=== PATIENT | female | born 1950 | race Caucasian/White ===

== ENCOUNTER → 2019-08-06 | Outpatient (REF) | payer OTHER | LOC: M SFHCADAM 15:34 | PROVIDERS: ATTEND Family Medicine | DX: R10.9 Unspecified abdominal pain (principal); I10 Essential (primary) hypertension ==

== ENCOUNTER → 2019-08-06 | Outpatient (CLI) | payer OTHER, BC ==
--- NOTE | 2019-08-07 04:44 | REP ---
Clinical: Right hip pain. Technique: Neutral and frog lateral views of the right hip. Findings: Mild/early moderate joint space narrowing is appreciated. The examination is otherwise essentially age-appropriate and without further overt osteoarthritic degenerative findings. No evidence for acute or healed injury. Surrounding soft tissues are unremarkable. Impression: Mild/moderate joint space narrowing. Electronically Signed by Raul Interiano MD 08/07/2019 04:35 A
--- NOTE | 2019-08-07 04:49 | REP ---
Clinical: Right hip pain. Technique: AP, lateral, bilateral oblique and coned-down views of the lumbosacral spine. Findings: Frontal view suggests a very subtle chronic levoconvex scoliosis. Lateral and oblique views best demonstrate mild/early moderate multilevel degenerative changes including endplate sclerosis, very subtle spurring, and hypertrophic facet changes. Findings also include mild disc space narrowing at L3-4 through L5-S1. No acute fracture / compression injury or subluxation. Impression: Essentially age-related degenerative changes as noted above. Electronically Signed by Raul Interiano MD 08/07/2019 04:40 A
== END ==
LOC: M ADAMS 14:35
PROVIDERS: ATTEND Family Medicine
DX: M16.11 Unilateral primary osteoarthritis, right hip (principal); M51.36 Other intervertebral disc degeneration, lumbar region; M51.37 Other intervertebral disc degeneration, lumbosacral region; M25.551 Pain in right hip; R10.9 Unspecified abdominal pain; I10 Essential (primary) hypertension
CPT/HCPCS: 72110; 73502; 81002; 87086; G0463

== ENCOUNTER → 2019-08-09 | Outpatient (REF) | payer OTHER ==
[2019-08-09 14:41] LABS: ALBUMIN 2.9 GM/DL (3.2-5.2); ALT/SGPT 20 U/L (12-78); BASO % 0.5 % (0.0-1.0); BILIRUBIN,TOTAL 0.3 MG/DL (0.2-1.0); BLOOD UREA NITROGEN 19 MG/DL (7-18); CALCIUM LEVEL 9.2 MG/DL (8.8-10.2); CARBON DIOXIDE LEVEL 31 MEQ/L (21-32); CHLORIDE LEVEL 104 MEQ/L (98-107); CHOLESTEROL LEVEL 306 MG/DL (<200); CHOLESTEROL RISK RATIO 7.463 (<5); CREATININE FOR GFR 0.81 MG/DL (0.55-1.30); EOS # 0.1 10^3/uL (0.0-0.5); EOS % 1.6 % (0.0-3.0); GLOMERULAR FILTRATION RATE > 60.0 (>45); GLUCOSE, FASTING 92 MG/DL (70-100); HDL CHOLESTEROL 41 MG/DL (>40); HEMATOCRIT 42.5 % (36.0-47.0); HEMOGLOBIN 13.9 g/dl (12.0-15.5); LDL CHOLESTEROL 221 MG/DL (<100); LYMPH % 26.7 % (24.0-44.0); MEAN CORPUSCULAR HEMOGLOBIN 29.7 pg (27.0-33.0); MEAN CORPUSCULAR HGB CONC 32.7 g/dl (32.0-36.5); MEAN CORPUSCULAR VOLUME 90.8 fl (80.0-96.0); MONO # 0.5 10^3/uL (0.0-0.8); MONO % 6.9 % (0.0-5.0); NEUTROPHILS # 4.9 10^3/uL (1.5-8.5); NON-HDL-C 265 MG/DL; PLATELET COUNT, AUTOMATED 168 10^3/uL (150-450); POTASSIUM SERUM 4.6 MEQ/L (3.5-5.1); RED BLOOD COUNT 4.68 10^6/uL (4.00-5.40); SODIUM LEVEL 139 MEQ/L (136-145); TOTAL PROTEIN 6.8 GM/DL (6.4-8.2); TRIGLYCERIDES LEVEL 221 MG/DL (<150); WHITE BLOOD COUNT 7.6 10^3/uL (4.0-10.0)
== END ==
LOC: M SFHCADAM 11:19
PROVIDERS: ATTEND Internal Medicine Infectious Disease
DX: M25.551 Pain in right hip (principal); R10.9 Unspecified abdominal pain; I10 Essential (primary) hypertension

== ENCOUNTER → 2019-08-14 | Outpatient (CLI) | payer OTHER ==
--- NOTE | 2019-08-15 07:03 | REP ---
Clinical: Left flank pain. Technique: Axial noncontrast images from the lung bases to the pubic symphysis with coronal and sagittal re-formations. Comparison: None. Findings: Lung bases demonstrate minimal scarring at the lingula and right middle lobe. Liver, spleen, pancreas, gallbladder, bilateral adrenal glands and kidneys are normal for noncontrast evaluation. No perinephric stranding, hydroureteronephrosis, intrarenal or obstructing ureteral calculi are identified. The enteric system is without obstruction or acute inflammatory process. Scattered sigmoid diverticula noted without acute diverticulitis. Pelvis demonstrates collapsed normal bladder and evidence for prior hysterectomy. No ascites. No free air. No adenopathy. Abdominal aorta without aneurysm. Musculoskeletal structures demonstrate degenerative changes without focal abnormality. Impression: 1. No acute abdominopelvic pathology appreciated. 2. Normal urinary tract system. 3. Sigmoid diverticula without acute diverticulitis. Electronically Signed by Raul Interiano MD 08/15/2019 06:55 A
== END ==
LOC: M RAD 09:37
PROVIDERS: ATTEND Family Medicine
DX: K57.30 Diverticulosis of large intestine without perforation or abscess without bleeding (principal)

== ENCOUNTER → 2019-08-27 | Outpatient (CLI) | payer OTHER ==
--- NOTE | 2019-08-27 13:23 | REP ---
MRI LUMBAR SPINE WITHOUT CONTRAST: HISTORY: Acute left-sided back pain. Radiating down the left lower extremity. TECHNIQUE: Sagittal and axial T1- and T2-weighted scans are acquired in the usual fashion with and without fat saturation. Sequences include spin echo, turbo spin-echo, and STIR imaging sequences. MRI FINDINGS: Lumbar vertebral body heights are preserved. Alignment is normal. No bony destructive lesion is seen. The tip of the conus medullaris is normal in position and appearance at L1. No extra-vertebral abnormality is observed. Axial and sagittal images taken at L5-S1 demonstrate mild diffuse disc bulging. There is ligamentum flavum and facet hypertrophy, mild in degree. No focal disc protrusion or thecal sac compression is seen. No nerve root compression is seen. At L4-5, there is mild degenerative narrowing and diffuse disc bulging of the disc margin posteriorly. No foraminal narrowing or focal disc protrusion is seen. No spinal stenosis noted. There is mild ligamentum flavum and facet hypertrophy. At L3-4, there is mild degenerative disc narrowing as well. No focal disc protrusion is seen. There is minimal disc bulging on the right. No foraminal narrowing or spinal stenosis is seen. At L2-3, there is no evidence of disc protrusion or spinal stenosis. No foraminal narrowing is seen. At L1-2, there is no significant disc finding. IMPRESSION: Osteoarthritic facet and ligamentum flavum hypertrophy bilaterally at L4-5 and L5-S1. Mild degenerative disc changes with diffuse disc bulging at L4-5 and L5-S1. No focal disc protrusion is seen. No spinal stenosis or foraminal narrowing noted. Electronically Signed by Lazarus Munoz MD 08/27/2019 04:56 P
== END ==
LOC: M RAD 08:51
PROVIDERS: ATTEND Family Medicine
DX: M51.36 Other intervertebral disc degeneration, lumbar region (principal); M51.37 Other intervertebral disc degeneration, lumbosacral region; M54.9 Dorsalgia, unspecified

== ENCOUNTER → 2019-09-04 | Outpatient (REF) | payer OTHER | LOC: M LAB REF 17:24 | PROVIDERS: ATTEND Dermatology | DX: D22.39 Melanocytic nevi of other parts of face (principal) | CPT/HCPCS: 11102; 88305; G0463 ==

== ENCOUNTER → 2019-12-03 | Outpatient (REF) | payer OTHER ==
[2019-12-03 17:19] LABS: ALBUMIN 2.9 GM/DL (3.2-5.2); ALT/SGPT 19 U/L (12-78); BILIRUBIN,TOTAL 0.2 MG/DL (0.2-1.0); BLOOD UREA NITROGEN 28 MG/DL (7-18); CALCIUM LEVEL 8.7 MG/DL (8.8-10.2); CARBON DIOXIDE LEVEL 28 MEQ/L (21-32); CHLORIDE LEVEL 108 MEQ/L (98-107); CREATININE FOR GFR 0.91 MG/DL (0.55-1.30); FREE T4 0.93 NG/DL (0.76-1.46); GLOMERULAR FILTRATION RATE > 60.0 (>45); GLUCOSE, FASTING 78 MG/DL (70-100); POTASSIUM SERUM 4.6 MEQ/L (3.5-5.1); SODIUM LEVEL 142 MEQ/L (136-145); TOTAL PROTEIN 6.7 GM/DL (6.4-8.2)
== END ==
LOC: M LABDRWAD 11:40
PROVIDERS: ATTEND Family Medicine
DX: R63.5 Abnormal weight gain (principal); I10 Essential (primary) hypertension; F32.9 Major depressive disorder, single episode, unspecified
CPT/HCPCS: 36415; 80053; 84439; 84443; G0463

== ENCOUNTER → 2020-01-09 | Outpatient (CLI) | payer OTHER ==
--- NOTE | 2020-01-10 10:10 | ECWPNPC ---
PATIENT NAME: LÁZARO ALARCON : 1950 GENDER: FEMALE VISIT DATE: 01/09/2020 DISCHARGE DATE: 01/09/20 1348 VISIT LOCKED DATE TIME: PHYSICIAN: JAMES CARPIO PHYSICIAN PAGER NO: ACTIVE RESOURCE: JAMES CARPIO REASON FOR APPOINTMENT 1. BACK/HIPS HISTORY OF PRESENT ILLNESS DEPRESSION SCREENING: PHQ-2 (2015 EDITION) LITTLE INTEREST OR PLEASURE IN DOING THINGS?NOT AT ALL FEELING DOWN, DEPRESSED, OR HOPELESS?NOT AT ALL TOTAL SCORE0 69-YEAR-OLD FEMALE IN FOR INITIAL PAIN CONSULT. PATIENT HAS COMPLAINTS OF LOW BACK AND BILATERAL HIP PAIN. SHE RATES HER PAIN CURRENTLY AT A 6 OUT OF 10 AND DESCRIBES IT ACHING, BURNING, INTERMITTENT, AND SORE. WHEN ASKED SHE DENIES HISTORY OF TRAUMA. SHE FURTHER DENIES PROCEDURES AND/OR MEDICATIONS THAT HAVE HELPED TO ALLEVIATE HER SYMPTOMS. SHE DOES ADMIT TO AN RF PROCEDURE THAT WAS DONE ON HER CERVICAL REGION THAT CAUSED HER TO END UP IN THE HOSPITAL AND ON A VENTILATOR. SUCH, THE PATIENT HAS AN AVERSION TO PROCEDURES ON HER NECK. GENERAL: - - -. FALL RISK SCREENING: SCREENING :ONE FALL WITHOUT INJURY IN THE PAST YEAR SLIPPED ON PORCH 3 WEEKS AGO, DID NOT SEEK MEDICAL TREATMET. PAIN SCREENING: PATIENT HAS A COMPLAINT OF ACUTE OR CHRONIC PAIN :YES LOCATION OF PAIN:LOW BACK, LEFT HIP, RIGHT HIP INTENSITY OF PAIN (SCALE OF 1 TO 10):6 WHAT DOES YOUR PAIN FEEL LIKE:ACHING, BURNING, INTERMITTENT, SORE DURATION:ALL DAY, MAINLY DURING THE NIGHT, AWAKENS FROM SLEEP PAIN IS INCREASED BY:ACTIVITIES PAIN IS DECREASED BY:USE OF PAIN MEDICATIONS, OTHERS PT USES BOTH ICE AND HEAT. STATES IT HELPS TO REDUCE PAIN. NURSING NOTE: - - -. PAIN CENTER INTAKE QUESTIONS: DO YOU HAVE A HISTORY OF MRSA? :NO DO YOU TAKE A BLOOD THINNERS? :NO DO YOU HAVE ANY BLEEDING DISORDERS? :NO ANY NEW NUMBNESS OR WEAKNESS IN YOUR LEGS OR ARMS? :NO ANY PACEMAKER,DEFIBRILLATOR, OR DORSAL COLUMN STIMULATOR? :NO DO YOU HAVE ANY RASHES OR OPEN SORES? :NO ARE YOU ALLERGIC TO IV DYE? :NO ARE YOU DIABETIC? :NO ANY NEW PROBLEMS WITH YOUR MEDICATIONS? :NO HAVE YOU RECEIVED A VACCINE IN THE PAST 30 DAYS? :NO DO YOU PLAN TO RECEIVE A VACCINE IN THE NEXT 21 DAYS? :YES PT IS GETTING THE FLU SHOT TOMORROW DO YOU NEED ANY PRESCRIPTION? :NO DO YOU TAKE ANY IMMUNOSUPPRESSIVE MEDICATIONS? 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 NO SPINAL STENOSIS OR FORAMINAL NARROWING. (08/2019) ALLERGIES PENICILLIN (FOR ALLERGIES USE ONLY): HIVES - ALLERGY SURGICAL HISTORY D & C 1975 PARTIAL HYSTERECTOMY 1975 TOTAL HYST 1979 L KNEE FRACTURE REPAIR L KNEE REMOVAL OF SCREWS L KNEE ARTHROSCOPY CAUTERIZATION OF NERVES IN NECK FAMILY HISTORY FATHER: , LUNG CANCER, COPD, DIAGNOSED WITH UNSPECIFIED HEART DISEASE, OTHER MALIGNANT NEOPLASM OF UNSPECIFIED SITE MOTHER: , RENAL FAILURE, DIABETES PATERNAL GRAND FATHER: , BRAIN ANEURYSM PATERNAL GRAND MOTHER: , LUNG CANCER MATERNAL GRAND MOTHER: LIVER FAILURE, DIABETES FATHER LUNG CANCER, MELANOMA FAMILY HX OF PANCREATIC CANCER. SOCIAL HISTORY GENERAL: TOBACCO USE ARE YOU A:FORMER SMOKER QUIT 04/07/2019 HOW LONG HAS IT BEEN SINCE YOU LAST SMOKED?3-6 MONTHS LATEX QUESTIONNAIRE LATEX ALLERGY : HAVE YOU EVER DEVELOPED ANY TYPE OF REACTION AFTER HANDLING LATEX PRODUCTS SUCH RUBBER GLOVES, CONDOMS, DIAPHRAGMS, BALLOONS, SOCKS, OR UNDERWEAR?NO LATEX ALLERGY : HAVE YOU EVER DEVELOPED ANY TYPE OF REACTION DURING OR AFTER DENTAL APPOINTMENT, VAGINAL/RECTAL EXAMINATION, SURGICAL PROCEDURE, OR ANY OTHER EXPOSURE?NO LATEX RISK : HAVE YOU EVER HAD ANY DIFFICULTY BREATHING OR HIVES AFTER EATING OR HANDLING ANY FRUITS, OR VEGETABLES; SUCH KIWI, BANANAS, STONE FRUITS, OR CHESTNUTSNO LATEX RISK : DO YOU HAVE A PREVIOUS PERSONAL HISTORY OF MORE THAN NINE SURGERIES, SPINA BIFIDA, OR REPEATED CATHERIZATIONS? NO LATEX RISK : ARE YOU FREQUENTLY EXPOSED TO LATEX PRODUCTS IN YOUR OCCUPATION?NO DATE ASKED : 01/09/2020 ALCOHOL SCREENING DID YOU HAVE A DRINK CONTAINING ALCOHOL IN THE PAST YEAR?NO POINTS0 INTERPRETATIONNEGATIVE RECREATIONAL DRUG USE DRUG USE?NO LEARNING BARRIERS / SPECIAL NEEDS BARRIERS TO LEARNING?NO HEARING IMPAIRED?NO VISION IMPAIRED?YES :CORRECTIVE LENSES COGNITIVELY IMPAIRED?NO READINESS TO LEARN?YES LEARNING PREFERENCES?NO LEARNING CAPABILITIES PRESENT?YES EMOTIONAL BARRIERS?NO SPECIAL DEVICES?NO QUALITY LAB TECHNICIAN NEEDED?NO DOMESTIC VIOLENCE DO YOU FEEL SAFE IN YOUR ENVIRONMENT?YES OTHERS AT HOME: . PAIN CLINIC PFS, CLERGY, PUBLIC HEALTH REFERRALS HAS THE PATIENT BEEN EDUCATED REGARDING HIS/HER PLAN OF CARE?YES ORIENTED TO PAIN MANAGEMENT AND PLAN OF CARE HAS THE PATIENT BEEN EDUCATED REGARDING PAIN, THE RISK FOR PAIN, THE IMPORTANCE OF EFFECTIVE PAIN MANAGEMENT, AND THE PAIN ASSESSMENT PROCESS?YES ADVANCE DIRECTIVE ADVANCE DIRECTIVE DISCUSSED WITH PATIENT:YES PT DECLINES ASSISTANCE OR INFORMATION AT THIS TIME HOSPITALIZATION/MAJOR DIAGNOSTIC PROCEDURE SURGERY RELATED REVIEW OF SYSTEMS CONSTITUTIONAL: ANY RECENT FEVER NO . CHILLS NO . WEIGHT CHANGE OF UNKNOWN REASONS NO . MUSCULOSKELETAL: ANY UNUSUAL JOINT PAIN OR SWELLING NOT MENTIONED NO . SYSTEMIC LUPUS NO . ANY NEUROMUSCULAR DISORDER NOT MENTIONED NO . LYME DISEASE NO . GASTROENTEROLOGY: ANY NEW CHANGE IN BOWEL CONTROL? NO . HISTORY OF LIVER DISORDER NOT MENTIONED NO . HISTORY OF UNUSUAL ABDOMINAL PAIN OR CRAMPING NOT MENTIONED NO . NO CONSTIPATION. GENITOURINARY: ANY NEW CHANGE IN BLADDER CONTROL? NO . ANY RENAL/KIDNEY CONDITON NOT MENTIONED NO . NEUROLOGY: HISTORY OF TBI NOT MENTIONED NO . OTHER NEW NUMBNESS OR PAIN PATTERNS NOT MENTIONED NO . NEW ONSET DIZZINESS OR NEUROLOGICAL CHANGES NOT MENTIONED NO . HISTORY OF SEVERE HEADACHES NOT MENTIONED NO . HISTORY OF STROKE OR NEUROLOGICAL DISORDER NOT MENTIONED NO . CARDIOLOGY: HEART SURGERY NO . CONGESTIVE HEART FAILURE/FLUID OVERLOAD NOT MENTIONED NO . HISTORY OF CHEST PAIN,IRREGULAR HEART BEAT NOT MENTIONED NO . RESPIRATORY: SHORTNESS OF BREATH ON EXERTION, WHEEZES, UNUSUAL COUGH NOT MENTIONED NO . ENDOCRINOLOGY: ADRENAL GLAND OR THYROID DISORDERS NOT MENTIONED NO . UNUSUAL URINATION, DIZZINESS OR LETHARGY NOT MENTIONED NO . VITAL SIGNS WT 189.6 LBS, HT 62 IN, BMI 34.67 INDEX, BP 153/68 MM HG, HR 63 /MIN, RR 18 /MIN, TEMP 97.0 F, OXYGEN SAT % 95%, NA INITIALS AW 1310, REVIEWED BY: DM. EXAMINATION GENERAL EXAMINATION: GENERALNO ACUTE DISTRESS, WELL NOURISHED AND HYDRATED. PSYCHAPPROPRIATE MOOD AND AFFECT . LUNGS:CLEAR TO AUSCULTATION BILATERALLY, NO WHEEZES, RHONCHI, RALES. HEART:NO MURMURS, REGULAR RATE AND RHYTHM. BACK: BILATERAL SI JOINT TENDERNESS,. MUSCULOSKELETAL:POINT TENDER BILATERAL GREATER TROCHANTERS . 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 GIVEN PRESENTING SYMPTOMS AND RESULTS OF PHYSICAL EXAMINATION RECOMMENDED INCREASING LYRICA TO 75 MG TWICE A DAY WITH FOLLOW-UP IN ONE MONTH TO DETERMINE EFFICACY OF TREATMENT. PATIENT HAS EXPRESSED UNDERSTANDING OF AND WAS IN AGREEMENT WITH TREATMENT PLAN. GIVEN TIME TO ASK QUESTIONS AND EXPRESS CONCERNS. PREVENTIVE MEDICINE PAIN CLINIC TEACHING: THE PATIENT HAS BEEN EDUCATED REGARDING PAIN, THE RISK FOR PAIN, THE IMPORTANCE OF EFFECTIVE PAIN MANAGEMENT, AND THE PAIN ASSESSMENT PROCESS. : REVIEWED INCREASE IN MEDICATION WITH PT AND PLAN OF CARE. PT ACKNOWLEDGED UNDERSTANDING. PROCEDURE CODES FA211 ESTABILISHED PATIENT [facility] CHARGE DISPOSITION & COMMUNICATION FOLLOW UP 4 WEEKS (REASON: BACK AND HIP PAIN ) ELECTRONICALLY SIGNED BY CLEMENTE ZUNIGA ON 01/10/2020 AT 10:07 AM EDT DISCLAIMER : THIS IS A VISIT SUMMARY EXTRACTED FROM THE [employer] CHART. IT IS NOT A COPY OF THE [employer] PROGRESS NOTE. [employer]
== END ==
LOC: M PAIN 13:00
PROVIDERS: ATTEND Family Medicine
DX: M46.1 Sacroiliitis, not elsewhere classified (principal); M70.62 Trochanteric bursitis, left hip; M70.61 Trochanteric bursitis, right hip; G47.00 Insomnia, unspecified; Z86.59 Personal history of other mental and behavioral disorders; Z87.891 Personal history of nicotine dependence; Z88.0 Allergy status to penicillin; Z79.899 Other long term (current) drug therapy

== ENCOUNTER → 2020-02-01 | Outpatient (REF) | payer OTHER ==
[2020-02-01 12:55] LABS: BACTERIA, URINE AUTO NEGATIVE (NEGATIVE); MUCUS, URINE SMALL (NEGATIVE); RBC, URINE AUTO 1 /HPF (0-3); SQUAMOUS EPITHELIAL CELL UR AU 0 /HPF (0-6); WBC, URINE AUTO 1 /HPF (0-3)
== END ==
LOC: M SMT 11:59
PROVIDERS: ATTEND Specialist
DX: N89.8 Other specified noninflammatory disorders of vagina (principal); R39.14 Feeling of incomplete bladder emptying
CPT/HCPCS: 81015; 87086; 87480; 87510; 87660; G0463

== ENCOUNTER → 2020-02-08 | Outpatient (CLI) | payer OTHER ==
--- NOTE | 2020-02-12 04:18 | ECWPNPC ---
PATIENT NAME: LÁZARO ALARCON : 1950 GENDER: FEMALE VISIT DATE: 02/08/2020 DISCHARGE DATE: 02/08/20 1056 VISIT LOCKED DATE TIME: PHYSICIAN: JAMES CARPIO PHYSICIAN PAGER NO: ACTIVE RESOURCE: JAMES CARPIO REASON FOR APPOINTMENT 1. BACK/HIPS HISTORY OF PRESENT ILLNESS GENERAL: - 69-YEAR-OLD FEMALE IN FOR CHRONIC PAIN FOLLOW-UP. AT LAST CLINIC VISIT PATIENT WAS STARTED ON LYRICA AND SHE ADMITS TODAY THAT AT IT'S CURRENT DOSAGE SHE IS UNSURE IF IT HAS BEEN HELPFUL. SHE RATES HER PAIN CURRENTLY AT A 7 OUT OF 10 AND DESCRIBES IT ACHING, AND BURNING. FALL RISK SCREENING: SCREENING :NO FALLS REPORTED IN THE LAST YEAR PAIN SCREENING: PATIENT HAS A COMPLAINT OF ACUTE OR CHRONIC PAIN :YES LOCATION OF PAIN:HEAD, NECK, LEFT SHOULDER, RIGHT SHOULDER, MID BACK, LOW BACK, LEFT HIP, RIGHT HIP, LEG(S) INTENSITY OF PAIN (SCALE OF 1 TO 10):7 WHAT DOES YOUR PAIN FEEL LIKE:ACHING, BURNING DURATION:CONTINOUS, CONSTANT PAIN IS INCREASED BY:ACTIVITIES PAIN IS DECREASED BY:OTHERS NOTHING LEVEL OF RELIEF FROM PAIN TREATMENTS IN THE PAST:0% PAIN HAS INTERFERED WITH THE FOLLOWING:BATHING/DRESSING, WALKING ABILITY, HOUSEWORK, SLEEP, TOILETING NURSING NOTE: -. PAIN CENTER INTAKE QUESTIONS: DO YOU HAVE A HISTORY OF MRSA? :NO DO YOU TAKE A BLOOD THINNERS? :NO DO YOU HAVE ANY BLEEDING DISORDERS? :NO ANY NEW NUMBNESS OR WEAKNESS IN YOUR LEGS OR ARMS? :NO ANY PACEMAKER,DEFIBRILLATOR, OR DORSAL COLUMN STIMULATOR? :NO DO YOU HAVE ANY RASHES OR OPEN SORES? :NO ARE YOU ALLERGIC TO IV DYE? :NO ARE YOU DIABETIC? :NO ANY NEW PROBLEMS WITH YOUR MEDICATIONS? :NO HAVE YOU RECEIVED A VACCINE IN THE PAST 30 DAYS? :YES IF SO WHAT VACCINE AND WHEN? FLU AND PNEUMO 12/2019 DO YOU PLAN TO RECEIVE A VACCINE IN THE NEXT 21 DAYS? :NO DO YOU NEED ANY PRESCRIPTION? :NO DO YOU TAKE ANY IMMUNOSUPPRESSIVE MEDICATIONS? :NO IS THERE A CHANCE YOU COULD BE ? :NO ARE YOU BREAST FEEDING? :NO CURRENT MEDICATIONS TAKING TRAZODONE HCL 150 MG TABLET TAKE 1 TABLET BY MOUTH ONCE DAILY AT BEDTIME ORAL TAKING PAROXETINE HCL 30 MG TABLET 1 TAB ORAL DAILY TAKING PROPRANOLOL HCL 80 MG TABLET 1 TABLET ORALLY THREE TIMES A DAY TAKING CELEBREX 200 MG CAPSULE 1 CAPSULE WITH FOOD ORALLY ONCE A DAY TAKING LYRICA 75 MG CAPSULE 1 CAPSULE ORALLY BID TAKING XENICAL 120 MG CAPSULE 1 CAPSULE WITH EACH MAIN MEAL ORALLY THREE TIMES A DAY TAKING PYRIDIUM 100 MG TABLET 1 TABLETS AFTER MEALS ORALLY THREE TIMES A DAY NOT-TAKING PYRIDIUM 100 MG TABLET 1 TABLET AFTER MEALS ORALLY THREE TIMES A DAY NEEDED FOR BURNING SENSATION NOT-TAKING ADVIL 200 MG TABLET 2 TABLET WITH FOOD OR MILK NEEDED ORALLY THREE TIMES A DAY MEDICATION LIST REVIEWED AND RECONCILED WITH THE PATIENT 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 NO SPINAL STENOSIS OR FORAMINAL NARROWING. (08/2019) ALLERGIES PENICILLIN (FOR ALLERGIES USE ONLY): HIVES - ALLERGY SURGICAL HISTORY D & C 1975 PARTIAL HYSTERECTOMY 1975 TOTAL HYST 1979 L KNEE FRACTURE REPAIR L KNEE REMOVAL OF SCREWS L KNEE ARTHROSCOPY CAUTERIZATION OF NERVES IN NECK FAMILY HISTORY FATHER: , LUNG CANCER, COPD, DIAGNOSED WITH UNSPECIFIED HEART DISEASE, OTHER MALIGNANT NEOPLASM OF UNSPECIFIED SITE MOTHER: , RENAL FAILURE, DIABETES PATERNAL GRAND FATHER: , BRAIN ANEURYSM PATERNAL GRAND MOTHER: , LUNG CANCER MATERNAL GRAND MOTHER: LIVER FAILURE, DIABETES FATHER LUNG CANCER, MELANOMA FAMILY HX OF PANCREATIC CANCER. SOCIAL HISTORY GENERAL: TOBACCO USE ARE YOU A:FORMER SMOKER QUIT 04/07/2019 HOW LONG HAS IT BEEN SINCE YOU LAST SMOKED?3-6 MONTHS LATEX QUESTIONNAIRE LATEX ALLERGY : HAVE YOU EVER DEVELOPED ANY TYPE OF REACTION AFTER HANDLING LATEX PRODUCTS SUCH RUBBER GLOVES, CONDOMS, DIAPHRAGMS, BALLOONS, SOCKS, OR UNDERWEAR?NO LATEX ALLERGY : HAVE YOU EVER DEVELOPED ANY TYPE OF REACTION DURING OR AFTER DENTAL APPOINTMENT, VAGINAL/RECTAL EXAMINATION, SURGICAL PROCEDURE, OR ANY OTHER EXPOSURE?NO DATE ASKED : 02/01/2020 LATEX RISK : HAVE YOU EVER HAD ANY DIFFICULTY BREATHING OR HIVES AFTER EATING OR HANDLING ANY FRUITS, OR VEGETABLES; SUCH KIWI, BANANAS, STONE FRUITS, OR CHESTNUTSNO LATEX RISK : DO YOU HAVE A PREVIOUS PERSONAL HISTORY OF MORE THAN NINE SURGERIES, SPINA BIFIDA, OR REPEATED CATHERIZATIONS? NO LATEX RISK : ARE YOU FREQUENTLY EXPOSED TO LATEX PRODUCTS IN YOUR OCCUPATION?NO ALCOHOL SCREENING DID YOU HAVE A DRINK CONTAINING ALCOHOL IN THE PAST YEAR?NO POINTS0 INTERPRETATIONNEGATIVE RECREATIONAL DRUG USE DRUG USE?NO CAFFEINE CAFFEINE USE?YES 3-4 (16OZ) CUPS DAILY SEXUAL HX HAD SEX IN THE LAST 12 MONTHS (VAGINAL, ORAL, OR ANAL)?NO HAVE YOU EVER HAD AN STD?NO HOLINESS HOLINESS NO CONGREGATIONAL BELIEFS THAT WOULD IMPACT HEALTH CARE. LANGUAGE LANGUAGES SPOKEN:TRINIDADIAN LEARNING BARRIERS / SPECIAL NEEDS BARRIERS TO LEARNING?NO HEARING IMPAIRED?NO VISION IMPAIRED?YES COGNITIVELY IMPAIRED?NO :CORRECTIVE LENSES READINESS TO LEARN?YES LEARNING PREFERENCES?NO LEARNING CAPABILITIES PRESENT?YES EMOTIONAL BARRIERS?NO SPECIAL DEVICES?NO MEAT WRAPPER NEEDED?NO DOMESTIC VIOLENCE DO YOU FEEL SAFE IN YOUR ENVIRONMENT?YES OCCUPATION: RETIRED. DIET: REGULAR. EXERCISE: NONE. MARITAL STATUS: . OTHERS AT HOME: . PAIN CLINIC PFS, CLERGY, PUBLIC HEALTH REFERRALS HAS THE PATIENT BEEN EDUCATED REGARDING HIS/HER PLAN OF CARE?YES ORIENTED TO PAIN MANAGEMENT AND PLAN OF CARE HAS THE PATIENT BEEN EDUCATED REGARDING PAIN, THE RISK FOR PAIN, THE IMPORTANCE OF EFFECTIVE PAIN MANAGEMENT, AND THE PAIN ASSESSMENT PROCESS?YES ADVANCE DIRECTIVE ADVANCE DIRECTIVE DISCUSSED WITH PATIENT:YES PT DECLINES ASSISTANCE OR INFORMATION AT THIS TIME HOSPITALIZATION/MAJOR DIAGNOSTIC PROCEDURE SURGERY RELATED REVIEW OF SYSTEMS CONSTITUTIONAL: ANY RECENT FEVER NO . CHILLS NO . WEIGHT CHANGE OF UNKNOWN REASONS NO . GASTROENTEROLOGY: NEW UNEXPLAINABLE CHANGES IN BOWEL CONTROL NO . CONSTIPATION NO . GENITOURINARY: ANY NEW CHANGE IN BLADDER CONTROL? NO . NEUROLOGY: NEW ONSET DIZZINESS OR NEUROLOGICAL CHANGES NOT MENTIONED NO . NEW NUMBNESS OR PAIN PATTERNS NOT MENTIONED AND PERTINENT TO TODAY'S VISIT NO . CARDIOLOGY: NEW CHEST PRESSURE NO . NEW CHEST PAIN NO . RESPIRATORY: UNEXPLAINABLE COUGH NO . NEW SHORTNESS OF BREATH NO . VITAL SIGNS WT 190.8 LBS, HT 62 IN, BMI 34.89 INDEX, BP 132/63 MM HG, HR 55 /MIN, RR 18 /MIN, TEMP 96.3 F, OXYGEN SAT % 94%, NA INITIALS SC 10:09, REVIEWED BY: EM. EXAMINATION GENERAL EXAMINATION: GENERALNO ACUTE DISTRESS, WELL NOURISHED AND HYDRATED. PSYCHAPPROPRIATE MOOD AND AFFECT . LUNGS:CLEAR TO AUSCULTATION BILATERALLY, NO WHEEZES, RHONCHI, RALES. HEART:NO MURMURS, REGULAR RATE AND RHYTHM. BACK: POINT TENDER ALONG LUMBAR SPINE, SURROUNDING SKIN SHOWS NO ERYTHEMA, ECCHYMOSIS, INCREASED WARMTH, AND/OR SKIN ERUPTIONS NOTED. PATIENT DOES ENDORSE INCREASED PAIN WITH FACET LOADING.. ASSESSMENTS SPONDYLOSIS OF LUMBOSACRAL REGION WITHOUT MYELOPATHY OR RADICULOPATHY - M47.817 (PRIMARY) TREATMENT SPONDYLOSIS OF LUMBOSACRAL REGION WITHOUT MYELOPATHY OR RADICULOPATHY INCREASE LYRICA CAPSULE, 75 MG, 1 CAPSULE, ORALLY, TID, 30 DAYS, 90, REFILLS 2 NOTES: 69-YEAR-OLD FEMALE IN FOR CHRONIC PAIN FOLLOW-UP. GIVEN PRESENTING SYMPTOMS RECOMMEND INCREASING LYRICA TO 75 MG 3 TIMES A DAY AND PERFORMING A BILATERAL THERAPEUTIC LUMBAR FACET BLOCK L4-L5 L5-S1 WITH POST PROCEDURAL FOLLOW-UP. PATIENT EXPRESSED UNDERSTANDING OF AND WAS IN AGREEMENT WITH TREATMENT PLAN. GIVEN TIME TO ASK QUESTIONS AND EXPRESS CONCERNS. , [employer] REGISTRY REVIEWED AND DEMONSTRATES COMPLLIANCE. (REF # [id number] ). CLINICAL NOTES: BILATERAL THERAPEUTIC LUMBAR FACET BLOCK L4-L5 L5-S1. OTHERS NOTES: FACET JOINT INJECTION MATERIAL WAS PRINTED. PROCEDURE CODES FA211 ESTABILISHED PATIENT [facility] CHARGE DISPOSITION & COMMUNICATION FOLLOW UP POSTPROCEDURE (REASON: LATERAL THERAPEUTIC LUMBAR FACET BLOCK L4-L5 L5-S1) ELECTRONICALLY SIGNED BY CLEMENTE ZUNIGA ON 02/11/2020 AT 08:28 AM EST DISCLAIMER : THIS IS A VISIT SUMMARY EXTRACTED FROM THE [employer] CHART. IT IS NOT A COPY OF THE [employer] PROGRESS NOTE. [employer]
== END ==
LOC: M PAIN 10:00
PROVIDERS: ATTEND Family Medicine
DX: M47.817 Spondylosis without myelopathy or radiculopathy, lumbosacral region (principal); G89.29 Other chronic pain; G47.00 Insomnia, unspecified; Z86.59 Personal history of other mental and behavioral disorders; Z87.891 Personal history of nicotine dependence; Z88.0 Allergy status to penicillin; Z79.899 Other long term (current) drug therapy

== ENCOUNTER → 2020-02-21 | Outpatient (CLI) | payer OTHER | LOC: M LABSMTC 10:59 | PROVIDERS: ATTEND Anesthesiology | DX: Z20.828 Contact with and (suspected) exposure to other viral communicable diseases (principal) ==

== ENCOUNTER → 2020-02-26 | Outpatient (CLI) | payer OTHER ==
[~2020-02-26] MED LIST: BUPIVACAINE HCL 0.25% 30ML VIAL As Ordered ONE; ISOVUE-M 300 61% 15ML VIAL As Ordered ONE; LIDOCAINE 1% SDV 30ML VIAL As Ordered ONE; NORCO, ANEXSIA 5/325MG TABLET (HYDROcodone/ACETAMINOPHEN) As Ordered ONE; TRIAMCINOLONE ACETONIDE SUSP 40 MG/ML VIAL (J3301) As Ordered ONE; diphenhydrAMINE 25MG CAP As Ordered ONE
--- NOTE | 2020-02-26 12:24 | REP ---
INDICATION: BIALTERAL LUMBAR THERAPEUTIC FACET BLOCK. Pain COMPARISON: None. TECHNIQUE: For C-arm views lower lumbar spine performed. FINDINGS: Coulter are seen along the bilateral lower lumbar facet joints and a small amount of contrast is injected. IMPRESSION: 14 seconds of fluoroscopy time is utilized. <Electronically signed by Lincoln Farmer > 02/26/20 2641
--- NOTE | 2020-02-29 01:27 | ECWPNPC ---
PATIENT NAME: LÁZARO ALARCON : 1950 GENDER: FEMALE VISIT DATE: 02/26/2020 DISCHARGE DATE: 02/26/20 1230 VISIT LOCKED DATE TIME: PHYSICIAN: JOSE E KAUR MD PHYSICIAN PAGER NO: ACTIVE RESOURCE: JOSE E KAUR MD REASON FOR APPOINTMENT 1. BILATERAL THERAPEUTIC LUMBAR FACET BLOCK L4-L5 L5-S1 HISTORY OF PRESENT ILLNESS GENERAL: -. FALL RISK SCREENING: SCREENING :NO FALLS REPORTED IN THE LAST YEAR PAIN SCREENING: PATIENT HAS A COMPLAINT OF ACUTE OR CHRONIC PAIN :YES LOCATION OF PAIN:LOW BACK, LEFT HIP, RIGHT HIP INTENSITY OF PAIN (SCALE OF 1 TO 10):5 WHAT DOES YOUR PAIN FEEL LIKE:BURNING, CONTINOUS, SORE DURATION:CONTINOUS PAIN IS INCREASED BY:OTHERS SITTING TOO LONG PAIN IS DECREASED BY:OTHERS NOTHING REALLY HELPS RIGHT NOW NURSING NOTE: -. PAIN CENTER INTAKE QUESTIONS: DO YOU HAVE A HISTORY OF MRSA? :NO DO YOU TAKE A BLOOD THINNERS? :NO DO YOU HAVE ANY BLEEDING DISORDERS? :NO ANY NEW NUMBNESS OR WEAKNESS IN YOUR LEGS OR ARMS? :NO ANY PACEMAKER,DEFIBRILLATOR, OR DORSAL COLUMN STIMULATOR? :NO DO YOU HAVE ANY RASHES OR OPEN SORES? :NO ARE YOU ALLERGIC TO IV DYE? :NO ARE YOU DIABETIC? :NO ANY NEW PROBLEMS WITH YOUR MEDICATIONS? :NO HAVE YOU RECEIVED A VACCINE IN THE PAST 30 DAYS? :YES IF SO WHAT VACCINE AND WHEN? FLU & PNEUMONIA 2019 DO YOU PLAN TO RECEIVE A VACCINE IN THE NEXT 21 DAYS? :NO DO YOU TAKE ANY IMMUNOSUPPRESSIVE MEDICATIONS? :NO ANY HISTORY OF SEIZURES? :NO ANY HISTORY OF CARDIAC ISSUES OR EVENTS? :NO DO YOU HAVE SLEEP APNEA? :NO ANY RECENT HEAD INJURY? :NO DO YOU HAVE ANY NEW INFECTIONS? :NO IS THERE A CHANCE YOU COULD BE ? :NO ARE YOU BREAST FEEDING? :NO WHEN DID YOU LAST EAT? : 02/25/2020 1800 WHEN DID YOU LAST DRINK? : 02/26/2020 08 WHAT DID YOU LAST DRINK? : WATER NAME OF PERSON DRIVING YOU HOME? : DO YOU HAVE ANY OTHER QUESTIONS OR CONCERNS? : - CURRENT MEDICATIONS TAKING TRAZODONE HCL 150 MG TABLET TAKE 1 TABLET BY MOUTH ONCE DAILY AT BEDTIME ORAL , NOTES: 02/25/2020 2100 TAKING PAROXETINE HCL 30 MG TABLET 1 TAB ORAL DAILY, NOTES: 02/26/2020 0800 TAKING PROPRANOLOL HCL 80 MG TABLET 1 TABLET ORALLY THREE TIMES A DAY, NOTES: 02/26/2020 0800 TAKING PYRIDIUM 100 MG TABLET 1 TABLETS AFTER MEALS ORALLY THREE TIMES A DAY, NOTES: 02/25/2020 2100 TAKING LYRICA 75 MG CAPSULE 1 CAPSULE ORALLY TID, NOTES: 02/25/20202099 TAKING CELEBREX 200 MG CAPSULE 1 CAPSULE WITH FOOD ORALLY ONCE A DAY, NOTES: 02/25/2020 0900 NOT-TAKING XENICAL 120 MG CAPSULE 1 CAPSULE WITH EACH MAIN MEAL ORALLY THREE TIMES A DAY NOT-TAKING PYRIDIUM 100 MG TABLET 1 TABLET AFTER MEALS ORALLY THREE TIMES A DAY NEEDED FOR BURNING SENSATION NOT-TAKING ADVIL 200 MG TABLET 2 TABLET WITH FOOD OR MILK NEEDED ORALLY THREE TIMES A DAY MEDICATION LIST REVIEWED AND RECONCILED WITH THE PATIENT 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 NO SPINAL STENOSIS OR FORAMINAL NARROWING. (08/2019) ALLERGIES PENICILLIN (FOR ALLERGIES USE ONLY): HIVES - ALLERGY SURGICAL HISTORY D & C 1975 PARTIAL HYSTERECTOMY 1975 TOTAL HYST 1979 L KNEE FRACTURE REPAIR L KNEE REMOVAL OF SCREWS L KNEE ARTHROSCOPY CAUTERIZATION OF NERVES IN NECK FAMILY HISTORY FATHER: , LUNG CANCER, COPD, DIAGNOSED WITH UNSPECIFIED HEART DISEASE, OTHER MALIGNANT NEOPLASM OF UNSPECIFIED SITE MOTHER: , RENAL FAILURE, DIABETES PATERNAL GRAND FATHER: , BRAIN ANEURYSM PATERNAL GRAND MOTHER: , LUNG CANCER MATERNAL GRAND MOTHER: LIVER FAILURE, DIABETES FATHER LUNG CANCER, MELANOMA FAMILY HX OF PANCREATIC CANCER. SOCIAL HISTORY GENERAL: TOBACCO USE ARE YOU A:FORMER SMOKER QUIT 04/07/2019 HOW LONG HAS IT BEEN SINCE YOU LAST SMOKED?3-6 MONTHS LATEX QUESTIONNAIRE LATEX ALLERGY : HAVE YOU EVER DEVELOPED ANY TYPE OF REACTION AFTER HANDLING LATEX PRODUCTS SUCH RUBBER GLOVES, CONDOMS, DIAPHRAGMS, BALLOONS, SOCKS, OR UNDERWEAR?NO LATEX ALLERGY : HAVE YOU EVER DEVELOPED ANY TYPE OF REACTION DURING OR AFTER DENTAL APPOINTMENT, VAGINAL/RECTAL EXAMINATION, SURGICAL PROCEDURE, OR ANY OTHER EXPOSURE?NO LATEX RISK : HAVE YOU EVER HAD ANY DIFFICULTY BREATHING OR HIVES AFTER EATING OR HANDLING ANY FRUITS, OR VEGETABLES; SUCH KIWI, BANANAS, STONE FRUITS, OR CHESTNUTSNO LATEX RISK : DO YOU HAVE A PREVIOUS PERSONAL HISTORY OF MORE THAN NINE SURGERIES, SPINA BIFIDA, OR REPEATED CATHERIZATIONS? NO LATEX RISK : ARE YOU FREQUENTLY EXPOSED TO LATEX PRODUCTS IN YOUR OCCUPATION?NO DATE ASKED : 02/26/2020 ALCOHOL SCREENING DID YOU HAVE A DRINK CONTAINING ALCOHOL IN THE PAST YEAR?NO POINTS0 INTERPRETATIONNEGATIVE RECREATIONAL DRUG USE DRUG USE?NO CAFFEINE CAFFEINE USE?YES 3-4 (16OZ) CUPS DAILY SEXUAL HX HAD SEX IN THE LAST 12 MONTHS (VAGINAL, ORAL, OR ANAL)?NO HAVE YOU EVER HAD AN STD?NO PENTECOSTALISM PENTECOSTALISM NO AMISH BELIEFS THAT WOULD IMPACT HEALTH CARE. LANGUAGE LANGUAGES SPOKEN:SPANISH LEARNING BARRIERS / SPECIAL NEEDS BARRIERS TO LEARNING?NO HEARING IMPAIRED?NO VISION IMPAIRED?YES COGNITIVELY IMPAIRED?NO :CORRECTIVE LENSES READINESS TO LEARN?YES LEARNING PREFERENCES?NO LEARNING CAPABILITIES PRESENT?YES EMOTIONAL BARRIERS?NO SPECIAL DEVICES?NO BUSINESS PERFORMANCE SPECIALIST NEEDED?NO DOMESTIC VIOLENCE DO YOU FEEL SAFE IN YOUR ENVIRONMENT?YES OCCUPATION: RETIRED. DIET: REGULAR. EXERCISE: NONE. MARITAL STATUS: . OTHERS AT HOME: . PAIN CLINIC PFS, CLERGY, PUBLIC HEALTH REFERRALS HAS THE PATIENT BEEN EDUCATED REGARDING HIS/HER PLAN OF CARE?YES ORIENTED TO PAIN MANAGEMENT AND PLAN OF CARE HAS THE PATIENT BEEN EDUCATED REGARDING PAIN, THE RISK FOR PAIN, THE IMPORTANCE OF EFFECTIVE PAIN MANAGEMENT, AND THE PAIN ASSESSMENT PROCESS?YES ADVANCE DIRECTIVE ADVANCE DIRECTIVE DISCUSSED WITH PATIENT:YES PT DECLINES ASSISTANCE OR INFORMATION AT THIS TIME HOSPITALIZATION/MAJOR DIAGNOSTIC PROCEDURE SURGERY RELATED VITAL SIGNS WT 194.4 LBS, HT 62 IN, BMI 35.55 INDEX, BP 159/73 MM HG, HR 61 /MIN, RR 18 /MIN, TEMP 96.5 F, OXYGEN SAT % 93%, SAFE IN ENV? (Y/N) YES, NA INITIALS NM 10:54, REVIEWED BY: AMANDOREBRENDA LOERA RN. EXAMINATION GENERAL EXAMINATION: THE PATIENT IS ALERT, ORIENTED TIMES THREE AND COOPERATIVE. HEART SHOWS REGULAR RHYTHM, NO MURMURS AND NO GALLOPS. LUNGS ARE CLEAR TO AUSCULTATION. ASSESSMENTS SPONDYLOSIS WITHOUT MYELOPATHY OR RADICULOPATHY, LUMBAR REGION - M47.816 (PRIMARY) SPONDYLOSIS WITHOUT MYELOPATHY OR RADICULOPATHY, LUMBOSACRAL REGION - M47.817 TREATMENT SPONDYLOSIS WITHOUT MYELOPATHY OR RADICULOPATHY, LUMBAR REGION [facility] FACET BLOCK (PAIN)[id number] MEDICATION: BENADRYL TAB 25MG ORALLY (DIPHENHYDRAMINE)COURTNEY SALCIDO 02/26/2020 11:18:41 AM > BENADRYL LOT#[id number]. EXP 04/2022 CHELLY DIEZ 02/26/2020 11:24:08 AM > ADMINISTERED MEDICATION: NORCO TABLET 5MG/325MG ORALLY (HYDROCODONE/ACETAMINOPHEN)COURTNEY SALCIDO 02/26/2020 11:19:27 AM > NORCO LOT# [id number]. EXP 06/2021 CHELLY DIEZ 02/26/2020 11:24:26 AM > ADMINISTERED SALINE LOCKCHELLY DIEZ 02/26/2020 11:33:20 AM > #22 SL INSERTED X 1 ATTEMPT BY THIS VP [employer] AND SKIN, SITE ASYMPTOMATIC, PATIENT TOLERATED WELL. Mariana LOERA RN PROCEDURES PAIN NURSING RECORD PRE-PROCEDURE IV SITE RIGHT HAND, IV STARTED # 22, IV STARTED BY: June LOERA RN, IV ATTEMPTS 1 PROCEDURE IN ROOM 1145, PHYSICIAN IN ROOM 1157, START 1201, FINISH 1207, PHYSICIAN OUT OF ROOM 1209, OUT OF ROOM 1214, STEROID KENALOG 80 MG, O2 RA, ECG NORMAL SINUS, PATIENT SHIELDED YES, SAFETY STRAP YES, PREP CHLOROPREP BY Stanley SALCIDO RN, IV INFUSED N/A, DRESSING TEGADERM BY DR KAUR LOC: CHELLY DIEZ 02/26/2020 11:51:51 AM > , 1. ALERT, ORIENTED RESP: CHELLY DIEZ 02/26/2020 11:51:54 AM > , 1. REGULAR, NO DYSPNEA COLOR: CHELLY DIEZ 02/26/2020 11:52:14 AM > , 1. PINK SKIN: CHELLY DIEZ 02/26/2020 11:52:18 AM > , 1. WARM, DRY POSITION: CHELLY DIEZ 02/26/2020 11:52:23 AM > , 1. PRONE VITALS: CHELLY DIEZ 02/26/2020 11:52:27 AM > 203/88-66-18-94% RA , CHELLY DIEZ 02/26/2020 11:56:09 AM > 169/73-64-18-93% RA 02/26/2020 1210 161/84-70-18-96% RA 02/26/2020 1217 180/82-68-16-94%RA DISCHARGE: POST PAIN 5 LOWER BACK, DRESSING SITE DRY AND INTACT BILATERAL LOWER BACK, IV DISCONTINUED, SITE CLEAR, CATHETER INTACT, GAIT STEADY, TEACHING COMPLETED, PATIENT ACKNOWLEDGES UNDERSTANDING YES PATIENT VERBALIZES UNDERSTANDING OF DISCHARGE INSTRUCTIONS REVIEWED, PATIENT DISCHARGED AT 1230 PN LUMBAR FACET BLOCK THERAPEUTIC PRE PROCEDURE DIAGNOSIS LUMBAR SPONDYLOSIS, LUMBOSACRAL SPONDYLOSIS POST PROCEDURE DIAGNOSIS LUMBAR SPONDYLOSIS, LUMBOSACRAL SPONDYLOSIS PROCEDURE BILATERAL L4-L5 AND BILATERAL L5-S1 LUMBAR FACET THERAPEUTIC BLOCK SURGEON DR. JOSE E KAUR CHICKEN TENDER NONE ANESTHESIA LOCAL PRE PROCEDURE NOTE THE PATIENT HAS A HISTORY OF CHRONIC LOW BACK PAIN. I EVALUATED THE PATIENT AND REVIEWED THE CHART. I WENT OVER THE RISKS, ALTERNATIVES, AND BENEFITS ASSOCIATED WITH THIS PROCEDURE. I DISCUSSED THAT THE USE OF STEROIDS MAY CONTRIBUTE TO IMMUNOSUPPRESSION OF THE PATIENT'S BODY AGAINST INFECTIONS SUCH COVID-19. THE PATIENT IS AWARE OF THE POTENTIAL COMPLICATIONS ASSOCIATED WITH THIS VIRUS, INCLUDING, BUT NOT LIMITED TO, . THE PATIENT WOULD LIKE TO PROCEED AND GIVES CONSENT TO PERFORM THE PROCEDURE. THE PATIENT DENIES UNEXPLAINABLE WEIGHT LOSS, FEVER, CHILLS, OR NEW CHANGES IN URINARY OR BOWEL CONTROL. THE PATIENT IS COVID-19 NEGATIVE DESCRIPTION OF PROCEDURE THE PATIENT WAS BROUGHT TO THE PROCEDURE ROOM AND PLACED IN THE PRONE POSITION. THE LUMBOSACRAL AREA WAS CLEANED WITH CHLORAPREP SOLUTION AND DRAPED ASEPTICALLY. THE PROCEDURE WAS DONE UNDER STERILE CONDITIONS. A TIMEOUT WAS PERFORMED WHERE LATERALITY AND THE SITE OF THE PROCEDURE WERE CHECKED AND CONFIRMED WITH EVERYONE IN THE ROOM. UNDER FLUOROSCOPIC GUIDANCE, THE TARGET POINT WAS SELECTED AT THE RIGHT AND LEFT L4-L5 AND RIGHT AND LEFT L5-S1 FACET JOINTS. TARGET POINT WAS SELECTED AFTER LATERAL ROTATION AND TILT OF THE MAGNIFIER OF THE C-ARM. I CONFIRMED AGAIN WITH EVERYONE IN THE ROOM THE LATERALITY OF THE TARGET AT 1201. LIDOCAINE 0.5% WAS USED TO NUMB THE SKIN AND THE SUBCUTANEOUS TISSUE BELOW IT. SPINAL NEEDLES, 22-GAUGE, WERE ADVANCED UNDER FLUOROSCOPIC GUIDANCE AND FOLLOWING PATIENT FEEDBACK UNTIL THE TARGETS WERE TOUCHED. THE POSITION OF THE NEEDLES WAS VERIFIED WITH AP AND LATERAL VIEWS. AFTER PROPER POSITION OF THE NEEDLES WAS ACHIEVED, ISOVUE-M DYE 30%, 0.1 ML, WAS INJECTED SHOWING ADEQUATE SPREAD OF THE DYE. KENALOG 20 MG WAS INJECTED AT EACH SITE. THEN, A SOLUTION OF 1.0 ML OF BUPIVACAINE 0.125% OF WAS USED TO FLUSH EACH SITE. THE MEDICATION WAS VERIFIED WITH THE NURSE. THERE WAS NO EVIDENCE OF BLOOD, PARESTHESIA OR CEREBROSPINAL FLUID DURING THE PROCEDURE. THE PATIENT WAS SENT TO THE RECOVERY ROOM. THE PATIENT WAS MOVING THE EXTREMITIES AND DOING WELL. THERE WERE NO COMPLICATIONS DURING THE PROCEDURE. ESTIMATED BLOOD LOSS WAS LESS THAN 5 ML. FLUOROSCOPY TIME WAS 14 SECONDS POST PROCEDURE NOTE THE PATIENT WILL BE SEEN IN A FOLLOW UP IN THE NEXT FEW WEEKS. I AM LOOKING FOR LONG LASTING RELIEF FOR THE PATIENT WITH THIS INTERVENTION. INSTRUCTIONS WERE GIVEN, QUESTIONS WERE ANSWERED, AND THE PATIENT EXPRESSED UNDERSTANDING AND AGREES WITH THE PLAN. I, ERIC AN, DOCUMENTED THE ABOVE INFORMATION ACTING A SCRIBE FOR DR. KAUR. I HAVE REVIEWED THE ABOVE DOCUMENT, WRITTEN BY ERIC AN, CARPENTER REPAIRER, AND I VERIFY THAT IT IS ACCURATE PROCEDURE CODES 03961 INJ PARAVERT F JNT L/S 1 LEV, MODIFIERS: 50 [id number] INJ PARAVERT F JNT L/S 2 LEV, MODIFIERS: 50 DISPOSITION & COMMUNICATION FOLLOW UP FOLLOW UP WITH [employer] (REASON: POST THERAPEUTIC BILATERAL L4-L5, L5-S1) ELECTRONICALLY SIGNED BY JOSE E KAUR MD, MD ON 02/28/2020 AT 12:34 PM EST DISCLAIMER : THIS IS A VISIT SUMMARY EXTRACTED FROM THE [employer] CHART. IT IS NOT A COPY OF THE [employer] PROGRESS NOTE. SUREKHAD
== END ==
LOC: M PAIN 10:30
PROVIDERS: ATTEND Anesthesiology
DX: M47.816 Spondylosis without myelopathy or radiculopathy, lumbar region (principal); M47.817 Spondylosis without myelopathy or radiculopathy, lumbosacral region; G44.009 Cluster headache syndrome, unspecified, not intractable; F41.9 Anxiety disorder, unspecified; G47.00 Insomnia, unspecified; M17.0 Bilateral primary osteoarthritis of knee; M51.36 Other intervertebral disc degeneration, lumbar region; Z87.891 Personal history of nicotine dependence; Z79.899 Other long term (current) drug therapy; Z88.0 Allergy status to penicillin
CPT/HCPCS: 64493; 64494; J3301; Q9967

== ENCOUNTER → 2020-03-05 | Outpatient (REF) | payer OTHER ==
[2020-03-05 18:22] LABS: APPEARANCE, URINE HAZY (CLEAR); BACTERIA, URINE AUTO NEGATIVE (NEGATIVE); BILIRUBIN, URINE AUTO NEGATIVE (NEGATIVE); BLOOD, URINE BLOOD NEGATIVE (NEGATIVE); CALCIUM OXALATE CRYSTALS SMALL; COLOR, URINE RED (YELLOW); GLUCOSE, URINE (UA) AUTO 1+ mg/dL (NEGATIVE); KETONE, URINE AUTO NEGATIVE (NEGATIVE); LEUKOCYTE ESTERASE, URINE AUTO NEGATIVE (NEGATIVE); MUCUS, URINE SMALL (NEGATIVE); NITRITE, URINE AUTO POSITIVE (NEGATIVE); PROTEIN, URINE AUTO 1+ mg/dL (NEGATIVE); RBC, URINE AUTO 2 /HPF (0-3); SPECIFIC GRAVITY URINE AUTO 1.028 (1.002-1.035); SQUAMOUS EPITHELIAL CELL UR AU 1 /HPF (0-6); WBC, URINE AUTO 1 /HPF (0-3)
== END ==
LOC: M SMT 17:16
PROVIDERS: ATTEND Urology
DX: R39.15 Urgency of urination (principal)
CPT/HCPCS: 81001; G0463

== ENCOUNTER → 2020-03-11 | Outpatient (CLI) | payer OTHER ==
--- NOTE | 2020-03-13 02:40 | ECWPNPC ---
PATIENT NAME: LÁZARO ALARCON : 1950 GENDER: FEMALE VISIT DATE: 03/11/2020 DISCHARGE DATE: 03/11/20 1100 VISIT LOCKED DATE TIME: PHYSICIAN: JAMES CARPIO PHYSICIAN PAGER NO: ACTIVE RESOURCE: JAMES CARPIO REASON FOR APPOINTMENT 1. POST BILATERAL THERAPEUTIC LUMBAR FACET BLOCK L4-L5 L5-S1 HISTORY OF PRESENT ILLNESS PAIN CENTER INTAKE QUESTIONS: 69-YEAR-OLD FEMALE IN FOR POST THERAPEUTIC LUMBAR FACET BLOCK FOLLOW-UP. PATIENT FEELS THE PROCEDURE WAS UNSUCCESSFUL. SHE RATES HER PAIN CURRENTLY AT A 6 OUT OF 10 AND DESCRIBES IT THROBBING, CONTINUOUS, AND BURNING. GENERAL: -. FALL RISK SCREENING: SCREENING :NO FALLS REPORTED IN THE LAST YEAR PAIN SCREENING: PATIENT HAS A COMPLAINT OF ACUTE OR CHRONIC PAIN :YES PAIN IS INCREASED BY:ACTIVITIES,OTHERS DRIVING DURATION:CONSTANT,CONTINOUS WHAT DOES YOUR PAIN FEEL LIKE:THROBBING,CONTINOUS,BURNING INTENSITY OF PAIN (SCALE OF 1 TO 10):6 LOCATION OF PAIN:MID BACK,LEG(S),FEET NURSING NOTE: -. CURRENT MEDICATIONS TAKING TRAZODONE HCL 150 MG TABLET TAKE 1 TABLET BY MOUTH ONCE DAILY AT BEDTIME ORAL , NOTES: 02/25/20202099 TAKING PAROXETINE HCL 30 MG TABLET 1 TAB ORAL DAILY, NOTES: 02/26/2020 0800 TAKING PROPRANOLOL HCL 80 MG TABLET 1 TABLET ORALLY THREE TIMES A DAY, NOTES: 02/26/2020 08 TAKING LYRICA 75 MG CAPSULE 1 CAPSULE ORALLY TID, NOTES: 02/25/2020 2100 TAKING CELEBREX 200 MG CAPSULE 1 CAPSULE WITH FOOD ORALLY ONCE A DAY, NOTES: 02/25/2020 0900 TAKING TOLTERODINE TARTRATE ER 4 MG CAPSULE EXTENDED RELEASE 24 HOUR 1 CAPSULE ORALLY ONCE A DAY NOT-TAKING PYRIDIUM 100 MG TABLET 1 TABLETS AFTER MEALS ORALLY THREE TIMES A DAY, NOTES: 02/25/20202099 NOT-TAKING XENICAL 120 MG CAPSULE 1 CAPSULE WITH EACH MAIN MEAL ORALLY THREE TIMES A DAY NOT-TAKING PYRIDIUM 100 MG TABLET 1 TABLET AFTER MEALS ORALLY THREE TIMES A DAY NEEDED FOR BURNING SENSATION NOT-TAKING ADVIL 200 MG TABLET 2 TABLET WITH FOOD OR MILK NEEDED ORALLY THREE TIMES A DAY MEDICATION LIST REVIEWED AND RECONCILED WITH THE PATIENT 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 NO SPINAL STENOSIS OR FORAMINAL NARROWING. (08/2019) ALLERGIES PENICILLIN (FOR ALLERGIES USE ONLY): HIVES - ALLERGY SURGICAL HISTORY D & C 1975 PARTIAL HYSTERECTOMY 1975 TOTAL HYST 1979 L KNEE FRACTURE REPAIR L KNEE REMOVAL OF SCREWS L KNEE ARTHROSCOPY CAUTERIZATION OF NERVES IN NECK FAMILY HISTORY FATHER: , LUNG CANCER, COPD, DIAGNOSED WITH UNSPECIFIED HEART DISEASE, OTHER MALIGNANT NEOPLASM OF UNSPECIFIED SITE MOTHER: , RENAL FAILURE, DIABETES PATERNAL GRAND FATHER: , BRAIN ANEURYSM PATERNAL GRAND MOTHER: , LUNG CANCER MATERNAL GRAND MOTHER: LIVER FAILURE, DIABETES FATHER LUNG CANCER, MELANOMA FAMILY HX OF PANCREATIC CANCER. SOCIAL HISTORY GENERAL: TOBACCO USE ARE YOU A:FORMER SMOKER QUIT 04/07/2019 HOW LONG HAS IT BEEN SINCE YOU LAST SMOKED?3-6 MONTHS LATEX QUESTIONNAIRE LATEX ALLERGY : HAVE YOU EVER DEVELOPED ANY TYPE OF REACTION AFTER HANDLING LATEX PRODUCTS SUCH RUBBER GLOVES, CONDOMS, DIAPHRAGMS, BALLOONS, SOCKS, OR UNDERWEAR?NO LATEX ALLERGY : HAVE YOU EVER DEVELOPED ANY TYPE OF REACTION DURING OR AFTER DENTAL APPOINTMENT, VAGINAL/RECTAL EXAMINATION, SURGICAL PROCEDURE, OR ANY OTHER EXPOSURE?NO LATEX RISK : HAVE YOU EVER HAD ANY DIFFICULTY BREATHING OR HIVES AFTER EATING OR HANDLING ANY FRUITS, OR VEGETABLES; SUCH KIWI, BANANAS, STONE FRUITS, OR CHESTNUTSNO LATEX RISK : DO YOU HAVE A PREVIOUS PERSONAL HISTORY OF MORE THAN NINE SURGERIES, SPINA BIFIDA, OR REPEATED CATHERIZATIONS? NO LATEX RISK : ARE YOU FREQUENTLY EXPOSED TO LATEX PRODUCTS IN YOUR OCCUPATION?NO DATE ASKED : 03/11/2020 ALCOHOL SCREENING DID YOU HAVE A DRINK CONTAINING ALCOHOL IN THE PAST YEAR?NO POINTS0 INTERPRETATIONNEGATIVE RECREATIONAL DRUG USE DRUG USE?NO CAFFEINE CAFFEINE USE?YES 3-4 (16OZ) CUPS ICE TEA DAILY SEXUAL HX HAD SEX IN THE LAST 12 MONTHS (VAGINAL, ORAL, OR ANAL)?NO HAVE YOU EVER HAD AN STD?NO SYNAGOGUE SYNAGOGUE NO PENTECOSTAL BELIEFS THAT WOULD IMPACT HEALTH CARE. LANGUAGE LANGUAGES SPOKEN:STATELESS LEARNING BARRIERS / SPECIAL NEEDS BARRIERS TO LEARNING?NO HEARING IMPAIRED?NO VISION IMPAIRED?YES COGNITIVELY IMPAIRED?NO :CORRECTIVE LENSES READINESS TO LEARN?YES LEARNING PREFERENCES?NO LEARNING CAPABILITIES PRESENT?YES EMOTIONAL BARRIERS?NO SPECIAL DEVICES?NO MEDIATOR NEEDED?NO DOMESTIC VIOLENCE DO YOU FEEL SAFE IN YOUR ENVIRONMENT?YES OCCUPATION: RETIRED. DIET: REGULAR. EXERCISE: NONE. MARITAL STATUS: . OTHERS AT HOME: . PAIN CLINIC PFS, CLERGY, PUBLIC HEALTH REFERRALS HAS THE PATIENT BEEN EDUCATED REGARDING HIS/HER PLAN OF CARE?YES ORIENTED TO PAIN MANAGEMENT AND PLAN OF CARE HAS THE PATIENT BEEN EDUCATED REGARDING PAIN, THE RISK FOR PAIN, THE IMPORTANCE OF EFFECTIVE PAIN MANAGEMENT, AND THE PAIN ASSESSMENT PROCESS?YES ADVANCE DIRECTIVE ADVANCE DIRECTIVE DISCUSSED WITH PATIENT:YES PT DECLINES ASSISTANCE OR INFORMATION AT THIS TIME HOSPITALIZATION/MAJOR DIAGNOSTIC PROCEDURE SURGERY RELATED REVIEW OF SYSTEMS CONSTITUTIONAL: ANY RECENT FEVER NO . CHILLS NO . WEIGHT CHANGE OF UNKNOWN REASONS NO . GASTROENTEROLOGY: NEW UNEXPLAINABLE CHANGES IN BOWEL CONTROL NO . CONSTIPATION NO . GENITOURINARY: ANY NEW CHANGE IN BLADDER CONTROL? NO . NEUROLOGY: NEW ONSET DIZZINESS OR NEUROLOGICAL CHANGES NOT MENTIONED NO . NEW NUMBNESS OR PAIN PATTERNS NOT MENTIONED AND PERTINENT TO TODAY'S VISIT NO . CARDIOLOGY: NEW CHEST PRESSURE NO . NEW CHEST PAIN NO . RESPIRATORY: UNEXPLAINABLE COUGH NO . NEW SHORTNESS OF BREATH NO . VITAL SIGNS WT 189.8 LBS, HT 62 IN, BMI 34.71 INDEX, BP 131/63 MM HG, HR 52 /MIN, RR 18 /MIN, TEMP 96.5 F, OXYGEN SAT % 94%, NA INITIALS AW 1022. EXAMINATION GENERAL EXAMINATION: GENERALNO ACUTE DISTRESS, WELL NOURISHED AND HYDRATED. PSYCHAPPROPRIATE MOOD AND AFFECT . LUNGS:CLEAR TO AUSCULTATION BILATERALLY, NO WHEEZES, RHONCHI, RALES. HEART:NO MURMURS, REGULAR RATE AND RHYTHM. ASSESSMENTS OTHER CHRONIC PAIN - G89.29 (PRIMARY) SPONDYLOSIS OF LUMBOSACRAL REGION WITHOUT MYELOPATHY OR RADICULOPATHY - M47.817 TREATMENT OTHER CHRONIC PAIN INCREASE LYRICA CAPSULE, 100 MG, 1 CAPSULE, ORALLY, TID, 30 DAYS, 90, REFILLS 2, NOTES: 02/25/2020 2100 REFILL CELEBREX CAPSULE, 200 MG, 1 CAPSULE WITH FOOD, ORALLY, ONCE A DAY, 30 DAYS, 30, NOTES: 02/25/2020 0900 PAIN PROCEDURE LOGDATE OF VMBPENKQG88/17/2020PROCEDURE:BILATERAL THERAPEUTIC LUMBAR FACET BLOCK L4-L5 L5-Z5QMKOFA OF PRE SEDATEBENADRYL TAB 25MG, NORCO TABLET 5MG/325MG NOTES: 69-YEAR-OLD FEMALE IN FOR POST THERAPEUTIC LUMBAR FACET BLOCK FOLLOW-UP. GIVEN PRESENTING SYMPTOMS RECOMMENDED INCREASING LYRICA TO 100 MG 3 TIMES A DAY WITH FOLLOW-UP IN ONE MONTH TO DETERMINE EFFICACY OF TREATMENT. PATIENT HAS EXPRESSED UNDERSTANDING OF AND WAS IN AGREEMENT WITH TREATMENT PLAN. GIVEN TIME TO ASK QUESTIONS AND EXPRESS CONCERNS. , [employer] REGISTRY REVIEWED AND DEMONSTRATES COMPLLIANCE. (REF # [id number] ) BRINGS IN MEDICATIONS WHICH IS APPROPRIATE FOR WHAT WAS DISPENSED. RECENT URINE TOXICOLOGY REVIEWED. NO UNAUTHORIZED MEDICATIONS. NO ILLICIT SUBSTANCES AND PRESCRIBED MEDICATIONS WERE PRESENT. PROCEDURE CODES FA211 ESTABILISHED PATIENT [facility] FACILITY CHARGE DISPOSITION & COMMUNICATION FOLLOW UP 4 WEEKS (REASON: BACK PAIN) ELECTRONICALLY SIGNED BY CLEMENTE ZUNIGA ON 03/12/2020 AT 08:51 AM EST DISCLAIMER : THIS IS A VISIT SUMMARY EXTRACTED FROM THE [employer] CHART. IT IS NOT A COPY OF THE [employer] PROGRESS NOTE. [employer]
== END ==
LOC: M PAIN 10:00
PROVIDERS: ATTEND Family Medicine
DX: G89.29 Other chronic pain (principal); M47.817 Spondylosis without myelopathy or radiculopathy, lumbosacral region; G44.009 Cluster headache syndrome, unspecified, not intractable; F41.9 Anxiety disorder, unspecified; G47.00 Insomnia, unspecified; Z87.891 Personal history of nicotine dependence; Z79.899 Other long term (current) drug therapy; Z88.0 Allergy status to penicillin

== ENCOUNTER → 2020-04-08 | Outpatient (CLI) | payer OTHER ==
--- NOTE | 2020-04-10 02:52 | ECWPNPC ---
PATIENT NAME: LÁZARO ALARCON : 1950 GENDER: FEMALE VISIT DATE: 04/08/2020 DISCHARGE DATE: 04/08/20 1043 VISIT LOCKED DATE TIME: PHYSICIAN: JAMES CARPIO PHYSICIAN PAGER NO: ACTIVE RESOURCE: JAMES CARPIO REASON FOR APPOINTMENT 1. 4 WEEK FOLLOW UP BACK PAIN HISTORY OF PRESENT ILLNESS GENERAL: - 69-YEAR-OLD FEMALE IN FOR CHRONIC PAIN FOLLOW-UP. AT LAST CLINIC VISIT PATIENT'S LYRICA WAS INCREASED AND SHE ADMITS THAT THIS HAS BEEN MILDLY HELPFUL. SHE RATES HER PAIN CURRENTLY AT A 4 OUT OF 10 AND DESCRIBES IT ACHING, BURNING,, CONTINUOUS, INTERMITTENT, SHARP, AND STABBING. FALL RISK SCREENING: SCREENING :NO FALLS REPORTED IN THE LAST YEAR PAIN SCREENING: PATIENT HAS A COMPLAINT OF ACUTE OR CHRONIC PAIN :YES LOCATION OF PAIN:LOW BACK RIGHT GROIN, LEFT SIDE OF UPPER BACK FEELS NUMB AND "PRICKLY" INTENSITY OF PAIN (SCALE OF 1 TO 10):4 WHAT DOES YOUR PAIN FEEL LIKE:ACHING, BURNING, CONTINOUS, INTERMITTENT, SHARP, STABBING GROIN PAIN WHEN SHE STANDS FROM A SITTING POSITION DURATION:CONTINOUS, CONSTANT PAIN IS INCREASED BY:ACTIVITIES, OTHERS STANDING FROM A SITTING POSITION, VACUUMING PAIN IS DECREASED BY:USE OF PAIN MEDICATIONS, OTHERS REST NURSING NOTE: -. PAIN CENTER INTAKE QUESTIONS: DO YOU HAVE A HISTORY OF MRSA? :NO DO YOU TAKE A BLOOD THINNERS? :NO DO YOU HAVE ANY BLEEDING DISORDERS? :NO ANY NEW NUMBNESS OR WEAKNESS IN YOUR LEGS OR ARMS? :NO ANY PACEMAKER,DEFIBRILLATOR, OR DORSAL COLUMN STIMULATOR? :NO DO YOU HAVE ANY RASHES OR OPEN SORES? :NO ARE YOU ALLERGIC TO IV DYE? :NO ARE YOU DIABETIC? :NO ANY NEW PROBLEMS WITH YOUR MEDICATIONS? :NO HAVE YOU RECEIVED A VACCINE IN THE PAST 30 DAYS? :NO DO YOU PLAN TO RECEIVE A VACCINE IN THE NEXT 21 DAYS? :NO DO YOU NEED ANY PRESCRIPTION? :YES CELEBREX DO YOU TAKE ANY IMMUNOSUPPRESSIVE MEDICATIONS? :NO ANY HISTORY OF SEIZURES? :NO ANY HISTORY OF CARDIAC ISSUES OR EVENTS? :NO DO YOU HAVE SLEEP APNEA? :NO ANY RECENT HEAD INJURY? :NO DO YOU HAVE ANY NEW INFECTIONS? :NO IS THERE A CHANCE YOU COULD BE ? :NO ARE YOU BREAST FEEDING? :NO CURRENT MEDICATIONS TAKING TRAZODONE HCL 150 MG TABLET TAKE 1 TABLET BY MOUTH ONCE DAILY AT BEDTIME ORAL TAKING PAROXETINE HCL 30 MG TABLET 1 TAB ORAL DAILY TAKING PROPRANOLOL HCL 80 MG TABLET 1 TABLET ORALLY ONCE A DAY TAKING LYRICA 100 MG CAPSULE 1 CAPSULE ORALLY TID TAKING CELEBREX 200 MG CAPSULE 1 CAPSULE WITH FOOD ORALLY ONCE A DAY NOT-TAKING TOLTERODINE TARTRATE ER 4 MG CAPSULE EXTENDED RELEASE 24 HOUR 1 CAPSULE ORALLY ONCE A DAY NOT-TAKING PYRIDIUM 100 MG TABLET 1 TABLETS AFTER MEALS ORALLY THREE TIMES A DAY, NOTES: 02/25/2020 2100 NOT-TAKING XENICAL 120 MG CAPSULE 1 CAPSULE WITH EACH MAIN MEAL ORALLY THREE TIMES A DAY NOT-TAKING PYRIDIUM 100 MG TABLET 1 TABLET AFTER MEALS ORALLY THREE TIMES A DAY NEEDED FOR BURNING SENSATION NOT-TAKING ADVIL 200 MG TABLET 2 TABLET WITH FOOD OR MILK NEEDED ORALLY THREE TIMES A DAY MEDICATION LIST REVIEWED AND RECONCILED WITH THE PATIENT 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 NO SPINAL STENOSIS OR FORAMINAL NARROWING. (08/2019) ALLERGIES PENICILLIN (FOR ALLERGIES USE ONLY): HIVES - ALLERGY SURGICAL HISTORY D & C 1975 PARTIAL HYSTERECTOMY 1975 TOTAL HYST 1979 L KNEE FRACTURE REPAIR L KNEE REMOVAL OF SCREWS L KNEE ARTHROSCOPY CAUTERIZATION OF NERVES IN NECK FAMILY HISTORY FATHER: , LUNG CANCER, COPD, DIAGNOSED WITH UNSPECIFIED HEART DISEASE, OTHER MALIGNANT NEOPLASM OF UNSPECIFIED SITE MOTHER: , RENAL FAILURE, DIABETES PATERNAL GRAND FATHER: , BRAIN ANEURYSM PATERNAL GRAND MOTHER: , LUNG CANCER MATERNAL GRAND MOTHER: LIVER FAILURE, DIABETES FATHER LUNG CANCER, MELANOMA FAMILY HX OF PANCREATIC CANCER. SOCIAL HISTORY GENERAL: TOBACCO USE ARE YOU A:FORMER SMOKER QUIT 04/07/2019 HOW LONG HAS IT BEEN SINCE YOU LAST SMOKED?3-6 MONTHS LATEX QUESTIONNAIRE LATEX ALLERGY : HAVE YOU EVER DEVELOPED ANY TYPE OF REACTION AFTER HANDLING LATEX PRODUCTS SUCH RUBBER GLOVES, CONDOMS, DIAPHRAGMS, BALLOONS, SOCKS, OR UNDERWEAR?NO LATEX ALLERGY : HAVE YOU EVER DEVELOPED ANY TYPE OF REACTION DURING OR AFTER DENTAL APPOINTMENT, VAGINAL/RECTAL EXAMINATION, SURGICAL PROCEDURE, OR ANY OTHER EXPOSURE?NO LATEX RISK : HAVE YOU EVER HAD ANY DIFFICULTY BREATHING OR HIVES AFTER EATING OR HANDLING ANY FRUITS, OR VEGETABLES; SUCH KIWI, BANANAS, STONE FRUITS, OR CHESTNUTSNO LATEX RISK : DO YOU HAVE A PREVIOUS PERSONAL HISTORY OF MORE THAN NINE SURGERIES, SPINA BIFIDA, OR REPEATED CATHERIZATIONS? NO LATEX RISK : ARE YOU FREQUENTLY EXPOSED TO LATEX PRODUCTS IN YOUR OCCUPATION?NO DATE ASKED : 04/08/2020 ALCOHOL SCREENING DID YOU HAVE A DRINK CONTAINING ALCOHOL IN THE PAST YEAR?NO POINTS0 INTERPRETATIONNEGATIVE RECREATIONAL DRUG USE DRUG USE?NO CAFFEINE CAFFEINE USE?YES 3-4 (16OZ) CUPS ICE TEA DAILY SEXUAL HX HAD SEX IN THE LAST 12 MONTHS (VAGINAL, ORAL, OR ANAL)?NO HAVE YOU EVER HAD AN STD?NO TAOIST TAOIST NO RESTORATION BELIEFS THAT WOULD IMPACT HEALTH CARE. LANGUAGE LANGUAGES SPOKEN:GEORGIAN LEARNING BARRIERS / SPECIAL NEEDS BARRIERS TO LEARNING?NO HEARING IMPAIRED?NO VISION IMPAIRED?YES COGNITIVELY IMPAIRED?NO :CORRECTIVE LENSES READINESS TO LEARN?YES LEARNING PREFERENCES?NO LEARNING CAPABILITIES PRESENT?YES EMOTIONAL BARRIERS?NO SPECIAL DEVICES?NO HULL GRINDER NEEDED?NO DOMESTIC VIOLENCE DO YOU FEEL SAFE IN YOUR ENVIRONMENT?YES OCCUPATION: RETIRED. DIET: REGULAR. EXERCISE: NONE. MARITAL STATUS: . OTHERS AT HOME: . PAIN CLINIC PFS, CLERGY, PUBLIC HEALTH REFERRALS HAS THE PATIENT BEEN EDUCATED REGARDING HIS/HER PLAN OF CARE?YES ORIENTED TO PAIN MANAGEMENT AND PLAN OF CARE HAS THE PATIENT BEEN EDUCATED REGARDING PAIN, THE RISK FOR PAIN, THE IMPORTANCE OF EFFECTIVE PAIN MANAGEMENT, AND THE PAIN ASSESSMENT PROCESS?YES ADVANCE DIRECTIVE ADVANCE DIRECTIVE DISCUSSED WITH PATIENT:YES HCP INFORMATION PROVIDED TO PATIENT, STATES SHE DOES NOT NEED ASSISTANCE COMPLETING 04/08/2020 HOSPITALIZATION/MAJOR DIAGNOSTIC PROCEDURE SURGERY RELATED REVIEW OF SYSTEMS CONSTITUTIONAL: ANY RECENT FEVER NO . CHILLS NO . WEIGHT CHANGE OF UNKNOWN REASONS NO . GASTROENTEROLOGY: NEW UNEXPLAINABLE CHANGES IN BOWEL CONTROL NO . CONSTIPATION NO . GENITOURINARY: ANY NEW CHANGE IN BLADDER CONTROL? NO . NEUROLOGY: NEW ONSET DIZZINESS OR NEUROLOGICAL CHANGES NOT MENTIONED NO . NEW NUMBNESS OR PAIN PATTERNS NOT MENTIONED AND PERTINENT TO TODAY'S VISIT NO . CARDIOLOGY: NEW CHEST PRESSURE NO . NEW CHEST PAIN NO . RESPIRATORY: UNEXPLAINABLE COUGH NO . NEW SHORTNESS OF BREATH NO . VITAL SIGNS WT 196.6 LBS, HT 62 IN, BMI 35.95 INDEX, BP 158/72 MM HG, HR 64 /MIN, RR 18 /MIN, TEMP 96.1 F, OXYGEN SAT % 97%, SAFE IN ENV? (Y/N) YES, NA INITIALS SC 09:43, REVIEWED BY: AMANDO. EXAMINATION GENERAL EXAMINATION: GENERALNO ACUTE DISTRESS, WELL NOURISHED AND HYDRATED. PSYCHAPPROPRIATE MOOD AND AFFECT . LUNGS:CLEAR TO AUSCULTATION BILATERALLY, NO WHEEZES, RHONCHI, RALES. HEART:NO MURMURS, REGULAR RATE AND RHYTHM. ASSESSMENTS SPONDYLOSIS OF LUMBOSACRAL REGION WITHOUT MYELOPATHY OR RADICULOPATHY - M47.817 (PRIMARY) TREATMENT SPONDYLOSIS OF LUMBOSACRAL REGION WITHOUT MYELOPATHY OR RADICULOPATHY REFILL LYRICA CAPSULE, 150 MG, 1 CAPSULE, ORALLY, TID, 30 DAYS, 90 REFILL CELEBREX CAPSULE, 200 MG, 1 CAPSULE WITH FOOD, ORALLY, ONCE A DAY, 30 DAYS, 30 NOTES: 69-YEAR-OLD FEMALE IN FOR CHRONIC PAIN FOLLOW-UP. GIVEN PRESENTING SYMPTOMS RECOMMEND INCREASING LYRICA TO 150 MG 3 TIMES A DAY WITH FOLLOW-UP IN ONE MONTH TO DETERMINE EFFICACY TREATMENT. PATIENT HAS EXPRESSED UNDERSTANDING OF WAS IN AGREEMENT WITH TREATMENT PLAN. GIVEN TIME TO ASK QUESTIONS AND EXPRESS CONCERNS. , [employer] REGISTRY REVIEWED AND DEMONSTRATES COMPLLIANCE. (REF # [id number] ). PROCEDURE CODES FA211 ESTABILISHED PATIENT [facility] CHARGE DISPOSITION & COMMUNICATION FOLLOW UP 4 WEEKS (REASON: MEDICATION INCREASE) ELECTRONICALLY SIGNED BY CLEMENTE ZUNIGA ON 04/09/2020 AT 09:11 AM EST DISCLAIMER : THIS IS A VISIT SUMMARY EXTRACTED FROM THE [employer] CHART. IT IS NOT A COPY OF THE [employer] PROGRESS NOTE. [employer]OKO
== END ==
LOC: M PAIN 09:45
PROVIDERS: ATTEND Family Medicine
DX: M47.817 Spondylosis without myelopathy or radiculopathy, lumbosacral region (principal); G89.29 Other chronic pain; G47.00 Insomnia, unspecified; Z86.59 Personal history of other mental and behavioral disorders; Z87.891 Personal history of nicotine dependence; Z88.0 Allergy status to penicillin; Z79.899 Other long term (current) drug therapy

== ENCOUNTER → 2020-05-01 | Outpatient (CLI) | payer OTHER ==
--- NOTE | 2020-05-03 03:51 | ECWPNPC ---
PATIENT NAME: LÁZARO ALARCON : 1950 GENDER: FEMALE VISIT DATE: 05/01/2020 DISCHARGE DATE: 05/01/20 1059 VISIT LOCKED DATE TIME: PHYSICIAN: JAMES CARPIO PHYSICIAN PAGER NO: ACTIVE RESOURCE: JAMES CARPIO REASON FOR APPOINTMENT 1. MEDICATION INCREASE HISTORY OF PRESENT ILLNESS GENERAL: -69-YEAR-OLD FEMALE IN FOR CHRONIC PAIN FOLLOW-UP. SHE RATES HER PAIN CURRENTLY AT A 4 OUT OF 10 AND DESCRIBES IT ACHING, INTERMITTENT, AND A PRESSURE. PATIENT'S MEDICATION WAS INCREASED AT LAST CLINIC VISIT AND SHE ADMITS TODAY THAT THIS HAS NOT BEEN BENEFICIAL. FALL RISK SCREENING: SCREENING :ONE FALL WITHOUT INJURY IN THE PAST YEAR FELL YESTERDAY, RIGHT HIP AND WRIST FEEL SORE PAIN SCREENING: PATIENT HAS A COMPLAINT OF ACUTE OR CHRONIC PAIN :YES LOCATION OF PAIN:MID BACK, LEFT HIP, RIGHT HIP INTENSITY OF PAIN (SCALE OF 1 TO 10):4 WHAT DOES YOUR PAIN FEEL LIKE:ACHING, INTERMITTENT, OTHER PRESSURE DURATION:PERIODIC, INTERMITTENT SOME DAYS CAN BE CONTINUOUS THROUGHOUT THE DAY PAIN IS INCREASED BY:ACTIVITIES VACCUMING, SWEEPING PAIN IS DECREASED BY:USE OF PAIN MEDICATIONS, OTHERS HEAT NURSING NOTE: -. PAIN CENTER INTAKE QUESTIONS: DO YOU HAVE A HISTORY OF MRSA? :NO DO YOU TAKE A BLOOD THINNERS? :NO DO YOU HAVE ANY BLEEDING DISORDERS? :NO ANY NEW NUMBNESS OR WEAKNESS IN YOUR LEGS OR ARMS? :NO REPORTS OCCASIONAL INVOLUNTARY MOVEMENTS IN RIGHT FINGERS ANY PACEMAKER,DEFIBRILLATOR, OR DORSAL COLUMN STIMULATOR? :NO DO YOU HAVE ANY RASHES OR OPEN SORES? :NO ARE YOU ALLERGIC TO IV DYE? :NO ARE YOU DIABETIC? :NO ANY NEW PROBLEMS WITH YOUR MEDICATIONS? :NO HAVE YOU RECEIVED A VACCINE IN THE PAST 30 DAYS? :NO DO YOU PLAN TO RECEIVE A VACCINE IN THE NEXT 21 DAYS? :NO DO YOU NEED ANY PRESCRIPTION? :YES LYRICA & KEFLEX DO YOU TAKE ANY IMMUNOSUPPRESSIVE MEDICATIONS? :NO IS THERE A CHANCE YOU COULD BE ? :NO ARE YOU BREAST FEEDING? :NO CURRENT MEDICATIONS TAKING PAROXETINE HCL 30 MG TABLET 1 TAB ORAL DAILY TAKING PROPRANOLOL HCL 80 MG TABLET 1 TABLET ORALLY ONCE A DAY TAKING CELEBREX 200 MG CAPSULE 1 CAPSULE WITH FOOD ORALLY ONCE A DAY TAKING LYRICA 150 MG CAPSULE 1 CAPSULE ORALLY TID TAKING TRAZODONE HCL 150 MG TABLET TAKE 1 TABLET BY MOUTH ONCE DAILY AT BEDTIME ORAL NOT-TAKING TOLTERODINE TARTRATE ER 4 MG CAPSULE EXTENDED RELEASE 24 HOUR 1 CAPSULE ORALLY ONCE A DAY NOT-TAKING PYRIDIUM 100 MG TABLET 1 TABLETS AFTER MEALS ORALLY THREE TIMES A DAY, NOTES: 02/25/2020 2100 NOT-TAKING XENICAL 120 MG CAPSULE 1 CAPSULE WITH EACH MAIN MEAL ORALLY THREE TIMES A DAY NOT-TAKING PYRIDIUM 100 MG TABLET 1 TABLET AFTER MEALS ORALLY THREE TIMES A DAY NEEDED FOR BURNING SENSATION NOT-TAKING ADVIL 200 MG TABLET 2 TABLET WITH FOOD OR MILK NEEDED ORALLY THREE TIMES A DAY MEDICATION LIST REVIEWED AND RECONCILED WITH THE PATIENT 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 NO SPINAL STENOSIS OR FORAMINAL NARROWING. (08/2019) ALLERGIES PENICILLIN (FOR ALLERGIES USE ONLY): HIVES - ALLERGY SOCIAL HISTORY GENERAL: TOBACCO USE ARE YOU A:FORMER SMOKER QUIT 04/07/2019 HOW LONG HAS IT BEEN SINCE YOU LAST SMOKED?1-5 YEARS LATEX QUESTIONNAIRE LATEX ALLERGY : HAVE YOU EVER DEVELOPED ANY TYPE OF REACTION AFTER HANDLING LATEX PRODUCTS SUCH RUBBER GLOVES, CONDOMS, DIAPHRAGMS, BALLOONS, SOCKS, OR UNDERWEAR?NO LATEX ALLERGY : HAVE YOU EVER DEVELOPED ANY TYPE OF REACTION DURING OR AFTER DENTAL APPOINTMENT, VAGINAL/RECTAL EXAMINATION, SURGICAL PROCEDURE, OR ANY OTHER EXPOSURE?NO LATEX RISK : HAVE YOU EVER HAD ANY DIFFICULTY BREATHING OR HIVES AFTER EATING OR HANDLING ANY FRUITS, OR VEGETABLES; SUCH KIWI, BANANAS, STONE FRUITS, OR CHESTNUTSNO LATEX RISK : DO YOU HAVE A PREVIOUS PERSONAL HISTORY OF MORE THAN NINE SURGERIES, SPINA BIFIDA, OR REPEATED CATHERIZATIONS? NO LATEX RISK : ARE YOU FREQUENTLY EXPOSED TO LATEX PRODUCTS IN YOUR OCCUPATION?NO DATE ASKED : 05/01/2020 ALCOHOL USE: NO. ALCOHOL SCREENING DID YOU HAVE A DRINK CONTAINING ALCOHOL IN THE PAST YEAR?NO POINTS0 INTERPRETATIONNEGATIVE RECREATIONAL DRUG USE DRUG USE?NO CAFFEINE CAFFEINE USE?YES 3-4 (16OZ) CUPS ICE TEA DAILY SEXUAL HX HAD SEX IN THE LAST 12 MONTHS (VAGINAL, ORAL, OR ANAL)?NO HAVE YOU EVER HAD AN STD?NO [facility] NO CATHOLIC BELIEFS THAT WOULD IMPACT HEALTH CARE. LANGUAGE LANGUAGES SPOKEN:FRENCH LEARNING BARRIERS / SPECIAL NEEDS CHANGE FROM LAST VISIT?NO BARRIERS TO LEARNING?NO HEARING IMPAIRED?NO VISION IMPAIRED?YES :CORRECTIVE LENSES COGNITIVELY IMPAIRED?NO READINESS TO LEARN?YES LEARNING PREFERENCES?NO LEARNING CAPABILITIES PRESENT?YES EMOTIONAL BARRIERS?NO SPECIAL DEVICES?NO ASSISTANT FEDERAL PUBLIC DEFENDER NEEDED?NO OCCUPATION: RETIRED. DIET: REGULAR. EXERCISE: NONE. MARITAL STATUS: . OTHERS AT HOME: . REVIEW OF SYSTEMS CONSTITUTIONAL: ANY RECENT FEVER NO . CHILLS NO . WEIGHT CHANGE OF UNKNOWN REASONS NO . GASTROENTEROLOGY: NEW UNEXPLAINABLE CHANGES IN BOWEL CONTROL NO . CONSTIPATION NO . GENITOURINARY: ANY NEW CHANGE IN BLADDER CONTROL? NO . NEUROLOGY: NEW ONSET DIZZINESS OR NEUROLOGICAL CHANGES NOT MENTIONED NO . NEW NUMBNESS OR PAIN PATTERNS NOT MENTIONED AND PERTINENT TO TODAY'S VISIT NO . CARDIOLOGY: NEW CHEST PRESSURE NO . NEW CHEST PAIN NO . RESPIRATORY: UNEXPLAINABLE COUGH NO . NEW SHORTNESS OF BREATH NO . VITAL SIGNS WT 198.8 LBS, HT 62 IN, BMI 36.36 INDEX, BP 130/80 MM HG, HR 56 /MIN, RR 18 /MIN, TEMP 97.2 F, OXYGEN SAT % 96%, SAFE IN ENV? (Y/N) YES, REVIEWED BY: [facility]. VIRAL CHAVEZ. EXAMINATION GENERAL EXAMINATION: GENERALNO ACUTE DISTRESS, WELL NOURISHED AND HYDRATED. PSYCHAPPROPRIATE MOOD AND AFFECT . LUNGS:CLEAR TO AUSCULTATION BILATERALLY, NO WHEEZES, RHONCHI, RALES. HEART:NO MURMURS, REGULAR RATE AND RHYTHM. BACK: BILATERAL SI JOINT TENDERNESS. ASSESSMENTS BILATERAL SACROILIITIS - M46.1 (PRIMARY), RISK: (NULL) TREATMENT BILATERAL SACROILIITIS REFILL CELEBREX CAPSULE, 200 MG, 1 CAPSULE WITH FOOD, ORALLY, ONCE A DAY, 90 DAY(S), 90 CAPSULE(S) REFILL LYRICA CAPSULE, 150 MG, 1 CAPSULE, ORALLY, TID, 30 DAY(S), 90 CAPSULE(S), REFILLS 1 NOTES: 69-YEAR-OLD FEMALE IN FOR CHRONIC PAIN FOLLOW-UP. GIVEN PRESENTING SYMPTOMS AND RESULTS PHYSICAL EXAMINATION RECOMMENDED BILATERAL SACROILIAC JOINT BLOCK WITH POST PROCEDURAL FOLLOW-UP. PATIENT HAS EXPRESSED UNDERSTANDING OF WAS IN AGREEMENT WITH TREATMENT PLAN. GIVEN TIME TO ASK QUESTIONS AND EXPRESS CONCERNS. PRINTED AND REVIEWED POST PROCEDURES WITH PATIENT JARAD NELSON. PROCEDURE CODES FA211 ESTABILISHED PATIENT [facility] CHARGE DISPOSITION & COMMUNICATION FOLLOW UP POST PROCEDURE (REASON: BILATERAL SACROILIAC JOINT BLOCK ) ELECTRONICALLY SIGNED BY CLEMENTE ZUNIGA ON 05/02/2020 AT 09:22 AM EST DISCLAIMER : THIS IS A VISIT SUMMARY EXTRACTED FROM THE [employer] CHART. IT IS NOT A COPY OF THE [employer] PROGRESS NOTE. [employer]
== END ==
LOC: M PAIN 10:00
PROVIDERS: ATTEND Family Medicine
DX: M46.1 Sacroiliitis, not elsewhere classified (principal); F41.9 Anxiety disorder, unspecified; G47.00 Insomnia, unspecified; G44.009 Cluster headache syndrome, unspecified, not intractable; M51.26 Other intervertebral disc displacement, lumbar region; Z85.820 Personal history of malignant melanoma of skin; Z79.899 Other long term (current) drug therapy; Z87.891 Personal history of nicotine dependence; Z88.0 Allergy status to penicillin

== ENCOUNTER → 2020-05-16 | Outpatient (CLI) | payer OTHER | LOC: M LABSMTC 11:56 | PROVIDERS: ATTEND Anesthesiology | DX: Z20.822 Contact with and (suspected) exposure to COVID-19 (principal) ==

== ENCOUNTER → 2020-05-21 | Outpatient (CLI) | payer OTHER ==
--- NOTE | 2020-05-22 01:49 | ECWPNPC ---
PATIENT NAME: LÁZARO ALARCON : 1950 GENDER: FEMALE VISIT DATE: 05/21/2020 DISCHARGE DATE: 05/21/20 1030 VISIT LOCKED DATE TIME: PHYSICIAN: JOSE E KAUR MD PHYSICIAN PAGER NO: ACTIVE RESOURCE: JOSE E KAUR MD REASON FOR APPOINTMENT 1. BILATERAL SACROILIAC JOINT BLOCK HISTORY OF PRESENT ILLNESS GENERAL: 69-YEAR-OLD FEMALE PATIENT WITH A HISTORY OF MULTIPLE BODY PAIN. THE PATIENT HAS BEEN NOTICING IN THE LAST FEW YEARS THAT SHE IS HAVING PAIN IN HER SHOULDERS, LOW BACK AND HIPS. THE PAIN IS AFFECTING HER ABILITY TO DO ACTIVITIES SUCH SLEEPING AND MOVING AROUND HER HOUSE. THE PATIENT DESCRIBES THE PAIN ACHING, BURNING AND SEVERE WITH A PAIN SCORE RANGING FROM 6-9/10 OVER ALL OF THE EXTREMITIES. SHE HAS BEEN TRYING MEDICATIONS SUCH CELEBREX AND LYRICA BUT THE PAIN PERSISTS. FALL RISK SCREENING: SCREENING :TWO OR MORE FALLS WITHOUT INJURY IN THE PAST YEAR PAIN SCREENING: PATIENT HAS A COMPLAINT OF ACUTE OR CHRONIC PAIN :YES LOCATION OF PAIN:BACK, RIGHT HIP INTENSITY OF PAIN (SCALE OF 1 TO 10):6 WHAT DOES YOUR PAIN FEEL LIKE:INTERMITTENT, BURNING PAIN IS INCREASED BY:ACTIVITIES NURSING NOTE: -. PAIN CENTER INTAKE QUESTIONS: DO YOU HAVE A HISTORY OF MRSA? :NO DO YOU TAKE A BLOOD THINNERS? :NO DO YOU HAVE ANY BLEEDING DISORDERS? :NO ANY NEW NUMBNESS OR WEAKNESS IN YOUR LEGS OR ARMS? :NO ANY PACEMAKER,DEFIBRILLATOR, OR DORSAL COLUMN STIMULATOR? :NO DO YOU HAVE ANY RASHES OR OPEN SORES? :NO ARE YOU ALLERGIC TO IV DYE? :NO ARE YOU DIABETIC? :NO ANY NEW PROBLEMS WITH YOUR MEDICATIONS? :NO HAVE YOU RECEIVED A VACCINE IN THE PAST 30 DAYS? :NO DO YOU PLAN TO RECEIVE A VACCINE IN THE NEXT 21 DAYS? :NO DO YOU TAKE ANY IMMUNOSUPPRESSIVE MEDICATIONS? :NO ANY HISTORY OF SEIZURES? :NO ANY HISTORY OF CARDIAC ISSUES OR EVENTS? :NO DO YOU HAVE SLEEP APNEA? :NO ANY RECENT HEAD INJURY? :NO DO YOU HAVE ANY NEW INFECTIONS? :NO IS THERE A CHANCE YOU COULD BE ? :NO ARE YOU BREAST FEEDING? :NO WHEN DID YOU LAST EAT? : 05/20/20 1730 WHEN DID YOU LAST DRINK? : 05/21/20 0710 WHAT DID YOU LAST DRINK? : WATER NAME OF PERSON DRIVING YOU HOME? : KACY CARCAMO (COUSIN) DO YOU HAVE ANY OTHER QUESTIONS OR CONCERNS? : NO CURRENT MEDICATIONS TAKING PROPRANOLOL HCL 80 MG TABLET 1 TABLET ORALLY ONCE A DAY TAKING TRAZODONE HCL 150 MG TABLET TAKE 1 TABLET BY MOUTH ONCE DAILY AT BEDTIME ORAL TAKING CELEBREX 200 MG CAPSULE 1 CAPSULE WITH FOOD ORALLY ONCE A DAY TAKING LYRICA 150 MG CAPSULE 1 CAPSULE ORALLY TID TAKING PAROXETINE HCL 30 MG TABLET 1 TAB ORAL DAILY NOT-TAKING TOLTERODINE TARTRATE ER 4 MG CAPSULE EXTENDED RELEASE 24 HOUR 1 CAPSULE ORALLY ONCE A DAY NOT-TAKING PYRIDIUM 100 MG TABLET 1 TABLETS AFTER MEALS ORALLY THREE TIMES A DAY, NOTES: 02/25/2020 2100 NOT-TAKING XENICAL 120 MG CAPSULE 1 CAPSULE WITH EACH MAIN MEAL ORALLY THREE TIMES A DAY NOT-TAKING PYRIDIUM 100 MG TABLET 1 TABLET AFTER MEALS ORALLY THREE TIMES A DAY NEEDED FOR BURNING SENSATION NOT-TAKING ADVIL 200 MG TABLET 2 TABLET WITH FOOD OR MILK NEEDED ORALLY THREE TIMES A DAY MEDICATION LIST REVIEWED AND RECONCILED WITH THE PATIENT 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 NO SPINAL STENOSIS OR FORAMINAL NARROWING. (08/2019) ALLERGIES PENICILLIN (FOR ALLERGIES USE ONLY): HIVES - ALLERGY SURGICAL HISTORY D & C 1975 PARTIAL HYSTERECTOMY 1975 TOTAL HYST 1979 L KNEE FRACTURE REPAIR L KNEE REMOVAL OF SCREWS L KNEE ARTHROSCOPY CAUTERIZATION OF NERVES IN NECK INJECTION IN LOW BACK FOR PAIN FAMILY HISTORY FATHER: , LUNG CANCER, COPD, DIAGNOSED WITH OTHER MALIGNANT NEOPLASM OF UNSPECIFIED SITE, UNSPECIFIED HEART DISEASE MOTHER: , RENAL FAILURE, DIABETES PATERNAL GRAND FATHER: , BRAIN ANEURYSM PATERNAL GRAND MOTHER: , LUNG CANCER MATERNAL GRAND MOTHER: LIVER FAILURE, DIABETES FATHER LUNG CANCER, MELANOMA FAMILY HX OF PANCREATIC CANCER. SOCIAL HISTORY GENERAL: TOBACCO USE ARE YOU A:FORMER SMOKER QUIT 04/07/2019 HOW LONG HAS IT BEEN SINCE YOU LAST SMOKED?1-5 YEARS LATEX QUESTIONNAIRE LATEX ALLERGY : HAVE YOU EVER DEVELOPED ANY TYPE OF REACTION AFTER HANDLING LATEX PRODUCTS SUCH RUBBER GLOVES, CONDOMS, DIAPHRAGMS, BALLOONS, SOCKS, OR UNDERWEAR?NO LATEX ALLERGY : HAVE YOU EVER DEVELOPED ANY TYPE OF REACTION DURING OR AFTER DENTAL APPOINTMENT, VAGINAL/RECTAL EXAMINATION, SURGICAL PROCEDURE, OR ANY OTHER EXPOSURE?NO DATE ASKED : 05/15/2020 LATEX RISK : HAVE YOU EVER HAD ANY DIFFICULTY BREATHING OR HIVES AFTER EATING OR HANDLING ANY FRUITS, OR VEGETABLES; SUCH KIWI, BANANAS, STONE FRUITS, OR CHESTNUTSNO LATEX RISK : DO YOU HAVE A PREVIOUS PERSONAL HISTORY OF MORE THAN NINE SURGERIES, SPINA BIFIDA, OR REPEATED CATHERIZATIONS? NO LATEX RISK : ARE YOU FREQUENTLY EXPOSED TO LATEX PRODUCTS IN YOUR OCCUPATION?NO ALCOHOL USE: NO. LUNG CANCER SCREENING SMOKING STATUS:FORMER SMOKER IS THE PATIENT BETWEEN THE AGE OF 57 AND 79?YES HAVE YOU QUIT SMOKING WITHIN THE PAST 15 YEARS?YES ALCOHOL SCREENING DID YOU HAVE A DRINK CONTAINING ALCOHOL IN THE PAST YEAR?NO POINTS0 INTERPRETATIONNEGATIVE RECREATIONAL DRUG USE DRUG USE?NO CAFFEINE CAFFEINE USE?YES 3-4 (16OZ) CUPS ICE TEA DAILY SEXUAL HX HAD SEX IN THE LAST 12 MONTHS (VAGINAL, ORAL, OR ANAL)?NO HAVE YOU EVER HAD AN STD?NO ZOROASTRIAN ZOROASTRIAN NO ISLAM BELIEFS THAT WOULD IMPACT HEALTH CARE. LANGUAGE LANGUAGES SPOKEN:NEPALI LEARNING BARRIERS / SPECIAL NEEDS CHANGE FROM LAST VISIT?NO BARRIERS TO LEARNING?NO HEARING IMPAIRED?NO VISION IMPAIRED?YES COGNITIVELY IMPAIRED?NO :CORRECTIVE LENSES READINESS TO LEARN?YES LEARNING PREFERENCES?NO LEARNING CAPABILITIES PRESENT?YES EMOTIONAL BARRIERS?NO SPECIAL DEVICES?NO WOUND CARE SPECIALIST NEEDED?NO OCCUPATION: RETIRED. DIET: REGULAR. EXERCISE: NONE. MARITAL STATUS: . OTHERS AT HOME: . HOSPITALIZATION/MAJOR DIAGNOSTIC PROCEDURE SURGERY RELATED REVIEW OF SYSTEMS CONSTITUTIONAL: ANY RECENT FEVER NO . CHILLS NO . WEIGHT CHANGE OF UNKNOWN REASONS NO . GASTROENTEROLOGY: NEW UNEXPLAINABLE CHANGES IN BOWEL CONTROL NO . CONSTIPATION NO . GENITOURINARY: ANY NEW CHANGE IN BLADDER CONTROL? NO. THE PATIENT IS HAVING SOME PRESSURE IN THE KIDNEY . NEUROLOGY: NEW ONSET DIZZINESS OR NEUROLOGICAL CHANGES NOT MENTIONED NO . NEW NUMBNESS OR PAIN PATTERNS NOT MENTIONED AND PERTINENT TO TODAY'S VISIT NO . CARDIOLOGY: NEW CHEST PRESSURE NO . NEW CHEST PAIN NO. THE PATIENT IS HAVING DISCOMFORT IN THE LEFT ARM AND SHE IS DISCUSSING THIS WITH HER PRIMARY CARE . RESPIRATORY: UNEXPLAINABLE COUGH NO . NEW SHORTNESS OF BREATH YES . VITAL SIGNS WT 201.8 LBS, HT 62 IN, BMI 36.91 INDEX, BP 155/70 MM HG, HR 58 /MIN, RR 18 /MIN, TEMP 97.6 F, OXYGEN SAT % 97%, SAFE IN ENV? (Y/N) YES, NA INITIALS DC 08:42, REVIEWED BY: WENCESLAO CONFERENCE RESERVATIONIST. EXAMINATION GENERAL EXAMINATION: THE PATIENT IS HAVING SOME TENDERNESS IN THE SHOULDER AND SPINE. SHE IS HAVING SOME PAIN IN THE STERNUM NEAR THE LEFT BREAST AREA. SHE IS HAVING SOME PRESENCE OF TRIGGER POINTS AND BANDS OF TISSUE. THE PATIENT IS ALERT, ORIENTED TIMES THREE AND COOPERATIVE. LUNGS ARE CLEAR TO AUSCULTATION. HEART SHOWS REGULAR RHYTHM, NO MURMURS AND NO GALLOPS. HER WALK IS ANTALGIC. SHE SEEMS TO BE LIMPING FROM HER RIGHT LEG. SHE HAS TENDERNESS AT THE RIGHT GREATER TROCHANTER OF THE FEMUR. STRAIGHT LEG RAISE WAS POSITIVE FOR 45 DEGREES. LUMBAR MRI DATED 08/27/2019 SHOWS SOME BULGING DISC AT L4-L5. 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 ALARCON. I WOULD LIKE SOME HELP FROM RHEUMATOLOGY TO BETTER UNDERSTAND THE MULTIPLE BODY PAIN. I WILL REFER HER TO DR. GIL. I WILL ALSO LIKE TO REFER HER TO NEUROLOGY. THEY MAY HELP US UNDERSTAND IF PART OF THE LOW BACK AND HIP PAIN IS COMING FROM RADICULOPATHY. I WILL HOLD INTERVENTION FOR NOW. THINGS I CAN OFFER TO HER IN THE FUTURE ARE AN INJECTION OF THE RIGHT GREATER TROCHANTER OF THE FEMUR AND AN EPIDURAL AT L4-L5. BUT IN VIEW OF EVERYTHING THAT IS GOING ON, I THINK THAT SHE SHOULD BE EVALUATED BY RHEUMATOLOGY AND NEUROLOGY BEFORE I CONTINUE. THE PATIENT WILL FOLLOW UP WITH THE NURSE PRACTITIONER FOR NOW. IN TERMS OF MEDICATIONS, WE CAN CONSIDER CYMBALTA AND TIZANIDINE. IN THE MEANTIME, IF THE PROBLEM OF THE BACK TO THE RIGHT HIP GETS VERY UNCOMFORTABLE, WE CAN CONSIDER AN EPIDURAL. IF THE SIDE/LATERAL HIP IS BOTHER HER MORE, WE CAN CONSIDER AN INJECTION IN THE RIGHT GREATER TROCHANTER OF THE FEMUR. THE PATIENT REPORTS UNDERSTANDING AND AGREES WITH THE PLAN. I, ERIC AN, DOCUMENTED THE ABOVE INFORMATION ACTING A SCRIBE FOR DR. KAUR. I HAVE REVIEWED THE ABOVE DOCUMENT, WRITTEN BY ERIC AN ENGINEERING PROGRAM MANAGER, AND I VERIFY THAT IT IS ACCURATE. . OTHERS REFERRAL TO:[facility] REASON:SHOULDER, LOW BACK, AND HIP PAIN REFERRAL TO:NEUROLOGY [facility] REASON:SHOULDER, LOW BACK, AND HIP PAIN PROCEDURE CODES FA211 ESTABILISHED PATIENT [facility] CHARGE [id number] OFFICE/OUTPATIENT VISIT EST DISPOSITION & COMMUNICATION FOLLOW UP FOLLOW UP WITH CLINICAL DATA RESEARCH (REASON: MEDICATION MANAGEMENT ) ELECTRONICALLY SIGNED BY JOSE E KAUR MD, MD ON 05/21/2020 AT 01:17 PM EST DISCLAIMER : THIS IS A VISIT SUMMARY EXTRACTED FROM THE [employer] CHART. IT IS NOT A COPY OF THE [employer] PROGRESS NOTE. SUREKHAD
== END ==
LOC: M PAIN 09:00
PROVIDERS: ATTEND Anesthesiology
DX: R52 Pain, unspecified (principal); M79.18 Myalgia, other site; M51.16 Intervertebral disc disorders with radiculopathy, lumbar region; M70.61 Trochanteric bursitis, right hip; G44.009 Cluster headache syndrome, unspecified, not intractable; F41.9 Anxiety disorder, unspecified; G47.00 Insomnia, unspecified; M51.26 Other intervertebral disc displacement, lumbar region; Z79.899 Other long term (current) drug therapy; Z87.891 Personal history of nicotine dependence; Z88.0 Allergy status to penicillin

== ENCOUNTER → 2020-05-23 | Outpatient (CLI) | payer OTHER ==
[~2020-05-23] MED LIST changes: -BUPIVACAINE HCL 0.25% 30ML VIAL As Ordered ONE; +CELE1CAP9; -ISOVUE-M 300 61% 15ML VIAL As Ordered ONE; -LIDOCAINE 1% SDV 30ML VIAL As Ordered ONE; -NORCO, ANEXSIA 5/325MG TABLET (HYDROcodone/ACETAMINOPHEN) As Ordered ONE; +PARO30TA4; +PREG150C; +PROP80TA; +TRAZ150T90; -TRIAMCINOLONE ACETONIDE SUSP 40 MG/ML VIAL (J3301) As Ordered ONE; -diphenhydrAMINE 25MG CAP As Ordered ONE
--- NOTE | 2020-05-23 16:41 | REP ---
INDICATION: DYSPNEA ON EXERTION COMPARISON: 06/14/2012. TECHNIQUE: PA/Lateral FINDINGS: Lungs: There is bibasilar fibrotic change with no definite acute infiltrate. Heart: Normal in size. Mediastinum: Mediastinal silhouette unremarkable. Pleural angles: Unremarkable.. Bones and soft tissues: There are mild degenerative changes of the spine. IMPRESSION: No acute pulmonary disease. Mild bibasilar fibro atelectatic changes. <Electronically signed by Lincoln Farmer > 05/23/20 [id number]
== END ==
LOC: M ADAMS 15:15
PROVIDERS: ATTEND Family Medicine
DX: R91.8 Other nonspecific abnormal finding of lung field (principal); R06.00 Dyspnea, unspecified
CPT/HCPCS: 71046; 80053; 83880; 84443; 85025; G0463

== ENCOUNTER → 2020-05-23 | Outpatient (REF) | payer OTHER ==
[2020-05-23 17:36] LABS: BASO % 0.5 % (0.0-1.0); EOS # 0.1 10^3/uL (0.0-0.5); EOS % 1.3 % (0.0-3.0); HEMATOCRIT 40.9 % (36.0-47.0); HEMOGLOBIN 12.9 g/dl (12.0-15.5); LYMPH # 1.9 10^3/uL (1.5-5.0); LYMPH % 25.6 % (24.0-44.0); MEAN CORPUSCULAR HEMOGLOBIN 29.3 pg (27.0-33.0); MEAN CORPUSCULAR HGB CONC 31.5 g/dl (32.0-36.5); MEAN CORPUSCULAR VOLUME 92.7 fl (80.0-96.0); MONO # 0.6 10^3/uL (0.0-0.8); MONO % 8.5 % (2.0-8.0); NEUTROPHILS # 4.8 10^3/uL (1.5-8.5); NEUTROPHILS % 63.4 % (36.0-66.0); PLATELET COUNT, AUTOMATED 171 10^3/uL (150-450); RED BLOOD COUNT 4.41 10^6/uL (4.00-5.40); WHITE BLOOD COUNT 7.6 10^3/uL (4.0-10.0)
[2020-05-23 17:37] LABS: ALBUMIN 2.6 GM/DL (3.2-5.2); BILIRUBIN,TOTAL 0.3 MG/DL (0.2-1.0); CALCIUM LEVEL 8.5 MG/DL (8.8-10.2); CREATININE FOR GFR 1.03 MG/DL (0.55-1.30); GLOMERULAR FILTRATION RATE 56.9 (>45); POTASSIUM SERUM 4.6 MEQ/L (3.5-5.1); THYROID STIMULATING HORMONE 2.23 uIU/ML (0.358-3.740); TOTAL PROTEIN 6.3 GM/DL (6.4-8.2)
== END ==
LOC: M SFHCADAM 14:48
PROVIDERS: ATTEND Family Medicine
DX: R06.00 Dyspnea, unspecified (principal)

== ENCOUNTER 2020-05-24 08:18 | Emergency (ER) | payer OTHER ==
[~2020-05-24] VITALS: Ht 157.5 cm; Wt 92.4 kg
[2020-05-24] MEDS ORDERED: PARO30TA4 (08:30)
[2020-05-24] MEDS ORDERED: CELE1CAP9 (08:30)
[2020-05-24] MEDS ORDERED: PROP80TA (08:30)
[2020-05-24] MEDS ORDERED: PREG150C (08:30)
[2020-05-24] MEDS ORDERED: TRAZ150T90 (08:30)
--- OUTSIDE RECORDS SUMMARY | 2020-05-24 09:02 | CCD ---
Author Author [facility] Organization [facility] Address Unknown Phone Unavailable Care Team Providers Care Inspector Welded Parts Name Role Phone Dilan Hermosillo Unavailable PROBLEMS Type Condition ICD9-CM Code [id number] Code Onset Dates Condition S tatus SNOMED Code Notes Problem Osteoarthritis, unspecified osteoarthritis type, unspecified site M19.90 Active 922986831 Problem Essential hypertension I10 Active 33150328 Problem Melanocytic nevi of left lower limb, including hip D22.72 Active 917852403 Problem Mixed hyperlipidemia E78.2 Active 726607510 Problem Osteoarthritis of lower back M47.9 Active 123 025699 Problem Multiple benign nevi of neck D22.4 Active 923 81698 Problem Lentigines L81.4 Active 660162716 Problem Melanocytic nevi of trunk D22.5 Active 269107 002 Problem History of skin cancer Z85.828 Active 692144116 Problem Milia L72.0 Active 690605781 Problem Skin tag L91.8 Active 270603253 Problem SK (seborrheic keratosis) L82.1 Active 725872 009 Problem 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 Active 4089996 Problem Melanocytic nevi of face D22.30 Active 9931679 04 Problem Bilateral sacroiliitis M46.1 Active 336883711 17922824 Problem Obesity (BMI 30-39.9) E66.9 Active 208813606 Problem Spondylosis of lumbosacral region without myelop athy or radiculopathy M47.817 Active 68702035 Problem Spondylosis without myelopathy or radiculopathy, lumbosacral region M47.817 Active 38610041 Problem Melanocytic nevi of left upper limb, including shoulder D22.62 Active 773711849 Problem Spondylosis without myelopathy or radiculopathy, lumbar region M47.816 Active 734624105 Problem Melanocytic nevi of right lower limb, including hip D22.71 Active 758118233 Problem Melanocytic nevi of right upper limb, including shoulder D22.61 Active 937382881 Problem Post-void dribbling N39.43 Active 944266798 Problem Urgency of urination R39.15 Active 27693563 Problem Bladder pain R39.89 Active 94677304 Problem Other chronic pain G89.29 Active 48156812 ALLERGIES Allergen (clinical drug ingredient) Drug/Non Drug Allergy do cumented on EMR Reaction Allergy Type Onset Date Status Penicillin (For Allergies Use Only) Hives Drug Allerg y Active ENCOUNTERS from 1950 to 2020-04-08 Encounter Location Date Provider Diagnosis [facility] [address] [place] [id number] Mar, Dilan Hermosillo Spondylosis of lumbosacral region withou t myelopathy or radiculopathy M47.817 IMMUNIZATIONS Vaccine Route Administration Date Status Influenza (Pharmacy Given) Unknown Jan 10, 2020 Admin istered Pneumococcal Adult 0.5mL (Pneumovax 23) Unknown Jan 10, 2020 Administered SOCIAL HISTORY Tobacco Use: Social History Observation Description Date Details (start date - stop date) Former Smoker Sex Assigned At : Social History Observation Description Sex Assigned At Unknown Audit Question Answer Notes Total Score: 0 Interpretation: Alcohol Education Language: Question Answer Notes Languages spoken: Anguillan Synagogue: Question Answer Notes Synagogue No jainism beliefs that would impact health care. Sexual Hx: Question Answer Notes Had sex in the last 12 months (vaginal, oral, or anal)? No Have you ever had an STD? No Drug and Alcohol Question Answer Notes Total Score: 0 Interpretation: No problems reported Alcohol Screening: Question Answer Notes Did you have a drink containing alcohol in the past year? No Points 0 Interpretation Negative Tobacco Use: Question Answer Notes Are you a: former smoker quit 04/07/2019 How long has it been since you last smoked? 3-6 months REASON FOR REFERRAL No Information VITAL SIGNS No information MEDICATIONS Medication SIG (Take, Route, Frequency, Duration) Notes Start Da te End Date Status Paroxetine HCl 30 MG 1 tab Oral Daily for 30 days Active Pyridium 100 MG 1 tablets after meals Orally Three times a day f or 30 days Jan, Not-Taking Xenical 120 MG 1 capsule with each main mingo l Orally Three times a day for 30 day(s) Jan, Not-Taking Lyrica 150 MG 1 capsule Orally TID for 30 days August, 0 Active Celebrex 200 MG 1 capsule with food Orally Once a day for 30 day s August, Active Advil 200 MG 2 tablet with food or milk as needed Orally Three time s a day Not-Taking Propranolol HCl 80 MG 1 tablet Orally Once a day Sep, 020 Active Trazodone HCl 150 MG TAKE 1 TABLET BY MOUTH ONCE DAILY AT BEDTIME Oral for 30 days Active Tolterodine Tartrate ER 4 MG 1 capsule Orally Once a day for 30 day(s) Feb, Not-Taking Pyridium 100 MG 1 tablet after meals Orally Three times a day as needed for burning sensation for 30 days Jan, No t-Taking PROCEDURES No Information RESULTS No Results REASON FOR VISIT No Information MEDICAL (GENERAL) HISTORY Type Description Date Medical History cluster headaches Medical History melanoma 2003 Medical History anxiety and insomnia Medical History DJD on X rays of hip and low back ( 0) Medical History CT shows diverticulosis without divertic ulitis (07/2019) Medical History lumbar MRI shows bilat osteo arthritic facet and ligamentum flavum hypertrophy and diffuse disc bulges L4-S1. No spinal stenosis or foraminal narrowing. (08/2019) Surgical History D & C 1975 Surgical History partial hysterectomy 1975 Surgical History total hyst 1979 Surgical History L knee fracture repair Surgical History L knee removal of screws Surgical History L knee arthroscopy Surgical History cauterization of nerves in neck Hospitalization History surgery related Goals Section No Information Health Concerns No Information MEDICAL EQUIPMENT No Information MENTAL STATUS No Information FUNCTIONAL STATUS No Information ASSESSMENTS Encounter Date Diagnosis Assessment Notes Treatment Notes Treatm ent Clinical Notes Mar, Spondylosis of lumbosacral r egion without myelopathy or radiculopathy (ICD-10 - M47.817) PLAN OF TREATMENT Medication Medication Name Sig Start Date Stop Date Lyrica 150 MG 1 capsule Orally TID for 30 days August, Celebrex 200 MG 1 capsule with food Orally Once a day for 30 day s August, Next Appt Details Provider Name:Dilan Hermosillo, 2020-05-01 10:00:00 AM, [address] [place], [address], Provider Name:Dorina Hermosillo, 09:00:00 AM, [address], [place], [address], Provider Name:Sadie Quispe, 2020-05-22 11:00:00 AM, [address], [place], [address], Provider Name:Cristobal Biswas, 2020-08 10:15:00 AM, [address] [facility], [address]st Floor, [place], [address], Insurance Providers Payer Name Payer Address Payer Phone Insured Name Patient Relati onship to Insured Coverage Start Date Coverage End Date [employer]ACH[employer] [place] [address] [address] [facility] [id number] [place],LÁZARO Aceves self
--- OUTSIDE RECORDS SUMMARY | 2020-05-24 09:02 | CCD ---
Author Author [facility] Organization [facility] Address Unknown Phone Unavailable Care Team Providers Care Tomato Pulper Operator Name Role Phone Dilan Hermosillo Unavailable PROBLEMS Type Condition ICD9-CM Code [id number] Code Onset Dates Condition S tatus SNOMED Code Notes Problem Osteoarthritis, unspecified osteoarthritis type, unspecified site M19.90 Active 863371454 Problem Essential hypertension I10 Active 85029374 Problem Melanocytic nevi of left lower limb, including hip D22.72 Active 478679093 Problem Mixed hyperlipidemia E78.2 Active 414994678 Problem Osteoarthritis of lower back M47.9 Active 123 788088 Problem Multiple benign nevi of neck D22.4 Active 923 83268 Problem Lentigines L81.4 Active 246897613 Problem Melanocytic nevi of trunk D22.5 Active 488773 002 Problem History of skin cancer Z85.828 Active 946191170 Problem Milia L72.0 Active 173591576 Problem Skin tag L91.8 Active 165489266 Problem SK (seborrheic keratosis) L82.1 Active 389479 009 Problem 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 Active 7868162 Problem Melanocytic nevi of face D22.30 Active 3215101 04 Problem Bilateral sacroiliitis M46.1 Active 672910196 06020038 Problem Obesity (BMI 30-39.9) E66.9 Active 268207405 Problem Spondylosis of lumbosacral region without myelop athy or radiculopathy M47.817 Active 54245748 Problem Spondylosis without myelopathy or radiculopathy, lumbosacral region M47.817 Active 70578946 Problem Melanocytic nevi of left upper limb, including shoulder D22.62 Active 904305416 Problem Spondylosis without myelopathy or radiculopathy, lumbar region M47.816 Active 127278595 Problem Melanocytic nevi of right lower limb, including hip D22.71 Active 185868384 Problem Melanocytic nevi of right upper limb, including shoulder D22.61 Active 998294561 Problem Post-void dribbling N39.43 Active 754067935 Problem Urgency of urination R39.15 Active 84642420 Problem Bladder pain R39.89 Active 90542949 Problem Other chronic pain G89.29 Active 49261370 ALLERGIES Allergen (clinical drug ingredient) Drug/Non Drug Allergy do cumented on EMR Reaction Allergy Type Onset Date Status Penicillin (For Allergies Use Only) Hives Drug Allerg y Active ENCOUNTERS from 1950 to 2020-04-09 Encounter Location Date Provider Diagnosis [facility] [address] [place] [phone] Mar, Dilan Hermosillo Spondylosis of lumbosacral region [...] Education Language: Question Answer Notes Languages spoken: Samoan Mormon: Question Answer Notes Mormon No holiness beliefs that would impact health care. Sexual [...] REASON FOR REFERRAL No Information VITAL SIGNS Weight 196.6 lbs Mar, Height 62 in Mar, BMI 35.95 kg/m2 Mar, Heart Rate 64 /min Mar, Respiratory Rate 18 /min Mar, Temperature 96.1 degrees Fahrenheit Mar, Oximetry 97% Mar, Blood pressure systolic 158 mm Hg Mar, Blood pressure diastolic 72 mm Hg Mar, MEDICATIONS Medication SIG (Take, Route, Frequency, Duration) [...] Information RESULTS No Results REASON FOR VISIT 4 week follow up back pain MEDICAL (GENERAL) HISTORY Type Description Date Medical [...] without myelopathy or radiculopathy (ICD-10 - M47.817) 69-year-old female in for chronic pain follow-up. Given presenting symptoms recommend increasing Lyrica to 150 mg 3 times a day with follow-up in one month to determine efficacy treatment. Patient has expressed understanding of was in agreement with treatment plan. Given time to ask questions and express concerns. , ISTOP registry reviewed and demonstrates complliance. (Ref # [id number] ) PLAN OF TREATMENT Medication Medication Name Sig Start Date Stop Date Lyrica 150 MG 1 capsule Orally TID for 30 days August, Celebrex 200 MG 1 capsule with food Orally Once a day for 30 day s August, Treatment Notes Assessment Notes Clinical Notes Spondylosis of lumbosacral region without myelopathy o r radiculopathy 69-year-old female in for chronic pain follow-up. Given presenting symptoms recommend increasing Lyrica to 150 mg 3 times a day with follow-up in one month to determine efficacy treatment. Patient has expressed understanding of was in agreement with treatment plan. Given time to ask questions and express concerns., ISTOP registry reviewed and demonstrates complliance. (Ref # [id number] ) Next Appt Details 4 Weeks Reason:medication increase Provider Name:Dilan Hermosillo, 2020-05-01 10:00:00 AM, [address] [place] [address], [phone], Provider Name:Dorina Hermosillo, 09:00:00 AM, [address] [facility], [place], [address], Provider Name:Sadie Quispe, 2020-05-22 11:00:00 AM, [address], [place], [address], Provider Name:Cristobal Biswas, 2020-08 10:15:00 AM, [address] [place] [address], [address] Floor, [place], [address], Follow Up:4 Weeksmedication increase Insurance Providers Payer Name Payer Address Payer Phone Insured Name Patient Relati onship to Insured Coverage Start Date Coverage End Date CAMACHO CARDENAS [facility] [id number] [facility] [phone] [place],LÁZARO perez
--- OUTSIDE RECORDS SUMMARY | 2020-05-24 09:02 | CCD ---
Author Author [facility] Organization [facility] Address Unknown Phone Unavailable Care Team Providers Care Burrer Machine Name Role Phone Dilan Hermosillo Unavailable PROBLEMS Type Condition ICD9-CM Code NXP10-DN Code Onset Dates Condition S tatus SNOMED Code Notes Problem Osteoarthritis, unspecified osteoarthritis type, unspecified site M19.90 Active 709204413 Problem Essential hypertension I10 Active 46931013 Problem Melanocytic nevi of left lower limb, including hip D22.72 Active 272461061 Problem Mixed hyperlipidemia E78.2 Active 904987604 Problem Osteoarthritis of lower back M47.9 Active 123 500100 Problem Multiple benign nevi of neck D22.4 Active 923 37200 Problem Lentigines L81.4 Active 956517036 Problem Melanocytic nevi of trunk D22.5 Active 596265 002 Problem History of skin cancer Z85.828 Active 899540541 Problem Milia L72.0 Active 911788142 Problem Skin tag L91.8 Active 746433376 Problem SK (seborrheic keratosis) L82.1 Active 584797 009 Problem 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 Active 5621000 Problem Melanocytic nevi of face D22.30 Active 9127866 04 Problem Bilateral sacroiliitis M46.1 Active 573062583 66577704 Problem Obesity (BMI 30-39.9) E66.9 Active 598928745 Problem Spondylosis of lumbosacral region without myelop athy or radiculopathy M47.817 Active 92751218 Problem Spondylosis without myelopathy or radiculopathy, lumbosacral region M47.817 Active 46476962 Problem Melanocytic nevi of left upper limb, including shoulder D22.62 Active 642131980 Problem Spondylosis without myelopathy or radiculopathy, lumbar region M47.816 Active 514928673 Problem Melanocytic nevi of right lower limb, including hip D22.71 Active 689836045 Problem Melanocytic nevi of right upper limb, including shoulder D22.61 Active 090945805 Problem Post-void dribbling N39.43 Active 677468146 Problem Urgency of urination R39.15 Active 04152321 Problem Bladder pain R39.89 Active 97567988 Problem Other chronic pain G89.29 Active 01978994 ALLERGIES Allergen (clinical drug ingredient) Drug/Non Drug Allergy do cumented on EMR Reaction Allergy Type Onset Date Status Penicillin (For Allergies Use Only) Hives Drug Allerg y Active ENCOUNTERS from 1950 to 2020-03-14 Encounter Location Date Provider Diagnosis [facility] [address] [place] [address] Mar, Dilan Hermosillo Other chronic pain G89.29 and Spondylosi s of lumbosacral region without myelopathy or radiculopathy M47.817 IMMUNIZATIONS Vaccine Route [...] Education Language: Question Answer Notes Languages spoken: New Zealander Baptist: Question Answer Notes Baptist No catholic beliefs that would impact health care. Sexual [...] FOR REFERRAL No Information VITAL SIGNS Weight 189.8 lbs Mar, Height 62 in Mar, BMI 34.71 kg/m2 Mar, Heart Rate 52 /min Mar, Respiratory Rate 18 /min Mar, Temperature 96.5 degrees Fahrenheit Mar, Oximetry 94% Mar, Blood pressure systolic 131 mm Hg Mar, Blood pressure diastolic 63 mm Hg Mar, MEDICATIONS Medication SIG (Take, Route, Frequency, Duration) Notes Start Da te End Date Status Paroxetine HCl 30 MG 1 tab Oral Daily for 30 days Active Lyrica 100 MG 1 capsule Orally TID for 30 days August, 0 Active Pyridium 100 MG 1 tablets after meals Orally Three times a day f or 30 days Jan, Not-Taking Pyridium 100 MG 1 tablet after meals Orally Three times a day as needed for burning sensation for 30 days Jan, No t-Taking Xenical 120 MG 1 capsule with each main mingo l Orally Three times a day for 30 day(s) Jan, Not-Taking Propranolol HCl 80 MG 1 tablet Orally Three times a day for 30 D ays Sep, Active Celebrex 200 MG 1 capsule with food Orally Once a day for 30 day s August, Active Trazodone HCl 150 MG TAKE 1 TABLET BY MOUTH ONCE DAILY AT BEDTIME Oral for 30 days Active Tolterodine Tartrate ER 4 MG 1 capsule Orally Once a day for 30 day(s) Feb, Active Advil 200 MG 2 tablet with food or milk as needed Orally Three time s a day Not-Taking PROCEDURES from 1950 to 2020-03-14 Procedure Date Ordered Result Body Site Pain Procedure Log 2020-03-11 N/A RESULTS No Results REASON FOR VISIT Post bilateral therapeutic lumbar facet block L4-L5 L5-S1 MEDICAL (GENERAL) HISTORY Type Description Date Medical [...] Treatment Notes Treatm ent Clinical Notes Mar, Other chronic pain (ICD-10 - G89.29) 69-year-old female in for post therapeutic lumbar facet block follow-up. Given presenting symptoms recommended increasing Lyrica to 100 mg 3 times a day with follow-up in one month to determine efficacy of treatment. Patient has expressed understanding of and was in agreement with treatment plan. Given time to ask questions and express concerns. , ISTOP registry reviewed and demonstrates complliance. (Ref # [id number] ) Brings in medications which is appropriate for what was dispensed. Recent urine toxicology reviewed. No unauthorized medications. No illicit substances and prescribed medications were present. Mar, Spondylosis of lumbosacral r egion without myelopathy or radiculopathy (ICD-10 - M47.817) PLAN OF TREATMENT Medication Medication Name Sig Start Date Stop Date Lyrica 100 MG 1 capsule Orally TID for 30 days August, Celebrex 200 MG 1 capsule with food Orally Once a day for 30 day s August, Treatment Notes Assessment Notes Clinical Notes Other chronic pain 69-year-old female in for po st therapeutic lumbar facet block follow-up. Given presenting symptoms recommended increasing Lyrica to 100 mg 3 times a day with follow-up in one month to determine efficacy of treatment. Patient has expressed understanding of and was in agreement with treatment plan. Given time to ask questions and express concerns., ISTOP registry reviewed and demonstrates complliance. (Ref # [id number] ) Brings in medications which is appropriate for what was dispensed. Recent urine toxicology reviewed. No unauthorized medications. No illicit substances and prescribed medications were present. 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 [address] [place],LÁZARO Aceves self
--- OUTSIDE RECORDS SUMMARY | 2020-05-24 09:02 | CCD ---
Author Author [facility] Organization [facility] Address Unknown Phone Unavailable Care Team Providers Care Rn Acls Name Role Phone Dilan Hermosillo Unavailable PROBLEMS Type Condition ICD9-CM Code PED31-DL Code Onset Dates Condition S tatus SNOMED Code Notes Problem Active Problem Osteoarthritis, unspecified osteoarthritis type, unspecified site M19.90 Active 567559678 Problem Essential hypertension I10 Active 08932428 Problem Melanocytic nevi of left lower limb, including hip D22.72 Active 990076150 Problem Mixed hyperlipidemia E78.2 Active 937435676 Problem Osteoarthritis of lower back M47.9 Active 123 321611 Problem Multiple benign nevi of neck D22.4 Active 923 47719 Problem Lentigines L81.4 Active 539376665 Problem Melanocytic nevi of trunk D22.5 Active 901220 002 Problem History of skin cancer Z85.828 Active 126619697 Problem Milia L72.0 Active 249323892 Problem Skin tag L91.8 Active 945713913 Problem SK (seborrheic keratosis) L82.1 Active 860202 009 Problem 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 Active 7374422 Problem Melanocytic nevi of face D22.30 Active 5102369 04 Problem Bilateral sacroiliitis M46.1 Active 364113740 22581798 Problem Obesity (BMI 30-39.9) E66.9 Active 617942290 Problem Spondylosis of lumbosacral region without myelop athy or radiculopathy M47.817 Active 49910924 Problem Spondylosis without myelopathy or radiculopathy, lumbosacral region M47.817 Active 74128548 Problem Melanocytic nevi of left upper limb, including shoulder D22.62 Active 709389896 Problem Spondylosis without myelopathy or radiculopathy, lumbar region M47.816 Active 773436976 Problem Melanocytic nevi of right lower limb, including hip D22.71 Active 506973057 Problem Melanocytic nevi of right upper limb, including shoulder D22.61 Active 483547472 Problem Post-void dribbling N39.43 Active 441844403 Problem Urgency of urination R39.15 Active 88537775 Problem Bladder pain R39.89 Active 59621854 Problem Other chronic pain G89.29 Active 81081851 ALLERGIES Allergen (clinical drug ingredient) Drug/Non Drug Allergy do cumented on EMR Reaction Allergy Type Onset Date Status Penicillin (For Allergies Use Only) Hives Drug Allerg y Active ENCOUNTERS from 1950 to 2020-05-04 Encounter Location Date Provider Diagnosis [facility] [address] [place] [address] Apr, Dilan Hermosillo Bilateral sacroiliitis M46.1 IMMUNIZATIONS Vaccine Route Administration Date Status Influenza [...] Education Language: Question Answer Notes Languages spoken: Croatian Judaism: Question Answer Notes Judaism No buddhism beliefs that would impact health care. Sexual [...] has it been since you last smoked? 1-5 years REASON FOR REFERRAL No Information VITAL SIGNS Weight 198.8 lbs Apr, Height 62 in Apr, BMI 36.36 kg/m2 Apr, Heart Rate 56 /min Apr, Respiratory Rate 18 /min Apr, Temperature 97.2 degrees Fahrenheit Apr, Oximetry 96% Apr, Blood pressure systolic 130 mm Hg Apr, Blood pressure diastolic 80 mm Hg Apr, MEDICATIONS Medication SIG (Take, Route, Frequency, Duration) Notes Start Da te End Date Status Pyridium 100 MG 1 tablets after meals Orally Three times a day f or 30 days Jan, Not-Taking Trazodone HCl 150 MG TAKE 1 TABLET BY MOUTH ONCE DAILY AT BEDTIME Oral for 30 days Active Lyrica 150 MG 1 capsule Orally TID for 30 day(s) August, Active Paroxetine HCl 30 MG 1 tab Oral Daily for 30 days Active Advil 200 MG 2 tablet with food or milk as needed Orally Three time s a day Not-Taking Celebrex 200 MG 1 capsule with food Orally Once a day for 90 day (s) August, Active Xenical 120 MG 1 capsule with each main mingo l Orally Three times a day for 30 day(s) Jan, Not-Taking Tolterodine Tartrate ER 4 MG 1 capsule Orally Once a day for 30 day(s) Feb, Not-Taking Pyridium 100 MG 1 tablet after meals Orally Three times a day as needed for burning sensation for 30 days Jan, No t-Taking Propranolol HCl 80 MG 1 tablet Orally Once a day Sep, Active PROCEDURES No Information RESULTS No Results REASON FOR VISIT medication increase MEDICAL (GENERAL) HISTORY Type Description Date Medical [...] No Information FUNCTIONAL STATUS No Information ASSESSMENTS No Information PLAN OF TREATMENT Medication Medication Name Sig Start Date Stop Date Lyrica 150 MG 1 capsule Orally TID for 30 day(s) August, Celebrex 200 MG 1 capsule with food Orally Once a day fo r 90 day(s) August, Next Appt Details Post procedure Reason:Bilateral sacroili ac joint block Provider Name:Dorina Hermosillo, 09:00:00 AM, [address], [place], [address], Provider Name:Sadie Quispe, 2020-05-22 11:00:00 AM, [address], [place], [address], Provider Name:Cristobal Biswas, 2020-08 10:15:00 AM, [address] [place], [address] Floor, [place], [address], Follow Up:Post procedureBilateral sacroiliac joint block Insurance Providers Payer Name Payer Address Payer Phone Insured Name Patient Relati onship to Insured Coverage Start Date Coverage End Date CAMACHO [place] [address] [address] [facility] [phone] AUNanette INLÁZARO
--- OUTSIDE RECORDS SUMMARY | 2020-05-24 09:02 | CCD ---
Author Author [facility] Organization [facility] Address Unknown Phone Unavailable Care Team Providers Care Informatica Name Role Phone Sadie Quispe Unavailable PROBLEMS Type Condition ICD9-CM Code [id number] Code Onset Dates Condition S tatus SNOMED Code Notes Problem Osteoarthritis, unspecified osteoarthritis type, unspecified site M19.90 Active 172254713 Problem Essential hypertension I10 Active 45412776 Problem Melanocytic nevi of left lower limb, including hip D22.72 Active 095222592 Problem Mixed hyperlipidemia E78.2 Active 737588391 Problem Osteoarthritis of lower back M47.9 Active 123 005008 Problem Multiple benign nevi of neck D22.4 Active 923 79617 Problem Lentigines L81.4 Active 017622359 Problem Melanocytic nevi of trunk D22.5 Active 056916 002 Problem History of skin cancer Z85.828 Active 234843522 Problem Milia L72.0 Active 892914350 Problem Skin tag L91.8 Active 812533835 Problem SK (seborrheic keratosis) L82.1 Active 479985 009 Problem 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 Active 6569845 Problem Melanocytic nevi of face D22.30 Active 3865506 04 Problem Bilateral sacroiliitis M46.1 Active 506433446 92096941 Problem Obesity (BMI 30-39.9) E66.9 Active 379883707 Problem Spondylosis of lumbosacral region without myelop athy or radiculopathy M47.817 Active 65969876 Problem Spondylosis without myelopathy or radiculopathy, lumbosacral region M47.817 Active 52624432 Problem Melanocytic nevi of left upper limb, including shoulder D22.62 Active 871079276 Problem Spondylosis without myelopathy or radiculopathy, lumbar region M47.816 Active 480084449 Problem Melanocytic nevi of right lower limb, including hip D22.71 Active 824281184 Problem Melanocytic nevi of right upper limb, including shoulder D22.61 Active 305095866 Problem Post-void dribbling N39.43 Active 612371857 Problem Urgency of urination R39.15 Active 40242988 Problem Bladder pain R39.89 Active 37255093 Problem Other chronic pain G89.29 Active 21668651 ALLERGIES Allergen (clinical drug ingredient) Drug/Non Drug Allergy do cumented on EMR Reaction Allergy Type Onset Date Status Penicillin (For Allergies Use Only) Hives Drug Allerg y Active ENCOUNTERS from 1950 to 2020-05-08 Encounter Location Date Provider Diagnosis [facility] [address] [place] [address] Apr, Sadie Shakeel-Tartell IMMUNIZATIONS Vaccine Route Administration Date Status Influenza (Pharmacy Given) Unknown Jan 10, 2020 Admin istered Pneumococcal Adult 0.5mL (Pneumovax 23) Unknown Jan 10, 2020 Administered SOCIAL HISTORY Tobacco Use: Social History Observation Description Date Details (start date - stop date) Former Smoker Sex Assigned At : Social History Observation Description Sex Assigned At Unknown Audit Question Answer Notes Interpretation: Alcohol Education Total Score: 0 Language: Question Answer Notes Languages spoken: Cypriot Mosque: Question Answer Notes Mosque No christianity beliefs that would impact health care. Sexual Hx: Question Answer Notes Had sex in the last 12 months (vaginal, oral, or anal)? No Have you ever had an STD? No Drug and Alcohol Question Answer Notes Interpretation: No problems reported Total Score: 0 Alcohol Screening: Question Answer Notes Did you [...] Orally TID for 30 day(s) August, Active Advil 200 MG 2 tablet with food or milk as needed Orally Three time s a day Not-Taking Pyridium 100 MG 1 tablet after meals Orally Three times a day as needed for burning sensation for 30 days Jan, No t-Taking Celebrex 200 MG 1 capsule with food Orally Once a day for 90 day (s) August, Active Paroxetine HCl 30 MG 1 tab Oral Daily for 90 day(s) Active Tolterodine Tartrate ER 4 MG 1 capsule Orally Once a day for 30 day(s) Feb, Not-Taking Xenical 120 MG 1 capsule with each main mingo l Orally Three times a day for 30 day(s) Jan, Not-Taking Propranolol HCl 80 MG 1 tablet Orally Once a day Sep, Active PROCEDURES No Information RESULTS No Results REASON FOR VISIT paroxetine MEDICAL (GENERAL) HISTORY Type Description Date Medical [...] Medication Name Sig Start Date Stop Date Celebrex 200 MG 1 capsule with food Orally Once a day fo r 90 day(s) August, Paroxetine HCl 30 MG 1 tab Oral Daily for 90 day(s) Lyrica 150 MG 1 capsule Orally TID for 30 day(s) August, Next Appt Details Provider Name:Dorina Hermosillo, 09:00:00 AM, [address], [place], [address], Provider Name:Daryl Nicholas, 2020-05-21 09:00:00 AM, [address] [place] [address], [phone], Provider Name:Sadie Quispe, 2020-05-22 11:00:00 AM, [address], [place], [address], Provider Name:Dilan Hermosillo, 2020-06-19 10:15:00 AM, [address] [place] [address], [phone], Provider Name:Cristobal Biswas, 2020-08 10:15:00 AM, [address] [place] [address], [address] [place] [address], [place], [address], Insurance Providers Payer Name Payer Address Payer Phone Insured Name Patient Relati onship to Insured Coverage Start Date Coverage End Date CAMACHO [place]UR[place] [address] [address] [facility] [phone] [place],LÁZARO Aceves self
--- OUTSIDE RECORDS SUMMARY | 2020-05-24 09:02 | CCD ---
Author Author [facility] Organization [facility] Address Unknown Phone Unavailable Care Team Providers Care Modern Dancer Name Role Phone Sadie Quispe Unavailable PROBLEMS Type Condition ICD9-CM Code IYT03-XO Code Onset Dates Condition S tatus SNOMED Code Notes Problem Melanocytic nevi of left upper limb, including shoulder D22.62 Active 298103035 Problem Melanocytic nevi of right lower limb, including hip D22.71 Active 842539888 Problem Melanocytic nevi of trunk D22.5 Active 278783 002 Problem Melanocytic nevi of right upper limb, including shoulder D22.61 Active 449202478 Problem Milia L72.0 Active 847697300 Problem Lentigines L81.4 Active 756649660 Problem Melanocytic nevi of face D22.30 Active 2676574 04 Problem Essential hypertension I10 Active 67154773 Problem History of skin cancer Z85.828 Active 329569109 Problem Skin tag L91.8 Active 062114140 Problem Multiple benign nevi of neck D22.4 Active 923 68666 Problem Osteoarthritis of lower back M47.9 Active 123 004824 Problem Spondylosis without myelopathy or radiculopathy, lumbosacral region M47.817 Active 77104823 Problem 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 Active 7570288 Problem Mixed hyperlipidemia E78.2 Active 077235683 Problem Spondylosis without myelopathy or radiculopathy, lumbar region M47.816 Active 182739063 Problem SK (seborrheic keratosis) L82.1 Active 905072 009 Problem Osteoarthritis, unspecified osteoarthritis type, unspecified site M19.90 Active 497596922 Problem Melanocytic nevi of left lower limb, including hip D22.72 Active 847767133 Problem Bilateral sacroiliitis M46.1 Active 952758821 55612207 Problem Obesity (BMI 30-39.9) E66.9 Active 767297534 Problem Spondylosis of lumbosacral region without myelop athy or radiculopathy M47.817 Active 49127209 Problem Post-void dribbling N39.43 Active 850956999 ALLERGIES Allergen (clinical drug ingredient) Drug/Non Drug Allergy do cumented on EMR Reaction Allergy Type Onset Date Status Penicillin (For Allergies Use Only) Hives Drug Allerg y Active ENCOUNTERS from 1950 to 2020-03-02 Encounter Location Date Provider Diagnosis [facility] [address] [place] [address] Feb, Sadie Shakeel-Tartell Lower extremity edema R60.0 ; Osteoarthr itis, unspecified osteoarthritis type, unspecified site M19.90 and Essential hypertension I10 IMMUNIZATIONS Vaccine Route Administration Date Status Influenza [...] Education Language: Question Answer Notes Languages spoken: Ivorian Hoahaoism: Question Answer Notes Hoahaoism No denominational beliefs that would impact health care. Sexual [...] FOR REFERRAL No Information VITAL SIGNS Weight 192 lbs Feb, Height 62 in Feb, BMI 35.11 kg/m2 Feb, Heart Rate 75 /min Feb, Respiratory Rate 18 /min Feb, Temperature 98.4 degrees Fahrenheit Feb, Oximetry 94 Feb, Blood pressure systolic 130 mm Hg Feb, Blood pressure diastolic 78 mm Hg Feb, MEDICATIONS Medication SIG (Take, Route, Frequency, Duration) Notes Start Da te End Date Status Pyridium 100 MG 1 tablets after meals Orally Three times a day f or 30 days Jan, Active Paroxetine HCl 30 MG 1 tab Oral Daily for 30 days Active Pyridium 100 MG 1 tablet after meals Orally Three times a day as needed for burning sensation for 30 days Jan, No t-Taking Xenical 120 MG 1 capsule with each main mingo l Orally Three times a day for 30 day(s) Jan, Not-Taking Trazodone HCl 150 MG TAKE 1 TABLET BY MOUTH ONCE DAILY AT BEDTIME Oral for 30 days Active Lyrica 75 MG 1 capsule Orally TID for 30 days August, Active Propranolol HCl 80 MG 1 tablet Orally Three times a day for 30 D ays Sep, Active Celebrex 200 MG 1 capsule with food Orally Once a day for 30 day s August, Active Advil 200 MG 2 tablet with food or milk as needed Orally Three time s a day Not-Taking PROCEDURES No Information RESULTS No Results REASON FOR VISIT 4 week MEDICAL (GENERAL) HISTORY Type Description Date Medical [...] Notes Treatment Notes Treatm ent Clinical Notes Feb, Lower extremity edema (ICD-10 - R60.0) Advised compression stockings; I think a diuretic would be more bothersome as she already has urinary symptoms. Feb, Osteoarthritis, unspecified osteoarthritis type, unspecified site (ICD-10 - M19.90) She has chronic pain which is really limiting her movement. I encouraged her to find yoga or giuseppe chi that she can do at home -- something gentle, with stretching. Feb, Essential hypertension (ICD-10 - I10) Blood pressure is controlled in office today, and patient is tolerating antihypertensive medication. Will continue medication without change. Encouraged low sodium diet, regular exercise as tolerated. PLAN OF TREATMENT Treatment Notes Assessment Notes Clinical Notes Lower extremity edema Advised compressio n stockings; I think a diuretic would be more bothersome as she already has urinary symptoms. Osteoarthritis, unspecified osteoarthritis type, unspecified site She has chronic pain which is really limiting her movement. I encouraged her to find yoga or giuseppe chi that she can do at home -- something gentle, with stretching. Essential hypertension Blood pressure is controlled in office today, and patient is tolerating antihypertensive medication. Will continue medication without change. Encouraged low sodium diet, regular exercise as tolerated. Next Appt Details 3 Months Reason:f/u Provider Name:Ld Hwang, 2020-02 11:00:00 AM, [address] [facility], [place], [address], Provider Name:Dilan Hermosillo, 2020-03-11 10:00:00 AM, [address] [place] [address], [phone], Provider Name:Sadie Quispe, 2020-05-22 11:00:00 AM, [address] [place] [address], [phone], Provider Name:Cristobal Biswas, 2020-08 10:15:00 AM, [address] [place] [address], [address] Floor, [place], [address], Follow Up:3 Monthsf/u Insurance Providers Payer Name Payer Address Payer Phone Insured Name Patient Relati onship to Insured Coverage Start Date Coverage End Date CAMACHO DURBIN [address] [address] [facility] [id number] JONAS INLÁZARO
--- OUTSIDE RECORDS SUMMARY | 2020-05-24 09:02 | CCD ---
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 Cartridge Assembling Machine Adjuster Name Role Phone Daryl Nicholas Unavailable PROBLEMS Type Condition ICD9-CM Code [id number] Code Onset Dates Condition S tatus W/U Status Risk SNOMED Code Notes Problem Essential hypertension I10 Active confirmed 81488942 Problem Mixed hyperlipidemia E78.2 Active confirmed 074706210 Problem Osteoarthritis, unspecified osteoarthritis type, unspecified site M19.90 Active confirmed 452091737 Problem Melanocytic nevi of right lower limb, including hip D22.71 Active confirmed 002318250 Problem Melanocytic nevi of left lower limb, including hip D22.72 Active confirmed 525026855 Problem Bilateral sacroiliitis M46.1 Active confirmed [id number] Problem Osteoarthritis of lower back M47.9 Active confirme d 492467053 Problem Lentigines L81.4 Active confirmed 434612922 Problem Skin tag L91.8 Active confirmed 184587671 Problem History of skin cancer Z85.828 Active confirmed 983676986 Problem Milia L72.0 Active confirmed 192280160 Problem SK (seborrheic keratosis) L82.1 Active confirmed 907750323 Problem Melanocytic nevi of face D22.30 Active confirmed 388846772 Problem Multiple benign nevi of neck D22.4 Active confirme d 96344132 Problem 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 Active confirmed 45663 01 Problem Obesity (BMI 30-39.9) E66.9 Active confirmed 726882450 Problem Spondylosis of lumbosacral region without myelop athy or radiculopathy M47.817 Active confirmed 11096532 Problem Post-void dribbling N39.43 Active confirmed 947797434 Problem Spondylosis without myelopathy or radiculopathy, lumbar region M47.816 Active confirmed 804042247 Problem Melanocytic nevi of right upper limb, including shoulder D22.61 Active confirmed 802398007 Problem Sacroiliitis, not elsewhere classified M46.1 A ctive confirmed 41638909 Problem Melanocytic nevi of left upper limb, including shoulder D22.62 Active confirmed 174299903 Problem Melanocytic nevi of trunk D22.5 Active confirmed 914970750 Problem Bladder pain R39.89 Active confirmed 6793253 9 Problem Urgency of urination R39.15 Active confirmed 71520099 Problem Other chronic pain G89.29 Active confirmed 8 0586544 Problem Spondylosis without myelopathy or radiculopathy, lumbosacral region M47.817 Active confirmed 40525946 ALLERGIES Allergen (clinical drug ingredient) Drug/Non Drug Allergy do cumented on EMR Reaction Allergy Type Onset Date Status Penicillin (For Allergies Use Only) Hives Drug Allerg y Active ENCOUNTERS from 1950 to 2020-05-21 Encounter Location Date Provider Diagnosis [facility] [address] [place] [address] 10 May, 2020 Daryl Nicholas Total body pain R52 ; Myalgia M79.10 ; M yofascial pain syndrome M79.18 ; Radiculopathy due to lumbar intervertebral disc disorder M51.16 and Greater trochanteric bursitis of right hip M70.61 IMMUNIZATIONS Vaccine Route Administration Date Status Influenza [...] Education Language: Question Answer Notes Languages spoken: Malagasy Yazidi: Question Answer Notes Yazidi No rastafarian beliefs that would impact health care. Sexual [...] FOR REFERRAL No Information VITAL SIGNS Weight 201.8 lbs May, Height 62 in May, BMI 36.91 kg/m2 May, Heart Rate 58 /min May, Respiratory Rate 18 /min May, Temperature 97.6 degrees Fahrenheit May, Oximetry 97% May, Blood pressure systolic 155 mm Hg May, Blood pressure diastolic 70 mm Hg May, MEDICATIONS Medication SIG (Take, Route, Frequency, Duration) Notes Start Da te End Date Status Trazodone HCl 150 MG TAKE 1 TABLET BY MOUTH ONCE DAILY AT BEDTIME Oral for 30 days Active Paroxetine HCl 30 MG 1 tab Oral Daily for 90 day(s) Active Lyrica 150 MG 1 capsule Orally TID for 30 day(s) August, 020 Active Xenical 120 MG 1 capsule with each main mingo l Orally Three times a day for 30 day(s) Jan, Not-Taking Pyridium 100 MG 1 tablet after meals Orally Three times a day as needed for burning sensation for 30 days Jan, No t-Taking Tolterodine Tartrate ER 4 MG 1 capsule Orally Once a day for 30 day(s) Feb, Not-Taking Propranolol HCl 80 MG 1 tablet Orally Once a day Sep, 020 Active Celebrex 200 MG 1 capsule with food Orally Once a day for 90 day (s) August, Active Advil 200 MG 2 tablet with food or milk as needed Orally Three time s a day Not-Taking Pyridium 100 MG 1 tablets after meals Orally Three times a day f or 30 days Jan, Not-Taking PROCEDURES No Information RESULTS No Results REASON FOR VISIT Bilateral sacroiliac joint block MEDICAL (GENERAL) HISTORY Type Description Date Medical History cluster headaches Medical History melanoma 2004 Medical History anxiety and insomnia Medical History [...] Surgical History cauterization of nerves in neck Surgical History injection in low back for pain Hospitalization History surgery related Goals Section No Information Health Concerns No Information MEDICAL EQUIPMENT No Information MENTAL STATUS No Information FUNCTIONAL STATUS No Information ASSESSMENTS Encounter Date Diagnosis Assessment Notes Treatment Notes Treatm ent Clinical Notes May, Total body pain (ICD-10 - R52) Multiple body lizbeth n I discussed alternatives with Ms. Fair. I would like some help from rheumatology to better understand the multiple body pain. I will refer her to Dr. Parry. I will also like to refer her to neurology. They may help us understand if part of the low back and hip pain is coming from radiculopathy. I will hold intervention for now. Things I can offer to her in the future are an injection of the right greater trochanter of the femur and an epidural at L4-L5. But in view of everything that is going on, I think that she should be evaluated by rheumatology and neurology before I continue. The patient will follow up with the nurse practitioner for now. In terms of medications, we can consider Cymbalta and tizanidine. In the meantime, if the problem of the back to the right hip gets very uncomfortable, we can consider an epidural. If the side/lateral hip is bother her more, we can consider an injection in the right greater trochanter of the femur. The patient reports understanding and agrees with the plan. I, Gail Meadows, documented the above information acting as a scribe for Dr. Nicholas. I have reviewed the above document, written by Gail Meadows, medical cost consultant, and I verify that it is accurate. May, Myalgia (ICD-10 - M79.10) May, Myofascial pain syndrome (ICD-10 - M79.18) May, Radiculopathy due to lumbar intervertebral disc disorder (ICD-10 - M51.16) May, Greater trochanteric bursitis of right hip (ICD- 10 - M70.61) PLAN OF TREATMENT Treatment Notes Assessment Notes Clinical Notes Total body pain I discussed cristiano wisdom with Ms. Fair. I would like some help from rheumatology to better understand the multiple body pain. I will refer her to Dr. Parry. I will also like to refer her to neurology. They may help us understand if part of the low back and hip pain is coming from radiculopathy. I will hold intervention for now. Things I can offer to her in the future are an injection of the right greater trochanter of the femur and an epidural at L4-L5. But in view of everything that is going on, I think that she should be evaluated by rheumatology and neurology before I continue. The patient will follow up with the nurse practitioner for now. In terms of medications, we can consider Cymbalta and tizanidine. In the meantime, if the problem of the back to the right hip gets very uncomfortable, we can consider an epidural. If the side/lateral hip is bother her more, we can consider an injection in the right greater trochanter of the femur. The patient reports understanding and agrees with the plan. I, Gail Meadows, documented the above information acting as a scribe for Dr. Nicholas. I have reviewed the above document, written by Gail Meadows, medical cost consultant, and I verify that it is accurate. Next Appt Details Follow up with [facility] Reason:Medication yasir gemnathalia Provider Name:Sadie Quispe, 2020-05-22 11:00:00 AM, [address], [address], Provider Name:Amber Mtz, 5 01:00:00 PM, [address] , [place], [address], Provider Name:Dilan Hermosillo, 2020-06-19 10:15:00 AM, [address] [place] [address], [address], Provider Name:Cristobal Biswas, 2020-08 10:15:00 AM, [address] [place] [address], [address], [place], [place], [id number], Follow Up:Follow up with [facility] Insurance Providers Payer Name Payer Address Payer Phone Insured Name Patient Relati onship to Insured Coverage Start Date Coverage End Date [employer]ACH[employer] DURBIN [address] [address] [facility] [id number] JONAS INLÁZARO
--- OUTSIDE RECORDS SUMMARY | 2020-05-24 09:02 | CCD ---
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 Name Role Phone Sadie Quispe Unavailable PROBLEMS Type Condition ICD9-CM Code [id number] Code Onset Dates Condition S tatus SNOMED Code Notes Problem Osteoarthritis, unspecified osteoarthritis type, unspecified site M19.90 Active 258484408 Problem Essential hypertension I10 Active 61074365 Problem Melanocytic nevi of left lower limb, including hip D22.72 Active 208640386 Problem Mixed hyperlipidemia E78.2 Active 014947538 Problem Osteoarthritis of lower back M47.9 Active 123 791993 Problem Multiple benign nevi of neck D22.4 Active 923 85147 Problem Lentigines L81.4 Active 056105581 Problem Melanocytic nevi of trunk D22.5 Active 288013 002 Problem History of skin cancer Z85.828 Active 227380969 Problem Milia L72.0 Active 656862031 Problem Skin tag L91.8 Active 588940438 Problem SK (seborrheic keratosis) L82.1 Active 018300 009 Problem 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 Active 8159167 Problem Melanocytic nevi of face D22.30 Active 9919376 04 Problem Bilateral sacroiliitis M46.1 Active 116507705 66975985 Problem Obesity (BMI 30-39.9) E66.9 Active 749287316 Problem Spondylosis of lumbosacral region without myelop athy or radiculopathy M47.817 Active 22860796 Problem Spondylosis without myelopathy or radiculopathy, lumbosacral region M47.817 Active 58145893 Problem Melanocytic nevi of left upper limb, including shoulder D22.62 Active 523528321 Problem Spondylosis without myelopathy or radiculopathy, lumbar region M47.816 Active 222740556 Problem Melanocytic nevi of right lower limb, including hip D22.71 Active 068685150 Problem Melanocytic nevi of right upper limb, including shoulder D22.61 Active 240373365 Problem Post-void dribbling N39.43 Active 514723048 Problem Urgency of urination R39.15 Active 94610747 Problem Bladder pain R39.89 Active 86663232 Problem Other chronic pain G89.29 Active 56064847 ALLERGIES Allergen (clinical drug ingredient) Drug/Non Drug Allergy do cumented on EMR Reaction Allergy Type Onset Date Status Penicillin (For Allergies Use Only) Hives Drug Allerg y Active ENCOUNTERS from 1950 to 2020-04-17 Encounter Location Date Provider Diagnosis [facility] [address] [place] [address] Apr, Sadie Shakeel-Tartell IMMUNIZATIONS Vaccine Route Administration [...] Education Language: Question Answer Notes Languages spoken: Cook Islander Jain: Question Answer Notes Jain No jehovah's witness beliefs that would impact health care. Sexual [...] Notes Start Da te End Date Status Propranolol HCl 80 MG 1 tablet Orally Once a day 05 Sep, 020 Active Pyridium 100 MG 1 tablets after meals Orally Three times a day f or 30 days Jan, Not-Taking Xenical 120 MG 1 capsule with each main mingo l Orally Three times a day for 30 day(s) Jan, Not-Taking Pyridium 100 MG 1 tablet after meals Orally Three times a day as needed for burning sensation for 30 days Jan, No t-Taking Lyrica 150 MG 1 capsule Orally TID for 30 days August, 0 Active Trazodone HCl 150 MG TAKE 1 TABLET BY MOUTH ONCE DAILY AT BEDTIME Oral for 30 days Active Tolterodine Tartrate ER 4 MG 1 capsule Orally Once a day for 30 day(s) Feb, Not-Taking Paroxetine HCl 30 MG 1 tab Oral Daily for 30 days Active Celebrex 200 MG 1 capsule with food Orally Once a day for 30 day s August, Active Advil 200 MG 2 tablet with food or milk as needed Orally Three time s a day Not-Taking PROCEDURES No Information RESULTS No Results REASON FOR VISIT trazadone MEDICAL (GENERAL) HISTORY Type Description Date Medical [...] a day for 30 day s August, Trazodone HCl 150 MG TAKE 1 TABLET BY MOUTH ONCE DAILY AT BEDTIME Oral for 30 days Next Appt Details Provider Name:Dilan Hermosillo, 2020-05-01 10:00:00 AM, [address] [place], [address], Provider Name:Dorina Hermosillo, 09:00:00 AM, [address] , [place], [address], Provider Name:Sadie Quispe, 2020-05-22 11:00:00 AM, [address], [place], [address], Provider Name:Cristobal Biswas, 2020-08 10:15:00 AM, [address] [facility], 1st Floor, [place], [address], Insurance Providers Payer Name Payer Address Payer Phone Insured Name Patient Relati onship to Insured Coverage Start Date Coverage End Date CAMACHO DURBIN [address] [address] [facility] [phone] [place],LÁZARO perez
--- OUTSIDE RECORDS SUMMARY | 2020-05-24 09:02 | CCD ---
Author Author [facility] Organization [facility] Address Unknown Phone Unavailable Care Team Providers Care Implementation Analyst Name Role Phone Ld Hwang Unavailable PROBLEMS Type Condition ICD9-CM Code [id number] Code Onset Dates Condition S tatus SNOMED Code Notes Problem Osteoarthritis, unspecified osteoarthritis type, unspecified site M19.90 Active 978774628 Problem Essential hypertension I10 Active 67203962 Problem Melanocytic nevi of left lower limb, including hip D22.72 Active 663021209 Problem Mixed hyperlipidemia E78.2 Active 004064303 Problem Osteoarthritis of lower back M47.9 Active 123 078130 Problem Multiple benign nevi of neck D22.4 Active 923 39539 Problem Lentigines L81.4 Active 022460273 Problem Melanocytic nevi of trunk D22.5 Active 677686 002 Problem History of skin cancer Z85.828 Active 522056978 Problem Milia L72.0 Active 028881071 Problem Skin tag L91.8 Active 819258805 Problem SK (seborrheic keratosis) L82.1 Active 996246 009 Problem 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 Active 5225284 Problem Melanocytic nevi of face D22.30 Active 2202986 04 Problem Bilateral sacroiliitis M46.1 Active 181809550 21946167 Problem Obesity (BMI 30-39.9) E66.9 Active 068649858 Problem Spondylosis of lumbosacral region without myelop athy or radiculopathy M47.817 Active 51003863 Problem Spondylosis without myelopathy or radiculopathy, lumbosacral region M47.817 Active 03591932 Problem Melanocytic nevi of left upper limb, including shoulder D22.62 Active 563482688 Problem Spondylosis without myelopathy or radiculopathy, lumbar region M47.816 Active 067445623 Problem Melanocytic nevi of right lower limb, including hip D22.71 Active 355772097 Problem Melanocytic nevi of right upper limb, including shoulder D22.61 Active 228442284 Problem Post-void dribbling N39.43 Active 209394512 Problem Urgency of urination R39.15 Active 78801381 Problem Bladder pain R39.89 Active 51889395 Problem Other chronic pain G89.29 Active 81026282 ALLERGIES Allergen (clinical drug ingredient) Drug/Non Drug Allergy do cumented on EMR Reaction Allergy Type Onset Date Status Penicillin (For Allergies Use Only) Hives Drug Allerg y Active ENCOUNTERS from 1950 to 2020-03-24 Encounter Location Date Provider Diagnosis [facility] [address] [place] [address] Feb Ld Hwang Urgency of urination R39.15 and Bladder pain R39.89 IMMUNIZATIONS Vaccine Route Administration Date Status Influenza [...] Education Language: Question Answer Notes Languages spoken: Estonian Mormon: Question Answer Notes Mormon No amish beliefs that would impact health care. Sexual [...] FOR REFERRAL No Information VITAL SIGNS Weight 191 lbs Feb, Height 62 in Feb, BMI 34.93 kg/m2 Feb, Heart Rate 63 /min Feb, Respiratory Rate 18 /min Feb, Temperature 96.0 degrees Fahrenheit Feb, Oximetry 90% Feb, Blood pressure systolic 144 mm Hg Feb, Blood pressure diastolic 76 mm Hg Feb, MEDICATIONS Medication SIG (Take, [...] Information RESULTS No Results REASON FOR VISIT 1 mo f/u for urinary symptoms MEDICAL (GENERAL) HISTORY Type Description Date Medical [...] Treatment Notes Treatm ent Clinical Notes Feb, Urgency of urination (ICD-10 - R39.15) Trial of anti-muscarinic; RTC 6-8 weeks for further evaluation Feb, Bladder pain (ICD-10 - R39.89) PLAN OF TREATMENT Medication Medication Name Sig Start Date Stop Date Lyrica 100 MG 1 capsule Orally TID for 30 days August, Celebrex 200 MG 1 capsule with food Orally Once a day for 30 day s August, Treatment Notes Assessment Notes Clinical Notes Urgency of urination Trial of anti-musca rinic; RTC 6-8 weeks for further evaluation Future Test Test Name Order Date uro PVR (Post Voiding Residual) Bladder Scan [id number] UA URINALYSIS [id number] Next Appt Details 6 Weeks Reason: Provider Name:Dilan Hermosillo, 2020-04-08 09:45:00 AM, [address] [place] [address], [address], Provider Name:Sadie Quispe, 2020-05-22 11:00:00 AM, [address], [place], [address], Provider Name:Cristobal Biswas, 2020-08 10:15:00 AM, [address] [place] [address], [address] Floor, [place], [address], Insurance Providers Payer Name Payer Address Payer Phone Insured Name Patient Relati onship to Insured Coverage Start Date Coverage End Date CAMACHO DURBIN [address] [address] [facility] [phone] LÁZRAO COLEY
--- OUTSIDE RECORDS SUMMARY | 2020-05-24 09:02 | CCD ---
Author Author [facility] Organization [facility] Address Unknown Phone Unavailable Care Team Providers Care Die Storage Clerk Name Role Phone Daryl Nicholas Unavailable PROBLEMS Type Condition ICD9-CM Code [id number] Code Onset Dates Condition S tatus W/U Status Risk SNOMED Code Notes Problem Essential hypertension I10 Active confirmed 43478189 Problem Mixed hyperlipidemia E78.2 Active confirmed 760672363 Problem Osteoarthritis, unspecified osteoarthritis type, unspecified site M19.90 Active confirmed 355847706 Problem Melanocytic nevi of right lower limb, including hip D22.71 Active confirmed 771256159 Problem Melanocytic nevi of left lower limb, including hip D22.72 Active confirmed 954395991 Problem Bilateral sacroiliitis M46.1 Active confirmed 44203965653564401 Problem Osteoarthritis of lower back M47.9 Active confirme d 629653478 Problem Lentigines L81.4 Active confirmed 931784798 Problem Skin tag L91.8 Active confirmed 132988179 Problem History of skin cancer Z85.828 Active confirmed 078336121 Problem Milia L72.0 Active confirmed 452823643 Problem SK (seborrheic keratosis) L82.1 Active confirmed 140772310 Problem Melanocytic nevi of face D22.30 Active confirmed 551431234 Problem Multiple benign nevi of neck D22.4 Active confirme d 26741304 Problem 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 Active confirmed 65839 01 Problem Obesity (BMI 30-39.9) E66.9 Active confirmed 664126985 Problem Spondylosis of lumbosacral region without myelop athy or radiculopathy M47.817 Active confirmed 25545512 Problem Post-void dribbling N39.43 Active confirmed 783740503 Problem Spondylosis without myelopathy or radiculopathy, lumbar region M47.816 Active confirmed 656654988 Problem Melanocytic nevi of right upper limb, including shoulder D22.61 Active confirmed 102492327 Problem Sacroiliitis, not elsewhere classified M46.1 A ctive confirmed 97324875 Problem Melanocytic nevi of left upper limb, including shoulder D22.62 Active confirmed 854942295 Problem Melanocytic nevi of trunk D22.5 Active confirmed 935177235 Problem Bladder pain R39.89 Active confirmed 9755938 9 Problem Urgency of urination R39.15 Active confirmed 40086634 Problem Other chronic pain G89.29 Active confirmed 8 0030545 Problem Spondylosis without myelopathy or radiculopathy, lumbosacral region M47.817 Active confirmed 76827712 ALLERGIES Allergen (clinical drug ingredient) Drug/Non Drug Allergy do cumented on EMR Reaction Allergy Type Onset Date Status Penicillin (For Allergies Use Only) Hives Drug Allerg y Active ENCOUNTERS from 1950 to 2020-05-21 Encounter Location Date Provider Diagnosis [facility] [address] [place] [address] May, Daryl Nicholas IMMUNIZATIONS Vaccine Route Administration Date Status Influenza [...] Education Language: Question Answer Notes Languages spoken: Irish Spiritism: Question Answer Notes Spiritism No taoism beliefs that would impact health care. Sexual [...] Orally TID for 30 day(s) August, Active Xenical 120 MG 1 capsule [...] tablet Orally Once a day Sep, Active Celebrex 200 MG 1 capsule [...] Information RESULTS No Results REASON FOR VISIT PRE ADMISSION MEDICAL (GENERAL) HISTORY Type Description Date Medical [...] Information ASSESSMENTS No Information PLAN OF TREATMENT Next Appt Details Provider Name:Sadie Quispe, 2020-05-22 11:00:00 AM, [address], [place], [address], Provider Name:Amber Mtz, 5 01:00:00 PM, [address] , [place], [address], Provider Name:Dilan [place], 2020-06-19 10:15:00 AM, [address] [place] [address], [address], Provider Name:Cristobal Biswas, 2020-08 10:15:00 AM, [address] [place] [address], [address] [place] [address], [place], [address], Insurance Providers Payer Name Payer Address Payer Phone Insured Name Patient Relati onship to Insured Coverage Start Date Coverage End Date CAMACHO DURBIN [address] [address] [facility] [place] [id number] [place] perez
--- OUTSIDE RECORDS SUMMARY | 2020-05-24 09:03 | CCD ---
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 Mechanical Manufacturing Engineer Name Role Phone Yuko Yates RDH Unavailable Yuriy Arteaga DDS Unavailable Unavailable Chandler, Alkai Yeon DDS Unavailable Unavailable Chandler, Alkai Yeon DDS Unavailable Unavailable Quesada, Keesha Platan PA Unavailable Unavailable Quesada, Keesha Platan PA Unavailable Unavailable Quesada, Keesha Ann PA Unavailable Unavailable Quesada, Keesha Ann PA Unavailable Unavailable Quesada, Keesha Ann PA Unavailable Unavailable Quesada, Keesha Ann PA Unavailable Unavailable Quesada, Keesha Rollelyn PA Unavailable Unavailable Quesada, Keesha Ann PA Unavailable Unavailable Quesada, Keesha Ann PA Unavailable Unavailable Quesada, Keesha Ann PA Unavailable Unavailable Re-disclosure Warning The records that you are about to access may contain information from federally-assisted alcohol or drug abuse programs. If such information is present, then the following federally mandated warning applies: This information has been disclosed to you from records protected by federal confidentiality rules (42 CFR part 2). The federal rules prohibit you from making any further disclosure of this information unless further disclosure is expressly permitted by the written consent of the person to whom it pertains or as otherwise permitted by 42 CFR part 2. A general authorization for the release of medical or other information is NOT sufficient for this purpose. The Federal rules restrict any use of the information to criminally investigate or prosecute any alcohol or drug abuse patient.The records that you are about to access may contain highly sensitive health information, the redisclosure of which is protected by Article 27-F of the [facility] Public Health law. If you continue you may have access to information: Regarding HIV / AIDS; Provided by facilities licensed or operated by the [facility] Office of Mental Health; or Provided by the [facility] Office for People With Developmental Disabilities. If such information is present, then the following [facility] mandated warning applies: This information has been disclosed to you from confidential records which are protected by state law. State law prohibits you from making any further disclosure of this information without the specific written consent of the person to whom it pertains, or as otherwise permitted by law. Any unauthorized further disclosure in violation of state law may result in a fine or mcfp sentence or both. A general authorization for the release of medical or other information is NOT sufficient authorization for further disc losure. 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 -NO Allergies and Adverse Reactions Type Description Substance Reaction Status Data Source(s ) Drug allergy Penicillin (For Allergies Use Only) Drug allergy Hives Active eCW1 ([facility]) Drug Allergy Drug Allergy NKDA MEDENT ([facility], [facility]) Encounters Encounter Providers Location Date Indications Data Source(s ) Unknown [address] [facility] [address] 05/23/2020 12:00:00 AM EST eCW1 ([facility]) [place] [address] [facility] [place] [address] 05/21/2020 12:00:00 AM EST eCW1 ([facility]) Unknown [address] [facility] [place] [address] 05/20/2020 12:00:00 AM EST eCW1 ([facility]) [place] [address] [facility] [place] [address] 05/08/2020 12:00:00 AM EST [facility]CW1 ([facility] Outpatient [address] [facility] [address] 05/01/2020 12:00:00 AM EST eCW1 ([facility]) Unknown [address] [facility] [id number] 04/15/2020 12:00:00 AM EST eCW1 ([facility]) Outpatient [address] [facility] [address] 04/08/2020 12:00:00 AM EST eCW1 ([facility]) Unknown [address] [facility] [address] 04/08/2020 12:00:00 AM EST eCW1 ([facility]) Outpatient [address] [facility] [id number] 03/11/2020 12:00:00 AM EST eCW1 ([facility]) Outpatient [address] [facility] [id number] 03/05/2020 12:00:00 AM EST eCW1 ([facility]) (PN Proc 45) Pain Procedure 45 [address] [place] [address] 02/26/2020 12:00:00 AM EST eCW1 ([facility]) Office Visit, Est Pt., Level 3 PC [address] [place] [address] 02/18/2020 12:00:00 AM EST eCW1 ([facility]) Unknown [address] [facility] [id number] 02/12/2020 12:00:00 AM EST eCW1 ([facility]) Outpatient [address] [facility] [id number] 02/08/2020 12:00:00 AM EDT eCW1 ([facility]) Unknown<td ID="encounterTypeDescriptionI D0">H Adult Prophy</td><td>Yuko Milan RDH</td><td>[facility]</td><td>02/04/2020</td><td></td> Attender: Yuko Milan [facility] 02/04/2020 08:56:00 AM EDT - 02/04/2020 11:59:00 PM EDT [facility] ([facility]) Unknown [address] [facility] [address] 02/04/2020 12:00:00 AM EDT eCW1 ([facility]) Outpatient [address] [facility] [address] 02/01/2020 12:00:00 AM EDT eCW1 ([facility]) Unknown<td ID="encounterTypeDescriptionI D1">[Patient Encounter]</td><td>Yuriy Arteaga DDS</td><td></td><td>01/21/2020</td><td></td> Attender: Yuriy Arteaga DDS 01/21/2020 04:45:00 PM EDT - 01/21/2020 11:59:00 PM EDT L[facility]RAINE ([facility]) Unknown<td ID="encounterTypeDescriptionI D2">H Adult Prophy</td><td>Yuko Yates [facility]</td><td>[facility]</td><td>01/21/2020</td><td></td> Attender: Yuko Yates [facility] 01/21/2020 02:52:00 PM EDT - 01/21/2020 05:07:00 PM EDT [facility]INE ([facility]) [place] [address] [facility] [address] 01/21/2020 12:00:00 AM EDT eCW1 ([facility]) Unknown [address] [facility] [address] 01/09/2020 12:00:00 AM EDT eCW1 ([facility]) Outpatient [address] [facility] [address] 01/09/2020 12:00:00 AM EDT eCW1 ([facility]) Unknown<td ID="encounterTypeDescriptionI D3">D Dental Office Visit - 30</td><td>Yuriy Arteaga DDS</td><td>[facility]</td><td>11/23/2019</td><td></td> Attender: Yuriy Arteaga DDS [facility] 11/23/2019 09:20:00 AM EDT - 11/23/2019 11:27:00 AM EDT [facility]INE ([facility]) Unknown<td ID="encounterTypeDescriptionI D4">D New Patient - 30</td><td>Yuriy Arteaga DDS</td><td>[facility]</td><td>11/20/2019</td><td></td> Attender: Yuriy Arteaga DDS [facility] 11/20/2019 10:53:00 AM EDT - 11/20/2019 11:21:00 AM EDT [facility] ([facility]) Unknown [address] [facility] [address] 09/14/2019 12:00:00 AM EDT eCW1 ([facility]) Unknown [address] [facility] [address] 09/12/2019 12:00:00 AM EDT eCW1 ([facility]) Unknown<td ID="encounterTypeDescriptionI D5">D Emergency-New</td><td>Yuriy Arteaga DDS</td><td>[facility]</td><td>09/10/2019</td><td></td> Attender: Yuriy Arteaga DDS [facility] 09/10/2019 09:34:00 AM EDT - 09/10/2019 10:26:00 AM EDT [place]RAINE ([facility]) Unknown [address] [facility] [address] 09/10/2019 12:00:00 AM EDT eCW1 ([facility]) Outpatient Attender: Ann feliciano 09/08/2019 10:30:00 AM EDT MEDENT ([facility], [facility]) [facility] [address] [facility] [address] 09/07/2019 12:00:00 AM EDT [facility]CW1 [facility] [address] [facility] [place] [address] 09/07/2019 12:00:00 AM EDT eCW1 ([facility]) Out[place] [address] [facility] [place] [address] 09/06/2019 12:00:00 AM EDT eCW1 ([facility]) [facility] [address] [facility] [address] 09/06/2019 12:00:00 AM EDT eCW1 ([facility]) [facility] Derm[facility] [address] [place] [address] 09/04/2019 12:00:00 AM EDT eCW1 ([facility]) [facility] [address] [facility] [address] 08/21/2019 12:00:00 AM EDT eCW1 ([facility]) [facility] [employer] [address] [facility] [place] [address] 08/15/2019 12:00:00 AM EDT eCW1 ([facility]) [facility] [address] [facility] [address] 08/10/2019 12:00:00 AM EDT eCW1 ([facility]) [facility] [employer] [address] [facility] [place] [address] 08/07/2019 12:00:00 AM EDT eCW1 ([facility]) [facility] [address] [facility] [place] [address] 08/06/2019 12:00:00 AM EDT eCW1 ([facility]) Immunizations Vaccine Date Status Description Data Source(s) pneumococcal polysaccharide PPV23 01/10/2020 08:49:00 AM EDT comple issa eCW1 ([facility]) pneumococcal polysaccharide PPV23 01/10/2020 08:49:00 AM EDT comple issa eCW1 ([facility]) pneumococcal polysaccharide PPV23 01/10/2020 08:49:00 AM EDT comple issa eCW1 ([facility]) pneumococcal polysaccharide PPV23 01/10/2020 08:49:00 AM EDT comple issa eCW1 ([facility]) pneumococcal polysaccharide PPV23 01/10/2020 08:49:00 AM EDT comple issa eCW1 ([facility]) pneumococcal polysaccharide PPV23 01/10/2020 08:49:00 AM EDT comple issa eCW1 ([facility]) pneumococcal polysaccharide PPV23 01/10/2020 08:49:00 AM EDT comple issa eCW1 ([facility]) pneumococcal polysaccharide PPV23 01/10/2020 08:49:00 AM EDT comple issa eCW1 ([facility]) pneumococcal polysaccharide PPV23 01/10/2020 08:49:00 AM EDT comple issa eCW1 ([facility]) pneumococcal polysaccharide PPV23 01/10/2020 08:49:00 AM EDT comple issa eCW1 ([facility]) pneumococcal polysaccharide PPV23 01/10/2020 08:49:00 AM EDT comple issa eCW1 ([facility]) pneumococcal polysaccharide PPV23 01/10/2020 08:49:00 AM EDT comple issa eCW1 ([facility]) pneumococcal polysaccharide PPV23 01/10/2020 08:49:00 AM EDT comple issa eCW1 ([facility]) pneumococcal polysaccharide PPV23 01/10/2020 08:49:00 AM EDT comple issa eCW1 ([facility]) pneumococcal polysaccharide PPV23 01/10/2020 08:49:00 AM EDT comple issa eCW1 ([facility]) pneumococcal polysaccharide PPV23 01/10/2020 08:49:00 AM EDT comple issa eCW1 ([facility]) pneumococcal polysaccharide PPV23 01/10/2020 08:49:00 AM EDT comple issa eCW1 ([facility]) pneumococcal polysaccharide PPV23 01/10/2020 08:49:00 AM EDT comple issa eCW1 ([facility]) IIV3. This is one of two codes replacing CVX 15, which is being retired. 01/10/2020 08:48:00 AM EDT completed eCW1 ([facility]) IIV3. This is one of two codes replacing CVX 15, which is being retired. 01/10/2020 08:48:00 AM EDT completed eCW1 ([facility]) IIV3. This is one of two codes replacing CVX 15, which is being retired. 01/10/2020 08:48:00 AM EDT completed eCW1 ([facility]) IIV3. This is one of two codes replacing CVX 15, which is being retired. 01/10/2020 08:48:00 AM EDT completed eCW1 ([facility]) IIV3. This is one of two codes replacing CVX 15, which is being retired. 01/10/2020 08:48:00 AM EDT completed eCW1 ([facility]) IIV3. This is one of two codes replacing CVX 15, which is being retired. 01/10/2020 08:48:00 AM EDT completed eCW1 ([facility]) IIV3. This is one of two codes replacing CVX 15, which is being retired. 01/10/2020 08:48:00 AM EDT completed eCW1 ([facility]) IIV3. This is one of two codes replacing CVX 15, which is being retired. 01/10/2020 08:48:00 AM EDT completed eCW1 ([facility]) IIV3. This is one of two codes replacing CVX 15, which is being retired. 01/10/2020 08:48:00 AM EDT completed eCW1 ([facility]) IIV3. This is one of two codes replacing CVX 15, which is being retired. 01/10/2020 08:48:00 AM EDT completed eCW1 ([facility]) IIV3. This is one of two codes replacing CVX 15, which is being retired. 01/10/2020 08:48:00 AM EDT completed eCW1 ([facility]) IIV3. This is one of two codes replacing CVX 15, which is being retired. 01/10/2020 08:48:00 AM EDT completed eCW1 ([facility]) IIV3. This is one of two codes replacing CVX 15, which is being retired. 01/10/2020 08:48:00 AM EDT completed eCW1 ([facility]) IIV3. This is one of two codes replacing CVX 15, which is being retired. 01/10/2020 08:48:00 AM EDT completed eCW1 ([facility]) IIV3. This is one of two codes replacing CVX 15, which is being retired. 01/10/2020 08:48:00 AM EDT completed eCW1 ([facility]) IIV3. This is one of two codes replacing CVX 15, which is being retired. 01/10/2020 08:48:00 AM EDT completed eCW1 ([facility]) IIV3. This is one of two codes replacing CVX 15, which is being retired. 01/10/2020 08:48:00 AM EDT completed eCW1 ([facility]) IIV3. This is one of two codes replacing CVX 15, which is being retired. 01/10/2020 08:48:00 AM EDT completed eCW1 ([facility]) Medications Medication Brand Name Start Date Product Form Dose Route Admi nistrative Instructions Pharmacy Instructions Status Indications Reaction Description Data Source(s) Furosemide 20 MG Oral Tablet Furosemide 20 MG 05/23/2020 12:00:00 A M EST 1.0 {tablet} active Furosemide 20 MG eCW1 ( [facility]) 24 HR tolterodine tartrate 4 MG Extended Release Oral Capsule Tolterodine Tartrate ER 4 MG Tolterodine Tartrate ER 4 MG 03/05/2020 12:00:00 AM EST 1.0 {capsule} suspended Tolterodine Tartrate ER 4 MG eCW1 ([facility]) 24 HR tolterodine tartrate 4 MG Extended Release Oral Capsule Tolterodine Tartrate ER 4 MG Tolterodine Tartrate ER 4 MG 03/05/2020 12:00:00 AM EST 1.0 {capsule} active Tolterodine Tartrate E R 4 MG eCW1 ([facility]) 24 HR tolterodine tartrate 4 MG Extended Release Oral Capsule Tolterodine Tartrate ER 4 MG Tolterodine Tartrate ER 4 MG 03/05/2020 12:00:00 AM EST 1.0 {capsule} suspended Tolterodine Tartrate ER 4 MG eCW1 ([facility]) 24 HR tolterodine tartrate 4 MG Extended Release Oral Capsule Tolterodine Tartrate ER 4 MG Tolterodine Tartrate ER 4 MG 03/05/2020 12:00:00 AM EST 1.0 {capsule} suspended Tolterodine Tartrate ER 4 MG eCW1 ([facility]) 24 HR tolterodine tartrate 4 MG Extended Release Oral Capsule Tolterodine Tartrate ER 4 MG Tolterodine Tartrate ER 4 MG 03/05/2020 12:00:00 AM EST 1.0 {capsule} suspended Tolterodine Tartrate ER 4 MG eCW1 ([facility]) 24 HR tolterodine tartrate 4 MG Extended Release Oral Capsule Tolterodine Tartrate ER 4 MG Tolterodine Tartrate ER 4 MG 03/05/2020 12:00:00 AM EST 1.0 {capsule} suspended Tolterodine Tartrate ER 4 MG eCW1 ([facility]) 24 HR tolterodine tartrate 4 MG Extended Release Oral Capsule Tolterodine Tartrate ER 4 MG Tolterodine Tartrate ER 4 MG 03/05/2020 12:00:00 AM EST 1.0 {capsule} suspended Tolterodine Tartrate ER 4 MG eCW1 ([facility]) 24 HR tolterodine tartrate 4 MG Extended Release Oral Capsule Tolterodine Tartrate ER 4 MG Tolterodine Tartrate ER 4 MG 03/05/2020 12:00:00 AM EST 1.0 {capsule} suspended Tolterodine Tartrate ER 4 MG eCW1 ([facility]) 24 HR tolterodine tartrate 4 MG Extended Release Oral Capsule Tolterodine Tartrate ER 4 MG Tolterodine Tartrate ER 4 MG 03/05/2020 12:00:00 AM EST 1.0 {capsule} active Tolterodine Tartrate E R 4 MG eCW1 ([facility]) Phenazopyridine hydrochloride 100 MG Oral Tablet [Pyri dium] Pyridium 100 MG Pyridium 100 MG 02/04/2020 12:00:00 AM EDT 1.0 {tablet_after_meals} suspended Pyridium 100 MG eCW1 ([facility]) Phenazopyridine hydrochloride 100 MG Oral Tablet [Pyri dium] Pyridium 100 MG Pyridium 100 MG 02/04/2020 12:00:00 AM EDT 1.0 {tablet_after_meals} suspended Pyridium 100 MG eCW1 ([facility]) Phenazopyridine hydrochloride 100 MG Oral Tablet [Pyri dium] Pyridium 100 MG Pyridium 100 MG 02/04/2020 12:00:00 AM EDT 1.0 {tablet_after_meals} suspended Pyridium 100 MG eCW1 ([facility]) Phenazopyridine hydrochloride 100 MG Oral Tablet [Pyri dium] Pyridium 100 MG Pyridium 100 MG 02/04/2020 12:00:00 AM EDT 1.0 {tablet_after_meals} suspended Pyridium 100 MG eCW1 ([facility]) Phenazopyridine hydrochloride 100 MG Oral Tablet [Pyri dium] Pyridium 100 MG Pyridium 100 MG 02/04/2020 12:00:00 AM EDT 1.0 {tablet_after_meals} suspended Pyridium 100 MG eCW1 ([facility]) Phenazopyridine hydrochloride 100 MG Oral Tablet [Pyri dium] Pyridium 100 MG Pyridium 100 MG 02/04/2020 12:00:00 AM EDT 1.0 {tablet_after_meals} suspended Pyridium 100 MG eCW1 ([facility]) Phenazopyridine hydrochloride 100 MG Oral Tablet [Pyri dium] Pyridium 100 MG Pyridium 100 MG 02/04/2020 12:00:00 AM EDT 1.0 {tablet_after_meals} active Pyridium 100 MG eCW1 ([facility]) Phenazopyridine hydrochloride 100 MG Oral Tablet [Pyri dium] Pyridium 100 MG Pyridium 100 MG 02/04/2020 12:00:00 AM EDT 1.0 {tablet_after_meals} suspended Pyridium 100 MG eCW1 ([facility]) Phenazopyridine hydrochloride 100 MG Oral Tablet [Pyri dium] Pyridium 100 MG Pyridium 100 MG 02/04/2020 12:00:00 AM EDT 1.0 {tablet_after_meals} suspended Pyridium 100 MG eCW1 ([facility]) Phenazopyridine hydrochloride 100 MG Oral Tablet [Pyri dium] Pyridium 100 MG Pyridium 100 MG 02/04/2020 12:00:00 AM EDT 1.0 {tablet_after_meals} suspended Pyridium 100 MG eCW1 ([facility]) Phenazopyridine hydrochloride 100 MG Oral Tablet [Pyri dium] Pyridium 100 MG Pyridium 100 MG 02/04/2020 12:00:00 AM EDT 1.0 {tablet_after_meals} suspended Pyridium 100 MG eCW1 ([facility]) Phenazopyridine hydrochloride 100 MG Oral Tablet [Pyri dium] Pyridium 100 MG Pyridium 100 MG 02/04/2020 12:00:00 AM EDT 1.0 {tablet_after_meals} suspended Pyridium 100 MG eCW1 ([facility]) Phenazopyridine hydrochloride 100 MG Oral Tablet [Pyri dium] Pyridium 100 MG Pyridium 100 MG 02/04/2020 12:00:00 AM EDT 1.0 {tablet_after_meals} suspended Pyridium 100 MG eCW1 ([facility]) Phenazopyridine hydrochloride 100 MG Oral Tablet [Pyri dium] Pyridium 100 MG Pyridium 100 MG 02/04/2020 12:00:00 AM EDT 1.0 {tablet_after_meals} suspended Pyridium 100 MG eCW1 ([facility]) Phenazopyridine hydrochloride 100 MG Oral Tablet [Pyri dium] Pyridium 100 MG Pyridium 100 MG 02/04/2020 12:00:00 AM EDT 1.0 {tablet_after_meals} suspended Pyridium 100 MG eCW1 ([facility]) Phenazopyridine hydrochloride 100 MG Oral Tablet [Pyri dium] Pyridium 100 MG Pyridium 100 MG 02/01/2020 12:00:00 AM EDT 1.0 {tablets_after_meals} active Pyridium 100 MG eCW1 ([facility]) Phenazopyridine hydrochloride 100 MG Oral Tablet [Pyri dium] Pyridium 100 MG Pyridium 100 MG 02/01/2020 12:00:00 AM EDT 1.0 {tablets_after_meals} suspended Pyridium 100 MG eCW1 ([facility]) Phenazopyridine hydrochloride 100 MG Oral Tablet [Pyri dium] Pyridium 100 MG Pyridium 100 MG 02/01/2020 12:00:00 AM EDT 1.0 {tablets_after_meals} active Pyridium 100 MG eCW1 ([facility]) Phenazopyridine hydrochloride 100 MG Oral Tablet [Pyri dium] Pyridium 100 MG Pyridium 100 MG 02/01/2020 12:00:00 AM EDT 1.0 {tablets_after_meals} active Pyridium 100 MG eCW1 ([facility]) Phenazopyridine hydrochloride 100 MG Oral Tablet [Pyri dium] Pyridium 100 MG Pyridium 100 MG 02/01/2020 12:00:00 AM EDT 1.0 {tablets_after_meals} active Pyridium 100 MG eCW1 ([facility]) Phenazopyridine hydrochloride 100 MG Oral Tablet [Pyri dium] Pyridium 100 MG Pyridium 100 MG 02/01/2020 12:00:00 AM EDT 1.0 {tablets_after_meals} suspended Pyridium 100 MG eCW1 ([facility]) Phenazopyridine hydrochloride 100 MG Oral Tablet [Pyri dium] Pyridium 100 MG Pyridium 100 MG 02/01/2020 12:00:00 AM EDT 1.0 {tablets_after_meals} suspended Pyridium 100 MG eCW1 ([facility]) Phenazopyridine hydrochloride 100 MG Oral Tablet [Pyri dium] Pyridium 100 MG Pyridium 100 MG 02/01/2020 12:00:00 AM EDT 1.0 {tablets_after_meals} suspended Pyridium 100 MG eCW1 ([facility]) Phenazopyridine hydrochloride 100 MG Oral Tablet [Pyri dium] Pyridium 100 MG Pyridium 100 MG 02/01/2020 12:00:00 AM EDT 1.0 {tablets_after_meals} active Pyridium 100 MG eCW1 ([facility]) Phenazopyridine hydrochloride 100 MG Oral Tablet [Pyri dium] Pyridium 100 MG Pyridium 100 MG 02/01/2020 12:00:00 AM EDT 1.0 {tablets_after_meals} suspended Pyridium 100 MG eCW1 ([facility]) Phenazopyridine hydrochloride 100 MG Oral Tablet [Pyri dium] Pyridium 100 MG Pyridium 100 MG 02/01/2020 12:00:00 AM EDT 1.0 {tablets_after_meals} suspended Pyridium 100 MG eCW1 ([facility]) Phenazopyridine hydrochloride 100 MG Oral Tablet [Pyri dium] Pyridium 100 MG Pyridium 100 MG 02/01/2020 12:00:00 AM EDT 1.0 {tablets_after_meals} suspended Pyridium 100 MG eCW1 ([facility]) Phenazopyridine hydrochloride 100 MG Oral Tablet [Pyri dium] Pyridium 100 MG Pyridium 100 MG 02/01/2020 12:00:00 AM EDT 1.0 {tablets_after_meals} suspended Pyridium 100 MG eCW1 ([facility]) Phenazopyridine hydrochloride 100 MG Oral Tablet [Pyri dium] Pyridium 100 MG Pyridium 100 MG 02/01/2020 12:00:00 AM EDT 1.0 {tablets_after_meals} active Pyridium 100 MG eCW1 ([facility]) Phenazopyridine hydrochloride 100 MG Oral Tablet [Pyri dium] Pyridium 100 MG Pyridium 100 MG 02/01/2020 12:00:00 AM EDT 1.0 {tablets_after_meals} suspended Pyridium 100 MG eCW1 ([facility]) orlistat 120 MG Oral Capsule [Xenical] Xenical 120 MG Xenica l 120 MG 01/21/2020 12:00:00 AM EDT suspended Xenic al 120 MG eCW1 ([facility]) orlistat 120 MG Oral Capsule [Xenical] Xenical 120 MG Xenica l 120 MG 01/21/2020 12:00:00 AM EDT suspended Xenic al 120 MG eCW1 ([facility]) orlistat 120 MG Oral Capsule [Xenical] Xenical 120 MG Xenica l 120 MG 01/21/2020 12:00:00 AM EDT active Xenical 120 MG eCW1 ([facility]) orlistat 120 MG Oral Capsule [Xenical] Xenical 120 MG Xenica l 120 MG 01/21/2020 12:00:00 AM EDT suspended Xenic al 120 MG eCW1 ([facility]) orlistat 120 MG Oral Capsule [Xenical] Xenical 120 MG Xenica l 120 MG 01/21/2020 12:00:00 AM EDT active Xenical 120 MG eCW1 ([facility]) orlistat 120 MG Oral Capsule [Xenical] Xenical 120 MG Xenica l 120 MG 01/21/2020 12:00:00 AM EDT suspended Xenic al 120 MG eCW1 ([facility]) chlorhexidine gluconate 1.2 MG/ML Mouthw joshua [Peridex] Peridex 0.12% Mouth/Throat Solution Peridex 0.12% Mouth/Throat Solution 01/21/2020 12:00:00 AM EDT active chlorhexidine gluconate 1 .2 MG/ML Mouthwash [Peridex] LORRAINE ([facility]) orlistat 120 MG Oral Capsule [Xenical] Xenical 120 MG Xenica l 120 MG 01/21/2020 12:00:00 AM EDT active Xenical 120 MG eCW1 ([facility]) orlistat 120 MG Oral Capsule [Xenical] Xenical 120 MG Xenica l 120 MG 01/21/2020 12:00:00 AM EDT suspended Xenic al 120 MG eCW1 ([facility]) orlistat 120 MG Oral Capsule [Xenical] Xenical 120 MG Xenica l 120 MG 01/21/2020 12:00:00 AM EDT suspended Xenic al 120 MG eCW1 ([facility]) orlistat 120 MG Oral Capsule [Xenical] Xenical 120 MG Xenica l 120 MG 01/21/2020 12:00:00 AM EDT active Xenical 120 MG eCW1 ([facility]) orlistat 120 MG Oral Capsule [Xenical] Xenical 120 MG Xenica l 120 MG 01/21/2020 12:00:00 AM EDT suspended Xenic al 120 MG eCW1 ([facility]) orlistat 120 MG Oral Capsule [Xenical] Xenical 120 MG Xenica l 120 MG 01/21/2020 12:00:00 AM EDT suspended Xenic al 120 MG eCW1 ([facility]) orlistat 120 MG Oral Capsule [Xenical] Xenical 120 MG Xenica l 120 MG 01/21/2020 12:00:00 AM EDT suspended Xenic al 120 MG eCW1 ([facility]) orlistat 120 MG Oral Capsule [Xenical] Xenical 120 MG Xenica l 120 MG 01/21/2020 12:00:00 AM EDT suspended Xenic al 120 MG eCW1 ([facility]) orlistat 120 MG Oral Capsule [Xenical] Xenical 120 MG Xenica l 120 MG 01/21/2020 12:00:00 AM EDT active Xenical 120 MG eCW1 ([facility]) orlistat 120 MG Oral Capsule [Xenical] Xenical 120 MG Xenica l 120 MG 01/21/2020 12:00:00 AM EDT active Xenical 120 MG eCW1 ([facility]) orlistat 120 MG Oral Capsule [Xenical] Xenical 120 MG Xenica l 120 MG 01/21/2020 12:00:00 AM EDT suspended Xenic al 120 MG eCW1 ([facility]) Propranolol Hydrochloride 80 MG Oral Tablet Propranolo l HCl 80 MG Propranolol HCl 80 MG 09/14/2019 12:00:00 AM EDT 1.0 {tablet} ac tive Propranolol HCl 80 MG eCW1 ([facility]) Propranolol Hydrochloride 80 MG Oral Tablet Propranolo l HCl 80 MG Propranolol HCl 80 MG 09/14/2019 12:00:00 AM EDT 1.0 {tablet} ac tive Propranolol HCl 80 MG eCW1 ([facility]) Propranolol Hydrochloride 80 MG Oral Tablet Propranolo l HCl 80 MG Propranolol HCl 80 MG 09/14/2019 12:00:00 AM EDT 1.0 {tablet} ac tive Propranolol HCl 80 MG eCW1 ([facility]) Propranolol Hydrochloride 80 MG Oral Tablet Propranolo l HCl 80 MG Propranolol HCl 80 MG 09/14/2019 12:00:00 AM EDT 1.0 {tablet} ac tive Propranolol HCl 80 MG eCW1 ([facility]) Propranolol Hydrochloride 80 MG Oral Tablet Propranolo l HCl 80 MG Propranolol HCl 80 MG 09/14/2019 12:00:00 AM EDT 1.0 {tablet} ac tive Propranolol HCl 80 MG eCW1 ([facility]) Propranolol Hydrochloride 80 MG Oral Tablet Propranolo l HCl 80 MG Propranolol HCl 80 MG 09/14/2019 12:00:00 AM EDT 1.0 {tablet} ac tive Propranolol HCl 80 MG eCW1 ([facility]) Propranolol Hydrochloride 80 MG Oral Tablet Propranolo l HCl 80 MG Propranolol HCl 80 MG 09/14/2019 12:00:00 AM EDT 1.0 {tablet} ac tive Propranolol HCl 80 MG eCW1 ([facility]) Propranolol Hydrochloride 80 MG Oral Tablet Propranolo l HCl 80 MG Propranolol HCl 80 MG 09/14/2019 12:00:00 AM EDT 1.0 {tablet} ac tive Propranolol HCl 80 MG eCW1 ([facility]) Propranolol Hydrochloride 80 MG Oral Tablet Propranolo l HCl 80 MG Propranolol HCl 80 MG 09/14/2019 12:00:00 AM EDT 1.0 {tablet} ac tive Propranolol HCl 80 MG eCW1 ([facility]) Propranolol Hydrochloride 80 MG Oral Tablet Propranolo l HCl 80 MG Propranolol HCl 80 MG 09/14/2019 12:00:00 AM EDT 1.0 {tablet} ac tive Propranolol HCl 80 MG eCW1 ([facility]) Propranolol Hydrochloride 80 MG Oral Tablet Propranolo l HCl 80 MG Propranolol HCl 80 MG 09/14/2019 12:00:00 AM EDT 1.0 {tablet} ac tive Propranolol HCl 80 MG eCW1 ([facility]) Propranolol Hydrochloride 80 MG Oral Tablet Propranolo l HCl 80 MG Propranolol HCl 80 MG 09/14/2019 12:00:00 AM EDT 1.0 {tablet} ac tive Propranolol HCl 80 MG eCW1 ([facility]) Propranolol Hydrochloride 80 MG Oral Tablet Propranolo l HCl 80 MG Propranolol HCl 80 MG 09/14/2019 12:00:00 AM EDT 1.0 {tablet} ac tive Propranolol HCl 80 MG eCW1 ([facility]) Propranolol Hydrochloride 80 MG Oral Tablet Propranolo l HCl 80 MG Propranolol HCl 80 MG 09/14/2019 12:00:00 AM EDT 1.0 {tablet} ac tive Propranolol HCl 80 MG eCW1 ([facility]) Propranolol Hydrochloride 80 MG Oral Tablet Propranolo l HCl 80 MG Propranolol HCl 80 MG 09/14/2019 12:00:00 AM EDT 1.0 {tablet} ac tive Propranolol HCl 80 MG eCW1 ([facility]) Propranolol Hydrochloride 80 MG Oral Tablet Propranolo l HCl 80 MG Propranolol HCl 80 MG 09/14/2019 12:00:00 AM EDT 1.0 {tablet} ac tive Propranolol HCl 80 MG eCW1 ([facility]) Propranolol Hydrochloride 80 MG Oral Tablet Propranolo l HCl 80 MG Propranolol HCl 80 MG 09/14/2019 12:00:00 AM EDT 1.0 {tablet} ac tive Propranolol HCl 80 MG eCW1 ([facility]) Propranolol Hydrochloride 80 MG Oral Tablet Propranolo l HCl 80 MG Propranolol HCl 80 MG 09/14/2019 12:00:00 AM EDT 1.0 {tablet} ac tive Propranolol HCl 80 MG eCW1 ([facility]) Propranolol Hydrochloride 80 MG Oral Tablet Propranolo l HCl 80 MG Propranolol HCl 80 MG 09/14/2019 12:00:00 AM EDT 1.0 {tablet} ac tive Propranolol HCl 80 MG eCW1 ([facility]) Propranolol Hydrochloride 80 MG Oral Tablet Propranolo l HCl 80 MG Propranolol HCl 80 MG 09/14/2019 12:00:00 AM EDT 1.0 {tablet} ac tive Propranolol HCl 80 MG eCW1 ([facility]) Propranolol Hydrochloride 80 MG Oral Tablet Propranolo l HCl 80 MG Propranolol HCl 80 MG 09/14/2019 12:00:00 AM EDT 1.0 {tablet} ac tive Propranolol HCl 80 MG eCW1 ([facility]) Propranolol Hydrochloride 80 MG Oral Tablet Propranolo l HCl 80 MG Propranolol HCl 80 MG 09/14/2019 12:00:00 AM EDT 1.0 {tablet} ac tive Propranolol HCl 80 MG eCW1 ([facility]) Propranolol Hydrochloride 80 MG Oral Tablet Propranolo l HCl 80 MG Propranolol HCl 80 MG 09/14/2019 12:00:00 AM EDT 1.0 {tablet} ac tive Propranolol HCl 80 MG eCW1 ([facility]) Lidocaine HCL Urethral/Mucosal 09/08/2019 12:00:00 AM EDT active MEDENT ([facility], [facility]) Clindamycin 300 MG Oral Capsule Clindamycin HCL 09/08/2019 12:00:00 A M EDT active MEDENT ([facility], [facility]) pregabalin 150 MG Oral Capsule [Lyrica] Lyrica 150 MG Lyrica 150 MG 08/15/2019 12:00:00 AM EDT 1.0 {capsule} active L yrica 150 MG eCW1 ([facility]) pregabalin 50 MG Oral Capsule [Lyrica] Lyrica 50 MG Lyrica 5 0 MG 08/15/2019 12:00:00 AM EDT active 1 capsul e eCW1 ([facility]) pregabalin 150 MG Oral Capsule [Lyrica] Lyrica 150 MG Lyrica 150 MG 08/15/2019 12:00:00 AM EDT 1.0 {capsule} active L yrica 150 MG eCW1 ([facility]) pregabalin 50 MG Oral Capsule [Lyrica] Lyrica 50 MG Lyrica 5 0 MG 08/15/2019 12:00:00 AM EDT active 1 capsul e eCW1 ([facility]) pregabalin 50 MG Oral Capsule [Lyrica] Lyrica 50 MG Lyrica 5 0 MG 08/15/2019 12:00:00 AM EDT 1.0 {capsule} active L yrica 50 MG eCW1 ([facility]) pregabalin 50 MG Oral Capsule [Lyrica] Lyrica 50 MG Lyrica 5 0 MG 08/15/2019 12:00:00 AM EDT 1.0 {capsule} active L yrica 50 MG eCW1 ([facility]) pregabalin 75 MG Oral Capsule [Lyrica] Lyrica 75 MG Lyrica 7 5 MG 08/15/2019 12:00:00 AM EDT 1.0 {capsule} active L yrica 75 MG eCW1 ([facility]) pregabalin 75 MG Oral Capsule [Lyrica] Lyrica 75 MG Lyrica 7 5 MG 08/15/2019 12:00:00 AM EDT 1.0 {capsule} active L yrica 75 MG eCW1 ([facility]) pregabalin 50 MG Oral Capsule [Lyrica] Lyrica 50 MG Lyrica 5 0 MG 08/15/2019 12:00:00 AM EDT 1.0 {capsule} active L yrica 50 MG eCW1 ([facility]) pregabalin 75 MG Oral Capsule [Lyrica] Lyrica 75 MG Lyrica 7 5 MG 08/15/2019 12:00:00 AM EDT 1.0 {capsule} active L yrica 75 MG eCW1 ([facility]) pregabalin 75 MG Oral Capsule [Lyrica] Lyrica 75 MG Lyrica 7 5 MG 08/15/2019 12:00:00 AM EDT 1.0 {capsule} active L yrica 75 MG eCW1 ([facility]) pregabalin 150 MG Oral Capsule [Lyrica] Lyrica 150 MG Lyrica 150 MG 08/15/2019 12:00:00 AM EDT 1.0 {capsule} active L yrica 150 MG eCW1 ([facility]) pregabalin 50 MG Oral Capsule [Lyrica] Lyrica 50 MG Lyrica 5 0 MG 08/15/2019 12:00:00 AM EDT active 1 capsul e eCW1 ([facility]) pregabalin 75 MG Oral Capsule [Lyrica] Lyrica 75 MG Lyrica 7 5 MG 08/15/2019 12:00:00 AM EDT 1.0 {capsule} active L yrica 75 MG eCW1 ([facility]) pregabalin 100 MG Oral Capsule [Lyrica] Lyrica 100 MG Lyrica 100 MG 08/15/2019 12:00:00 AM EDT 1.0 {capsule} active L yrica 100 MG eCW1 ([facility]) pregabalin 150 MG Oral Capsule [Lyrica] Lyrica 150 MG Lyrica 150 MG 08/15/2019 12:00:00 AM EDT 1.0 {capsule} active L yrica 150 MG eCW1 ([facility]) pregabalin 50 MG Oral Capsule [Lyrica] Lyrica 50 MG Lyrica 5 0 MG 08/15/2019 12:00:00 AM EDT 1.0 {capsule} active L yrica 50 MG eCW1 ([facility]) pregabalin 150 MG Oral Capsule [Lyrica] Lyrica 150 MG Lyrica 150 MG 08/15/2019 12:00:00 AM EDT 1.0 {capsule} active L yrica 150 MG eCW1 ([facility]) pregabalin 150 MG Oral Capsule [Lyrica] Lyrica 150 MG Lyrica 150 MG 08/15/2019 12:00:00 AM EDT 1.0 {capsule} active L yrica 150 MG eCW1 ([facility]) pregabalin 150 MG Oral Capsule [Lyrica] Lyrica 150 MG Lyrica 150 MG 08/15/2019 12:00:00 AM EDT 1.0 {capsule} active L yrica 150 MG eCW1 ([facility]) pregabalin 75 MG Oral Capsule [Lyrica] Lyrica 75 MG Lyrica 7 5 MG 08/15/2019 12:00:00 AM EDT 1.0 {capsule} active L yrica 75 MG eCW1 ([facility]) pregabalin 150 MG Oral Capsule [Lyrica] Lyrica 150 MG Lyrica 150 MG 08/15/2019 12:00:00 AM EDT 1.0 {capsule} active L yrica 150 MG eCW1 ([facility]) pregabalin 75 MG Oral Capsule [Lyrica] Lyrica 75 MG Lyrica 7 5 MG 08/15/2019 12:00:00 AM EDT 1.0 {capsule} active L yrica 75 MG eCW1 ([facility]) pregabalin 75 MG Oral Capsule [Lyrica] Lyrica 75 MG Lyrica 7 5 MG 08/15/2019 12:00:00 AM EDT 1.0 {capsule} active L yrica 75 MG eCW1 ([facility]) pregabalin 100 MG Oral Capsule [Lyrica] Lyrica 100 MG Lyrica 100 MG 08/15/2019 12:00:00 AM EDT 1.0 {capsule} active L yrica 100 MG eCW1 ([facility]) pregabalin 75 MG Oral Capsule [Lyrica] Lyrica 75 MG Lyrica 7 5 MG 08/15/2019 12:00:00 AM EDT 1.0 {capsule} active L yrica 75 MG eCW1 ([facility]) celecoxib 200 MG Oral Capsule [Celebrex] Celebrex 200 MG Elisa ebrex 200 MG 08/10/2019 12:00:00 AM EDT 1.0 {capsule_with_food} active Celebrex 200 MG eCW1 ([facility]) celecoxib 200 MG Oral Capsule [Celebrex] Celebrex 200 MG Elisa ebrex 200 MG 08/10/2019 12:00:00 AM EDT 1.0 {capsule_with_food} active Celebrex 200 MG eCW1 ([facility]) celecoxib 200 MG Oral Capsule [Celebrex] Celebrex 200 MG Elisa ebrex 200 MG 08/10/2019 12:00:00 AM EDT 1.0 {capsule_with_food} active Celebrex 200 MG eCW1 ([facility]) celecoxib 200 MG Oral Capsule [Celebrex] Celebrex 200 MG Elisa ebrex 200 MG 08/10/2019 12:00:00 AM EDT 1.0 {capsule_with_food} active Celebrex 200 MG eCW1 ([facility]) celecoxib 200 MG Oral Capsule [Celebrex] Celebrex 200 MG Elisa ebrex 200 MG 08/10/2019 12:00:00 AM EDT active 1 capsule with food eCW1 ([facility]) celecoxib 200 MG Oral Capsule [Celebrex] Celebrex 200 MG Elisa ebrex 200 MG 08/10/2019 12:00:00 AM EDT 1.0 {capsule_with_food} active Celebrex 200 MG eCW1 ([facility]) celecoxib 200 MG Oral Capsule [Celebrex] Celebrex 200 MG Elisa ebrex 200 MG 08/10/2019 12:00:00 AM EDT 1.0 {capsule_with_food} active Celebrex 200 MG eCW1 ([facility]) celecoxib 200 MG Oral Capsule [Celebrex] Celebrex 200 MG Elisa ebrex 200 MG 08/10/2019 12:00:00 AM EDT 1.0 {capsule_with_food} active Celebrex 200 MG eCW1 ([facility]) Cyclobenzaprine hydrochloride 5 MG Oral Tablet Cyclobe nzaprine HCl 5 MG Cyclobenzaprine HCl 5 MG 08/10/2019 12:00:00 AM EDT active 1 tablet eCW1 ([facility]) celecoxib 200 MG Oral Capsule [Celebrex] Celebrex 200 MG Elisa ebrex 200 MG 08/10/2019 12:00:00 AM EDT 1.0 {capsule_with_food} active Celebrex 200 MG eCW1 ([facility]) celecoxib 200 MG Oral Capsule [Celebrex] Celebrex 200 MG Elisa ebrex 200 MG 08/10/2019 12:00:00 AM EDT 1.0 {capsule_with_food} active Celebrex 200 MG eCW1 ([facility]) celecoxib 200 MG Oral Capsule [Celebrex] Celebrex 200 MG Elisa ebrex 200 MG 08/10/2019 12:00:00 AM EDT 1.0 {capsule_with_food} active Celebrex 200 MG eCW1 ([facility]) celecoxib 200 MG Oral Capsule [Celebrex] Celebrex 200 MG Elisa ebrex 200 MG 08/10/2019 12:00:00 AM EDT 1.0 {capsule_with_food} active Celebrex 200 MG eCW1 ([facility]) celecoxib 200 MG Oral Capsule [Celebrex] Celebrex 200 MG Elisa ebrex 200 MG 08/10/2019 12:00:00 AM EDT 1.0 {capsule_with_food} active Celebrex 200 MG eCW1 ([facility]) celecoxib 200 MG Oral Capsule [Celebrex] Celebrex 200 MG Elisa ebrex 200 MG 08/10/2019 12:00:00 AM EDT 1.0 {capsule_with_food} active Celebrex 200 MG eCW1 ([facility]) celecoxib 200 MG Oral Capsule [Celebrex] Celebrex 200 MG Elisa ebrex 200 MG 08/10/2019 12:00:00 AM EDT 1.0 {capsule_with_food} active Celebrex 200 MG eCW1 ([facility]) celecoxib 200 MG Oral Capsule [Celebrex] Celebrex 200 MG Elisa ebrex 200 MG 08/10/2019 12:00:00 AM EDT 1.0 {capsule_with_food} active Celebrex 200 MG eCW1 ([facility]) celecoxib 200 MG Oral Capsule [Celebrex] Celebrex 200 MG Elisa ebrex 200 MG 08/10/2019 12:00:00 AM EDT 1.0 {capsule_with_food} active Celebrex 200 MG eCW1 ([facility]) celecoxib 200 MG Oral Capsule [Celebrex] Celebrex 200 MG Elisa ebrex 200 MG 08/10/2019 12:00:00 AM EDT 1.0 {capsule_with_food} active Celebrex 200 MG eCW1 ([facility]) celecoxib 200 MG Oral Capsule [Celebrex] Celebrex 200 MG Elisa ebrex 200 MG 08/10/2019 12:00:00 AM EDT 1.0 {capsule_with_food} active Celebrex 200 MG eCW1 ([facility]) celecoxib 200 MG Oral Capsule [Celebrex] Celebrex 200 MG Elisa ebrex 200 MG 08/10/2019 12:00:00 AM EDT 1.0 {capsule_with_food} active Celebrex 200 MG eCW1 ([facility]) celecoxib 200 MG Oral Capsule [Celebrex] Celebrex 200 MG Elisa ebrex 200 MG 08/10/2019 12:00:00 AM EDT active 1 capsule with food eCW1 ([facility]) atorvastatin 20 MG Oral Tablet Atorvastatin Calcium 20 MG Atorvastatin Calcium 20 MG 08/10/2019 12:00:00 AM EDT active 1 tablet eCW1 ([facility]) celecoxib 200 MG Oral Capsule [Celebrex] Celebrex 200 MG Elisa ebrex 200 MG 08/10/2019 12:00:00 AM EDT 1.0 {capsule_with_food} active Celebrex 200 MG eCW1 ([facility]) celecoxib 200 MG Oral Capsule [Celebrex] Celebrex 200 MG Elisa ebrex 200 MG 08/10/2019 12:00:00 AM EDT 1.0 {capsule_with_food} active Celebrex 200 MG eCW1 ([facility]) celecoxib 200 MG Oral Capsule [Celebrex] Celebrex 200 MG Elisa ebrex 200 MG 08/10/2019 12:00:00 AM EDT 1.0 {capsule_with_food} active Celebrex 200 MG eCW1 ([facility]) celecoxib 200 MG Oral Capsule [Celebrex] Celebrex 200 MG Elisa ebrex 200 MG 08/10/2019 12:00:00 AM EDT 1.0 {capsule_with_food} active Celebrex 200 MG eCW1 ([facility]) Insurance Providers Payer name Policy type / Coverage type Policy ID Covered alliance party ID Covered alliance party's relationship to cowan Policy Cowan Plan Information [employer] GOLD [id number] SP [id number] [employer] PPO 302/307 [id number] [employer] GOLD [id number] SP [id number] [employer]CE[employer] BCBS P [id number] P [id number] Problems, Conditions, and Diagnoses Code Display Name Description Problem Type Effective Dates Data Source(s) M46.1 [id number] Sacroiliitis, not elsewhere classified Pr oblem 05/21/2020 12:00:00 AM EST eCW1 ([facility]) G89.29 Chronic pain Other chronic pain Problem 03/11/2020 12:0 0:00 AM EST eCW1 ([facility]) R39.15 [id number] Urgency of urination Problem 03/05/2020 12:0 0:00 AM EST eCW1 ([facility]) R39.89 [id number] Bladder pain Problem 03/05/2020 12:00:00 AM EST eCW1 ([facility]) M47.817 [id number] Spondylosis without myelopathy or radiculopathy, lumbosacral region Problem 02/26/2020 12:00:00 AM EST eCW1 ([facility]) M47.816 [id number] Spondylosis without myelopathy or radiculopathy, lumbar region Problem 02/26/2020 12:00:00 AM EST eCW1 ([facility]) M47.817 Lumbosacral spondylosis without myelopat hy Spondylosis of lumbosacral region without myelopathy or radiculopathy Problem 02/08/2020 12:00: 00 AM EDT eCW1 ([facility]) N39.43 [id number] Post-void dribbling Problem 02/01/2020 12:00 :00 AM EDT eCW1 ([facility]) E66.9 [id number] Obesity (BMI 30-39.9) Problem 01/21/2020 12: 00:00 AM EDT eCW1 ([facility]) M46.1 Bilateral sacroiliitis Bilateral sacroiliitis Problem 01/09/2020 12:00:00 AM EDT eCW1 ([facility]) M47.9 [id number] Osteoarthritis of lower back Problem 020 12:00:00 AM EDT eCW1 ([facility]) M47.9 [id number] Osteoarthritis of lower back Problem 020 12:00:00 AM EDT eCW1 ([facility]) D22.5 [id number] Melanocytic nevi of trunk Problem 09/04/2019 12:00:00 AM EDT eCW1 ([facility]) D22.62 902979606 Melanocytic nevi of left upper l imb, including shoulder Problem 09/04/2019 12:00:00 AM EDT eCW1 ([facility]) D22.61 673388969 Melanocytic nevi of right upper limb, including shoulder Problem 09/04/2019 12:00:00 AM EDT eCW1 ([facility]) D18.01 [id number] Alfonso angioma Problem 09/04/2019 12:00:00 A M EDT eCW1 ([facility]) D22.4 28244578 Multiple benign nevi of neck Problem 020 12:00:00 AM EDT eCW1 ([facility]) D22.30 692679251 Melanocytic nevi of face Problem 09/04/2019 12:00:00 AM EDT eCW1 ([facility]) L82.1 [id number] SK (seborrheic keratosis) Problem 09/04/2019 12:00:00 AM EDT eCW1 ([facility]) L72.0 [id number] Milia Problem 09/04/2019 12:00:00 AM ED T eCW1 ([facility]) Z85.828 206134446 History of skin cancer Problem 09/04/2019 12 :00:00 AM EDT eCW1 ([facility]) L91.8 208448784 Skin tag Problem 09/04/2019 12:00:00 AM ED T eCW1 ([facility]) L81.4 102144524 Lentigines Problem 09/04/2019 12:00:00 AM ED T eCW1 ([facility]) D22.72 706973369 Melanocytic nevi of left lower limb, incl uding hip Problem 09/04/2019 12:00:00 AM EDT eCW1 ([facility]) D22.71 332301671 Melanocytic nevi of right lower limb, inc luding hip Problem 09/04/2019 12:00:00 AM EDT eCW1 ([facility]) Z85.828 537762531 History of skin cancer Problem 09/04/2019 12 :00:00 AM EDT eCW1 ([facility]) L72.0 338464143 Milia Problem 09/04/2019 12:00:00 AM ED T eCW1 ([facility]) L82.1 [id number] SK (seborrheic keratosis) Problem 09/04/2019 12:00:00 AM EDT eCW1 ([facility]) D18.01 [id number] Alfonso angioma Problem 09/04/2019 12:00:00 A M EDT eCW1 ([facility]) D22.72 045777996 Melanocytic nevi of left lower limb, incl uding hip Problem 09/04/2019 12:00:00 AM EDT eCW1 ([facility]) D22.71 703876194 Melanocytic nevi of right lower limb, inc luding hip Problem 09/04/2019 12:00:00 AM EDT eCW1 ([facility]) D22.4 56848665 Multiple benign nevi of neck Problem 020 12:00:00 AM EDT eCW1 ([facility]) D22.5 026735273 Melanocytic nevi of trunk Problem 09/04/2019 12:00:00 AM EDT eCW1 ([facility]) D22.61 156031262 Melanocytic nevi of right upper limb, including shoulder Problem 09/04/2019 12:00:00 AM EDT eCW1 ([facility]) D22.62 258521992 Melanocytic nevi of left upper l imb, including shoulder Problem 09/04/2019 12:00:00 AM EDT eCW1 ([facility]) L91.8 304390433 Skin tag Problem 09/04/2019 12:00:00 AM ED T eCW1 ([facility]) L81.4 156713567 Lentigines Problem 09/04/2019 12:00:00 AM ED T eCW1 ([facility]) D22.30 592626818 Melanocytic nevi of face Problem 09/04/2019 12:00:00 AM EDT eCW1 ([facility]) M19.90 618980756 Osteoarthritis, unsp ecified osteoarthritis type, unspecified site Problem 08/10/2019 12:00:00 AM EDT eCW1 ([facility]) E78.2 116214602 Mixed hyperlipidemia Problem 08/10/2019 12:0 0:00 AM EDT eCW1 ([facility]) M19.90 059208209 Osteoarthritis, unsp ecified osteoarthritis type, unspecified site Problem 08/10/2019 12:00:00 AM EDT eCW1 ([facility]) E78.2 803664304 Mixed hyperlipidemia Problem 08/10/2019 12:0 0:00 AM EDT eCW1 ([facility]) I10 89063735 Essential hypertension Problem 08/06/2019 12 :00:00 AM EDT eCW1 ([facility]) I10 [id number] Essential hypertension Problem 08/06/2019 12 :00:00 AM EDT eCW1 ([facility]) Z85.820 564463122 History of melanoma Problem 08/06/2019 12:00 :00 AM EDT eCW1 ([facility]) Surgeries/Procedures Procedure Description Date Indications Data Source(s) Pain Procedure Log 03/11/2020 12:00:00 AM EST eCW1 ([facility]) Saline Lock 02/26/2020 12:00:00 AM EST e CW1 ([facility]) Medication: Benadryl Tab 25mg Orally (Diphenhydramine) 02/26/2020 12:00:00 AM EST eCW1 ([facility]) Nutritional Counseling Nutritional Counseling 01/21/2020 12:00:00 A M EDT LORRAINE ([facility]) Oral Hygiene/Shant Inst Oral Hygiene/Shant Inst 01/21/2020 12:00:00 AM EDT [facility]INE ([facility]) Full Mouth Debridement Full Mouth Debridement 01/21/2020 12:00:00 A M EDT L[facility]INE ([facility]) Oral Hygiene/Shant Inst Oral Hygiene/Shant Inst 01/21/2020 12:00:00 AM EDT [facility]INE ([facility]) Nutritional Counseling Nutritional Counseling 01/21/2020 12:00:00 A M [facility] Full Mouth Debridement Full Mouth Debridement 01/21/2020 12:00:00 A M EDT [facility] Extract Erupted Tooth or Exposed Root Extract Erupted Tooth or Exposed Root 11/23/2019 12:00:00 AM EDT [facility] Panoramic radiographic image Panoramic radiographic image 12:00:00 AM EDT LORRAINE ([facility]) Bitewing - 4 radiographic images Bitewing - 4 radiographic i mages 11/20/2019 12:00:00 AM EDT LORRAINE ([facility]) Comprehensive Oral Eval Comprehensive Oral Eval 11/20/2019 12:00:00 AM EDT LORRAINE ([facility]) Oral Cancer Screening Oral Cancer Screening 11/20/2019 12:00:00 AM EDT LORRAINE ([facility]) Limited Oral Evaluation Limited Oral Evaluation 09/10/2019 12:00:00 AM EDT LORRAINE ([facility]) intraoral-periapical first radiographic image intraora l-periapical first radiographic image 09/10/2019 12:00:00 AM EDT [facility] Extract Erupted Tooth or Exposed Root Extract Erupted Tooth or Exposed Root 09/10/2019 12:00:00 AM EDT [facility] Extract Erupted Tooth or Exposed Root Extract Erupted Tooth or Exposed Root 09/10/2019 12:00:00 AM EDT LORRAINE ([facility]) TANGNTL BX SKIN SINGLE LES 09/04/2019 12:00:00 AM EDT eCW1 ([facility]) Office Visit, Est Pt., Level 2 FC 08/10/2019 12:00:00 AM EDT eCW1 ([facility]) Office Visit, Est Pt., Level 4 PC 08/10/2019 12:00:00 AM EDT eCW1 ([facility]) URINE-NO MICRO 08/06/2019 12:00:00 AM EDT eCW1 ([facility]) Results ID Date Data Source [id number] 05/16/2020 11:30:00 AM EST [facility] Name Value Range Interpretation Code Description Data Myriam rce(s) Supporting Document(s) SARS coronavirus 2 RNA Not Detected [facility] [place] This lab was ordered by [facility] and reported by [facility]. ID Date Data Source [id number] 02/21/2020 11:00:00 AM EST [facility] Name Value Range Interpretation Code Description Data Myriam rce(s) Supporting Document(s) SARS coronavirus 2 RNA [facility] This lab was ordered by [facility] and reported by [facility]. ID Date Data Source Microscopic Only Urine (Auto) 02/04/2020 12:25:00 PM EDT eCW 1 ([facility]) Name Value Range Interpretation Code Description Data Myriam rce(s) Supporting Document(s) 0 SQUAMOUS EPITHELIAL CELL UR AU eCW1 ([facility]) 1 WBC, URINE AUTO eCW1 ([facility]) 1 RBC, URINE AUTO eCW1 ([facility]) NEGATIVE BACTERIA, URINE AUTO eCW1 ([facility]) 0 HYALINE CAST, URINE AUTO eCW1 ([facility]) SMALL MUCUS, URINE eCW1 ([facility]) ID Date Data Source URINE CULTURE 02/04/2020 12:16:14 PM EDT eCW1 ([facility]) Name Value Range Interpretation Code Description Data Myriam rce(s) Supporting Document(s) URINE CULTURE eCW1 ([facility]) Procedure Social History Code Duration Value Status Description Data Source(s ) Smoking 05/23/2020 12:00:00 AM EST Former Smoker completed Former Smoker eCW1 ([facility]) Smoking 05/21/2020 12:00:00 AM EST Former Smoker completed Former Smoker eCW1 ([facility]) Smoking 05/21/2020 12:00:00 AM EST Former Smoker completed Former Smoker eCW1 ([facility]) Smoking 05/01/2020 12:00:00 AM EST Former Smoker completed Former Smoker eCW1 ([facility]) Smoking 05/01/2020 12:00:00 AM EST Former Smoker completed Former Smoker eCW1 ([facility]) Smoking 04/08/2020 12:00:00 AM EST Former Smoker completed Former Smoker eCW1 ([facility]) Smoking 04/08/2020 12:00:00 AM EST Former Smoker completed Former Smoker eCW1 ([facility]) Smoking 04/08/2020 12:00:00 AM EST Former Smoker completed Former Smoker eCW1 ([facility]) Smoking 03/11/2020 12:00:00 AM EST Former Smoker completed Former Smoker eCW1 ([facility]) Smoking 03/11/2020 12:00:00 AM EST Former Smoker completed Former Smoker eCW1 ([facility]) Smoking 02/26/2020 12:00:00 AM EST Former Smoker completed Former Smoker eCW1 ([facility]) Smoking 02/26/2020 12:00:00 AM EST Former Smoker completed Former Smoker eCW1 ([facility]) Smoking 02/08/2020 12:00:00 AM EDT Former Smoker completed Former Smoker eCW1 ([facility]) Smoking 02/08/2020 12:00:00 AM EDT Former Smoker completed Former Smoker eCW1 ([facility]) Smoking 02/08/2020 12:00:00 AM EDT Former Smoker completed Former Smoker eCW1 ([facility]) Smoking 02/01/2020 12:00:00 AM EDT Former Smoker completed Former Smoker eCW1 ([facility]) Smoking 01/21/2020 12:00:00 AM EDT Former Smoker completed Former Smoker eCW1 ([facility]) Smoking 01/21/2020 12:00:00 AM EDT Former Smoker completed Former Smoker eCW1 ([facility]) Smoking 01/09/2020 12:00:00 AM EDT Former Smoker completed Former Smoker eCW1 ([facility]) Smoking 09/06/2019 12:00:00 AM EDT Former Smoker completed Former Smoker eCW1 ([facility]) Smoking 09/06/2019 12:00:00 AM EDT Former Smoker completed Former Smoker eCW1 ([facility]) Smoking 09/06/2019 12:00:00 AM EDT Former Smoker completed Former Smoker eCW1 ([facility]) Smoking 09/06/2019 12:00:00 AM EDT Former Smoker completed Former Smoker eCW1 ([facility]) Vital Signs ID Date Data Source UNK Name Value Range Interpretation Code Description Data Source(s) Diastolic blood pressure 70 mm[Hg] 70 mm[Hg] eCW1 ([facility]) Systolic blood pressure 155 mm[Hg] 155 mm[Hg] e CW1 ([facility]) Body temperature 97.6 [degF] 97.6 [degF] eCW1 ( [facility]) Respiratory rate 18 /min 18 /min eCW1 ([facility]) Heart rate 58 /min 58 /min eCW1 ([facility]) Body mass index (BMI) [Ratio] 36.91 kg/m2 36.91 kg/m2 eCW1 ([facility]) Body height 62 [in_i] 62 [in_i] eCW1 ([facility]) Body weight 201.8 [lb_av] 201.8 [lb_av] eCW1 [facility] Diastolic blood pressure 80 mm[Hg] 80 mm[Hg] eCW1 ([facility]) Systolic blood pressure 130 mm[Hg] 130 mm[Hg] e CW1 ([facility]) Body temperature 97.2 [degF] 97.2 [degF] eCW1 ( [facility]) Respiratory rate 18 /min 18 /min eCW1 ([facility]) Heart rate 56 /min 56 /min eCW1 ([facility]) Body mass index (BMI) [Ratio] 36.36 kg/m2 36.36 kg/m2 eCW1 ([facility]) Body height 62 [in_i] 62 [in_i] eCW1 ([facility]) Body weight 198.8 [lb_av] 198.8 [lb_av] eCW1 ([facility]) Diastolic blood pressure 72 mm[Hg] 72 mm[Hg] eCW1 ([facility]) Systolic blood pressure 158 mm[Hg] 158 mm[Hg] e CW1 ([facility]) Body temperature 96.1 [degF] 96.1 [degF] eCW1 ( [facility]) Respiratory rate 18 /min 18 /min eCW1 ([facility]) Heart rate 64 /min 64 /min eCW1 ([facility]) Body mass index (BMI) [Ratio] 35.95 kg/m2 35.95 kg/m2 eCW1 ([facility]) Body height 62 [in_i] 62 [in_i] eCW1 ([facility]) Body weight 196.6 [lb_av] 196.6 [lb_av] eCW1 ([facility]) Diastolic blood pressure 63 mm[Hg] 63 mm[Hg] eCW1 ([facility]) Systolic blood pressure 131 mm[Hg] 131 mm[Hg] e CW1 ([facility]) Body temperature 96.5 [degF] 96.5 [degF] eCW1 ( [facility]) Respiratory rate 18 /min 18 /min eCW1 ([facility]) Heart rate 52 /min 52 /min eCW1 ([facility]) Body mass index (BMI) [Ratio] 34.71 kg/m2 34.71 kg/m2 eCW1 ([facility]) Body height 62 [in_i] 62 [in_i] eCW1 ([facility]) Body weight 189.8 [lb_av] 189.8 [lb_av] eCW1 ([facility]) Diastolic blood pressure 76 mm[Hg] 76 mm[Hg] eCW1 ([facility]) Systolic blood pressure 144 mm[Hg] 144 mm[Hg] e CW1 ([facility]) Body temperature 96.0 [degF] 96.0 [degF] eCW1 ( [facility]) Respiratory rate 18 /min 18 /min eCW1 ([facility]) Heart rate 63 /min 63 /min eCW1 ([facility]) Body mass index (BMI) [Ratio] 34.93 kg/m2 34.93 kg/m2 eCW1 ([facility]) Body height 62 [in_i] 62 [in_i] eCW1 ([facility]) Body weight 191 [lb_av] 191 [lb_av] eCW1 ([facility]) Diastolic blood pressure 73 mm[Hg] 73 mm[Hg] eCW1 ([facility]) Systolic blood pressure 159 mm[Hg] 159 mm[Hg] e CW1 ([facility]) Body temperature 96.5 [degF] 96.5 [degF] eCW1 ( [facility]) Respiratory rate 18 /min 18 /min eCW1 ([facility]) Heart rate 61 /min 61 /min eCW1 ([facility]) Body mass index (BMI) [Ratio] 35.55 kg/m2 35.55 kg/m2 eCW1 ([facility]) Body height 62 [in_i] 62 [in_i] eCW1 ([facility]) Body weight 194.4 [lb_av] 194.4 [lb_av] eCW1 ([facility]) Diastolic blood pressure 78 mm[Hg] 78 mm[Hg] eCW1 ([facility]) Systolic blood pressure 130 mm[Hg] 130 mm[Hg] e CW1 ([facility]) Body temperature 98.4 [degF] 98.4 [degF] eCW1 ( [facility]) Respiratory rate 18 /min 18 /min eCW1 ([facility]) Heart rate 75 /min 75 /min eCW1 ([facility]) Body mass index (BMI) [Ratio] 35.11 kg/m2 35.11 kg/m2 eCW1 ([facility]) Body height 62 [in_i] 62 [in_i] eCW1 ([facility]) Body weight 192 [lb_av] 192 [lb_av] eCW1 ([facility]) Diastolic blood pressure 63 mm[Hg] 63 mm[Hg] eCW1 ([facility]) Systolic blood pressure 132 mm[Hg] 132 mm[Hg] e CW1 ([facility]) Body temperature 96.3 [degF] 96.3 [degF] eCW1 ( [facility]) Respiratory rate 18 /min 18 /min eCW1 ([facility]) Heart rate 55 /min 55 /min eCW1 ([facility]) Body mass index (BMI) [Ratio] 34.89 kg/m2 34.89 kg/m2 eCW1 ([facility]) Body height 62 [in_i] 62 [in_i] eCW1 ([facility]) Body weight 190.8 [lb_av] 190.8 [lb_av] eCW1 ([facility]) Diastolic blood pressure 68 mm[Hg] 68 mm[Hg] eCW1 ([facility]) Systolic blood pressure 114 mm[Hg] 114 mm[Hg] e CW1 ([facility]) Body temperature 97.2 [degF] 97.2 [degF] eCW1 ( [facility]) Respiratory rate 18 /min 18 /min eCW1 ([facility]) Heart rate 59 /min 59 /min eCW1 ([facility]) Body mass index (BMI) [Ratio] 34.31 kg/m2 34.31 kg/m2 eCW1 ([facility]) Body height 62 [in_i] 62 [in_i] eCW1 ([facility]) Body weight 187.6 [lb_av] 187.6 [lb_av] eCW1 ([facility]) Diastolic blood pressure 82 mm[Hg] 82 mm[Hg] eCW1 ([facility]) Systolic blood pressure 126 mm[Hg] 126 mm[Hg] e CW1 ([facility]) Body temperature 97.6 [degF] 97.6 [degF] eCW1 ( [facility]) Respiratory rate 18 /min 18 /min eCW1 ([facility]) Heart rate 60 /min 60 /min eCW1 ([facility]) Body mass index (BMI) [Ratio] 34.82 kg/m2 34.82 kg/m2 eCW1 ([facility]) Body height 62 [in_i] 62 [in_i] eCW1 ([facility]) Body weight 190.4 [lb_av] 190.4 [lb_av] eCW1 ([facility]) Diastolic blood pressure 68 mm[Hg] 68 mm[Hg] eCW1 ([facility]) Systolic blood pressure 153 mm[Hg] 153 mm[Hg] e CW1 ([facility]) Body temperature 97.0 [degF] 97.0 [degF] eCW1 ( [facility]) Respiratory rate 18 /min 18 /min eCW1 ([facility]) Heart rate 63 /min 63 /min eCW1 ([facility]) Body mass index (BMI) [Ratio] 34.67 kg/m2 34.67 kg/m2 eCW1 ([facility]) Body height 62 [in_i] 62 [in_i] eCW1 ([facility]) Body weight 189.6 [lb_av] 189.6 [lb_av] eCW1 ([facility]) Body mass index (BMI) [Ratio] 31.6 kg/m2 31.6 k g/m2 MEDENT ([facility], [facility]) Body height 62 [in_i] 62 [in_i] MEDENT ([facility], [facility]) 5'2" Body weight 173.00 [lb_av] 173.00 [lb_av] MEDEN T ([facility], [facility]) Body temperature 98.7 [degF] 98.7 [degF] MEDENT ([facility], [facility]) Oxygen saturation in Arterial blood by Pulse oximetry 99 % 99 % MEDENT ([facility], [facility]) Respiratory rate 16 /min 16 /min MEDENT ( [facility], [facility]) Heart rate 64 /min 64 /min MEDENT ([facility], [facility]) Diastolic blood pressure 80 mm[Hg] 80 mm[Hg] MEDENT ([facility], [facility]) Systolic blood pressure 142 mm[Hg] 142 mm[Hg] M EDENT ([facility], [facility]) Diastolic blood pressure 80 mm[Hg] 80 mm[Hg] eCW1 ([facility]) Systolic blood pressure 130 mm[Hg] 130 mm[Hg] e CW1 ([facility]) Body temperature 97.4 [degF] 97.4 [degF] eCW1 ( [facility]) Respiratory rate 18 /min 18 /min eCW1 ([facility]) Heart rate 69 /min 69 /min eCW1 ([facility]) Body mass index (BMI) [Ratio] 31.64 kg/m2 31.64 kg/m2 eCW1 ([facility]) Body height 62 [in_i] 62 [in_i] eCW1 ([facility]) Body weight 173 [lb_av] 173 [lb_av] eCW1 ([facility]) Systolic blood pressure 124 mm[Hg] 124 mm[Hg] e CW1 ([facility]) Body mass index (BMI) [Ratio] 31.82 kg/m2 31.82 kg/m2 eCW1 ([facility]) Body height 62 [in_us] 62 [in_us] eCW1 ([facility]) Body weight Measured 174 [lb_av] 174 [lb_av] eC W1 ([facility]) Diastolic blood pressure 70 mm[Hg] 70 mm[Hg] eCW1 ([facility]) Diastolic blood pressure 68 mm[Hg] 68 mm[Hg] eCW1 ([facility]) Systolic blood pressure 120 mm[Hg] 120 mm[Hg] e CW1 ([facility]) Body temperature 96.9 [degF] 96.9 [degF] eCW1 ( [facility]) Respiratory rate 18 /min 18 /min eCW1 ([facility]) Heart rate 77 /min 77 /min eCW1 ([facility]) Body mass index (BMI) [Ratio] 31.89 kg/m2 31.89 kg/m2 eCW1 ([facility]) Body height 62 [in_us] 62 [in_us] eCW1 ([facility]) Body weight Measured 174.4 [lb_av] 174.4 [lb_av ] eCW1 ([facility]) Diastolic blood pressure 80 mm[Hg] 80 mm[Hg] eCW1 ([facility]) Systolic blood pressure 138 mm[Hg] 138 mm[Hg] e CW1 ([facility]) Body temperature 96.7 [degF] 96.7 [degF] eCW1 ( [facility]) Respiratory rate 18 /min 18 /min eCW1 ([facility]) Heart rate 67 /min 67 /min eCW1 ([facility]) Body mass index (BMI) [Ratio] 31.86 kg/m2 31.86 kg/m2 eCW1 ([facility]) Body height 62 [in_us] 62 [in_us] eCW1 ([facility]) Body weight Measured 174.2 [lb_av] 174.2 [lb_av ] eCW1 ([facility]) Patient Treatment Plan of Care Planned Activity Planned Date Details Description Data Source (s) Furosemide 20 MG Oral Tablet 05/23/2020 12:00:00 AM EST eCW1 ([facility]) Phenazopyridine hydrochloride 100 MG Oral Tablet [Pyri dium] 02/04/2020 12:00:00 AM EDT eCW1 (Formerly [facility], 1928–1983) Phenazopyridine hydrochloride 100 MG Oral Tablet [Pyri dium] 02/01/2020 12:00:00 AM EDT eCW1 (Formerly [facility], [facility]) chlorhexidine gluconate 1.2 MG/ML Mouthwash [Peridex] 01/21/2020 12:00:00 AM EDT LORRAINE ([facility]) orlistat 120 MG Oral Capsule [Xenical] 01/21/2020 12:00:00 AM EDT eCW1 ([facility]) orlistat 120 MG Oral Capsule [Xenical] 01/21/2020 12:00:00 AM EDT eCW1 ([facility]) Propranolol Hydrochloride 80 MG Oral Tablet 09/14/2019 12:00:00 AM EDT eCW1 ([facility]) Propranolol Hydrochloride 80 MG Oral Tablet 09/14/2019 12:00:00 AM EDT eCW1 ([facility]) Propranolol Hydrochloride 80 MG Oral Tablet 09/14/2019 12:00:00 AM EDT eCW1 ([facility]) Propranolol Hydrochloride 80 MG Oral Tablet 09/14/2019 12:00:00 AM EDT eCW1 ([facility]) pregabalin 150 MG Oral Capsule [Lyrica] 08/15/2019 12:00:00 AM EDT eCW1 ([facility]) pregabalin 150 MG Oral Capsule [Lyrica] 08/15/2019 12:00:00 AM EDT eCW1 ([facility]) pregabalin 150 MG Oral Capsule [Lyrica] 08/15/2019 12:00:00 AM EDT eCW1 ([facility]) pregabalin 150 MG Oral Capsule [Lyrica] 08/15/2019 12:00:00 AM EDT eCW1 ([facility]) pregabalin 150 MG Oral Capsule [Lyrica] 08/15/2019 12:00:00 AM EDT eCW1 ([facility]) pregabalin 100 MG Oral Capsule [Lyrica] 08/15/2019 12:00:00 AM EDT eCW1 ([facility]) pregabalin 100 MG Oral Capsule [Lyrica] 08/15/2019 12:00:00 AM EDT eCW1 ([facility]) pregabalin 75 MG Oral Capsule [Lyrica] 08/15/2019 12:00:00 AM EDT eCW1 ([facility]) pregabalin 75 MG Oral Capsule [Lyrica] 08/15/2019 12:00:00 AM EDT eCW1 ([facility]) pregabalin 75 MG Oral Capsule [Lyrica] 08/15/2019 12:00:00 AM EDT eCW1 ([facility]) pregabalin 75 MG Oral Capsule [Lyrica] 08/15/2019 12:00:00 AM EDT eCW1 ([facility]) pregabalin 50 MG Oral Capsule [Lyrica] 08/15/2019 12:00:00 AM EDT eCW1 ([facility]) pregabalin 50 MG Oral Capsule [Lyrica] 08/15/2019 12:00:00 AM EDT eCW1 ([facility]) pregabalin 50 MG Oral Capsule [Lyrica] 08/15/2019 12:00:00 AM EDT eCW1 ([facility]) pregabalin 50 MG Oral Capsule [Lyrica] 08/15/2019 12:00:00 AM EDT eCW1 ([facility]) pregabalin 50 MG Oral Capsule [Lyrica] 08/15/2019 12:00:00 AM EDT eCW1 ([facility]) pregabalin 50 MG Oral Capsule [Lyrica] 08/15/2019 12:00:00 AM EDT eCW1 ([facility]) celecoxib 200 MG Oral Capsule [Celebrex] 08/10/2019 12:00:00 AM EDT eCW1 ([facility]) celecoxib 200 MG Oral Capsule [Celebrex] 08/10/2019 12:00:00 AM EDT eCW1 ([facility]) celecoxib 200 MG Oral Capsule [Celebrex] 08/10/2019 12:00:00 AM EDT eCW1 ([facility]) celecoxib 200 MG Oral Capsule [Celebrex] 08/10/2019 12:00:00 AM EDT eCW1 ([facility]) celecoxib 200 MG Oral Capsule [Celebrex] 08/10/2019 12:00:00 AM EDT eCW1 ([facility]) celecoxib 200 MG Oral Capsule [Celebrex] 08/10/2019 12:00:00 AM EDT eCW1 ([facility]) celecoxib 200 MG Oral Capsule [Celebrex] 08/10/2019 12:00:00 AM EDT eCW1 ([facility]) celecoxib 200 MG Oral Capsule [Celebrex] 08/10/2019 12:00:00 AM EDT eCW1 ([facility]) celecoxib 200 MG Oral Capsule [Celebrex] 08/10/2019 12:00:00 AM EDT eCW1 ([facility]) celecoxib 200 MG Oral Capsule [Celebrex] 08/10/2019 12:00:00 AM EDT eCW1 ([facility]) celecoxib 200 MG Oral Capsule [Celebrex] 08/10/2019 12:00:00 AM EDT eCW1 ([facility]) celecoxib 200 MG Oral Capsule [Celebrex] 08/10/2019 12:00:00 AM EDT eCW1 ([facility]) celecoxib 200 MG Oral Capsule [Celebrex] 08/10/2019 12:00:00 AM EDT eCW1 ([facility]) Cyclobenzaprine hydrochloride 5 MG Oral Tablet 08/10/2019 12:00:00 AM EDT eCW1 ([facility]) atorvastatin 20 MG Oral Tablet 08/10/2019 12:00:00 AM EDT eCW1 ([facility]) celecoxib 200 MG Oral Capsule [Celebrex] 08/10/2019 12:00:00 AM EDT eCW1 ([facility])
--- OUTSIDE RECORDS SUMMARY | 2020-05-24 09:03 | CCD ---
Author Author [facility] Organization [facility] Address Unknown Phone Unavailable Care Team Providers Care Electrolog Operator Name Role Phone Daryl Nicholas Unavailable PROBLEMS Type Condition ICD9-CM Code LBI04-NH Code Onset Dates Condition S tatus SNOMED Code Notes Problem Melanocytic nevi of left upper limb, including shoulder D22.62 Active 249015201 Problem Melanocytic nevi of right lower limb, including hip D22.71 Active 667663479 Problem Melanocytic nevi of trunk D22.5 Active 431812 002 Problem Melanocytic nevi of right upper limb, including shoulder D22.61 Active 005219260 Problem Milia L72.0 Active 356714069 Problem Lentigines L81.4 Active 102187502 Problem Melanocytic nevi of face D22.30 Active 4246225 04 Problem Essential hypertension I10 Active 31208621 Problem History of skin cancer Z85.828 Active 273577118 Problem Skin tag L91.8 Active 508178016 Problem Multiple benign nevi of neck D22.4 Active 923 72479 Problem Osteoarthritis of lower back M47.9 Active 123 670681 Problem Spondylosis without myelopathy or radiculopathy, lumbosacral region M47.817 Active 29325395 Problem 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 Active 4601163 Problem Mixed hyperlipidemia E78.2 Active 763488311 Problem Spondylosis without myelopathy or radiculopathy, lumbar region M47.816 Active 774007213 Problem SK (seborrheic keratosis) L82.1 Active 650419 009 Problem Osteoarthritis, unspecified osteoarthritis type, unspecified site M19.90 Active 685302662 Problem Melanocytic nevi of left lower limb, including hip D22.72 Active 911800090 Problem Bilateral sacroiliitis M46.1 Active 950860882 69581823 Problem Obesity (BMI 30-39.9) E66.9 Active 416113238 Problem Spondylosis of lumbosacral region without myelop athy or radiculopathy M47.817 Active 11734959 Problem Post-void dribbling N39.43 Active 305721488 ALLERGIES Allergen (clinical drug ingredient) Drug/Non Drug Allergy do cumented on EMR Reaction Allergy Type Onset Date Status Penicillin (For Allergies Use Only) Hives Drug Allerg y Active ENCOUNTERS from 1950 to 2020-02-28 Encounter Location Date Provider Diagnosis [facility] [address] [place] [id number] Feb, Daryl Nicholas Spondylosis without myelopathy or radicu lopathy, lumbar region M47.816 and Spondylosis without myelopathy or radiculopathy, lumbosacral region M47.817 IMMUNIZATIONS Vaccine Route Administration Date Status [...] Education Language: Question Answer Notes Languages spoken: Chinese Cheondoism: Question Answer Notes Cheondoism No rastafari beliefs that would impact health care. Sexual [...] FOR REFERRAL No Information VITAL SIGNS Weight 194.4 lbs Feb, Height 62 in Feb, BMI 35.55 kg/m2 Feb, Heart Rate 61 /min Feb, Respiratory Rate 18 /min Feb, Temperature 96.5 degrees Fahrenheit Feb, Oximetry 93% Feb, Blood pressure systolic 159 mm Hg Feb, Blood pressure diastolic 73 mm Hg Feb, MEDICATIONS Medication SIG (Take, [...] Three time s a day Not-Taking PROCEDURES Procedure Date Ordered Result Body Site Medication: Benadryl Tab 25mg Orally (Diphenhydramine) 2020-02-10 7 N/A Medication: [place] Tablet 5mg/325mg Orally (Hydrocodone /Acetaminophen) 2020-02-26 N/A Saline Lock 2020-02-26 N/A RESULTS No Results REASON FOR VISIT bilateral therapeutic lumbar facet block L4-L5 L5-S1 [...] Treatment Notes Treatm ent Clinical Notes Feb, Spondylosis without myelopat hy or radiculopathy, lumbar region (ICD-10 - M47.816) Feb, Spondylosis without myelopat hy or radiculopathy, lumbosacral region (ICD-10 - M47.817) PLAN OF TREATMENT Treatment Notes Test Name Order Date SMC FACET BLOCK (PAIN) 2020-02-28 Next Appt Details Follow up with FIRE PREVENTION ENGINEER Reason:Post therapeuti c bilateral L4-L5, L5-S1 Provider Name:Ld Hwang, 2020-02 11:00:00 AM, [address] [facility], [place], [phone], Provider Name:Dilan Hermosillo, 2020-03-11 10:00:00 AM, [address] [place] [address], [phone], Provider Name:Sadie Quispe, 2020-05-22 11:00:00 AM, [address], [phone], Provider Name:Cristobal Biswas, 2020-08 10:15:00 AM, [address] [place] [address], [facility], [place], [address], Follow Up:Follow up with NPPost therapeutic bilateral L4-L5, L5-S1 Insurance Providers Payer Name Payer Address Payer Phone Insured Name Patient Relati onship to Insured Coverage Start Date Coverage End Date [employer] [address] [address] [address] [facility] [id number] JONAS INLÁZARO self
--- NOTE | 2020-05-24 09:26 | REP ---
INDICATION: right sided trauma. COMPARISON: None. TECHNIQUE: Helical scanning is acquired. 5 mm axial images were reformatted. Coronal MPR images were generated. FINDINGS: Bone window settings demonstrate an intact bony calvarium. There is no evidence of skull fracture or incidental bony calvarial lesion. The visualized paranasal sinuses appear clear. No intraorbital abnormality is seen. On soft tissue window setting images; the lateral, third, and fourth ventricles are normal in size and position. Farmer-white differentiation pattern is normal above and below the tentorium. There are is no evidence of intracranial hemorrhage. No mass, edema, infarction, or midline shift is seen. No extra-axial fluid collection is appreciated. IMPRESSION: Negative noncontrast head CT. <Electronically signed by Navin Munoz > 05/24/20 8439
--- NOTE | 2020-05-24 09:33 | REP ---
INDICATION: right sided trauma. COMPARISON: NONE. TECHNIQUE: Helical scanning is acquired and 2 mm axial images re-formatted. Coronal MPR images are generated and reviewed. FINDINGS: Preliminary motor racer views are unremarkable. No mandibular fracture is seen. Zygomatic arches are intact. Orbital and paranasal sinus margins are intact. No nasal bone or inferior maxillary spine fracture is seen. Paranasal sinuses are clear. IMPRESSION: Negative maxillofacial CT study. No fracture seen. <Electronically signed by Navin Munoz > 05/24/20 0935
[2020-05-24 09:50] VITALS: BP 140/64
== END 2020-05-24 09:55 | disposition home or self-care (01) ==
LOC: M ED 08:18
DX: S03.40XA Sprain of jaw, unspecified side, initial encounter (principal); S06.0X0A Concussion without loss of consciousness, initial encounter; W06.XXXA Fall from bed, initial encounter; W22.8XXA Striking against or struck by other objects, initial encounter; Z79.899 Other long term (current) drug therapy; Z88.0 Allergy status to penicillin; Y92.9 Unspecified place or not applicable; Y93.9 Activity, unspecified; Y99.9 Unspecified external cause status

== ENCOUNTER → 2020-05-27 | Outpatient (REF) | payer OTHER ==
[2020-05-27 14:25] LABS: HEMOGLOBIN A1c 5.5 %
[2020-05-27 14:33] LABS: FREE T4 0.88 NG/DL (0.76-1.46); RHEUMATOID FACTOR QUANT < 10.0 IU/ML (<15.0)
[2020-05-27 14:34] LABS: FOLATE 3.7 NG/ML; VITAMIN B12 LEVEL 1563 PG/ML
== END ==
LOC: M PLALAB 13:27
PROVIDERS: ATTEND Psychiatry & Neurology Neurology
DX: E07.9 Disorder of thyroid, unspecified (principal); E11.9 Type 2 diabetes mellitus without complications; M54.5 Low back pain; R26.81 Unsteadiness on feet; Z11.59 Encounter for screening for other viral diseases

== ENCOUNTER → 2020-05-30 | Outpatient (REF) | payer OTHER ==
[2020-05-30 17:47] LABS: BLOOD UREA NITROGEN 23 MG/DL (7-18); CALCIUM LEVEL 9.8 MG/DL (8.8-10.2); CARBON DIOXIDE LEVEL 32 MEQ/L (21-32); CHLORIDE LEVEL 106 MEQ/L (98-107); CHOLESTEROL LEVEL 313 MG/DL (<200); CHOLESTEROL RISK RATIO 6.804 (<5); CREATININE FOR GFR 0.88 MG/DL (0.55-1.30); GLOMERULAR FILTRATION RATE > 60.0 (>45); GLUCOSE, FASTING 91 MG/DL (70-100); HDL CHOLESTEROL 46 MG/DL (>40); LDL CHOLESTEROL 196 MG/DL (<100); NON-HDL-C 267 MG/DL; POTASSIUM SERUM 4.3 MEQ/L (3.5-5.1); SODIUM LEVEL 144 MEQ/L (136-145); TRIGLYCERIDES LEVEL 353 MG/DL (<150)
== END ==
LOC: M SFHCADAM 15:26
PROVIDERS: ATTEND Family Medicine
DX: E78.2 Mixed hyperlipidemia (principal); R60.9 Edema, unspecified
CPT/HCPCS: 80048; 80061; G0463

== ENCOUNTER → 2020-06-27 | Outpatient (REF) | payer OTHER ==
[2020-06-27 17:26] LABS: ALBUMIN 2.9 GM/DL (3.2-5.2); ALT/SGPT 31 U/L (12-78); BILIRUBIN,DIRECT < 0.1 MG/DL (0.0-0.2); BILIRUBIN,TOTAL 0.1 MG/DL (0.2-1.0); C REACTIVE PROTEIN QUANTITATIV 0.51 MG/DL (0.00-0.30); CPK CREATINE PHOSPHOKINASE 80 U/L (26-192); IRON (FE) 56 UG/DL (50-170); LDH LACTATE DEHYDROGENASE 218 U/L (84-246); MAGNESIUM LEVEL 1.9 MG/DL (1.8-2.4); PHOSPHORUS LEVEL 3.4 MG/DL (2.5-4.9); RHEUMATOID FACTOR QUANT < 10.0 IU/ML (<15.0); TOTAL PROTEIN 6.6 GM/DL (6.4-8.2)
[2020-06-27 17:29] LABS: PTH INTACT 45.5 PG/ML (18.5-88.0); TOTAL 25(OH) VITAMIN D 43.6 NG/ML (30.0-100.0); VITAMIN B12 LEVEL 1905 PG/ML (247-911)
[2020-07-09 01:06] LABS: ALDOLASE 5.9 U/L (3.3-10.3); ANA (HEP2) Positive (.); ANTI JO-1 ANTIBODIES <20 Units (<20); CYCLIC CITRULLINATED PEPTIDE 66 units (0-19); Mi-2 ANTIBODIES Negative (Negative)
== END ==
LOC: M SFHCRHEU 15:21
PROVIDERS: ATTEND Internal Medicine
DX: M79.10 Myalgia, unspecified site (principal); M25.40 Effusion, unspecified joint; Z79.899 Other long term (current) drug therapy
CPT/HCPCS: 80076; 82085; 82306; 82550; 82607; 83516; 83540; 83615; 83735; 83970; 84100; 85652; 86038; 86140; 86200; 86235; 86431; G0463

== ENCOUNTER → 2020-06-30 | Outpatient (CLI) | payer OTHER ==
--- NOTE | 2020-06-30 09:34 | REP ---
INDICATION: JOINT EFFUSION OF MULTIPLE SITES/ECHO APPT 1ST COMPARISON: None. TECHNIQUE: There are four views of each hand. FINDINGS: Right hand four views: There is no fracture or dislocation. Mineralization and joint spaces are normal except for joint space narrowing at the scaphotrapezium joint compatible with osteoarthritis. There are no calcifications or foreign bodies. Negative right hand. Left hand four views: There is no fracture or dislocation. Mineralization and joint spaces are normal except for joint space narrowing at the scaphotrapezium joint compatible with osteoarthritis. There are no calcifications or foreign bodies Negative left hand. IMPRESSION: Negative right hand except for joint space narrowing at the scaphotrapezium joint compatible with osteoarthritis. Negative left hand except for joint space narrowing at the scaphotrapezium joint compatible with osteoarthritis. <Electronically signed by Lincoln More > 06/30/20 0932
--- NOTE | 2020-06-30 09:58 | REP ---
INDICATION: JOINT EFFUSION OF MULTIPLE SITES/ECHO APPT 1ST. COMPARISON: None. TECHNIQUE: Bilateral shoulder series, total of 6 views provided. FINDINGS: Three views of each shoulder demonstrate normal alignment of the glenohumeral and acromioclavicular joints bilaterally. Periarticular soft tissues are unremarkable. There is mild diffuse osteopenia. No erosive changes seen. Study is otherwise unremarkable. IMPRESSION: Mild diffuse osteopenia. Otherwise negative bilateral shoulder radiographs. <Electronically signed by Navin Munoz > 06/30/20 0910
--- NOTE | 2020-06-30 11:21 | REP ---
INDICATION: JOINT EFFUSION OF MULTIPLE SITES/ECHO APPT 1ST. COMPARISON: None. TECHNIQUE: Bilateral wrist series, four views of each wrist. FINDINGS: Four views of each wrist are provided. There is mild osteoarthritic narrowing in the navicular multangular articulation on the right and, to a lesser extent on the left. Minimal spurring is seen at the 1st carpometacarpal joints bilaterally as well. There is an accessory ossicle adjacent to the ulnar styloid on the right. There is diffuse osteopenia. No erosive changes seen. IMPRESSION: Diffuse osteopenia. Mild osteoarthritic changes as noted above. <Electronically signed by Navin Munoz > 06/30/20 3503
== END ==
LOC: M RAD 08:33
PROVIDERS: ATTEND Internal Medicine
DX: M85.80 Other specified disorders of bone density and structure, unspecified site (principal)

== ENCOUNTER → 2020-06-30 | Outpatient (CLI) | payer OTHER ==
--- NOTE | 2020-07-01 11:04 | ECHO ---
DATE OF PROCEDURE: 06/30/2020 Age: 69 Gender: Female Height: 157 cm Weight: 90 kg REFERRING PHYSICIAN: Sadie Beckford DO. INDICATION: Edema. MEASUREMENTS: IVS 0.8 cm LV 5.2 cm LVPW 0.8 cm LA 3.9 cm Aorta 2.6 cm RV 2.9 cm Mitral E wave velocity 94 A wave 49 E prime septal 7.3 E prime lateral 7.8 FINDINGS: This study is of good technical quality with the exception of no subcostal views. Patient is in sinus rhythm. Left ventricle is of normal size and systolic function, I estimate LVEF 65 to 70%. Right ventricle is also normal size and systolic function. Left atrium appears at least mildly enlarged. Right atrium appears normal. All four cardiac valves are reasonably well seen and appear normal for patient's age. No pericardial effusion is noted. Inferior vena cava was not visualized. Aortic root is normal. Aortic arch also appears normal. Abdominal aorta was not seen. Doppler interrogation reveals normal function of aortic valve. There is mild mitral and trace tricuspid insufficiency. Calculated pulmonary artery pressure is approximately 30 mmHg assuming normal CVP. Trace pulmonic insufficiency is seen. Mitral inflow pattern and tissue Doppler imaging of mitral annulus revealed likely grade 2 diastolic dysfunction. CONCLUSIONS: 1. Study is of acceptable technical quality, patient is in sinus rhythm. 2. Normal LV size with overall normal LV systolic function and grade 2 diastolic dysfunction. 3. No significant valvular disease. 4. Unable to estimate central venous pressure but at least borderline pulmonary hypertension. 5. Inferior vena cava and abdominal aorta were not seen. [facility]
== END ==
LOC: M CARPUL 08:30
PROVIDERS: ATTEND Family Medicine
DX: R60.9 Edema, unspecified (principal); M85.80 Other specified disorders of bone density and structure, unspecified site

== ENCOUNTER → 2020-07-02 | Outpatient (REF) | payer OTHER ==
[2020-07-02 13:27] LABS: ALBUMIN 2.9 GM/DL (3.2-5.2); ALT/SGPT 31 U/L (12-78); BILIRUBIN,TOTAL 0.2 MG/DL (0.2-1.0); BLOOD UREA NITROGEN 21 MG/DL (7-18); CARBON DIOXIDE LEVEL 30 MEQ/L (21-32); CHLORIDE LEVEL 104 MEQ/L (98-107); CREATININE FOR GFR 0.91 MG/DL (0.55-1.30); GLOMERULAR FILTRATION RATE > 60.0 (>45); GLUCOSE, FASTING 131 MG/DL (70-100); NT-PRO BNP 165 PG/ML (<125); POTASSIUM SERUM 3.6 MEQ/L (3.5-5.1); SODIUM LEVEL 140 MEQ/L (136-145); TOTAL PROTEIN 6.5 GM/DL (6.4-8.2)
== END ==
LOC: M SFHCADAM 09:32
PROVIDERS: ATTEND Family Medicine
DX: R60.9 Edema, unspecified (principal)

== ENCOUNTER → 2020-07-11 | Outpatient (REF) | payer OTHER ==
[2020-07-11 16:31] LABS: BASO % 0.5 % (0.0-1.0); EOS # 0.1 10^3/uL (0.0-0.5); EOS % 1.5 % (0.0-3.0); HEMATOCRIT 41.8 % (36.0-47.0); HEMOGLOBIN 13.3 g/dl (12.0-15.5); LYMPH # 1.6 10^3/uL (1.5-5.0); LYMPH % 24.8 % (24.0-44.0); MEAN CORPUSCULAR HEMOGLOBIN 28.7 pg (27.0-33.0); MEAN CORPUSCULAR HGB CONC 31.8 g/dl (32.0-36.5); MEAN CORPUSCULAR VOLUME 90.1 fl (80.0-96.0); MONO # 0.7 10^3/uL (0.0-0.8); NEUTROPHILS % 61.7 % (36.0-66.0); PLATELET COUNT, AUTOMATED 180 10^3/uL (150-450); RED BLOOD COUNT 4.64 10^6/uL (4.00-5.40); WHITE BLOOD COUNT 6.5 10^3/uL (4.0-10.0)
[2020-07-11 17:02] LABS: COMPLEMENT C3 161 MG/DL (90-180); COMPLEMENT C4 25 MG/DL (10-40)
[2020-07-17 12:30] LABS: DRVV SCREEN 69.6 SEC
[2020-07-17 12:39] LABS: PTT LUPUS TYPE ANTICOAG SCREEN 1.7 (0-1.2)
[2020-07-17 12:47] LABS: DRVV CONFIRM 37.3 SEC
[2020-07-17 12:56] LABS: NORMALIZED RATIO 1.7 (0.00-1.20)
[2020-07-17 18:11] LABS: ANTI CENTROMERE ANTIBODY <0.2 AI (0.0-0.9); ANTI DS-DNA AB Negative (Negative); ANTI SCLERODERMA ANTIBODIES <0.2 AI (0.0-0.9); ANTI SMITH(Sm) AB <20 Units (<20); ANTI-HISTONE ANTIBODIES 0.4 Units (0.0-0.9); ANTI-U1 RNP AB <20 Units (<20); BETA-2 GLYCOPROTEIN I ABY IGA <9 (0-25); BETA-2 GLYCOPROTEIN I ABY IGG <9 (0-20); BETA-2 GLYCOPROTEIN I ABY IGM 31 (0-32); CARDIOLIPIN IGA ANTIBODY <9 APL U/mL (0-11); CARDIOLIPIN IGG ANTIBODY <9 GPL U/mL (0-14); CARDIOLIPIN IGM ANTIBODY 18 MPL U/mL (0-12); COMPLEMENT TOTAL (CH50) > 60 U/mL (>41); SSA SJOGRENS A <0.2 AI (0.0-0.9); SSB SJOGRENS B <0.2 AI (0.0-0.9)
[2020-07-19 03:06] LABS: HEXAGONAL PHASE PHOSPHOLIPID 0 sec (0-11)
== END ==
LOC: M SFHCRHEU 14:56
PROVIDERS: ATTEND Internal Medicine
DX: R76.8 Other specified abnormal immunological findings in serum (principal); R39.198 Other difficulties with micturition; R33.9 Retention of urine, unspecified
CPT/HCPCS: 51729; 51741; 51784; 51797; 83520; 85025; 85598; 85613; 85730; 86146; 86147; 86160; 86162; 86225; 86235; 86255; G0463

== ENCOUNTER → 2020-07-14 | Outpatient (REF) | payer OTHER ==
[2020-07-14 14:54] LABS: APPEARANCE, URINE CLEAR (CLEAR); BACTERIA, URINE AUTO NEGATIVE (NEGATIVE); BILIRUBIN, URINE AUTO NEGATIVE (NEGATIVE); BLOOD, URINE BLOOD NEGATIVE (NEGATIVE); COLOR, URINE COLORLESS (YELLOW); GLUCOSE, URINE (UA) AUTO NEGATIVE (NEGATIVE); KETONE, URINE AUTO NEGATIVE (NEGATIVE); LEUKOCYTE ESTERASE, URINE AUTO NEGATIVE (NEGATIVE); MUCUS, URINE SMALL (NEGATIVE); NITRITE, URINE AUTO NEGATIVE (NEGATIVE); PROTEIN, URINE AUTO NEGATIVE (NEGATIVE); RBC, URINE AUTO 0 /HPF (0-3); SPECIFIC GRAVITY URINE AUTO 1.006 (1.002-1.035); SQUAMOUS EPITHELIAL CELL UR AU 1 /HPF (0-6); UROBILINOGEN, URINE AUTO 0.2 mg/dL (0.0-2.0); WBC, URINE AUTO 0 /HPF (0-3)
[2020-07-14 15:29] LABS: CREATININE,RANDOM URINE < 13.0 MG/DL; TOTAL PROTEIN,RANDOM URINE < 5.0 MG/DL (0.0-12.0)
== END ==
LOC: M LAB REF 14:31
PROVIDERS: ATTEND Internal Medicine
DX: R76.8 Other specified abnormal immunological findings in serum (principal)

== ENCOUNTER → 2020-07-16 | Outpatient (CLI) | payer OTHER ==
--- NOTE | 2020-07-16 11:30 | REP ---
INDICATION: JOINT DERANGEMENT RT HIP injury July 2019 in October 2019, pain COMPARISON: 08/06/2019 radiographs. TECHNIQUE: Coronal T1, STIR through the pelvis, axial, coronal, sagittal T2 fat sat left hip. FINDINGS: The visualized osseous structures demonstrate normal bone marrow signal. There is no bone marrow edema or occult fracture. There is no evidence of avascular necrosis. There are findings compatible with a tear of the anterior labrum. There is no paralabral cyst. There is mild bilateral greater trochanteric tendonobursitis. There is mild chondromalacia diffusely. There is no joint effusion. The visualized intrapelvic structures are unremarkable. There is sigmoid diverticulosis. IMPRESSION: Tear anterior labrum. Mild bilateral greater trochanteric tendonobursitis. Mild chondromalacia. <Electronically signed by Lincoln Farmer > 07/16/20 1124
== END ==
LOC: M RAD 09:29
PROVIDERS: ATTEND Internal Medicine
DX: M94.251 Chondromalacia, right hip (principal); M24.851 Other specific joint derangements of right hip, not elsewhere classified

== ENCOUNTER → 2020-08-07 | Outpatient (CLI) | payer OTHER ==
--- NOTE | 2020-08-11 16:56 | SLEEPHOME ---
DATE: 08/07/2020 ORDERED BY: BRIELLE RAE MD Diagnostic home sleep testing was performed due to concern for the obstructive sleep apnea syndrome in this patient with a history of snoring. For testing, a nocturnal T3 respiratory monitoring device was used. Continuous record was made of pulse, oxygen saturation, air flow, chest and abdominal strain, and body position. Nine hours and 52 minutes of data were reviewed. There were 8 hours and 25 minutes marked as time in bed. During the interval marked time in bed, there were 120 respiratory events identified of 10 seconds in duration or greater for a respiratory event index of 14.2. The events were primarily obstructive. However, 38 mixed and central apneas were seen. Baseline pulse rate was 67. Pulse rate ranged 57 to 86. Baseline saturation was 92%. Saturations fell to 86% and testing was performed in both the supine and nonsupine positions. IMPRESSION: Abnormal home sleep testing with repetitive respiratory events and oxygen desaturations to 86% with a respiratory event index of 14.2 is consistent with the obstructive sleep apnea syndrome. RECOMMENDATION: The patient should be encouraged to undergo a formal sleep evaluation.
== END ==
LOC: M SLEEP HO 08:54
PROVIDERS: ATTEND Internal Medicine Cardiovascular Disease
DX: R06.83 Snoring (principal)

== ENCOUNTER → 2020-08-08 | Outpatient (CLI) | payer OTHER ==
--- NOTE | 2020-08-08 10:51 | REP ---
INDICATION: COUGH COMPARISON: 05/23/2020. TECHNIQUE: PA/Lateral FINDINGS: Lungs: There are stable bibasilar fibro atelectatic changes. No superimposed acute infiltrate is seen. Heart: Normal in size. Mediastinum: Mediastinal silhouette unremarkable. Pleural angles: Unremarkable.. Bones and soft tissues: There are mild degenerative changes of the spine without compression deformity. IMPRESSION: No acute pulmonary disease. Stable chronic changes. <Electronically signed by Lincoln Farmer > 08/08/20 [id number]
== END ==
LOC: M ADAMS 09:13
PROVIDERS: ATTEND Family Medicine
DX: R05 Cough (principal)
CPT/HCPCS: 71046; G0463

== ENCOUNTER → 2020-08-11 | Outpatient (REF) | payer OTHER | LOC: M SFHCPLAZ 09:56 | PROVIDERS: ATTEND Physician Assistant | DX: J40 Bronchitis, not specified as acute or chronic (principal) ==

== ENCOUNTER → 2020-08-14 | Outpatient (REF) | payer OTHER ==
[2020-08-14 17:26] LABS: BASO % 0.5 % (0.0-1.0); EOS # 0.1 10^3/uL (0.0-0.5); EOS % 1.7 % (0.0-3.0); HEMOGLOBIN 13.1 g/dl (12.0-15.5); LYMPH # 1.8 10^3/uL (1.5-5.0); MEAN CORPUSCULAR HEMOGLOBIN 28.2 pg (27.0-33.0); MEAN CORPUSCULAR VOLUME 88.2 fl (80.0-96.0); MONO # 0.6 10^3/uL (0.0-0.8); MONO % 7.3 % (2.0-8.0); NEUTROPHILS % 65.7 % (36.0-66.0); PLATELET COUNT, AUTOMATED 189 10^3/uL (150-450); RED BLOOD COUNT 4.65 10^6/uL (4.00-5.40); WHITE BLOOD COUNT 7.6 10^3/uL (4.0-10.0)
[2020-08-14 17:52] LABS: ALBUMIN 2.9 GM/DL (3.2-5.2); ALT/SGPT 23 U/L (12-78); BILIRUBIN,DIRECT < 0.1 MG/DL (0.0-0.2); BILIRUBIN,TOTAL 0.5 MG/DL (0.2-1.0); BLOOD UREA NITROGEN 16 MG/DL (7-18); C REACTIVE PROTEIN QUANTITATIV 0.78 MG/DL (0.00-0.30); CALCIUM LEVEL 9.1 MG/DL (8.8-10.2); CARBON DIOXIDE LEVEL 30 MEQ/L (21-32); CHLORIDE LEVEL 108 MEQ/L (98-107); GLOMERULAR FILTRATION RATE 58.7 (>45); GLUCOSE, FASTING 96 MG/DL (70-100); SODIUM LEVEL 142 MEQ/L (136-145); TOTAL PROTEIN 6.8 GM/DL (6.4-8.2)
[2020-08-14 19:22] LABS: ERYTHROCYTE SEDIMENTATION RATE 43 mm/hr (0-30)
== END ==
LOC: M SFHCRHEU 13:50
PROVIDERS: ATTEND Internal Medicine
DX: M06.9 Rheumatoid arthritis, unspecified (principal)
CPT/HCPCS: 80048; 80076; 85025; 85652; 86140; G0463

== ENCOUNTER → 2020-09-04 | Outpatient (CLI) | payer OTHER ==
--- NOTE | 2020-09-04 11:31 | REP ---
INDICATION: RIGHT HIP PAIN COMPARISON: None. TECHNIQUE: Limited AP pelvis and AP and frog-lateral views of the right hip FINDINGS: Generalized age-related changes include subtle increased sclerosis to the acetabulum with minimal joint space narrowing. No further overt osteoarthritic or significant degenerative changes are appreciated. No evidence for acute or healed injury. Surrounding soft tissues are normal. IMPRESSION: Mild generalized age-related changes. <Electronically signed by Raul Interiano > 09/04/20 1122
== END ==
LOC: M SOG 10:36
PROVIDERS: ATTEND Orthopaedic Surgery Adult Reconstructive Orthopaedic Surgery
DX: M70.61 Trochanteric bursitis, right hip (principal)

== ENCOUNTER → 2020-09-12 | Outpatient (REF) | payer OTHER ==
[2020-09-12 17:24] LABS: BASO % 0.4 % (0.0-1.0); EOS # 0.1 10^3/uL (0.0-0.5); EOS % 1.8 % (0.0-3.0); HEMATOCRIT 36.4 % (36.0-47.0); HEMOGLOBIN 11.5 g/dl (12.0-15.5); LYMPH # 1.8 10^3/uL (1.5-5.0); LYMPH % 25.2 % (24.0-44.0); MEAN CORPUSCULAR HEMOGLOBIN 28.9 pg (27.0-33.0); MEAN CORPUSCULAR HGB CONC 31.6 g/dl (32.0-36.5); MEAN CORPUSCULAR VOLUME 91.5 fl (80.0-96.0); MONO # 0.6 10^3/uL (0.0-0.8); MONO % 7.8 % (2.0-8.0); NEUTROPHILS # 4.6 10^3/uL (1.5-8.5); NEUTROPHILS % 64.2 % (36.0-66.0); PLATELET COUNT, AUTOMATED 167 10^3/uL (150-450); RED BLOOD COUNT 3.98 10^6/uL (4.00-5.40); WHITE BLOOD COUNT 7.2 10^3/uL (4.0-10.0)
[2020-09-12 17:25] LABS: ALBUMIN 2.8 GM/DL (3.2-5.2); ALT/SGPT 24 U/L (12-78); BILIRUBIN,DIRECT < 0.1 MG/DL (0.0-0.2); BILIRUBIN,TOTAL 0.4 MG/DL (0.2-1.0); BLOOD UREA NITROGEN 25 MG/DL (7-18); CALCIUM LEVEL 8.4 MG/DL (8.8-10.2); CARBON DIOXIDE LEVEL 27 MEQ/L (21-32); CHLORIDE LEVEL 110 MEQ/L (98-107); CREATININE FOR GFR 0.92 MG/DL (0.55-1.30); GLOMERULAR FILTRATION RATE > 60.0 (>45); GLUCOSE, FASTING 86 MG/DL (70-100); POTASSIUM SERUM 4.4 MEQ/L (3.5-5.1); SODIUM LEVEL 142 MEQ/L (136-145); TOTAL PROTEIN 6.2 GM/DL (6.4-8.2)
[2020-09-12 18:12] LABS: ERYTHROCYTE SEDIMENTATION RATE 28 mm/hr (0-30)
== END ==
LOC: M PLALAB 14:17
PROVIDERS: ATTEND Internal Medicine
DX: M06.9 Rheumatoid arthritis, unspecified (principal)

== ENCOUNTER → 2020-09-30 | Outpatient (CLI) | payer OTHER ==
[~2020-09-30] MED LIST changes: +BUPIVACAINE HCL 0.5% 10ML VIAL As Ordered ONE; +ISOVUE-300 61% 50ML VIAL As Ordered ONE; +methylPREDNISolone 80MG/ML SUSP 1ML VIAL (J1040) As Ordered ONE
--- NOTE | 2020-09-30 15:52 | REP ---
INDICATION: RIGHT HIP CARTILAGE DISORDER. COMPARISON: None TECHNIQUE: The procedure was performed by CHRISTIANA Leung, under the direct supervision of Dr. Farmer. The benefits and risks of the procedure were explained to the patient, and an informed consent was obtained. Directly prior to the start of the procedure, a formal time-out was completed in the procedure room. The right femoral neck joint space was localized using fluoroscopic guidance. The skin was prepped and draped in a sterile fashion. Approximately 5 mL of 1% Lidocaine 10 mg/ml was used as a local anesthetic. Using fluoroscopic guidance, a #22 gauge spinal needle was inserted and advanced into the right femoral neck joint space. Approximately 1 mL of Isovue 300 was injected to verify placement. Four mL of a solution containing 3 mL 0.5 % bupivacaine 5 mg/ml and 1 mL Depo-Medrol 80 milligrams/milliliter was injected into the joint space. The needle was removed and hemostasis was achieved. FINDINGS: The patient tolerated the procedure well and there were no immediate complications. IMPRESSION: 1. Fluoroscopic guided intra-articular right hip pain injection. 0.1 minutes of fluoroscopy time was utilized for this procedure. Some fluoroscopic images are performed with last image hold technology. These images require no additional radiation. <Electronically signed by Erlinda Dickson > 09/30/20 1544 <Electronically signed by Lincoln Farmer > 09/30/20 1549
== END ==
LOC: M RADPRO 11:19
PROVIDERS: ATTEND Orthopaedic Surgery Adult Reconstructive Orthopaedic Surgery
DX: M24.151 Other articular cartilage disorders, right hip (principal)
CPT/HCPCS: 20610; 77002; J1040; Q9967

== ENCOUNTER → 2020-10-09 | Outpatient (REF) | payer OTHER ==
[~2020-10-09] MED LIST changes: -BUPIVACAINE HCL 0.5% 10ML VIAL As Ordered ONE; -ISOVUE-300 61% 50ML VIAL As Ordered ONE; -methylPREDNISolone 80MG/ML SUSP 1ML VIAL (J1040) As Ordered ONE
[2020-10-09 18:04] LABS: BASO % 0.2 % (0.0-1.0); EOS # 0.1 10^3/uL (0.0-0.5); EOS % 1.3 % (0.0-3.0); HEMATOCRIT 38.1 % (36.0-47.0); HEMOGLOBIN 12.1 g/dl (12.0-15.5); LYMPH # 2.3 10^3/uL (1.5-5.0); LYMPH % 25.1 % (24.0-44.0); MEAN CORPUSCULAR HGB CONC 31.8 g/dl (32.0-36.5); MEAN CORPUSCULAR VOLUME 91.4 fl (80.0-96.0); MONO # 0.6 10^3/uL (0.0-0.8); MONO % 6.5 % (2.0-8.0); NEUTROPHILS % 66.5 % (36.0-66.0); PLATELET COUNT, AUTOMATED 174 10^3/uL (150-450); RED BLOOD COUNT 4.17 10^6/uL (4.00-5.40)
[2020-10-09 18:30] LABS: ALBUMIN 2.6 GM/DL (3.2-5.2); ALT/SGPT 20 U/L (12-78); BILIRUBIN,DIRECT < 0.1 MG/DL (0.0-0.2); BILIRUBIN,TOTAL 0.5 MG/DL (0.2-1.0); BLOOD UREA NITROGEN 17 MG/DL (7-18); C REACTIVE PROTEIN QUANTITATIV 1.88 MG/DL (0.00-0.30); CARBON DIOXIDE LEVEL 31 MEQ/L (21-32); CHLORIDE LEVEL 107 MEQ/L (98-107); CREATININE FOR GFR 0.97 MG/DL (0.55-1.30); GLOMERULAR FILTRATION RATE > 60.0 (>45); GLUCOSE, FASTING 95 MG/DL (70-100); POTASSIUM SERUM 4.1 MEQ/L (3.5-5.1); SODIUM LEVEL 142 MEQ/L (136-145); TOTAL PROTEIN 5.9 GM/DL (6.4-8.2)
[2020-10-09 19:18] LABS: ERYTHROCYTE SEDIMENTATION RATE 38 mm/hr (0-30)
== END ==
LOC: M SFHCADAM 15:24
PROVIDERS: ATTEND Internal Medicine
DX: M06.9 Rheumatoid arthritis, unspecified (principal)

== ENCOUNTER → 2020-11-07 | Outpatient (REF) | payer OTHER ==
[2020-11-07 12:58] LABS: BASO % 0.5 % (0.0-1.0); EOS # 0.1 10^3/uL (0.0-0.5); EOS % 1.4 % (0.0-3.0); HEMATOCRIT 40.1 % (36.0-47.0); HEMOGLOBIN 12.9 g/dl (12.0-15.5); LYMPH # 1.7 10^3/uL (1.5-5.0); LYMPH % 21.8 % (24.0-44.0); MEAN CORPUSCULAR HEMOGLOBIN 30.1 pg (27.0-33.0); MEAN CORPUSCULAR HGB CONC 32.2 g/dl (32.0-36.5); MEAN CORPUSCULAR VOLUME 93.7 fl (80.0-96.0); MONO # 0.6 10^3/uL (0.0-0.8); MONO % 7.5 % (2.0-8.0); NEUTROPHILS # 5.3 10^3/uL (1.5-8.5); NEUTROPHILS % 68.3 % (36.0-66.0); PLATELET COUNT, AUTOMATED 193 10^3/uL (150-450); RED BLOOD COUNT 4.28 10^6/uL (4.00-5.40); WHITE BLOOD COUNT 7.8 10^3/uL (4.0-10.0)
[2020-11-07 13:28] LABS: ALBUMIN 2.9 GM/DL (3.2-5.2); ALT/SGPT 24 U/L (12-78); BILIRUBIN,DIRECT < 0.1 MG/DL (0.0-0.2); BILIRUBIN,TOTAL 0.5 MG/DL (0.2-1.0); BLOOD UREA NITROGEN 18 MG/DL (7-18); C REACTIVE PROTEIN QUANTITATIV 0.33 MG/DL (0.00-0.30); CALCIUM LEVEL 8.3 MG/DL (8.8-10.2); CARBON DIOXIDE LEVEL 28 MEQ/L (21-32); CHLORIDE LEVEL 108 MEQ/L (98-107); CREATININE FOR GFR 0.94 MG/DL (0.55-1.30); GLOMERULAR FILTRATION RATE > 60.0 (>45); GLUCOSE, FASTING 146 MG/DL (70-100); POTASSIUM SERUM 4.1 MEQ/L (3.5-5.1); SODIUM LEVEL 141 MEQ/L (136-145); TOTAL PROTEIN 6.4 GM/DL (6.4-8.2)
[2020-11-07 13:32] LABS: ERYTHROCYTE SEDIMENTATION RATE 34 mm/hr (0-30)
== END ==
LOC: M SFHCADAM 10:37
PROVIDERS: ATTEND Internal Medicine
DX: M06.9 Rheumatoid arthritis, unspecified (principal)

== ENCOUNTER → 2020-11-29 | Outpatient (CLI) | payer OTHER ==
[~2020-11-29] MED LIST changes: +ATOR1TAB21; +CETI-24; +FOLI1TAB11; +LISI-898; +METH2.5T48; +NABU-71
== END ==
LOC: M LABSMTC 09:44
PROVIDERS: ATTEND Anesthesiology
DX: Z01.812 Encounter for preprocedural laboratory examination (principal); Z20.822 Contact with and (suspected) exposure to COVID-19

== ENCOUNTER 2020-12-04 10:12 | Day surgery (SDC) | payer OTHER ==
[~2020-12-04] VITALS: Ht 157.5 cm; Wt 88.9 kg
[~2020-12-04 10:12] MED LIST changes: +NS 1,000 ML IV ONE
--- NOTE | 2020-12-04 11:37 | ROOR ---
Patient Name: La Fair Procedure Date: 12/04/2020 11:20 AM Date of : 1950 Age: 70 Room: [facility] Gender: Female Note Status: Finalized Procedure: Colonoscopy Indications: Screening for colorectal malignant neoplasm Providers: Eliseo Doe Jr, MD Referring MD: Sadie Quispe DO Requesting Provider: Medicines: Propofol per Anesthesia Complications: No immediate complications. Procedure: Pre-Anesthesia Assessment: - Prior to the procedure, a History and Physical was performed, and patient medications and allergies were reviewed. The patient is competent. The risks and benefits of the procedure and the sedation options and risks were discussed with the patient. All questions were answered and informed consent was obtained. Patient identification and proposed procedure were verified by the physician and the nurse in the pre-procedure area and in the procedure room. Mental Status Examination: alert and oriented. Airway Examination: normal oropharyngeal airway and neck mobility. Respiratory Examination: clear to auscultation. CV Examination: normal. ASA Grade Assessment: II - A patient with mild systemic disease. After reviewing the risks and benefits, the patient was deemed in satisfactory condition to undergo the procedure. The anesthesia plan was to use moderate sedation / analgesia (conscious sedation). Immediately prior to administration of medications, the patient was re-assessed for adequacy to receive sedatives. The heart rate, respiratory rate, oxygen saturations, blood pressure, adequacy of pulmonary ventilation, and response to care were monitored throughout the procedure. The physical status of the patient was re-assessed after the procedure. The Colonoscope was introduced through the anus and advanced to the cecum, identified by appendiceal orifice and ileocecal valve. The colonoscopy was performed without difficulty. The patient tolerated the procedure well. The quality of the bowel preparation was adequate. Findings: A diminutive polyp was found in the transverse colon. The polyp was removed with a cold snare. Resection and retrieval were complete. The rectum, recto-sigmoid colon, descending colon, ascending colon, cecum, appendiceal orifice and ileocecal valve appeared normal. Multiple small-mouthed diverticula were found in the sigmoid colon. A diffuse area of mild melanosis was found in the entire colon. Impression: - One diminutive polyp in the transverse colon, removed with a cold snare. Resected and retrieved. - The rectum, recto-sigmoid colon, descending colon, ascending colon, cecum, appendiceal orifice and ileocecal valve are normal. - Diverticulosis in the sigmoid colon. Recommendation: - Discharge patient to home (ambulatory). - Repeat colonoscopy in 5-10 years for surveillance. Procedure Code(s): --- Professional --- 36226, Colonoscopy, flexible; with removal of tumor(s), polyp(s), or other lesion(s) by snare technique Diagnosis Code(s): --- Professional --- Z12.11, Encounter for screening for malignant neoplasm of colon K63.5, Polyp of colon K57.30, Diverticulosis of large intestine without perforation or abscess without bleeding CPT copyright 2019 [employer]. All rights reserved. The codes documented in this report are preliminary and upon development associate review may be revised to meet current compliance requirements. Eliseo Doe MD Eliseo Doe Jr, MD 12/04/2020 11:37:20 AM Electronically signed by Eliseo Doe Jr, MD Number of Addenda: 0 Note Initiated On: 12/04/2020 11:20 AM Estimated Blood Loss: Estimated blood loss: none.
[2020-12-04] MEDS ORDERED: propofoL 200 MG/20 ML VIAL As Ordered ONE (11:38)
[2020-12-04] MEDS ORDERED: LIDOCAINE 2% 100MG/5ML SDV (FOR ANES.) As Ordered ONE (11:38)
[2020-12-04 11:55] VITALS: BP 133/66
== END 2020-12-04 12:01 | disposition home or self-care (01) ==
LOC: M OPP 10:12
PROVIDERS: ATTEND Surgery
DX: Z12.11 Encounter for screening for malignant neoplasm of colon (principal); D12.6 Benign neoplasm of colon, unspecified; K57.30 Diverticulosis of large intestine without perforation or abscess without bleeding; Z79.899 Other long term (current) drug therapy; Z88.0 Allergy status to penicillin; Z80.1 Family history of malignant neoplasm of trachea, bronchus and lung; Z87.891 Personal history of nicotine dependence

== ENCOUNTER → 2020-12-08 | Outpatient (REF) | payer OTHER ==
[~2020-12-08] MED LIST changes: -NS 1,000 ML IV ONE
[2020-12-08 13:25] LABS: BASO % 0.5 % (0.0-1.0); EOS # 0.1 10^3/uL (0.0-0.5); EOS % 1.9 % (0.0-3.0); HEMATOCRIT 37.6 % (36.0-47.0); HEMOGLOBIN 12.4 g/dl (12.0-15.5); LYMPH # 1.4 10^3/uL (1.5-5.0); LYMPH % 22.5 % (24.0-44.0); MEAN CORPUSCULAR HEMOGLOBIN 30.5 pg (27.0-33.0); MEAN CORPUSCULAR VOLUME 92.6 fl (80.0-96.0); MONO # 0.2 10^3/uL (0.0-0.8); MONO % 3.9 % (2.0-8.0); NEUTROPHILS # 4.4 10^3/uL (1.5-8.5); NEUTROPHILS % 70.9 % (36.0-66.0); PLATELET COUNT, AUTOMATED 177 10^3/uL (150-450); RED BLOOD COUNT 4.06 10^6/uL (4.00-5.40); WHITE BLOOD COUNT 6.2 10^3/uL (4.0-10.0)
[2020-12-08 13:39] LABS: ALBUMIN 2.7 GM/DL (3.2-5.2); ALT/SGPT 46 U/L (12-78); BILIRUBIN,DIRECT < 0.1 MG/DL (0.0-0.2); BILIRUBIN,TOTAL 0.5 MG/DL (0.2-1.0); BLOOD UREA NITROGEN 17 MG/DL (7-18); C REACTIVE PROTEIN QUANTITATIV 0.31 MG/DL (0.00-0.30); CALCIUM LEVEL 8.6 MG/DL (8.8-10.2); CARBON DIOXIDE LEVEL 31 MEQ/L (21-32); CHLORIDE LEVEL 105 MEQ/L (98-107); CREATININE FOR GFR 0.93 MG/DL (0.55-1.30); GLOMERULAR FILTRATION RATE > 60.0 (>45); GLUCOSE, FASTING 89 MG/DL (70-100); SODIUM LEVEL 142 MEQ/L (136-145); TOTAL PROTEIN 6.2 GM/DL (6.4-8.2)
[2020-12-08 14:09] LABS: ERYTHROCYTE SEDIMENTATION RATE 31 mm/hr (0-30)
== END ==
LOC: M SFHCADAM 11:15
PROVIDERS: ATTEND Internal Medicine
DX: M06.9 Rheumatoid arthritis, unspecified (principal)

== ENCOUNTER → 2021-01-05 | Outpatient (REF) | payer OTHER ==
[2021-01-05 18:37] LABS: BASO % 0.3 % (0.0-1.0); EOS # 0.1 10^3/uL (0.0-0.5); EOS % 1.2 % (0.0-3.0); HEMATOCRIT 36.1 % (36.0-47.0); HEMOGLOBIN 11.6 g/dl (12.0-15.5); LYMPH # 1.7 10^3/uL (1.5-5.0); LYMPH % 29.2 % (24.0-44.0); MEAN CORPUSCULAR HEMOGLOBIN 30.8 pg (27.0-33.0); MEAN CORPUSCULAR HGB CONC 32.1 g/dl (32.0-36.5); MEAN CORPUSCULAR VOLUME 95.8 fl (80.0-96.0); MONO # 0.3 10^3/uL (0.0-0.8); MONO % 5.4 % (2.0-8.0); NEUTROPHILS # 3.8 10^3/uL (1.5-8.5); NEUTROPHILS % 63.6 % (36.0-66.0); PLATELET COUNT, AUTOMATED 196 10^3/uL (150-450); RED BLOOD COUNT 3.77 10^6/uL (4.00-5.40)
[2021-01-05 19:07] LABS: ERYTHROCYTE SEDIMENTATION RATE 30 mm/hr (0-30)
[2021-01-05 19:08] LABS: ALBUMIN 2.8 GM/DL (3.2-5.2); ALT/SGPT 33 U/L (12-78); BILIRUBIN,DIRECT < 0.1 MG/DL (0.0-0.2); BILIRUBIN,TOTAL 0.3 MG/DL (0.2-1.0); BLOOD UREA NITROGEN 27 MG/DL (7-18); C REACTIVE PROTEIN QUANTITATIV 0.35 MG/DL (0.00-0.30); CALCIUM LEVEL 8.4 MG/DL (8.8-10.2); CARBON DIOXIDE LEVEL 30 MEQ/L (21-32); CHLORIDE LEVEL 108 MEQ/L (98-107); CREATININE FOR GFR 1.15 MG/DL (0.55-1.30); GLUCOSE, FASTING 89 MG/DL (70-100); POTASSIUM SERUM 4.3 MEQ/L (3.5-5.1); SODIUM LEVEL 141 MEQ/L (136-145); TOTAL PROTEIN 6.3 GM/DL (6.4-8.2)
== END ==
LOC: M SFHCADAM 15:01
PROVIDERS: ATTEND Internal Medicine
DX: M06.9 Rheumatoid arthritis, unspecified (principal)

== ENCOUNTER → 2021-02-03 | Outpatient (REF) | payer OTHER ==
[2021-02-03 17:39] LABS: BASO % 0.5 % (0.0-1.0); EOS # 0.1 10^3/uL (0.0-0.5); EOS % 2.2 % (0.0-3.0); HEMATOCRIT 38.9 % (36.0-47.0); HEMOGLOBIN 12.5 g/dl (12.0-15.5); LYMPH # 1.5 10^3/uL (1.5-5.0); LYMPH % 24.1 % (24.0-44.0); MEAN CORPUSCULAR HEMOGLOBIN 30.9 pg (27.0-33.0); MEAN CORPUSCULAR HGB CONC 32.1 g/dl (32.0-36.5); MONO # 0.6 10^3/uL (0.0-0.8); MONO % 8.8 % (2.0-8.0); NEUTROPHILS % 64.2 % (36.0-66.0); PLATELET COUNT, AUTOMATED 192 10^3/uL (150-450); RED BLOOD COUNT 4.05 10^6/uL (4.00-5.40); WHITE BLOOD COUNT 6.3 10^3/uL (4.0-10.0)
[2021-02-03 18:37] LABS: ERYTHROCYTE SEDIMENTATION RATE 31 mm/hr (0-30)
[2021-02-03 19:08] LABS: ALT/SGPT 28 U/L (12-78); BILIRUBIN,DIRECT < 0.1 MG/DL (0.0-0.2); BILIRUBIN,TOTAL 0.3 MG/DL (0.2-1.0); BLOOD UREA NITROGEN 29 MG/DL (7-18); C REACTIVE PROTEIN QUANTITATIV 1.25 MG/DL (0.00-0.30); CARBON DIOXIDE LEVEL 30 MEQ/L (21-32); CHLORIDE LEVEL 108 MEQ/L (98-107); CREATININE FOR GFR 0.98 MG/DL (0.55-1.30); GLOMERULAR FILTRATION RATE > 60.0 (>45); GLUCOSE, FASTING 90 MG/DL (70-100); POTASSIUM SERUM 4.7 MEQ/L (3.5-5.1); SODIUM LEVEL 142 MEQ/L (136-145); TOTAL PROTEIN 6.7 GM/DL (6.4-8.2)
== END ==
LOC: M SFHCRHEU 13:27
PROVIDERS: ATTEND Internal Medicine
DX: M06.9 Rheumatoid arthritis, unspecified (principal)
CPT/HCPCS: 80048; 80076; 85025; 85652; 86140; 96372; G0463; J1040

== ENCOUNTER → 2021-03-02 | Outpatient (REF) | payer OTHER | LOC: M SFHCRHEU 15:12 | PROVIDERS: ATTEND Internal Medicine | DX: M06.9 Rheumatoid arthritis, unspecified (principal) ==

== ENCOUNTER → 2021-03-04 | Outpatient (REF) | payer OTHER ==
[2021-03-04 12:49] LABS: BASO % 0.3 % (0.0-1.0); EOS # 0.1 10^3/uL (0.0-0.5); EOS % 1.9 % (0.0-3.0); HEMATOCRIT 37.9 % (36.0-47.0); HEMOGLOBIN 12.1 g/dl (12.0-15.5); LYMPH # 1.4 10^3/uL (1.5-5.0); LYMPH % 24.5 % (24.0-44.0); MEAN CORPUSCULAR HEMOGLOBIN 30.7 pg (27.0-33.0); MEAN CORPUSCULAR HGB CONC 31.9 g/dl (32.0-36.5); MEAN CORPUSCULAR VOLUME 96.2 fl (80.0-96.0); MONO # 0.2 10^3/uL (0.0-0.8); MONO % 4.1 % (2.0-8.0); PLATELET COUNT, AUTOMATED 177 10^3/uL (150-450); RED BLOOD COUNT 3.94 10^6/uL (4.00-5.40); WHITE BLOOD COUNT 5.8 10^3/uL (4.0-10.0)
[2021-03-04 13:25] LABS: ALBUMIN 2.9 GM/DL (3.2-5.2); ALT/SGPT 28 U/L (12-78); BILIRUBIN,DIRECT < 0.1 MG/DL (0.0-0.2); BILIRUBIN,TOTAL 0.4 MG/DL (0.2-1.0); BLOOD UREA NITROGEN 23 MG/DL (7-18); CALCIUM LEVEL 8.7 MG/DL (8.8-10.2); CARBON DIOXIDE LEVEL 31 MEQ/L (21-32); CHLORIDE LEVEL 109 MEQ/L (98-107); CREATININE FOR GFR 0.86 MG/DL (0.55-1.30); GLOMERULAR FILTRATION RATE > 60.0 (>45); GLUCOSE, FASTING 98 MG/DL (70-100); POTASSIUM SERUM 4.5 MEQ/L (3.5-5.1); SODIUM LEVEL 144 MEQ/L (136-145); TOTAL PROTEIN 6.3 GM/DL (6.4-8.2)
[2021-03-04 13:26] LABS: ERYTHROCYTE SEDIMENTATION RATE 33 mm/hr (0-30)
== END ==
LOC: M SFHCRHEU 10:20
PROVIDERS: ATTEND Internal Medicine
DX: M06.9 Rheumatoid arthritis, unspecified (principal)

== ENCOUNTER → 2021-03-11 | Outpatient (REF) | payer OTHER | LOC: M LAB REF 17:41 | PROVIDERS: ATTEND Physician Assistant | DX: R21 Rash and other nonspecific skin eruption (principal) ==

== ENCOUNTER → 2021-04-16 | Outpatient (REF) | payer OTHER ==
[2021-04-16 17:30] LABS: BASO % 0.3 % (0.0-1.0); EOS # 0.1 10^3/uL (0.0-0.5); EOS % 1.5 % (0.0-3.0); HEMATOCRIT 37.6 % (36.0-47.0); HEMOGLOBIN 12.2 g/dl (12.0-15.5); LYMPH # 1.7 10^3/uL (1.5-5.0); LYMPH % 22.6 % (24.0-44.0); MEAN CORPUSCULAR HEMOGLOBIN 30.9 pg (27.0-33.0); MEAN CORPUSCULAR HGB CONC 32.4 g/dl (32.0-36.5); MEAN CORPUSCULAR VOLUME 95.2 fl (80.0-96.0); MONO # 0.7 10^3/uL (0.0-0.8); MONO % 9.1 % (2.0-8.0); NEUTROPHILS # 4.9 10^3/uL (1.5-8.5); NEUTROPHILS % 66.1 % (36.0-66.0); PLATELET COUNT, AUTOMATED 179 10^3/uL (150-450); RED BLOOD COUNT 3.95 10^6/uL (4.00-5.40); WHITE BLOOD COUNT 7.4 10^3/uL (4.0-10.0)
[2021-04-16 18:06] LABS: ALBUMIN 2.9 GM/DL (3.2-5.2); ALT/SGPT 18 U/L (12-78); BILIRUBIN,DIRECT < 0.1 MG/DL (0.0-0.2); BILIRUBIN,TOTAL 0.3 MG/DL (0.2-1.0); BLOOD UREA NITROGEN 23 MG/DL (7-18); CALCIUM LEVEL 8.5 MG/DL (8.8-10.2); CARBON DIOXIDE LEVEL 31 MEQ/L (21-32); CHLORIDE LEVEL 107 MEQ/L (98-107); CREATININE FOR GFR 0.82 MG/DL (0.55-1.30); GLOMERULAR FILTRATION RATE > 60.0 (>45); GLUCOSE, FASTING 91 MG/DL (70-100); POTASSIUM SERUM 4.2 MEQ/L (3.5-5.1); SODIUM LEVEL 142 MEQ/L (136-145); TOTAL PROTEIN 6.4 GM/DL (6.4-8.2)
[2021-04-16 18:32] LABS: ERYTHROCYTE SEDIMENTATION RATE 43 mm/hr (0-30)
== END ==
LOC: M LABDRWAD 17:08
PROVIDERS: ATTEND Internal Medicine
DX: M06.9 Rheumatoid arthritis, unspecified (principal)

== ENCOUNTER → 2021-05-04 | Outpatient (REF) | payer OTHER ==
[~2021-05-04] MED LIST changes: -LISI-898; +LISI5TAB11
[2021-05-04 17:28] LABS: BASO % 0.5 % (0.0-1.0); CALCIUM LEVEL 8.6 MG/DL (8.8-10.2); EOS # 0.1 10^3/uL (0.0-0.5); EOS % 1.1 % (0.0-3.0); HEMATOCRIT 37.7 % (36.0-47.0); HEMOGLOBIN 12.3 g/dl (12.0-15.5); LYMPH # 1.7 10^3/uL (1.5-5.0); LYMPH % 25.9 % (24.0-44.0); MAGNESIUM LEVEL 2.1 MG/DL (1.8-2.4); MEAN CORPUSCULAR HEMOGLOBIN 31.1 pg (27.0-33.0); MEAN CORPUSCULAR HGB CONC 32.6 g/dl (32.0-36.5); MEAN CORPUSCULAR VOLUME 95.2 fl (80.0-96.0); MONO # 0.2 10^3/uL (0.0-0.8); MONO % 2.7 % (2.0-8.0); NEUTROPHILS # 4.6 10^3/uL (1.5-8.5); NEUTROPHILS % 69.5 % (36.0-66.0); PHOSPHORUS LEVEL 4.7 MG/DL (2.5-4.9); PLATELET COUNT, AUTOMATED 191 10^3/uL (150-450); RED BLOOD COUNT 3.96 10^6/uL (4.00-5.40); WHITE BLOOD COUNT 6.6 10^3/uL (4.0-10.0)
[2021-05-04 17:31] LABS: BLOOD UREA NITROGEN 29 MG/DL (7-18); CALCIUM LEVEL 8.5 MG/DL (8.8-10.2); CARBON DIOXIDE LEVEL 30 MEQ/L (21-32); CHLORIDE LEVEL 105 MEQ/L (98-107); CREATININE FOR GFR 1.14 MG/DL (0.55-1.30); GLOMERULAR FILTRATION RATE 50.5 (>45); GLUCOSE, FASTING 95 MG/DL (70-100); POTASSIUM SERUM 4.5 MEQ/L (3.5-5.1); SODIUM LEVEL 140 MEQ/L (136-145)
[2021-05-04 17:32] LABS: ALT/SGPT 30 U/L (12-78); BILIRUBIN,DIRECT < 0.1 MG/DL (0.0-0.2); BILIRUBIN,TOTAL 0.3 MG/DL (0.2-1.0); TOTAL PROTEIN 6.7 GM/DL (6.4-8.2)
[2021-05-04 17:39] LABS: PTH INTACT 37.7 PG/ML (18.5-88.0)
[2021-05-04 20:10] LABS: ERYTHROCYTE SEDIMENTATION RATE 44 mm/hr (0-30)
== END ==
LOC: M SFHCRHEU 14:42
PROVIDERS: ATTEND Internal Medicine
DX: M06.9 Rheumatoid arthritis, unspecified (principal); E83.51 Hypocalcemia

== ENCOUNTER → 2021-05-22 | Outpatient (REF) | payer OTHER ==
[2021-05-22 13:03] LABS: BASO % 0.4 % (0.0-1.0); EOS # 0.1 10^3/uL (0.0-0.5); EOS % 1.2 % (0.0-3.0); HEMATOCRIT 36.1 % (36.0-47.0); HEMOGLOBIN 11.7 g/dl (12.0-15.5); LYMPH # 1.7 10^3/uL (1.5-5.0); LYMPH % 24.3 % (24.0-44.0); MEAN CORPUSCULAR HGB CONC 32.4 g/dl (32.0-36.5); MEAN CORPUSCULAR VOLUME 95.5 fl (80.0-96.0); MONO # 0.4 10^3/uL (0.0-0.8); MONO % 6.3 % (2.0-8.0); NEUTROPHILS # 4.6 10^3/uL (1.5-8.5); NEUTROPHILS % 67.4 % (36.0-66.0); PLATELET COUNT, AUTOMATED 180 10^3/uL (150-450); RED BLOOD COUNT 3.78 10^6/uL (4.00-5.40); WHITE BLOOD COUNT 6.8 10^3/uL (4.0-10.0)
[2021-05-22 13:24] LABS: ERYTHROCYTE SEDIMENTATION RATE 47 mm/hr (0-30)
[2021-05-22 13:35] LABS: ALBUMIN 2.8 GM/DL (3.2-5.2); ALT/SGPT 31 U/L (12-78); BILIRUBIN,DIRECT < 0.1 MG/DL (0.0-0.2); BILIRUBIN,TOTAL 0.3 MG/DL (0.2-1.0); BLOOD UREA NITROGEN 31 MG/DL (7-18); C REACTIVE PROTEIN QUANTITATIV 0.37 MG/DL (0.00-0.30); CARBON DIOXIDE LEVEL 30 MEQ/L (21-32); CHLORIDE LEVEL 107 MEQ/L (98-107); CREATININE FOR GFR 0.95 MG/DL (0.55-1.30); GLOMERULAR FILTRATION RATE > 60.0 (>45); GLUCOSE, FASTING 104 MG/DL (70-100); POTASSIUM SERUM 4.4 MEQ/L (3.5-5.1); SODIUM LEVEL 143 MEQ/L (136-145); TOTAL PROTEIN 6.3 GM/DL (6.4-8.2)
== END ==
LOC: M SFHCADAM 07:46
PROVIDERS: ATTEND Family Medicine
DX: M06.9 Rheumatoid arthritis, unspecified (principal)

== ENCOUNTER → 2021-05-22 | Outpatient (REF) | payer OTHER ==
[2021-05-22 14:20] LABS: ALBUMIN 2.8 GM/DL (3.2-5.2); ALT/SGPT 33 U/L (12-78); BILIRUBIN,TOTAL 0.3 MG/DL (0.2-1.0); BLOOD UREA NITROGEN 31 MG/DL (7-18); CALCIUM LEVEL 9.1 MG/DL (8.8-10.2); CARBON DIOXIDE LEVEL 30 MEQ/L (21-32); CHLORIDE LEVEL 108 MEQ/L (98-107); CHOLESTEROL LEVEL 214 MG/DL (<200); CHOLESTEROL RISK RATIO 4.976 (<5); CREATININE FOR GFR 0.93 MG/DL (0.55-1.30); GLOMERULAR FILTRATION RATE > 60.0 (>45); GLUCOSE, FASTING 101 MG/DL (70-100); HDL CHOLESTEROL 43 MG/DL (>40); LDL CHOLESTEROL 130 MG/DL (<100); NON-HDL-C 171 MG/DL; POTASSIUM SERUM 4.5 MEQ/L (3.5-5.1); SODIUM LEVEL 143 MEQ/L (136-145); TOTAL PROTEIN 6.4 GM/DL (6.4-8.2); TRIGLYCERIDES LEVEL 204 MG/DL (<150)
== END ==
LOC: M LABDRWAD 13:19
PROVIDERS: ATTEND Physician Assistant
DX: I50.32 Chronic diastolic (congestive) heart failure (principal); E78.2 Mixed hyperlipidemia

== ENCOUNTER → 2021-05-22 | Outpatient (CLI) | payer OTHER ==
[2021-05-22 14:32] LABS: HEPATITIS B SURFACE ANTIBODY POSITIVE (POSITIVE); HEPATITIS B SURFACE ANTIGEN NEGATIVE (NEGATIVE)
[2021-05-24 21:07] LABS: HEPATITIS B CORE ANTIBODY IGG Negative (Negative)
== END ==
LOC: M ADAMS 07:52
PROVIDERS: ATTEND Internal Medicine
DX: M06.9 Rheumatoid arthritis, unspecified (principal); I50.32 Chronic diastolic (congestive) heart failure; E78.2 Mixed hyperlipidemia

== ENCOUNTER → 2021-06-03 | Outpatient (REF) | payer OTHER | LOC: M SFHCADAM 16:04 | PROVIDERS: ATTEND Family Medicine | DX: R05.9 Cough, unspecified (principal) ==

== ENCOUNTER → 2021-08-06 | Outpatient (CLI) | payer OTHER ==
[2021-08-06 16:37] LABS: BASO % 0.3 % (0.0-1.0); EOS # 0.3 10^3/uL (0.0-0.5); EOS % 2.2 % (0.0-3.0); HEMATOCRIT 34.6 % (36.0-47.0); HEMOGLOBIN 11.2 g/dl (12.0-15.5); LYMPH % 15.3 % (24.0-44.0); MEAN CORPUSCULAR HEMOGLOBIN 30.1 pg (27.0-33.0); MEAN CORPUSCULAR HGB CONC 32.4 g/dl (32.0-36.5); MONO # 0.9 10^3/uL (0.0-0.8); MONO % 7.3 % (2.0-8.0); NEUTROPHILS # 9.5 10^3/uL (1.5-8.5); PLATELET COUNT, AUTOMATED 188 10^3/uL (150-450); RED BLOOD COUNT 3.72 10^6/uL (4.00-5.40); WHITE BLOOD COUNT 12.8 10^3/uL (4.0-10.0)
[2021-08-06 16:57] LABS: ERYTHROCYTE SEDIMENTATION RATE 52 mm/hr (0-30)
[2021-08-06 17:08] LABS: ALBUMIN 2.7 GM/DL (3.2-5.2); ALT/SGPT 20 U/L (12-78); BILIRUBIN,DIRECT < 0.1 MG/DL (0.0-0.2); BILIRUBIN,TOTAL 0.4 MG/DL (0.2-1.0); BLOOD UREA NITROGEN 18 MG/DL (7-18); C REACTIVE PROTEIN QUANTITATIV 2.51 MG/DL (0.00-0.30); CARBON DIOXIDE LEVEL 30 MEQ/L (21-32); CHLORIDE LEVEL 109 MEQ/L (98-107); CREATININE FOR GFR 1.09 MG/DL (0.55-1.30); GLUCOSE, FASTING 93 MG/DL (70-100); POTASSIUM SERUM 4.3 MEQ/L (3.5-5.1); SODIUM LEVEL 143 MEQ/L (136-145); TOTAL PROTEIN 6.1 GM/DL (6.4-8.2)
== END ==
LOC: M ADAMS 14:33
PROVIDERS: ATTEND Internal Medicine
DX: M06.9 Rheumatoid arthritis, unspecified (principal)

== ENCOUNTER → 2021-09-17 | Outpatient (CLI) | payer OTHER ==
[2021-09-17 16:40] LABS: CALCIUM LEVEL 8.9 MG/DL (8.8-10.2); CREATININE FOR GFR 1.04 MG/DL (0.55-1.30); GLOMERULAR FILTRATION RATE 55.9 (>45); POTASSIUM SERUM 4.6 MEQ/L (3.5-5.1)
== END ==
LOC: M ADAMS 14:51
PROVIDERS: ATTEND Physician Assistant
DX: I50.32 Chronic diastolic (congestive) heart failure (principal); E83.42 Hypomagnesemia; M06.9 Rheumatoid arthritis, unspecified

== ENCOUNTER → 2021-09-17 | Outpatient (REF) | payer OTHER ==
[2021-09-17 16:12] LABS: BASO % 0.3 % (0.0-1.0); EOS # 0.2 10^3/uL (0.0-0.5); EOS % 2.4 % (0.0-3.0); HEMOGLOBIN 11.7 g/dl (12.0-15.5); LYMPH # 1.7 10^3/uL (1.5-5.0); LYMPH % 22.2 % (24.0-44.0); MEAN CORPUSCULAR HEMOGLOBIN 29.6 pg (27.0-33.0); MEAN CORPUSCULAR HGB CONC 31.6 g/dl (32.0-36.5); MEAN CORPUSCULAR VOLUME 93.7 fl (80.0-96.0); MONO # 0.6 10^3/uL (0.0-0.8); MONO % 8.3 % (2.0-8.0); NEUTROPHILS % 66.4 % (36.0-66.0); PLATELET COUNT, AUTOMATED 155 10^3/uL (150-450); RED BLOOD COUNT 3.95 10^6/uL (4.00-5.40); WHITE BLOOD COUNT 7.5 10^3/uL (4.0-10.0)
[2021-09-17 17:04] LABS: ALBUMIN 2.6 GM/DL (3.2-5.2); ALT/SGPT 20 U/L (12-78); BILIRUBIN,DIRECT < 0.1 MG/DL (0.0-0.2); BILIRUBIN,TOTAL 0.3 MG/DL (0.2-1.0); BLOOD UREA NITROGEN 23 MG/DL (7-18); C REACTIVE PROTEIN QUANTITATIV 2.35 MG/DL (0.00-0.30); CALCIUM LEVEL 8.5 MG/DL (8.8-10.2); CARBON DIOXIDE LEVEL 28 MEQ/L (21-32); CHLORIDE LEVEL 108 MEQ/L (98-107); CREATININE FOR GFR 1.06 MG/DL (0.55-1.30); GLOMERULAR FILTRATION RATE 54.7 (>45); GLUCOSE, FASTING 91 MG/DL (70-100); POTASSIUM SERUM 4.4 MEQ/L (3.5-5.1); SODIUM LEVEL 141 MEQ/L (136-145); TOTAL PROTEIN 6.3 GM/DL (6.4-8.2)
[2021-09-17 19:11] LABS: ERYTHROCYTE SEDIMENTATION RATE 55 mm/hr (0-30)
== END ==
LOC: M SFHCADAM 14:29
PROVIDERS: ATTEND Internal Medicine
DX: M06.9 Rheumatoid arthritis, unspecified (principal)

== ENCOUNTER → 2021-10-05 | Outpatient (CLI) | payer OTHER | LOC: M LAB 12:08 | PROVIDERS: ATTEND Family Medicine | DX: M51.34 Other intervertebral disc degeneration, thoracic region (principal) ==

== ENCOUNTER → 2021-10-05 | Outpatient (CLI) | payer OTHER ==
[2021-10-05 13:56] LABS: CHOLESTEROL RISK RATIO 4.309 (<5)
== END ==
LOC: M CARPUL 12:06
PROVIDERS: ATTEND Physician Assistant
DX: R06.02 Shortness of breath (principal); E78.2 Mixed hyperlipidemia

== ENCOUNTER → 2021-10-20 | Outpatient (REF) | payer OTHER ==
[2021-10-20 16:04] LABS: BASO % 0.3 % (0.0-1.0); EOS # 0.1 10^3/uL (0.0-0.5); EOS % 1.6 % (0.0-3.0); HEMATOCRIT 39.7 % (36.0-47.0); HEMOGLOBIN 12.6 g/dl (12.0-15.5); LYMPH # 1.6 10^3/uL (1.5-5.0); LYMPH % 24.2 % (24.0-44.0); MEAN CORPUSCULAR HEMOGLOBIN 29.2 pg (27.0-33.0); MEAN CORPUSCULAR HGB CONC 31.7 g/dl (32.0-36.5); MEAN CORPUSCULAR VOLUME 91.9 fl (80.0-96.0); MONO # 0.4 10^3/uL (0.0-0.8); MONO % 6.3 % (2.0-8.0); NEUTROPHILS # 4.5 10^3/uL (1.5-8.5); NEUTROPHILS % 67.3 % (36.0-66.0); PLATELET COUNT, AUTOMATED 164 10^3/uL (150-450); RED BLOOD COUNT 4.32 10^6/uL (4.00-5.40); WHITE BLOOD COUNT 6.7 10^3/uL (4.0-10.0)
[2021-10-20 16:35] LABS: ERYTHROCYTE SEDIMENTATION RATE 31 mm/hr (0-30)
[2021-10-20 19:05] LABS: ALBUMIN 2.6 GM/DL (3.2-5.2); ALT/SGPT 19 U/L (12-78); BILIRUBIN,DIRECT < 0.1 MG/DL (0.0-0.2); BILIRUBIN,TOTAL 0.3 MG/DL (0.2-1.0); BLOOD UREA NITROGEN 19 MG/DL (7-18); CALCIUM LEVEL 8.5 MG/DL (8.8-10.2); CARBON DIOXIDE LEVEL 29 MEQ/L (21-32); CHLORIDE LEVEL 107 MEQ/L (98-107); CREATININE FOR GFR 0.91 MG/DL (0.55-1.30); GLOMERULAR FILTRATION RATE > 60.0 (>45); GLUCOSE, FASTING 109 MG/DL (70-100); POTASSIUM SERUM 3.7 MEQ/L (3.5-5.1); SODIUM LEVEL 142 MEQ/L (136-145); TOTAL PROTEIN 6.3 GM/DL (6.4-8.2)
== END ==
LOC: M SFHCADAM 11:33
PROVIDERS: ATTEND Internal Medicine
DX: M06.9 Rheumatoid arthritis, unspecified (principal)

== ENCOUNTER → 2021-11-05 | Outpatient (REF) | payer OTHER ==
[2021-11-05 17:01] LABS: BASO % 0.4 % (0.0-1.0); EOS # 0.1 10^3/uL (0.0-0.5); EOS % 1.2 % (0.0-3.0); HEMATOCRIT 40.3 % (36.0-47.0); HEMOGLOBIN 12.6 g/dl (12.0-15.5); LYMPH # 2.1 10^3/uL (1.5-5.0); LYMPH % 28.4 % (24.0-44.0); MEAN CORPUSCULAR HEMOGLOBIN 28.4 pg (27.0-33.0); MEAN CORPUSCULAR HGB CONC 31.3 g/dl (32.0-36.5); MEAN CORPUSCULAR VOLUME 90.8 fl (80.0-96.0); MONO # 0.4 10^3/uL (0.0-0.8); MONO % 5.1 % (2.0-8.0); NEUTROPHILS # 4.8 10^3/uL (1.5-8.5); NEUTROPHILS % 64.6 % (36.0-66.0); PLATELET COUNT, AUTOMATED 152 10^3/uL (150-450); RED BLOOD COUNT 4.44 10^6/uL (4.00-5.40); WHITE BLOOD COUNT 7.4 10^3/uL (4.0-10.0)
[2021-11-05 17:33] LABS: ALBUMIN 2.8 GM/DL (3.2-5.2); ALT/SGPT 24 U/L (12-78); BILIRUBIN,DIRECT < 0.1 MG/DL (0.0-0.2); BILIRUBIN,TOTAL 0.4 MG/DL (0.2-1.0); BLOOD UREA NITROGEN 22 MG/DL (7-18); CALCIUM LEVEL 8.8 MG/DL (8.8-10.2); CARBON DIOXIDE LEVEL 32 MEQ/L (21-32); CHLORIDE LEVEL 107 MEQ/L (98-107); CREATININE FOR GFR 0.96 MG/DL (0.55-1.30); GLOMERULAR FILTRATION RATE > 60.0 (>45); GLUCOSE, FASTING 100 MG/DL (70-100); POTASSIUM SERUM 3.8 MEQ/L (3.5-5.1); SODIUM LEVEL 142 MEQ/L (136-145); TOTAL PROTEIN 6.5 GM/DL (6.4-8.2)
[2021-11-05 18:11] LABS: ERYTHROCYTE SEDIMENTATION RATE 17 mm/hr (0-30)
== END ==
LOC: M SFHCADAM 10:42
PROVIDERS: ATTEND Family Medicine
DX: M06.9 Rheumatoid arthritis, unspecified (principal); R05.3 Chronic cough

== ENCOUNTER → 2021-11-06 | Outpatient (CLI) | payer OTHER ==
[~2021-11-06] MED LIST changes: +ISOVUE-370 76% 25ML SYRINGE As Ordered ONE
== END ==
LOC: M RAD 17:01
PROVIDERS: ATTEND Family Medicine
DX: R91.8 Other nonspecific abnormal finding of lung field (principal); R05.3 Chronic cough
CPT/HCPCS: 71260; Q9967

== ENCOUNTER → 2021-11-20 | Outpatient (REF) | payer OTHER ==
[~2021-11-20] MED LIST changes: -ISOVUE-370 76% 25ML SYRINGE As Ordered ONE
[2021-11-20 12:49] LABS: BASO % 0.5 % (0.0-1.0); EOS # 0.1 10^3/uL (0.0-0.5); EOS % 1.8 % (0.0-3.0); HEMOGLOBIN 12.8 g/dl (12.0-15.5); LYMPH # 2.4 10^3/uL (1.5-5.0); MEAN CORPUSCULAR HEMOGLOBIN 28.8 pg (27.0-33.0); MEAN CORPUSCULAR VOLUME 90.1 fl (80.0-96.0); MONO # 0.5 10^3/uL (0.0-0.8); MONO % 7.4 % (2.0-8.0); NEUTROPHILS # 3.2 10^3/uL (1.5-8.5); PLATELET COUNT, AUTOMATED 152 10^3/uL (150-450); RED BLOOD COUNT 4.44 10^6/uL (4.00-5.40); WHITE BLOOD COUNT 6.3 10^3/uL (4.0-10.0)
[2021-11-20 13:21] LABS: ERYTHROCYTE SEDIMENTATION RATE 16 mm/hr (0-30)
[2021-11-20 13:29] LABS: ALBUMIN 2.9 GM/DL (3.2-5.2); ALT/SGPT 26 U/L (12-78); BILIRUBIN,DIRECT < 0.1 MG/DL (0.0-0.2); BILIRUBIN,TOTAL 0.5 MG/DL (0.2-1.0); BLOOD UREA NITROGEN 18 MG/DL (7-18); CALCIUM LEVEL 8.6 MG/DL (8.8-10.2); CARBON DIOXIDE LEVEL 29 MEQ/L (21-32); CHLORIDE LEVEL 105 MEQ/L (98-107); CREATININE FOR GFR 0.91 MG/DL (0.55-1.30); GLOMERULAR FILTRATION RATE > 60.0 (>45); GLUCOSE, FASTING 95 MG/DL (70-100); POTASSIUM SERUM 3.9 MEQ/L (3.5-5.1); SODIUM LEVEL 139 MEQ/L (136-145); TOTAL PROTEIN 6.4 GM/DL (6.4-8.2)
== END ==
LOC: M SFHCADAM 11:06
PROVIDERS: ATTEND Internal Medicine
DX: M06.9 Rheumatoid arthritis, unspecified (principal)

== ENCOUNTER → 2021-12-11 | Outpatient (REF) | payer OTHER | LOC: M SFHCADAM 12:30 | PROVIDERS: ATTEND Physician Assistant | DX: R39.15 Urgency of urination (principal) ==

== ENCOUNTER → 2021-12-17 | Outpatient (REF) | payer OTHER ==
[2021-12-17 17:06] LABS: BASO % 0.6 % (0.0-1.0); EOS # 0.1 10^3/uL (0.0-0.5); EOS % 1.2 % (0.0-3.0); HEMATOCRIT 37.4 % (36.0-47.0); HEMOGLOBIN 11.9 g/dl (12.0-15.5); LYMPH # 2.1 10^3/uL (1.5-5.0); MEAN CORPUSCULAR HGB CONC 31.8 g/dl (32.0-36.5); MEAN CORPUSCULAR VOLUME 91.2 fl (80.0-96.0); MONO # 0.6 10^3/uL (0.0-0.8); MONO % 8.9 % (2.0-8.0); NEUTROPHILS % 57.9 % (36.0-66.0); PLATELET COUNT, AUTOMATED 130 10^3/uL (150-450); WHITE BLOOD COUNT 6.9 10^3/uL (4.0-10.0)
[2021-12-17 17:34] LABS: ALBUMIN 2.9 GM/DL (3.2-5.2); ALT/SGPT 22 U/L (12-78); BILIRUBIN,DIRECT < 0.1 MG/DL (0.0-0.2); BILIRUBIN,TOTAL 0.4 MG/DL (0.2-1.0); C REACTIVE PROTEIN QUANTITATIV < 0.30 MG/DL (0.00-0.30); TOTAL PROTEIN 6.4 GM/DL (6.4-8.2)
[2021-12-17 17:39] LABS: ERYTHROCYTE SEDIMENTATION RATE 25 mm/hr (0-30)
== END ==
LOC: M SFHCADAM 14:15
PROVIDERS: ATTEND Internal Medicine
DX: M06.9 Rheumatoid arthritis, unspecified (principal)

== ENCOUNTER → 2022-01-27 | Outpatient (CLI) | payer OTHER ==
[2022-01-27 17:00] LABS: BASO % 0.4 % (0.0-1.0); EOS # 0.1 10^3/uL (0.0-0.5); EOS % 1.3 % (0.0-3.0); HEMATOCRIT 35.6 % (36.0-47.0); HEMOGLOBIN 11.4 g/dl (12.0-15.5); LYMPH % 24.2 % (24.0-44.0); MEAN CORPUSCULAR HEMOGLOBIN 30.2 pg (27.0-33.0); MEAN CORPUSCULAR VOLUME 94.4 fl (80.0-96.0); MONO # 0.5 10^3/uL (0.0-0.8); MONO % 5.7 % (2.0-8.0); NEUTROPHILS # 5.6 10^3/uL (1.5-8.5); NEUTROPHILS % 68.2 % (36.0-66.0); PLATELET COUNT, AUTOMATED 195 10^3/uL (150-450); RED BLOOD COUNT 3.77 10^6/uL (4.00-5.40); WHITE BLOOD COUNT 8.2 10^3/uL (4.0-10.0)
[2022-01-27 17:30] LABS: ALBUMIN 2.9 GM/DL (3.2-5.2); BILIRUBIN,DIRECT 0.2 MG/DL (0.0-0.2); BILIRUBIN,TOTAL 0.3 MG/DL (0.2-1.0); C REACTIVE PROTEIN QUANTITATIV 0.3 MG/DL (0.00-0.30); CALCIUM LEVEL 8.7 MG/DL (8.8-10.2); CREATININE FOR GFR 1.02 MG/DL (0.55-1.30); GLOMERULAR FILTRATION RATE 57.2 (>45); POTASSIUM SERUM 4.5 MEQ/L (3.5-5.1); TOTAL PROTEIN 6.6 GM/DL (6.4-8.2)
[2022-01-27 17:56] LABS: ERYTHROCYTE SEDIMENTATION RATE 33 mm/hr (0-30)
== END ==
LOC: M LABDRWAD 14:32
PROVIDERS: ATTEND Internal Medicine
DX: M06.9 Rheumatoid arthritis, unspecified (principal)

== ENCOUNTER → 2022-01-27 | Outpatient (CLI) | payer OTHER ==
[2022-01-27 17:24] LABS: CALCIUM LEVEL 8.8 MG/DL (8.8-10.2); CREATININE FOR GFR 1.09 MG/DL (0.55-1.30); POTASSIUM SERUM 4.5 MEQ/L (3.5-5.1)
== END ==
LOC: M LABDRWAD 14:29
PROVIDERS: ATTEND Physician Assistant
DX: I50.32 Chronic diastolic (congestive) heart failure (principal)

== ENCOUNTER → 2022-02-24 | Outpatient (REF) | payer OTHER ==
[2022-02-24 19:44] LABS: BASO % 0.2 % (0.0-1.0); EOS # 0.1 10^3/uL (0.0-0.5); EOS % 1.4 % (0.0-3.0); HEMATOCRIT 35.1 % (36.0-47.0); HEMOGLOBIN 11.3 g/dl (12.0-15.5); LYMPH % 22.9 % (24.0-44.0); MEAN CORPUSCULAR HEMOGLOBIN 30.9 pg (27.0-33.0); MEAN CORPUSCULAR HGB CONC 32.2 g/dl (32.0-36.5); MEAN CORPUSCULAR VOLUME 95.9 fl (80.0-96.0); MONO # 0.6 10^3/uL (0.0-0.8); MONO % 7.3 % (2.0-8.0); NEUTROPHILS # 5.9 10^3/uL (1.5-8.5); NEUTROPHILS % 67.7 % (36.0-66.0); PLATELET COUNT, AUTOMATED 172 10^3/uL (150-450); RED BLOOD COUNT 3.66 10^6/uL (4.00-5.40); WHITE BLOOD COUNT 8.8 10^3/uL (4.0-10.0)
[2022-02-24 20:03] LABS: ALBUMIN 2.8 G/DL (3.2-5.2); ALT/SGPT 20 U/L (7.0-40); BILIRUBIN,DIRECT < 0.1 MG/DL (<0.4); BILIRUBIN,TOTAL < 0.2 MG/DL (0.3-1.2); BLOOD UREA NITROGEN 28 MG/DL (9-23); CALCIUM LEVEL 8.2 MG/DL (8.3-10.6); CARBON DIOXIDE LEVEL 29 MMOL/L (20-31); CHLORIDE LEVEL 105 MMOL/L (98-107); CREATININE FOR GFR 1.19 MG/DL (0.55-1.30); GLOMERULAR FILTRATION RATE 47.9 (>45); GLUCOSE, FASTING 103 MG/DL (74-106); POTASSIUM SERUM 4.3 MMOL/L (3.5-5.1); SODIUM LEVEL 143 MMOL/L (136-145); TOTAL PROTEIN 6.1 G/DL (5.7-8.2)
[2022-02-24 21:06] LABS: ERYTHROCYTE SEDIMENTATION RATE 39 mm/hr (0-30)
== END ==
LOC: M SFHCADAM 15:19
PROVIDERS: ATTEND Internal Medicine
DX: M06.9 Rheumatoid arthritis, unspecified (principal)

== ENCOUNTER → 2022-02-25 | Outpatient (CLI) | payer OTHER | LOC: M CARPUL 14:20 | PROVIDERS: ATTEND Internal Medicine Critical Care Medicine | DX: U09.9 Post COVID-19 condition, unspecified (principal) ==

== ENCOUNTER → 2022-03-25 | Outpatient (CLI) | payer OTHER | LOC: M WHC 14:14 | PROVIDERS: ATTEND Family Medicine | DX: Z12.31 Encounter for screening mammogram for malignant neoplasm of breast (principal) ==

== ENCOUNTER → 2022-04-07 | Outpatient (REF) | payer OTHER ==
[2022-04-07 15:05] LABS: BASO % 0.4 % (0.0-1.0); EOS # 0.2 10^3/uL (0.0-0.5); EOS % 2.1 % (0.0-3.0); HEMATOCRIT 42.2 % (36.0-47.0); HEMOGLOBIN 13.2 g/dl (12.0-15.5); LYMPH % 24.9 % (24.0-44.0); MEAN CORPUSCULAR HEMOGLOBIN 29.5 pg (27.0-33.0); MEAN CORPUSCULAR HGB CONC 31.3 g/dl (32.0-36.5); MEAN CORPUSCULAR VOLUME 94.2 fl (80.0-96.0); MONO # 0.6 10^3/uL (0.0-0.8); MONO % 7.2 % (2.0-8.0); NEUTROPHILS # 5.3 10^3/uL (1.5-8.5); PLATELET COUNT, AUTOMATED 164 10^3/uL (150-450); RED BLOOD COUNT 4.48 10^6/uL (4.00-5.40); WHITE BLOOD COUNT 8.2 10^3/uL (4.0-10.0)
[2022-04-07 15:27] LABS: ERYTHROCYTE SEDIMENTATION RATE 28 mm/hr (0-30)
[2022-04-07 15:32] LABS: C REACTIVE PROTEIN QUANTITATIV < 0.40 MG/DL (<1.0)
[2022-04-07 15:33] LABS: BILIRUBIN,DIRECT < 0.1 MG/DL (<0.4)
[2022-04-07 15:34] LABS: ALBUMIN 2.8 G/DL (3.2-5.2); ALKALINE PHOSPHATASE 81 U/L (46-116); ALT/SGPT 18 U/L (7.0-40); AST/SGOT 21 U/L (<34); BILIRUBIN,TOTAL < 0.2 MG/DL (0.3-1.2); BLOOD UREA NITROGEN 22 MG/DL (9-23); CALCIUM LEVEL 8.7 MG/DL (8.3-10.6); CARBON DIOXIDE LEVEL 29 MMOL/L (20-31); CHLORIDE LEVEL 103 MMOL/L (98-107); CREATININE FOR GFR 0.97 MG/DL (0.55-1.30); GLOMERULAR FILTRATION RATE > 60.0 (>45); GLUCOSE, FASTING 95 MG/DL (74-106); POTASSIUM SERUM 4.1 MMOL/L (3.5-5.1); SODIUM LEVEL 140 MMOL/L (136-145); TOTAL PROTEIN 6.6 G/DL (5.7-8.2)
== END ==
LOC: M SFHCADAM 13:42
PROVIDERS: ATTEND Nurse Practitioner Family
DX: M06.9 Rheumatoid arthritis, unspecified (principal)

== ENCOUNTER → 2022-05-11 | Outpatient (REF) | payer OTHER ==
[2022-05-11 16:42] LABS: ALBUMIN 2.9 G/DL (3.2-5.2); ALKALINE PHOSPHATASE 80 U/L (46-116); ALT/SGPT 22 U/L (7.0-40); AST/SGOT 24 U/L (<34); BILIRUBIN,DIRECT < 0.1 MG/DL (<0.4); BILIRUBIN,TOTAL 0.2 MG/DL (0.3-1.2); BLOOD UREA NITROGEN 23 MG/DL (9-23); CALCIUM LEVEL 8.6 MG/DL (8.3-10.6); CARBON DIOXIDE LEVEL 28 MMOL/L (20-31); CHLORIDE LEVEL 106 MMOL/L (98-107); CREATININE FOR GFR 1.02 MG/DL (0.55-1.30); GLOMERULAR FILTRATION RATE 57.2 (>45); GLUCOSE, FASTING 95 MG/DL (74-106); POTASSIUM SERUM 4.6 MMOL/L (3.5-5.1); SODIUM LEVEL 142 MMOL/L (136-145); TOTAL PROTEIN 6.3 G/DL (5.7-8.2)
[2022-05-11 16:45] LABS: BASO % 0.4 % (0.0-1.0); EOS # 0.1 10^3/uL (0.0-0.5); EOS % 1.3 % (0.0-3.0); HEMATOCRIT 38.9 % (36.0-47.0); HEMOGLOBIN 12.3 g/dl (12.0-15.5); LYMPH # 1.2 10^3/uL (1.5-5.0); LYMPH % 14.7 % (24.0-44.0); MEAN CORPUSCULAR HEMOGLOBIN 29.4 pg (27.0-33.0); MEAN CORPUSCULAR HGB CONC 31.6 g/dl (32.0-36.5); MEAN CORPUSCULAR VOLUME 92.8 fl (80.0-96.0); MONO # 0.8 10^3/uL (0.0-0.8); MONO % 9.8 % (2.0-8.0); NEUTROPHILS # 6.1 10^3/uL (1.5-8.5); NEUTROPHILS % 73.7 % (36.0-66.0); PLATELET COUNT, AUTOMATED 141 10^3/uL (150-450); RED BLOOD COUNT 4.19 10^6/uL (4.00-5.40); WHITE BLOOD COUNT 8.3 10^3/uL (4.0-10.0)
[2022-05-11 18:24] LABS: ERYTHROCYTE SEDIMENTATION RATE 30 mm/hr (0-30)
== END ==
LOC: M SFHCADAM 14:15
PROVIDERS: ATTEND Internal Medicine
DX: M06.9 Rheumatoid arthritis, unspecified (principal)

== ENCOUNTER → 2022-05-14 | Outpatient (REF) | payer OTHER | LOC: M SFHCADAM 16:06 | PROVIDERS: ATTEND Family Medicine | DX: R09.81 Nasal congestion (principal) ==

== ENCOUNTER → 2022-06-04 | Outpatient (REF) | payer OTHER ==
[2022-06-04 17:37] LABS: BASO # 0.1 10^3/uL (0.0-0.2); BASO % 0.5 % (0.0-1.0); EOS # 0.1 10^3/uL (0.0-0.5); EOS % 1.2 % (0.0-3.0); HEMATOCRIT 39.4 % (36.0-47.0); HEMOGLOBIN 12.5 g/dl (12.0-15.5); MEAN CORPUSCULAR HGB CONC 31.7 g/dl (32.0-36.5); MEAN CORPUSCULAR VOLUME 91.4 fl (80.0-96.0); MONO # 0.6 10^3/uL (0.0-0.8); MONO % 6.4 % (2.0-8.0); NEUTROPHILS # 6.8 10^3/uL (1.5-8.5); NEUTROPHILS % 70.5 % (36.0-66.0); PLATELET COUNT, AUTOMATED 193 10^3/uL (150-450); RED BLOOD COUNT 4.31 10^6/uL (4.00-5.40); WHITE BLOOD COUNT 9.6 10^3/uL (4.0-10.0)
[2022-06-04 17:48] LABS: ERYTHROCYTE SEDIMENTATION RATE 37 mm/hr (0-30)
[2022-06-04 18:01] LABS: C REACTIVE PROTEIN QUANTITATIV < 0.40 MG/DL (<1.0)
[2022-06-04 18:02] LABS: ALBUMIN 2.8 G/DL (3.2-5.2); ALKALINE PHOSPHATASE 80 U/L (46-116); ALT/SGPT 21 U/L (7.0-40); AST/SGOT 24 U/L (<34); BILIRUBIN,DIRECT < 0.1 MG/DL (<0.4); BILIRUBIN,TOTAL 0.2 MG/DL (0.3-1.2); BLOOD UREA NITROGEN 25 MG/DL (9-23); CALCIUM LEVEL 8.5 MG/DL (8.3-10.6); CARBON DIOXIDE LEVEL 33 MMOL/L (20-31); CHLORIDE LEVEL 105 MMOL/L (98-107); CREATININE FOR GFR 0.97 MG/DL (0.55-1.30); GLOMERULAR FILTRATION RATE > 60.0 (>45); GLUCOSE, FASTING 79 MG/DL (74-106); POTASSIUM SERUM 4.4 MMOL/L (3.5-5.1); SODIUM LEVEL 144 MMOL/L (136-145); TOTAL PROTEIN 6.4 G/DL (5.7-8.2)
== END ==
LOC: M SFHCADAM 14:05
PROVIDERS: ATTEND Internal Medicine
DX: M06.9 Rheumatoid arthritis, unspecified (principal)

== ENCOUNTER → 2022-07-01 | Outpatient (REF) | payer OTHER ==
[2022-07-01 16:25] LABS: BASO % 0.4 % (0.0-1.0); EOS # 0.1 10^3/uL (0.0-0.5); EOS % 1.4 % (0.0-3.0); HEMATOCRIT 36.2 % (36.0-47.0); HEMOGLOBIN 11.5 g/dl (12.0-15.5); LYMPH # 1.6 10^3/uL (1.5-5.0); MEAN CORPUSCULAR HEMOGLOBIN 29.1 pg (27.0-33.0); MEAN CORPUSCULAR HGB CONC 31.8 g/dl (32.0-36.5); MEAN CORPUSCULAR VOLUME 91.6 fl (80.0-96.0); MONO # 0.6 10^3/uL (0.0-0.8); PLATELET COUNT, AUTOMATED 172 10^3/uL (150-450); RED BLOOD COUNT 3.95 10^6/uL (4.00-5.40); WHITE BLOOD COUNT 8.4 10^3/uL (4.0-10.0)
[2022-07-01 16:54] LABS: C REACTIVE PROTEIN QUANTITATIV < 0.40 MG/DL (<1.0)
[2022-07-01 16:59] LABS: ALBUMIN 2.7 G/DL (3.2-5.2); ALKALINE PHOSPHATASE 70 U/L (46-116); ALT/SGPT 22 U/L (7.0-40); AST/SGOT 22 U/L (<34); BILIRUBIN,DIRECT < 0.1 MG/DL (<0.4); BILIRUBIN,TOTAL 0.2 MG/DL (0.3-1.2); BLOOD UREA NITROGEN 20 MG/DL (9-23); CALCIUM LEVEL 8.5 MG/DL (8.3-10.6); CARBON DIOXIDE LEVEL 29 MMOL/L (20-31); CHLORIDE LEVEL 107 MMOL/L (98-107); CREATININE FOR GFR 1.14 MG/DL (0.55-1.30); GLOMERULAR FILTRATION RATE 50.3 (>45); GLUCOSE, FASTING 89 MG/DL (74-106); POTASSIUM SERUM 4.7 MMOL/L (3.5-5.1); SODIUM LEVEL 141 MMOL/L (136-145); TOTAL PROTEIN 6.2 G/DL (5.7-8.2)
[2022-07-01 17:29] LABS: ERYTHROCYTE SEDIMENTATION RATE 29 mm/hr (0-30)
== END ==
LOC: M SFHCADAM 14:22
PROVIDERS: ATTEND Internal Medicine
DX: M06.9 Rheumatoid arthritis, unspecified (principal)

== ENCOUNTER → 2022-07-27 | Outpatient (REF) | payer OTHER ==
[2022-07-27 16:41] LABS: BASO % 0.3 % (0.0-1.0); EOS # 0.2 10^3/uL (0.0-0.5); EOS % 1.7 % (0.0-3.0); HEMATOCRIT 37.1 % (36.0-47.0); HEMOGLOBIN 11.6 g/dl (12.0-15.5); LYMPH # 1.8 10^3/uL (1.5-5.0); LYMPH % 20.9 % (24.0-44.0); MEAN CORPUSCULAR HEMOGLOBIN 29.4 pg (27.0-33.0); MEAN CORPUSCULAR HGB CONC 31.3 g/dl (32.0-36.5); MEAN CORPUSCULAR VOLUME 94.2 fl (80.0-96.0); MONO # 0.5 10^3/uL (0.0-0.8); MONO % 5.6 % (2.0-8.0); NEUTROPHILS # 6.1 10^3/uL (1.5-8.5); NEUTROPHILS % 71.2 % (36.0-66.0); PLATELET COUNT, AUTOMATED 184 10^3/uL (150-450); RED BLOOD COUNT 3.94 10^6/uL (4.00-5.40); WHITE BLOOD COUNT 8.6 10^3/uL (4.0-10.0)
[2022-07-27 17:09] LABS: C REACTIVE PROTEIN QUANTITATIV < 0.40 MG/DL (<1.0); ERYTHROCYTE SEDIMENTATION RATE 27 mm/hr (0-30)
[2022-07-27 17:11] LABS: ALBUMIN 2.8 G/DL (3.2-5.2); ALKALINE PHOSPHATASE 95 U/L (46-116); ALT/SGPT 24 U/L (7.0-40); AST/SGOT 21 U/L (<34); BILIRUBIN,DIRECT < 0.1 MG/DL (<0.4); BILIRUBIN,TOTAL 0.2 MG/DL (0.3-1.2); BLOOD UREA NITROGEN 19 MG/DL (9-23); CALCIUM LEVEL 8.4 MG/DL (8.3-10.6); CARBON DIOXIDE LEVEL 29 MMOL/L (20-31); CHLORIDE LEVEL 107 MMOL/L (98-107); GLOMERULAR FILTRATION RATE 58.5 (>45); GLUCOSE, FASTING 113 MG/DL (74-106); SODIUM LEVEL 142 MMOL/L (136-145); TOTAL PROTEIN 6.2 G/DL (5.7-8.2)
== END ==
LOC: M SFHCADAM 14:19
PROVIDERS: ATTEND Internal Medicine
DX: M06.9 Rheumatoid arthritis, unspecified (principal)

== ENCOUNTER → 2022-09-17 | Outpatient (CLI) | payer OTHER | LOC: M SLEEP 20:00 | PROVIDERS: ATTEND Internal Medicine Critical Care Medicine | DX: G47.61 Periodic limb movement disorder (principal) ==

== ENCOUNTER → 2022-10-26 | Outpatient (REF) | payer OTHER ==
[2022-10-26 13:17] LABS: CHOLESTEROL RISK RATIO 4.02 (<5); LDL CHOLESTEROL 91.2 MG/DL (<100)
== END ==
LOC: M LABDRWAD 12:18
PROVIDERS: ATTEND Physician Assistant
DX: E78.2 Mixed hyperlipidemia (principal)

== ENCOUNTER → 2022-10-26 | Outpatient (REF) | payer OTHER ==
[2022-10-26 13:04] LABS: ALBUMIN 2.6 G/DL (3.2-5.2); ALKALINE PHOSPHATASE 71 U/L (46-116); ALT/SGPT 19 U/L (7.0-40); AST/SGOT 14 U/L (<34); BILIRUBIN,TOTAL 0.3 MG/DL (0.3-1.2); BLOOD UREA NITROGEN 24 MG/DL (9-23); CALCIUM LEVEL 8.4 MG/DL (8.3-10.6); CARBON DIOXIDE LEVEL 28 MMOL/L (20-31); CHLORIDE LEVEL 109 MMOL/L (98-107); GLOMERULAR FILTRATION RATE > 60.0 (>39); GLUCOSE, FASTING 102 MG/DL (74-106); HEMATOCRIT 37.7 % (36.0-47.0); HEMOGLOBIN 12.1 g/dl (12.0-15.5); IRON (FE) 59 UG/DL (50-170); MEAN CORPUSCULAR HEMOGLOBIN 30.3 pg (27.0-33.0); MEAN CORPUSCULAR HGB CONC 32.1 g/dl (32.0-36.5); MEAN CORPUSCULAR VOLUME 94.3 fl (80.0-96.0); PERCENT SATURATION 18.1 % (13.2-45.0); PLATELET COUNT, AUTOMATED 158 10^3/uL (150-450); POTASSIUM SERUM 4.4 MMOL/L (3.5-5.1); SODIUM LEVEL 143 MMOL/L (136-145); TOTAL IRON BINDING CAPACITY 326 UG/DL (250-425); TOTAL PROTEIN 6.2 G/DL (5.7-8.2); WHITE BLOOD COUNT 6.6 10^3/uL (4.0-10.0)
== END ==
LOC: M LABDRWAD 12:20
PROVIDERS: ATTEND Internal Medicine Critical Care Medicine
DX: G47.61 Periodic limb movement disorder (principal); E78.2 Mixed hyperlipidemia; D50.9 Iron deficiency anemia, unspecified

== ENCOUNTER → 2022-11-15 | Outpatient (REF) | payer OTHER | LOC: M SFHCDERM 14:22 | PROVIDERS: ATTEND Physician Assistant | DX: D23.39 Other benign neoplasm of skin of other parts of face (principal) ==

== ENCOUNTER → 2022-11-23 | Outpatient (REF) | payer OTHER ==
[2022-11-23 13:02] LABS: BASO % 0.5 % (0.0-1.0); EOS # 0.2 10^3/uL (0.0-0.5); EOS % 1.7 % (0.0-3.0); HEMATOCRIT 39.4 % (36.0-47.0); HEMOGLOBIN 12.3 g/dl (12.0-15.5); LYMPH # 1.7 10^3/uL (1.5-5.0); LYMPH % 19.6 % (24.0-44.0); MEAN CORPUSCULAR HEMOGLOBIN 29.9 pg (27.0-33.0); MEAN CORPUSCULAR HGB CONC 31.2 g/dl (32.0-36.5); MEAN CORPUSCULAR VOLUME 95.9 fl (80.0-96.0); MONO # 0.6 10^3/uL (0.0-0.8); MONO % 6.6 % (2.0-8.0); NEUTROPHILS # 6.3 10^3/uL (1.5-8.5); NEUTROPHILS % 71.3 % (36.0-66.0); PLATELET COUNT, AUTOMATED 184 10^3/uL (150-450); RED BLOOD COUNT 4.11 10^6/uL (4.00-5.40); WHITE BLOOD COUNT 8.8 10^3/uL (4.0-10.0)
[2022-11-23 13:15] LABS: ERYTHROCYTE SEDIMENTATION RATE 41 mm/hr (0-30)
[2022-11-23 13:35] LABS: ALBUMIN 2.8 G/DL (3.2-5.2); ALKALINE PHOSPHATASE 90 U/L (46-116); ALT/SGPT 18 U/L (7.0-40); AST/SGOT 16 U/L (<34); BILIRUBIN,DIRECT < 0.1 MG/DL (<0.4); BILIRUBIN,TOTAL 0.2 MG/DL (0.3-1.2); BLOOD UREA NITROGEN 25 MG/DL (9-23); CALCIUM LEVEL 8.9 MG/DL (8.3-10.6); CARBON DIOXIDE LEVEL 31 MMOL/L (20-31); CHLORIDE LEVEL 107 MMOL/L (98-107); CREATININE FOR GFR 0.89 MG/DL (0.55-1.30); GLOMERULAR FILTRATION RATE > 60.0 (>39); GLUCOSE, FASTING 92 MG/DL (74-106); POTASSIUM SERUM 4.4 MMOL/L (3.5-5.1); SODIUM LEVEL 144 MMOL/L (136-145); TOTAL PROTEIN 6.5 G/DL (5.7-8.2)
[2022-11-23 13:37] LABS: C REACTIVE PROTEIN QUANTITATIV < 0.40 MG/DL (<1.0); FREE T4 1.11 NG/DL (0.89-1.76); THYROID STIMULATING HORMONE 2.433 uIU/ML (0.55-4.78)
== END ==
LOC: M SFHCADAM 10:54
PROVIDERS: ATTEND Family Medicine
DX: F32.A Depression, unspecified (principal); M06.9 Rheumatoid arthritis, unspecified

== ENCOUNTER → 2022-12-08 | Outpatient (CLI) | payer OTHER | LOC: M RAD 09:47 | PROVIDERS: ATTEND Internal Medicine Critical Care Medicine | DX: Z87.891 Personal history of nicotine dependence (principal) ==

== ENCOUNTER 2023-02-02 12:57 | Emergency (ER) | payer OTHER ==
[~2023-02-02] VITALS: Ht 154.9 cm; Wt 88.4 kg
[~2023-02-02 12:57] MED LIST changes: +CELE0.09; -CELE1CAP9; -PREG150C; +PREG150C2
[2023-02-02 12:58] VITALS: TEMP 98.8
[2023-02-02] MEDS ORDERED: LEXA1TAB (13:13)
[2023-02-02] MEDS ORDERED: IPRA0.00 (13:13)
[2023-02-02] MEDS ORDERED: TREL1AER (13:13)
[2023-02-02] MEDS ORDERED: ASPIRIN 81MG CHEW TABLET PO ONE (14:10)
[2023-02-02] MEDS ORDERED: ISOVUE-370 76% 100ML VIAL As Ordered ONE (14:11)
[2023-02-02 14:21] LABS: BASO % 0.4 % (0.0-1.0); EOS # 0.1 10^3/uL (0.0-0.5); EOS % 1.5 % (0.0-3.0); HEMATOCRIT 36.2 % (36.0-47.0); HEMOGLOBIN 12.1 g/dl (12.0-15.5); LYMPH # 1.9 10^3/uL (1.5-5.0); LYMPH % 23.9 % (24.0-44.0); MEAN CORPUSCULAR HEMOGLOBIN 31.2 pg (27.0-33.0); MEAN CORPUSCULAR HGB CONC 33.4 g/dl (32.0-36.5); MEAN CORPUSCULAR VOLUME 93.3 fl (80.0-96.0); MONO # 0.5 10^3/uL (0.0-0.8); MONO % 6.3 % (2.0-8.0); NEUTROPHILS # 5.5 10^3/uL (1.5-8.5); NEUTROPHILS % 67.4 % (36.0-66.0); PLATELET COUNT, AUTOMATED 201 10^3/uL (150-450); RED BLOOD COUNT 3.88 10^6/uL (4.00-5.40); WHITE BLOOD COUNT 8.1 10^3/uL (4.0-10.0)
[2023-02-02 14:37] LABS: LIPASE 34 U/L (12-53)
[2023-02-02 14:38] LABS: CPK CREATINE PHOSPHOKINASE 64 U/L (34-145)
[2023-02-02 14:39] LABS: ALBUMIN 2.7 G/DL (3.2-5.2); ALKALINE PHOSPHATASE 83 U/L (46-116); ALT/SGPT 16 U/L (7.0-40); AST/SGOT 18 U/L (<34); BILIRUBIN,DIRECT < 0.1 MG/DL (<0.4); BILIRUBIN,TOTAL 0.2 MG/DL (0.3-1.2); BLOOD UREA NITROGEN 23 MG/DL (9-23); CALCIUM LEVEL 8.2 MG/DL (8.3-10.6); CARBON DIOXIDE LEVEL 28 MMOL/L (20-31); CHLORIDE LEVEL 105 MMOL/L (98-107); CK-MB VALUE MASS < 1.0 NG/ML (<3.6); CREATININE FOR GFR 0.82 MG/DL (0.55-1.30); GLOMERULAR FILTRATION RATE > 60.0 (>39); GLUCOSE, FASTING 85 MG/DL (74-106); MB/CK RELATIVE INDEX 1.56 (< OR =4); POTASSIUM SERUM 4.1 MMOL/L (3.5-5.1); SODIUM LEVEL 139 MMOL/L (136-145); TOTAL PROTEIN 6.4 G/DL (5.7-8.2)
[2023-02-02 14:43] LABS: THYROID STIMULATING HORMONE 2.238 uIU/ML (0.55-4.78)
[2023-02-02] MEDS: NITROGLYCERIN 0.4MG SUBL TABLET SL PRN ×3 (15:20→15:42)
[2023-02-02 16:09] LABS: CK-MB VALUE MASS < 1.0 NG/ML (<3.6)
[2023-02-02 16:11] LABS: CPK CREATINE PHOSPHOKINASE 58 U/L (34-145); MB/CK RELATIVE INDEX 1.72 (< OR =4)
[2023-02-02 16:25] VITALS: BP 150/66
[2023-02-02 16:48] VITALS: O2SAT 95
== END 2023-02-02 16:48 | disposition home or self-care (01) ==
LOC: M ED 12:57
DX: R07.9 Chest pain, unspecified (principal); I50.9 Heart failure, unspecified; I10 Essential (primary) hypertension; F41.9 Anxiety disorder, unspecified; Z87.891 Personal history of nicotine dependence; Z82.49 Family history of ischemic heart disease and other diseases of the circulatory system; Z79.899 Other long term (current) drug therapy; Z88.0 Allergy status to penicillin
CPT/HCPCS: 71045; 71275; 80047; 80048; 80076; 82550; 82553; 83690; 83880; 84439; 84443; 84484; 85025; 93005; 93041; 94760; 99285; Q9967

== ENCOUNTER → 2023-02-17 | Outpatient (REF) | payer OTHER ==
[~2023-02-17] MED LIST changes: +IPRA0.00; +LEXA1TAB; +TREL1AER
== END ==
LOC: M SFHCADAM 17:11
PROVIDERS: ATTEND Physician Assistant
DX: J20.9 Acute bronchitis, unspecified (principal)

== ENCOUNTER → 2023-02-21 | Outpatient (CLI) | payer OTHER | LOC: M ADAMS 11:30 | PROVIDERS: ATTEND Family Medicine | DX: R05.1 Acute cough (principal) ==

== ENCOUNTER → 2023-04-13 | Outpatient (REF) | payer OTHER ==
[2023-04-13 17:20] LABS: ALBUMIN 2.6 G/DL (3.2-5.2)
== END ==
LOC: M LABDRWAD 16:20
PROVIDERS: ATTEND Internal Medicine Critical Care Medicine
DX: G47.61 Periodic limb movement disorder (principal)

== ENCOUNTER → 2023-04-13 | Outpatient (REF) | payer OTHER ==
[2023-04-13 17:18] LABS: BASO % 0.2 % (0.0-1.0); EOS # 0.2 10^3/uL (0.0-0.5); EOS % 2.4 % (0.0-3.0); HEMATOCRIT 36.6 % (36.0-47.0); HEMOGLOBIN 11.4 g/dl (12.0-15.5); LYMPH # 1.6 10^3/uL (1.5-5.0); MEAN CORPUSCULAR HEMOGLOBIN 29.3 pg (27.0-33.0); MEAN CORPUSCULAR HGB CONC 31.1 g/dl (32.0-36.5); MEAN CORPUSCULAR VOLUME 94.1 fl (80.0-96.0); MONO # 0.5 10^3/uL (0.0-0.8); MONO % 5.4 % (2.0-8.0); NEUTROPHILS # 6.6 10^3/uL (1.5-8.5); NEUTROPHILS % 72.9 % (36.0-66.0); PLATELET COUNT, AUTOMATED 205 10^3/uL (150-450); RED BLOOD COUNT 3.89 10^6/uL (4.00-5.40); WHITE BLOOD COUNT 9.1 10^3/uL (4.0-10.0)
[2023-04-13 17:23] LABS: ERYTHROCYTE SEDIMENTATION RATE 33 mm/hr (0-30)
[2023-04-13 17:29] LABS: C REACTIVE PROTEIN QUANTITATIV < 0.40 MG/DL (<1.0)
[2023-04-13 17:30] LABS: ALBUMIN 2.6 G/DL (3.2-5.2); ALKALINE PHOSPHATASE 82 U/L (46-116); ALT/SGPT 15 U/L (7.0-40); AST/SGOT 18 U/L (<34); BILIRUBIN,DIRECT < 0.1 MG/DL (<0.4); BILIRUBIN,TOTAL < 0.2 MG/DL (0.3-1.2); BLOOD UREA NITROGEN 22 MG/DL (9-23); CALCIUM LEVEL 8.3 MG/DL (8.3-10.6); CARBON DIOXIDE LEVEL 28 MMOL/L (20-31); CHLORIDE LEVEL 108 MMOL/L (98-107); GLOMERULAR FILTRATION RATE 58.4 (>39); GLUCOSE, FASTING 85 MG/DL (74-106); POTASSIUM SERUM 3.9 MMOL/L (3.5-5.1); SODIUM LEVEL 140 MMOL/L (136-145); TOTAL PROTEIN 6.1 G/DL (5.7-8.2)
== END ==
LOC: M SFHCADAM 13:47
PROVIDERS: ATTEND Internal Medicine
DX: M06.9 Rheumatoid arthritis, unspecified (principal); G47.61 Periodic limb movement disorder; D50.9 Iron deficiency anemia, unspecified

== ENCOUNTER → 2023-06-15 | Outpatient (REF) | payer OTHER | LOC: M SFHCADAM 15:55 | PROVIDERS: ATTEND Family Medicine | DX: D50.9 Iron deficiency anemia, unspecified (principal) ==

== ENCOUNTER → 2023-06-30 | Outpatient (REF) | payer OTHER | LOC: M LABDRWAD 14:49 | PROVIDERS: ATTEND Ophthalmology | DX: G45.3 Amaurosis fugax (principal); H40.013 Open angle with borderline findings, low risk, bilateral; H47.021 Hemorrhage in optic nerve sheath, right eye; H43.392 Other vitreous opacities, left eye; H25.813 Combined forms of age-related cataract, bilateral; H02.834 Dermatochalasis of left upper eyelid; H16.223 Keratoconjunctivitis sicca, not specified as Sjogren's, bilateral ==

== ENCOUNTER → 2023-07-15 | Outpatient (CLI) | payer OTHER | LOC: M RAD 14:31 | PROVIDERS: ATTEND Ophthalmology | DX: G45.3 Amaurosis fugax (principal) ==

== ENCOUNTER 2023-08-25 09:46 | Day surgery (SDC) | payer OTHER ==
[~2023-08-25] VITALS: Ht 157.5 cm; Wt 87.0 kg
[~2023-08-25 09:46] MED LIST changes: +ALBU8.5H; -ATOR1TAB21; +ATOR1TAB21 PO; -CETI-24; +CETI-24 PO; -FOLI1TAB11; +FOLI1TAB11 PO; +HUMI40KI SC; +LASI80TA3 PO; -LEXA1TAB; +LEXA1TAB PO; -LISI5TAB11; +LISI5TAB11 PO; +LOSA50TA28 PO; -METH2.5T48; +METH2.5T48 PO; +METH25IN12 SQ; -NABU-71; +NABU-71 PO; +NS 1,000 ML IV ONE; +OMEP40CA5 PO; +POTA595T8 PO; -PROP80TA; +PROP80TA PO; +STIO1AER; +TRAZ1TAB14 PO; +VENL75CA47 PO; +[UNRECOGNIZED DRUG - CODE] SC
[2023-08-25] MEDS ORDERED: fentaNYL 100 MCG/2 ML INJECTION As Ordered ONE (12:10)
[2023-08-25] MEDS ORDERED: propofoL 200 MG/20 ML VIAL As Ordered ONE (12:10)
[2023-08-25] MEDS ORDERED: LIDOCAINE 2% 100MG/5ML SDV (FOR ANES.) As Ordered ONE (12:10)
[2023-08-25 12:39] VITALS: TEMP 97.6
[2023-08-25 13:07] VITALS: BP 193/80; O2SAT 96
== END 2023-08-25 13:30 | disposition home or self-care (01) ==
LOC: M OPP 09:46
PROVIDERS: ATTEND Surgery
DX: D50.9 Iron deficiency anemia, unspecified (principal); D12.2 Benign neoplasm of ascending colon; K57.30 Diverticulosis of large intestine without perforation or abscess without bleeding; K63.89 Other specified diseases of intestine; R12 Heartburn; J38.5 Laryngeal spasm; I11.0 Hypertensive heart disease with heart failure; I50.9 Heart failure, unspecified; Z86.16 Personal history of COVID-19; Z79.899 Other long term (current) drug therapy; Z79.620 Long term (current) use of immunosuppressive biologic; Z88.0 Allergy status to penicillin; Z90.710 Acquired absence of both cervix and uterus
CPT/HCPCS: 43235; 45385; 88305; J3010

== ENCOUNTER → 2023-09-02 | Outpatient (CLI) | payer OTHER ==
[~2023-09-02] MED LIST changes: -NS 1,000 ML IV ONE
[2023-09-02 13:12] LABS: BASO % 0.1 % (0.0-1.0); EOS % 0.1 % (0.0-3.0); HEMATOCRIT 39.1 % (36.0-47.0); HEMOGLOBIN 12.5 g/dl (12.0-15.5); LYMPH # 0.7 10^3/uL (1.5-5.0); LYMPH % 9.3 % (24.0-44.0); MONO # 0.2 10^3/uL (0.0-0.8); MONO % 2.6 % (2.0-8.0); NEUTROPHILS # 6.9 10^3/uL (1.5-8.5); NEUTROPHILS % 87.5 % (36.0-66.0); PLATELET COUNT, AUTOMATED 167 10^3/uL (150-450); RED BLOOD COUNT 4.16 10^6/uL (4.00-5.40); WHITE BLOOD COUNT 7.9 10^3/uL (4.0-10.0)
== END ==
LOC: M PLALAB 10:29
PROVIDERS: ATTEND Family Medicine
DX: D50.9 Iron deficiency anemia, unspecified (principal)

== ENCOUNTER → 2023-09-20 | Outpatient (REF) | payer OTHER ==
[2023-09-20 18:40] LABS: BLOOD UREA NITROGEN 25 MG/DL (9-23); CREATININE FOR GFR 0.95 MG/DL (0.55-1.30); GLOMERULAR FILTRATION RATE > 60.0 (>39)
== END ==
LOC: M LABDRWAD 17:32
PROVIDERS: ATTEND Physician Assistant
DX: R10.30 Lower abdominal pain, unspecified (principal)

== ENCOUNTER → 2023-09-20 | Outpatient (REF) | payer OTHER ==
[2023-09-20 18:30] LABS: BASO % 0.4 % (0.0-1.0); EOS # 0.4 10^3/uL (0.0-0.5); EOS % 4.8 % (0.0-3.0); HEMATOCRIT 36.2 % (36.0-47.0); HEMOGLOBIN 11.8 g/dl (12.0-15.5); LYMPH # 1.7 10^3/uL (1.5-5.0); LYMPH % 20.6 % (24.0-44.0); MEAN CORPUSCULAR HEMOGLOBIN 30.6 pg (27.0-33.0); MEAN CORPUSCULAR HGB CONC 32.6 g/dl (32.0-36.5); MONO # 0.5 10^3/uL (0.0-0.8); NEUTROPHILS # 5.7 10^3/uL (1.5-8.5); NEUTROPHILS % 67.8 % (36.0-66.0); PLATELET COUNT, AUTOMATED 183 10^3/uL (150-450); RED BLOOD COUNT 3.85 10^6/uL (4.00-5.40); WHITE BLOOD COUNT 8.4 10^3/uL (4.0-10.0)
[2023-09-20 18:41] LABS: ERYTHROCYTE SEDIMENTATION RATE 52 mm/hr (0-30)
[2023-09-20 18:42] LABS: ALBUMIN 2.5 G/DL (3.2-5.2); ALKALINE PHOSPHATASE 96 U/L (46-116); ALT/SGPT 19 U/L (7.0-40); AST/SGOT 14 U/L (<34); BILIRUBIN,DIRECT < 0.1 MG/DL (<0.4); BILIRUBIN,TOTAL < 0.2 MG/DL (0.3-1.2); BLOOD UREA NITROGEN 26 MG/DL (9-23); CALCIUM LEVEL 8.5 MG/DL (8.3-10.6); CARBON DIOXIDE LEVEL 29 MMOL/L (20-31); CHLORIDE LEVEL 105 MMOL/L (98-107); CREATININE FOR GFR 0.95 MG/DL (0.55-1.30); GLOMERULAR FILTRATION RATE > 60.0 (>39); GLUCOSE, FASTING 105 MG/DL (74-106); POTASSIUM SERUM 4.2 MMOL/L (3.5-5.1); SODIUM LEVEL 140 MMOL/L (136-145); TOTAL PROTEIN 6.2 G/DL (5.7-8.2)
== END ==
LOC: M SFHCADAM 13:50
PROVIDERS: ATTEND Internal Medicine
DX: M06.9 Rheumatoid arthritis, unspecified (principal)

== ENCOUNTER → 2023-09-28 | Outpatient (CLI) | payer OTHER ==
[~2023-09-28] MED LIST changes: +GASTROGRAFIN SOLUTION 30ML As Ordered ONE; +ISOVUE-370 76% 100ML VIAL As Ordered ONE
== END ==
LOC: M RAD 08:24
PROVIDERS: ATTEND Physician Assistant
DX: K57.30 Diverticulosis of large intestine without perforation or abscess without bleeding (principal); N20.0 Calculus of kidney
CPT/HCPCS: 74178; Q9963; Q9967

== ENCOUNTER → 2023-11-22 | Outpatient (REF) | payer OTHER ==
[~2023-11-22] MED LIST changes: -GASTROGRAFIN SOLUTION 30ML As Ordered ONE; -ISOVUE-370 76% 100ML VIAL As Ordered ONE
[2023-11-22 14:03] LABS: BASO % 0.4 % (0.0-1.0); EOS # 0.1 10^3/uL (0.0-0.5); HEMATOCRIT 37.3 % (36.0-47.0); HEMOGLOBIN 12.2 g/dl (12.0-15.5); LYMPH # 1.4 10^3/uL (1.5-5.0); LYMPH % 19.1 % (24.0-44.0); MEAN CORPUSCULAR HEMOGLOBIN 31.3 pg (27.0-33.0); MEAN CORPUSCULAR HGB CONC 32.7 g/dl (32.0-36.5); MEAN CORPUSCULAR VOLUME 95.6 fl (80.0-96.0); MONO # 0.4 10^3/uL (0.0-0.8); MONO % 6.1 % (2.0-8.0); NEUTROPHILS # 5.2 10^3/uL (1.5-8.5); NEUTROPHILS % 72.1 % (36.0-66.0); PLATELET COUNT, AUTOMATED 163 10^3/uL (150-450); WHITE BLOOD COUNT 7.2 10^3/uL (4.0-10.0)
[2023-11-22 14:10] LABS: ERYTHROCYTE SEDIMENTATION RATE 31 mm/hr (0-30)
[2023-11-22 14:25] LABS: C REACTIVE PROTEIN QUANTITATIV < 0.40 MG/DL (<1.0)
[2023-11-22 14:26] LABS: ALBUMIN 2.7 G/DL (3.2-5.2); ALKALINE PHOSPHATASE 83 U/L (46-116); ALT/SGPT 21 U/L (7.0-40); AST/SGOT 16 U/L (<34); BILIRUBIN,DIRECT < 0.1 MG/DL (<0.4); BILIRUBIN,TOTAL 0.2 MG/DL (0.3-1.2); BLOOD UREA NITROGEN 27 MG/DL (9-23); CALCIUM LEVEL 8.5 MG/DL (8.3-10.6); CARBON DIOXIDE LEVEL 28 MMOL/L (20-31); CHLORIDE LEVEL 109 MMOL/L (98-107); CREATININE FOR GFR 0.88 MG/DL (0.55-1.30); GLOMERULAR FILTRATION RATE > 60.0 (>39); GLUCOSE, FASTING 101 MG/DL (74-106); POTASSIUM SERUM 4.2 MMOL/L (3.5-5.1); SODIUM LEVEL 143 MMOL/L (136-145); TOTAL PROTEIN 6.6 G/DL (5.7-8.2)
== END ==
LOC: M LABDRWAD 13:14 → M SFHCRHEU 13:14
PROVIDERS: ATTEND Internal Medicine
DX: M06.9 Rheumatoid arthritis, unspecified (principal)

== ENCOUNTER → 2024-01-30 | Outpatient (REF) | payer OTHER ==
[2024-01-30 18:57] LABS: BASO % 0.3 % (0.0-1.0); EOS # 0.2 10^3/uL (0.0-0.5); EOS % 2.5 % (0.0-3.0); HEMATOCRIT 35.5 % (36.0-47.0); HEMOGLOBIN 11.3 g/dl (12.0-15.5); LYMPH # 1.7 10^3/uL (1.5-5.0); LYMPH % 24.5 % (24.0-44.0); MEAN CORPUSCULAR HEMOGLOBIN 31.1 pg (27.0-33.0); MEAN CORPUSCULAR HGB CONC 31.8 g/dl (32.0-36.5); MEAN CORPUSCULAR VOLUME 97.8 fl (80.0-96.0); MONO # 0.2 10^3/uL (0.0-0.8); MONO % 2.6 % (2.0-8.0); NEUTROPHILS # 4.8 10^3/uL (1.5-8.5); NEUTROPHILS % 69.8 % (36.0-66.0); PLATELET COUNT, AUTOMATED 187 10^3/uL (150-450); RED BLOOD COUNT 3.63 10^6/uL (4.00-5.40); WHITE BLOOD COUNT 6.8 10^3/uL (4.0-10.0)
[2024-01-30 19:04] LABS: ERYTHROCYTE SEDIMENTATION RATE 28 mm/hr (0-30)
[2024-01-30 19:31] LABS: C REACTIVE PROTEIN QUANTITATIV < 0.40 MG/DL (<1.0)
[2024-01-30 19:32] LABS: ALBUMIN 2.6 G/DL (3.2-5.2); ALKALINE PHOSPHATASE 89 U/L (46-116); ALT/SGPT 67 U/L (7.0-40); AST/SGOT 48 U/L (<34); BILIRUBIN,DIRECT < 0.1 MG/DL (<0.4); BILIRUBIN,TOTAL 0.2 MG/DL (0.3-1.2); BLOOD UREA NITROGEN 22 MG/DL (9-23); CALCIUM LEVEL 8.5 MG/DL (8.3-10.6); CARBON DIOXIDE LEVEL 31 MMOL/L (20-31); CHLORIDE LEVEL 107 MMOL/L (98-107); CREATININE FOR GFR 0.92 MG/DL (0.55-1.30); GLOMERULAR FILTRATION RATE > 60.0 (>39); GLUCOSE, FASTING 118 MG/DL (74-106); POTASSIUM SERUM 3.7 MMOL/L (3.5-5.1); SODIUM LEVEL 142 MMOL/L (136-145); TOTAL PROTEIN 6.5 G/DL (5.7-8.2)
== END ==
LOC: M LABDRWAD 17:35
PROVIDERS: ATTEND Internal Medicine
DX: M06.9 Rheumatoid arthritis, unspecified (principal)

== ENCOUNTER → 2024-03-01 | Outpatient (REF) | payer OTHER ==
[2024-03-01 18:24] LABS: BASO % 0.2 % (0.0-1.0); EOS % 0.2 % (0.0-3.0); HEMATOCRIT 36.5 % (36.0-47.0); HEMOGLOBIN 11.9 g/dl (12.0-15.5); LYMPH # 2.1 10^3/uL (1.5-5.0); LYMPH % 15.4 % (24.0-44.0); MEAN CORPUSCULAR HEMOGLOBIN 31.3 pg (27.0-33.0); MEAN CORPUSCULAR HGB CONC 32.6 g/dl (32.0-36.5); MEAN CORPUSCULAR VOLUME 96.1 fl (80.0-96.0); MONO # 0.8 10^3/uL (0.0-0.8); MONO % 5.9 % (2.0-8.0); NEUTROPHILS # 10.4 10^3/uL (1.5-8.5); NEUTROPHILS % 77.9 % (36.0-66.0); PLATELET COUNT, AUTOMATED 218 10^3/uL (150-450); WHITE BLOOD COUNT 13.3 10^3/uL (4.0-10.0)
[2024-03-01 18:27] LABS: ERYTHROCYTE SEDIMENTATION RATE 42 mm/hr (0-30)
[2024-03-01 18:48] LABS: C REACTIVE PROTEIN QUANTITATIV < 0.40 MG/DL (<1.0)
[2024-03-01 18:50] LABS: ALBUMIN 2.7 G/DL (3.2-5.2); ALKALINE PHOSPHATASE 87 U/L (35-104); ALT/SGPT 20 U/L (7.0-40); AST/SGOT 13 U/L (<34); BILIRUBIN,DIRECT < 0.1 MG/DL (<0.4); BILIRUBIN,TOTAL 0.2 MG/DL (0.3-1.2); BLOOD UREA NITROGEN 27 MG/DL (9-23); CALCIUM LEVEL 9.1 MG/DL (8.3-10.6); CARBON DIOXIDE LEVEL 29 MMOL/L (20-31); CHLORIDE LEVEL 103 MMOL/L (98-107); CREATININE FOR GFR 1.04 MG/DL (0.55-1.30); GLOMERULAR FILTRATION RATE 55.6 (>39); GLUCOSE, FASTING 92 MG/DL (74-106); IRON (FE) 48 UG/DL (50-170); PERCENT SATURATION 14.2 % (13.2-45.0); SODIUM LEVEL 140 MMOL/L (136-145); TOTAL IRON BINDING CAPACITY 337 UG/DL (250-425)
[2024-03-01 18:51] LABS: FERRITIN 47.7 NG/ML (7.3-270.7); FOLATE > 24.00 NG/ML (>5.4)
[2024-03-01 18:52] LABS: VITAMIN B12 LEVEL 989 PG/ML (211-911)
== END ==
LOC: M LABDRWAD 17:18
PROVIDERS: ATTEND Internal Medicine
DX: D64.9 Anemia, unspecified (principal); M06.9 Rheumatoid arthritis, unspecified

== ENCOUNTER → 2024-04-12 | Outpatient (REF) | payer OTHER ==
[2024-04-12 14:25] LABS: BASO % 0.3 % (0.0-1.0); EOS # 0.2 10^3/uL (0.0-0.5); EOS % 1.9 % (0.0-3.0); HEMATOCRIT 37.6 % (36.0-47.0); HEMOGLOBIN 11.9 g/dl (12.0-15.5); LYMPH # 1.5 10^3/uL (1.5-5.0); LYMPH % 15.8 % (24.0-44.0); MEAN CORPUSCULAR HEMOGLOBIN 30.6 pg (27.0-33.0); MEAN CORPUSCULAR HGB CONC 31.6 g/dl (32.0-36.5); MEAN CORPUSCULAR VOLUME 96.7 fl (80.0-96.0); MONO # 0.7 10^3/uL (0.0-0.8); MONO % 7.4 % (2.0-8.0); NEUTROPHILS % 74.3 % (36.0-66.0); PLATELET COUNT, AUTOMATED 235 10^3/uL (150-450); RED BLOOD COUNT 3.89 10^6/uL (4.00-5.40); WHITE BLOOD COUNT 9.4 10^3/uL (4.0-10.0)
[2024-04-12 14:29] LABS: C REACTIVE PROTEIN QUANTITATIV 0.65 MG/DL (<1.0)
[2024-04-12 14:30] LABS: ALBUMIN 2.6 G/DL (3.2-5.2); ALKALINE PHOSPHATASE 82 U/L (35-104); ALT/SGPT 16 U/L (7.0-40); AST/SGOT 16 U/L (<34); BILIRUBIN,DIRECT < 0.1 MG/DL (<0.4); BILIRUBIN,TOTAL 0.2 MG/DL (0.3-1.2); BLOOD UREA NITROGEN 24 MG/DL (9-23); CARBON DIOXIDE LEVEL 30 MMOL/L (20-31); CHLORIDE LEVEL 106 MMOL/L (98-107); CREATININE FOR GFR 0.93 MG/DL (0.55-1.30); GLOMERULAR FILTRATION RATE > 60.0 (>39); GLUCOSE, FASTING 105 MG/DL (74-106); POTASSIUM SERUM 3.9 MMOL/L (3.5-5.1); SODIUM LEVEL 146 MMOL/L (136-145); TOTAL PROTEIN 6.5 G/DL (5.7-8.2)
[2024-04-12 14:34] LABS: ERYTHROCYTE SEDIMENTATION RATE 40 mm/hr (0-30)
== END ==
LOC: M LABDRWAD 12:32
PROVIDERS: ATTEND Internal Medicine
DX: M06.9 Rheumatoid arthritis, unspecified (principal)

== ENCOUNTER → 2024-04-20 | Outpatient (CLI) | payer MEDICARE | LOC: M RAD 15:20 | PROVIDERS: ATTEND Internal Medicine Critical Care Medicine | DX: Z12.2 Encounter for screening for malignant neoplasm of respiratory organs (principal); R91.1 Solitary pulmonary nodule; Z87.891 Personal history of nicotine dependence ==

== ENCOUNTER → 2024-05-14 | Outpatient (REF) | payer MEDICARE ==
[2024-05-14 16:46] LABS: BASO % 0.3 % (0.0-1.0); EOS # 0.1 10^3/uL (0.0-0.5); EOS % 1.3 % (0.0-3.0); HEMATOCRIT 36.7 % (36.0-47.0); HEMOGLOBIN 11.8 g/dl (12.0-15.5); LYMPH # 1.7 10^3/uL (1.5-5.0); LYMPH % 23.5 % (24.0-44.0); MEAN CORPUSCULAR HEMOGLOBIN 30.5 pg (27.0-33.0); MEAN CORPUSCULAR HGB CONC 32.2 g/dl (32.0-36.5); MEAN CORPUSCULAR VOLUME 94.8 fl (80.0-96.0); MONO # 0.3 10^3/uL (0.0-0.8); MONO % 3.9 % (2.0-8.0); NEUTROPHILS # 5.1 10^3/uL (1.5-8.5); NEUTROPHILS % 70.7 % (36.0-66.0); PLATELET COUNT, AUTOMATED 203 10^3/uL (150-450); RED BLOOD COUNT 3.87 10^6/uL (4.00-5.40); WHITE BLOOD COUNT 7.2 10^3/uL (4.0-10.0)
[2024-05-14 16:52] LABS: ERYTHROCYTE SEDIMENTATION RATE 39 mm/hr (0-30)
[2024-05-14 17:12] LABS: C REACTIVE PROTEIN QUANTITATIV < 0.50 MG/DL (<1.0)
[2024-05-14 17:13] LABS: ALBUMIN 2.7 G/DL (3.2-5.2); ALKALINE PHOSPHATASE 86 U/L (35-104); ALT/SGPT 21 U/L (7.0-40); AST/SGOT 19 U/L (<34); BILIRUBIN,DIRECT < 0.1 MG/DL (<0.4); BILIRUBIN,TOTAL 0.2 MG/DL (0.3-1.2); BLOOD UREA NITROGEN 27 MG/DL (9-23); CALCIUM LEVEL 8.6 MG/DL (8.3-10.6); CARBON DIOXIDE LEVEL 30 MMOL/L (20-31); CHLORIDE LEVEL 108 MMOL/L (98-107); CREATININE FOR GFR 1.19 MG/DL (0.55-1.30); GLOMERULAR FILTRATION RATE 47.6 (>39); GLUCOSE, FASTING 99 MG/DL (74-106); POTASSIUM SERUM 4.2 MMOL/L (3.5-5.1); SODIUM LEVEL 145 MMOL/L (136-145); TOTAL PROTEIN 6.6 G/DL (5.7-8.2)
== END ==
LOC: M SFHCRHEU 14:40
PROVIDERS: ATTEND Internal Medicine
DX: M06.9 Rheumatoid arthritis, unspecified (principal)

== ENCOUNTER → 2024-06-27 | Outpatient (REF) | payer OTHER, MEDICARE ==
[2024-06-27 14:01] LABS: BASO % 0.5 % (0.0-1.0); EOS # 0.1 10^3/uL (0.0-0.5); EOS % 1.6 % (0.0-3.0); HEMATOCRIT 36.7 % (36.0-47.0); HEMOGLOBIN 11.9 g/dl (12.0-15.5); LYMPH # 2.3 10^3/uL (1.5-5.0); LYMPH % 28.8 % (24.0-44.0); MEAN CORPUSCULAR HEMOGLOBIN 31.2 pg (27.0-33.0); MEAN CORPUSCULAR HGB CONC 32.4 g/dl (32.0-36.5); MEAN CORPUSCULAR VOLUME 96.1 fl (80.0-96.0); MONO # 0.6 10^3/uL (0.0-0.8); MONO % 7.5 % (2.0-8.0); NEUTROPHILS # 4.9 10^3/uL (1.5-8.5); NEUTROPHILS % 61.1 % (36.0-66.0); PLATELET COUNT, AUTOMATED 228 10^3/uL (150-450); RED BLOOD COUNT 3.82 10^6/uL (4.00-5.40); WHITE BLOOD COUNT 8.1 10^3/uL (4.0-10.0)
[2024-06-27 14:03] LABS: C REACTIVE PROTEIN QUANTITATIV < 0.50 MG/DL (<1.0)
[2024-06-27 14:05] LABS: ALBUMIN 2.7 G/DL (3.2-5.2); ALKALINE PHOSPHATASE 81 U/L (35-104); ALT/SGPT 21 U/L (7.0-40); AST/SGOT 20 U/L (<34); BILIRUBIN,DIRECT < 0.1 MG/DL (<0.4); BILIRUBIN,TOTAL 0.2 MG/DL (0.3-1.2); BLOOD UREA NITROGEN 17 MG/DL (9-23); CALCIUM LEVEL 8.3 MG/DL (8.3-10.6); CARBON DIOXIDE LEVEL 32 MMOL/L (20-31); CHLORIDE LEVEL 103 MMOL/L (98-107); CREATININE FOR GFR 0.89 MG/DL (0.55-1.30); GLOMERULAR FILTRATION RATE > 60.0 (>39); GLUCOSE, FASTING 91 MG/DL (74-106); POTASSIUM SERUM 4.5 MMOL/L (3.5-5.1); SODIUM LEVEL 142 MMOL/L (136-145); TOTAL PROTEIN 6.5 G/DL (5.7-8.2)
[2024-06-27 14:06] LABS: ERYTHROCYTE SEDIMENTATION RATE 33 mm/hr (0-30)
== END ==
LOC: M LABDRWAD 12:55
PROVIDERS: ATTEND Internal Medicine
DX: M06.9 Rheumatoid arthritis, unspecified (principal)

== ENCOUNTER → 2024-07-06 | Outpatient (REF) | payer MEDICARE ==
[2024-07-06 19:20] LABS: C REACTIVE PROTEIN QUANTITATIV < 0.50 MG/DL (<1.0)
[2024-07-06 19:22] LABS: BASO % 0.4 % (0.0-1.0); EOS # 0.1 10^3/uL (0.0-0.5); EOS % 1.3 % (0.0-3.0); HEMATOCRIT 36.5 % (36.0-47.0); HEMOGLOBIN 12.1 g/dl (12.0-15.5); LYMPH # 2.1 10^3/uL (1.5-5.0); LYMPH % 26.8 % (24.0-44.0); MEAN CORPUSCULAR HEMOGLOBIN 31.8 pg (27.0-33.0); MEAN CORPUSCULAR HGB CONC 33.2 g/dl (32.0-36.5); MEAN CORPUSCULAR VOLUME 96.1 fl (80.0-96.0); MONO # 0.7 10^3/uL (0.0-0.8); MONO % 9.5 % (2.0-8.0); NEUTROPHILS # 4.8 10^3/uL (1.5-8.5); NEUTROPHILS % 61.4 % (36.0-66.0); PLATELET COUNT, AUTOMATED 226 10^3/uL (150-450); WHITE BLOOD COUNT 7.8 10^3/uL (4.0-10.0)
[2024-07-06 19:28] LABS: ERYTHROCYTE SEDIMENTATION RATE 26 mm/hr (0-30)
[2024-07-06 19:46] LABS: IMMUNOGLOBULIN E 3.1 IU/ML (0-378)
[2024-07-10 15:47] LABS: BERMUDA GRASS IGE < 0.10 kU/L (<0.10); E001-IGE CAT DANDER < 0.10 kU/L (<0.10); E005-IGE DOG DANDER < 0.10 kU/L (<0.10); I006 IGE COCKROACH < 0.10 kU/L (<0.10); IMMUNOGLOBULIN E FOR ALLERGENS 5 kU/L (<OR=114); MOUSE URINE IGE < 0.10 kU/L (<0.10); TIMOTHY GRASS IGE < 0.10 kU/L (<0.10)
[2024-07-10 15:56] LABS: BIRCH IGE < 0.10 kU/L (<0.10); COMMON RAGWEED SHORT IGE < 0.10 kU/L (<0.10); D001 IGE D PTERONYSSINUS < 0.10 kU/L (<0.10); D002-IGE D FARINAE < 0.10 kU/L (<0.10); ELM IGE < 0.10 kU/L (<0.10); M002 IGE CLADOSPORIUM HERBARU < 0.10 kU/L (<0.10); M003 IGE ASPERGILLUS FUMIGATU < 0.10 kU/L (<0.10); M006 IGE ALTERNIA ALTERNATA < 0.10 kU/L (<0.10); M1-PENICILLIUM NOTATUM < 0.10 kU/L (<0.10); MUGWORT IGE < 0.10 kU/L (<0.10); OAK IGE < 0.10 kU/L (<0.10); ROUGH PIGWEED IGE < 0.10 kU/L (<0.10); SHEEP SORREL IGE < 0.10 kU/L (<0.10); SYCAMORE IGE < 0.10 kU/L (<0.10); T001-IGE MAPLE BOX ELDER < 0.10 kU/L (<0.10); T006-IGE MOUNTAIN CEDAR < 0.10 kU/L (<0.10); T014 COTTONWOOD IGE < 0.10 kU/L (<0.10); WALNUT TREE IGE < 0.10 kU/L (<0.10); WHITE ASH IGE < 0.10 kU/L (<0.10); WHITE MULBERRY IGE < 0.10 kU/L (<0.10)
== END ==
LOC: M LABDRWAD 16:45
PROVIDERS: ATTEND Internal Medicine Critical Care Medicine
DX: R05.3 Chronic cough (principal); J45.40 Moderate persistent asthma, uncomplicated

== ENCOUNTER → 2024-08-06 | Outpatient (CLI) | payer MEDICARE, OTHER ==
[2024-08-06 13:58] LABS: BASO % 0.5 % (0.0-1.0); EOS # 0.1 10^3/uL (0.0-0.5); EOS % 1.5 % (0.0-3.0); HEMATOCRIT 36.4 % (36.0-47.0); LYMPH # 1.5 10^3/uL (1.5-5.0); LYMPH % 19.2 % (24.0-44.0); MEAN CORPUSCULAR HEMOGLOBIN 31.8 pg (27.0-33.0); MEAN CORPUSCULAR VOLUME 96.6 fl (80.0-96.0); MONO # 0.6 10^3/uL (0.0-0.8); MONO % 8.5 % (2.0-8.0); NEUTROPHILS # 5.3 10^3/uL (1.5-8.5); NEUTROPHILS % 69.9 % (36.0-66.0); PLATELET COUNT, AUTOMATED 243 10^3/uL (150-450); RED BLOOD COUNT 3.77 10^6/uL (4.00-5.40); WHITE BLOOD COUNT 7.6 10^3/uL (4.0-10.0)
[2024-08-06 14:13] LABS: ERYTHROCYTE SEDIMENTATION RATE 29 mm/hr (0-30)
[2024-08-06 14:22] LABS: C REACTIVE PROTEIN QUANTITATIV < 0.50 MG/DL (<1.0)
[2024-08-06 14:23] LABS: ALBUMIN 2.7 G/DL (3.2-5.2); ALKALINE PHOSPHATASE 84 U/L (35-104); ALT/SGPT 19 U/L (7.0-40); AST/SGOT 16 U/L (<34); BILIRUBIN,DIRECT < 0.1 MG/DL (<0.4); BILIRUBIN,TOTAL < 0.2 MG/DL (0.3-1.2); BLOOD UREA NITROGEN 28 MG/DL (9-23); CALCIUM LEVEL 8.4 MG/DL (8.3-10.6); CARBON DIOXIDE LEVEL 29 MMOL/L (20-31); CHLORIDE LEVEL 102 MMOL/L (98-107); CREATININE FOR GFR 1.09 MG/DL (0.55-1.30); GLUCOSE, FASTING 86 MG/DL (74-106); POTASSIUM SERUM 3.9 MMOL/L (3.5-5.1); SODIUM LEVEL 140 MMOL/L (136-145); TOTAL PROTEIN 6.3 G/DL (5.7-8.2)
== END ==
LOC: M ADAMS 10:56
PROVIDERS: ATTEND Internal Medicine
DX: M06.9 Rheumatoid arthritis, unspecified (principal)

== ENCOUNTER → 2024-10-31 | Outpatient (REF) | payer MEDICARE ==
[2024-10-31 13:49] LABS: BASO # 0.0 10^3/uL (0.0-0.2); BASO % 0.4 % (0.0-1.0); EOS # 0.1 10^3/uL (0.0-0.5); EOS % 1.9 % (0.0-3.0); LYMPH # 1.6 10^3/uL (1.5-5.0); LYMPH % 23.6 % (24.0-44.0); MONO # 0.5 10^3/uL (0.0-0.8); MONO % 7.1 % (2.0-8.0); NEUTROPHILS # 4.5 10^3/uL (1.5-8.5); NEUTROPHILS % 66.7 % (36.0-66.0); PLATELET COUNT, AUTOMATED 203 10^3/uL (150-450)
[2024-10-31 14:26] LABS: C REACTIVE PROTEIN QUANTITATIV < 0.50 MG/DL (<1.0)
[2024-10-31 14:27] LABS: ALT/SGPT 21 U/L (7.0-40); AST/SGOT 21 U/L (<34); CALCIUM LEVEL 8.6 MG/DL (8.3-10.6); CARBON DIOXIDE LEVEL 30 MMOL/L (20-31); CHLORIDE LEVEL 105 MMOL/L (98-107); CREATININE FOR GFR 0.96 MG/DL (0.55-1.30); GLOMERULAR FILTRATION RATE 62.9 (>39); POTASSIUM SERUM 4.4 MMOL/L (3.5-5.1); SODIUM LEVEL 144 MMOL/L (136-145)
[2024-10-31 14:50] LABS: ERYTHROCYTE SEDIMENTATION RATE 32 mm/hr (0-30)
== END ==
LOC: M SFHCADAM 10:02
PROVIDERS: ATTEND Internal Medicine
DX: M06.9 Rheumatoid arthritis, unspecified (principal)

== ENCOUNTER → 2024-11-02 | Outpatient (CLI) | payer MEDICARE | LOC: M PLAIMG 12:38 | PROVIDERS: ATTEND Internal Medicine | DX: M18.11 Unilateral primary osteoarthritis of first carpometacarpal joint, right hand (principal); M06.9 Rheumatoid arthritis, unspecified; M19.031 Primary osteoarthritis, right wrist ==

== ENCOUNTER → 2024-11-08 | Outpatient (CLI) | payer MEDICARE | LOC: M WHC 13:32 | PROVIDERS: ATTEND Family Medicine | DX: R92.313 Mammographic fatty tissue density, bilateral breasts (principal); Z13.820 Encounter for screening for osteoporosis; Z12.31 Encounter for screening mammogram for malignant neoplasm of breast; Z78.0 Asymptomatic menopausal state ==

== ENCOUNTER → 2024-11-26 | Outpatient (REF) | payer MEDICARE, OTHER ==
[2024-11-26 15:01] LABS: ALT/SGPT 17.0 U/L (7.0-40); AST/SGOT 23.0 U/L (<34); CALCIUM LEVEL 8.5 MG/DL (8.3-10.6); CARBON DIOXIDE LEVEL 29.0 MMOL/L (20-31); CHLORIDE LEVEL 106.0 MMOL/L (98-107); CHOLESTEROL LEVEL 201.0 MG/DL (<200); CHOLESTEROL RISK RATIO 5.49 (<5); CREATININE FOR GFR 0.93 MG/DL (0.55-1.30); GLOMERULAR FILTRATION RATE 65.3 (>39); LDL CHOLESTEROL 129.0 MG/DL (<100); NON-HDL-C 164.4 MG/DL; POTASSIUM SERUM 4.2 MMOL/L (3.5-5.1); SODIUM LEVEL 144.0 MMOL/L (136-145); TRIGLYCERIDES LEVEL 177.0 MG/DL (<150)
== END ==
LOC: M LABDRWAD 13:06
PROVIDERS: ATTEND Physician Assistant
DX: I50.32 Chronic diastolic (congestive) heart failure (principal); E78.2 Mixed hyperlipidemia; M06.9 Rheumatoid arthritis, unspecified

== ENCOUNTER → 2024-11-26 | Outpatient (REF) | payer MEDICARE, OTHER ==
[2024-11-26 14:30] LABS: BASO # 0.0 10^3/uL (0.0-0.2); BASO % 0.6 % (0.0-1.0); EOS # 0.1 10^3/uL (0.0-0.5); EOS % 1.5 % (0.0-3.0); LYMPH # 1.8 10^3/uL (1.5-5.0); LYMPH % 24.6 % (24.0-44.0); MONO # 0.4 10^3/uL (0.0-0.8); MONO % 5.1 % (2.0-8.0); NEUTROPHILS # 4.8 10^3/uL (1.5-8.5); NEUTROPHILS % 67.9 % (36.0-66.0); PLATELET COUNT, AUTOMATED 264 10^3/uL (150-450)
[2024-11-26 14:38] LABS: ERYTHROCYTE SEDIMENTATION RATE 39 mm/hr (0-30)
[2024-11-26 14:57] LABS: C REACTIVE PROTEIN QUANTITATIV < 0.50 MG/DL (<1.0)
[2024-11-26 14:58] LABS: ALT/SGPT 17 U/L (7.0-40); AST/SGOT 23 U/L (<34); CALCIUM LEVEL 8.6 MG/DL (8.3-10.6); CARBON DIOXIDE LEVEL 30 MMOL/L (20-31); CHLORIDE LEVEL 105 MMOL/L (98-107); CREATININE FOR GFR 0.92 MG/DL (0.55-1.30); GLOMERULAR FILTRATION RATE 66.2 (>39); POTASSIUM SERUM 4.2 MMOL/L (3.5-5.1); SODIUM LEVEL 144 MMOL/L (136-145)
== END ==
LOC: M LABDRWAD 13:07
PROVIDERS: ATTEND Internal Medicine
DX: M06.9 Rheumatoid arthritis, unspecified (principal)

== ENCOUNTER → 2024-12-07 | Outpatient (CLI) | payer MEDICARE | LOC: M EKG 11:29 | PROVIDERS: ATTEND Physician Assistant | DX: R42 Dizziness and giddiness (principal) ==

== ENCOUNTER → 2025-01-31 | Outpatient (REF) | payer MEDICARE ==
[2025-01-31 17:29] LABS: BASO # 0.0 10^3/uL (0.0-0.2); BASO % 0.3 % (0.0-1.0); EOS # 0.1 10^3/uL (0.0-0.5); EOS % 1.2 % (0.0-3.0); LYMPH # 1.9 10^3/uL (1.5-5.0); LYMPH % 27.6 % (24.0-44.0); MONO # 0.8 10^3/uL (0.0-0.8); MONO % 12.1 % (2.0-8.0); NEUTROPHILS # 4.0 10^3/uL (1.5-8.5); NEUTROPHILS % 58.5 % (36.0-66.0); PLATELET COUNT, AUTOMATED 229 10^3/uL (150-450)
[2025-01-31 17:33] LABS: ALT/SGPT 25 U/L (7.0-40); AST/SGOT 21 U/L (<34); C REACTIVE PROTEIN QUANTITATIV 1.08 MG/DL (<1.0); CALCIUM LEVEL 8.6 MG/DL (8.3-10.6); CARBON DIOXIDE LEVEL 30 MMOL/L (20-31); CHLORIDE LEVEL 106 MMOL/L (98-107); CREATININE FOR GFR 0.99 MG/DL (0.55-1.30); GLOMERULAR FILTRATION RATE 60.6 (>39); POTASSIUM SERUM 3.9 MMOL/L (3.5-5.1); SODIUM LEVEL 144 MMOL/L (136-145)
[2025-02-02 06:23] LABS: ERYTHROCYTE SEDIMENTATION RATE 39 mm/hr (0-20)
== END ==
LOC: M SFHCADAM 13:48
PROVIDERS: ATTEND Internal Medicine
DX: M06.9 Rheumatoid arthritis, unspecified (principal)

== ENCOUNTER → 2025-02-05 | Outpatient (CLI) | payer MEDICARE | LOC: M CARPUL 14:16 | PROVIDERS: ATTEND Physician Assistant | DX: R42 Dizziness and giddiness (principal); I08.3 Combined rheumatic disorders of mitral, aortic and tricuspid valves ==

== ENCOUNTER → 2025-02-21 | Outpatient (CLI) | payer MEDICARE | LOC: M SOG 14:02 | PROVIDERS: ATTEND Orthopaedic Surgery Hand Surgery | DX: M18.11 Unilateral primary osteoarthritis of first carpometacarpal joint, right hand (principal); Z53.9 Procedure and treatment not carried out, unspecified reason ==

== ENCOUNTER → 2025-03-04 | Outpatient (REF) | payer MEDICARE ==
[2025-03-04 15:30] LABS: BASO # 0.0 10^3/uL (0.0-0.2); BASO % 0.3 % (0.0-1.0); EOS # 0.1 10^3/uL (0.0-0.5); EOS % 1.2 % (0.0-3.0); LYMPH # 1.9 10^3/uL (1.5-5.0); LYMPH % 19.3 % (24.0-44.0); MONO # 0.6 10^3/uL (0.0-0.8); MONO % 6.0 % (2.0-8.0); NEUTROPHILS # 7.4 10^3/uL (1.5-8.5); NEUTROPHILS % 72.9 % (36.0-66.0); PLATELET COUNT, AUTOMATED 254 10^3/uL (150-450)
[2025-03-04 15:31] LABS: C REACTIVE PROTEIN QUANTITATIV < 0.50 MG/DL (<1.0)
[2025-03-04 15:59] LABS: ALT/SGPT 25 U/L (7.0-40); AST/SGOT 26 U/L (<34); CALCIUM LEVEL 8.3 MG/DL (8.3-10.6); CARBON DIOXIDE LEVEL 30 MMOL/L (20-31); CHLORIDE LEVEL 106 MMOL/L (98-107); CREATININE FOR GFR 0.88 MG/DL (0.55-1.30); GLOMERULAR FILTRATION RATE 69.8 (>39); POTASSIUM SERUM 4.2 MMOL/L (3.5-5.1); SODIUM LEVEL 145 MMOL/L (136-145)
== END ==
LOC: M SFHCADAM 09:51
PROVIDERS: ATTEND Internal Medicine
DX: M06.9 Rheumatoid arthritis, unspecified (principal)

== ENCOUNTER → 2025-03-25 | Outpatient (REF) | payer MEDICARE ==
[2025-03-25 17:04] LABS: BASO # 0.0 10^3/uL (0.0-0.2); BASO % 0.3 % (0.0-1.0); EOS # 0.1 10^3/uL (0.0-0.5); EOS % 1.3 % (0.0-3.0); LYMPH # 2.2 10^3/uL (1.5-5.0); LYMPH % 28.4 % (24.0-44.0); MONO # 0.8 10^3/uL (0.0-0.8); MONO % 9.6 % (2.0-8.0); NEUTROPHILS # 4.6 10^3/uL (1.5-8.5); NEUTROPHILS % 58.9 % (36.0-66.0); PLATELET COUNT, AUTOMATED 265 10^3/uL (150-450)
[2025-03-25 17:09] LABS: C REACTIVE PROTEIN QUANTITATIV < 0.50 MG/DL (<1.0)
[2025-03-25 17:10] LABS: ALT/SGPT 22 U/L (7.0-40); AST/SGOT 23 U/L (<34); CALCIUM LEVEL 8.7 MG/DL (8.3-10.6); CARBON DIOXIDE LEVEL 29 MMOL/L (20-31); CHLORIDE LEVEL 107 MMOL/L (98-107); CREATININE FOR GFR 0.99 MG/DL (0.55-1.30); GLOMERULAR FILTRATION RATE 60.6 (>39); POTASSIUM SERUM 4.1 MMOL/L (3.5-5.1); SODIUM LEVEL 144 MMOL/L (136-145)
== END ==
LOC: M SFHCADAM 13:55
PROVIDERS: ATTEND Internal Medicine
DX: M06.9 Rheumatoid arthritis, unspecified (principal)

== ENCOUNTER → 2025-04-02 | Outpatient (CLI) | payer MEDICARE | LOC: M RAD 15:14 | PROVIDERS: ATTEND Orthopaedic Surgery Hand Surgery | DX: M19.031 Primary osteoarthritis, right wrist (principal); M65.841 Other synovitis and tenosynovitis, right hand; M25.531 Pain in right wrist ==